=== PATIENT | male | born 1950 | race Caucasian/White ===

== ENCOUNTER 2018-04-28 17:46 | Inpatient (IN) | payer MEDICARE, OTHER ==
[~2018-04-28] VITALS: Ht 177.8 cm; Wt 76.8 kg
--- NOTE | 2018-04-28 18:07 | EKG ---
[address] [address] Test Date: 2018-04-28 Test Time: 17:58:24 Pat Name: CHAZ NOLAND Department: Room: Gender: M Ammonium Nitrate Neutralizer: : 1950 Requested By: CRYSTAL KAN Order Number: [id number] Reading MD: Martin Woody MD Measurements Intervals [place] Rate: 55 P: 42 NV: 206 QRS: 40 QRSD: 100 T: 63 QT: 436 QTc: 419 Interpretive Statements SINUS RHYTHM Electronically Signed On 04-29-2018 12:32:47 CDT by Martin Woody MD
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
[2018-04-28 18:44] LABS: BASO % 1 % (0-3); EOS % 1 % (0-3); HEMATOCRIT 35.7 % (39.0-53.0); LYMPH # 1.7 x10^3/uL (1.0-4.8); LYMPH % 34 % (24-48); MEAN CORPUSCULAR HEMOGLOBIN 32 pg (25-35); MEAN CORPUSCULAR HGB CONC 34 g/dL (31-37); MEAN CORPUSCULAR VOLUME 94 fL (79-100); MONO # 0.6 x10^3/uL (0.0-1.1); MONO % 12 % (0-9); NEUT # 2.6 x10^3uL (1.8-7.7); NEUT % 52 % (31-73); PLATELET COUNT 188 x10^3/uL (140-400); RED BLOOD COUNT 3.79 x10^6/uL (4.30-5.70); RED CELL DISTRIBUTION WIDTH 16.1 % (11.5-14.5)
[2018-04-28 18:49] LABS: ACETAMIN < 2 mcg/mL (10-30); SALIC 0.7 mg/dL (2.8-20.0)
[2018-04-28 18:50] LABS: ALBUMIN 2.9 g/dL (3.4-5.0); ALBUMIN/GLOBULIN RATIO 0.8 (1.0-1.7); CALCIUM 8.8 mg/dL (8.5-10.1); CREATININE 1.2 mg/dL (0.7-1.3); ETHANOL < 10 mg/dL (0-10); GFR 60.2; POTASSIUM 3.8 mmol/L (3.5-5.1); TOTAL BILIRUBIN 0.3 mg/dL (0.2-1.0); TOTAL PROTEIN 6.7 g/dL (6.4-8.2)
[2018-04-28 19:15] LABS: BARBITURATES NEG (NEG); BENZODIAZEPINES NEG (NEG); CANNABINOIDS NEG (NEG); COCAINE NEG (NEG); METHADONE NEG (NEG); OPIATES POS (NEG); PHENCYCLIDINE NEG (NEG)
[2018-04-28] MEDS ORDERED: LORazepam 2 MG/ML VIAL IM ONE (19:15)
[2018-04-28 19:28] LABS: AMPHETAMINE/METHAMPHETAMINE NEG (NEG)
[2018-04-28 19:33] LABS: BACTERIA,URINE 0 /HPF (0-FEW); BILIRUBIN,URINE NEG (NEG); CLARITY,URINE CLEAR; COLOR,URINE YELLOW; GLUCOSE,URINE NEG (NEG); NITRITE,URINE NEG (NEG); RBC,URINE 0 /HPF (0-2); SQUAMOUS EPITHELIAL CELL,UR OCC /LPF; UROBILINOGEN,URINE 0.2 mg/dL (0.2 mg/dL); WBC,URINE 0 /HPF (0-4)
--- NOTE | 2018-04-28 19:51 | RAD ---
PQRS Compliance statement: One or more of the following individualized dose reduction techniques were utilized for this examination: 1. Automated exposure control. 2. Adjustment of the mA and/or kV according to patient size. 3. Use of iterative reconstruction technique. Indication:psych eval for senior behavioral admission, mental status changes TECHNIQUE: CT head without IV contrast COMPARISON:None FINDINGS: No pathologic extra-axial or intra-axial fluid collection. The ventricles and basal cisterns are within normal limits. No acute intracranial bleed. No focal loss of huffman-white differentiation. 4 mm focus of low attenuation in the left thalamus. Orbits within normal limits. No suspicious calvarial lesion. Visualized paranasal sinuses and mastoid air cells are clear. IMPRESSION: 1. No acute intracranial process. If concern for acute ischemic stroke is high, please consider MRI brain. 2. Sub-5 mm focus in the left thalamus likely lacunar infarct, age indeterminate. Electronically signed by: Alexis Tamayo DO (04/28/2018 7:48 PM) [facility]
--- NOTE | 2018-04-28 20:00 | RAD ---
PQRS Compliance statement: One or more of the following individualized dose reduction techniques were utilized for this examination: 1. Automated exposure control. 2. Adjustment of the mA and/or kV according to patient size. 3. Use of iterative reconstruction technique. Indication:thrashing around like in pain, some motion on film but noticed dilated bowel loops on Pelvis xray TECHNIQUE: CT abdomen and pelvis without IV contrast with multiplanar reformats. COMPARISON: None FINDINGS: Limited evaluation of solid abdominal and pelvic organs due to lack of IV contrast. Heart is moderately enlarged in size. No pericardial or pleural effusion. Motion artifact is seen throughout the abdomen limiting optimal evaluation. Lingular and left lower lobe subsegmental atelectasis. Noncontrast appearance of the Liver, spleen, pancreas, adrenals is within normal limits. No nephrolithiasis or hydronephrosis. No enlarged retroperitoneal or pelvic adenopathy. No free pelvic fluid or ascites. Redundant sigmoid colon. Diffusely distended air-filled colon is seen with large amount of stool in the proximal colon. Normal appendix. No pneumatosis intestinalis or pneumoperitoneum. Small bowel loops are nondilated. Urinary bladder within normal limits. The prostate and seminal vesicles show no large mass. Small sliding hiatal hernia. Bilateral L5 pars defect with grade 1 anterolisthesis of L5 over S1. No suspicious bony lesion. IMPRESSION: Limited evaluation of solid abdominal and pelvic organs due to lack of IV contrast. Significant motion artifact is seen limiting optimal evaluation. 1. Diffusely distended gas-filled colon with large amount of stool in the proximal colon suggests colonic ileus. No evidence of small bowel obstruction. Electronically signed by: Alexis Tamayo DO (04/28/2018 7:58 PM) [facility]
--- NOTE | 2018-04-28 20:56 | RAD ---
Indication: Left hip pain TECHNIQUE: 3 views of the left hand COMPARISON: None FINDINGS: No acute fracture or dislocation. Hip joints are symmetric bilaterally with mild joint space narrowing and somatically sclerosis in the acetabulum suggesting mild bilateral hip joint arthritis. IMPRESSION: No acute findings. Electronically signed by: Alexis Tamayo DO (04/28/2018 8:53 PM) [facility]
[2018-04-28] MEDS ORDERED: TOPI100T42 PO (22:08)
[2018-04-28] MEDS ORDERED: DIPH25CA58 PO (22:08)
[2018-04-28] MEDS ORDERED: METO25TA4 PO (22:08)
[2018-04-28] MEDS ORDERED: IPRA0.2S5 IH (22:08)
[2018-04-28] MEDS ORDERED: LACT10SO PO (22:08)
[2018-04-28] MEDS ORDERED: DOXA2TAB PO (22:08)
[2018-04-28] MEDS ORDERED: AMAN100T PO (22:08)
[2018-04-28] MEDS ORDERED: HYDR-2758 PO (22:08)
[2018-04-28] MEDS ORDERED: LORA0.5T PO (22:08)
[2018-04-28] MEDS ORDERED: SODI650T PO (22:08)
[2018-04-28] MEDS ORDERED: TAMS0.4C97 PO (22:08)
[2018-04-28] MEDS ORDERED: PANT40TA3 PO (22:08)
[2018-04-28] MEDS ORDERED: IPRA3AMP29 NEB ×2 (22:08)
[2018-04-28] MEDS ORDERED: DOCU50LI PO (22:08)
[2018-04-28] MEDS ORDERED: CAST120O TP (22:08)
[2018-04-28] MEDS ORDERED: BENZ2TAB5 PO (22:08)
[2018-04-28] MEDS ORDERED: ACET325T9 PO (22:08)
[2018-04-28] MEDS ORDERED: FAMO20TA5 PO (22:08)
[2018-04-28] MEDS ORDERED: NYST15CR TP (22:08)
[2018-04-28] MEDS ORDERED: ACETAMINOPHEN 325 MG TABLET PO PRN ×2 (23:15→23:45)
[2018-04-28] MEDS ORDERED: METHYL SALICYLATE/MENTHOL TOPICAL OINTMENT 29GM TUBE. TP PRN (23:15)
[2018-04-28] MEDS ORDERED: MAG HYDROX/AL HYDROX/SIMETH 30 ML ORAL.SUSP PO PRN (23:15)
[2018-04-28] MEDS ORDERED: NYSTATIN 100,000 UNIT/GM TOPICAL CREAM 15GM TUBE. TP PRN (23:45)
[2018-04-28] MEDS ORDERED: LACTULOSE 20 GM/30 ML SOLUTION. PO PRN (23:45)
[2018-04-28] MEDS ORDERED: SODIUM BICARBONATE 650 MG TABLET PO PRN (23:45)
[2018-04-29] MEDS: LORazepam 0.5 MG TABLET PO PRN ×2 (00:02→18:45)
[2018-04-29] MEDS: IPRATROPIUM BROMIDE 0.5 MG/2.5 ML NEBU. IH SCH ×5 (00:30→21:04)
[2018-04-29 01:16] VITALS: BP 138/76
[2018-04-29 06:01] VITALS: BP 131/80
[2018-04-29] MEDS: NICOTINE 7MG PATCH. TD SCH (09:53)
[2018-04-29] MEDS: TOPIRAMATE 100 MG TABLET. PO SCH (09:53)
[2018-04-29] MEDS: FAMOTIDINE 20 MG TABLET PO SCH ×2 (09:53→20:27)
[2018-04-29] MEDS: DOCUSATE 100 MG/10 ML SOLUTION. PO SCH ×2 (09:53→20:27)
[2018-04-29] MEDS: PANTOPRAZOLE 40 MG TABLET. PO SCH (09:53)
[2018-04-29] MEDS: TAMSULOSIN 0.4 MG CAP.ER.24H. PO SCH (09:54)
[2018-04-29] MEDS: METOPROLOL TART IMMED RELEASE 25 MG TABLET PO SCH ×2 (09:54→20:28)
[2018-04-29] MEDS: diphenhydrAMINE HCL 25 MG CAPSULE PO SCH ×3 (09:54→20:27)
[2018-04-29] MEDS: BENZTROPINE MESYLATE 1 MG TABLET PO SCH ×2 (09:55→20:27)
[2018-04-29] MEDS: AMANTADINE HCL 100 MG CAPSULE PO SCH ×2 (10:03→20:30)
[2018-04-29 16:25] VITALS: BP 126/89
[2018-04-29 19:13] LABS: THYROXINE 8.3 ug/dL (4.5-12.0)
[2018-04-29] MEDS: DOXAZOSIN MESYLATE 1 MG TABLET PO SCH (20:30)
--- NOTE | 2018-04-29 21:08 | PDOC ---
Exam Note: Elijah Note: Please also refer to the separate dictated note~for this date of service dictated separately.~Patient seen individually. Discussed the patient with Nursing staff reviewed the chart.~Reviewed interim history and current functioning. Reviewed vital signs,~Labs/ Radiology~and current medications noted below. Continue current treatment with the changes noted in the dictated addendum note Assessment: Vital Signs: Vital Signs Date Time Temp Pulse Resp B/P (MAP) Pulse Ox O2 Delivery O2 Flow Rate FiO2 04/29/18 21:05 97 Room Air 04/29/18 20:30 62 126/89 04/29/18 16:25 97.0 19 I&O Intake and Output 04/29/18 07:00 Intake Total 120 ml Balance 120 ml Intake Oral 120 ml # Voids 1 Current Medications: Meds: Current Medications Lorazepam (Ativan) 2 mg 1X ONCE IM ; Start 04/28/18 at 19:15; Stop 04/28/18 at 19:17; Status DC Acetaminophen (Tylenol) 650 mg PRN Q6HRS PRN PO PAIN / TEMP; Start 04/28/18 at 23:15 Multi-Ingredient Ointment (Analgesic [place]anger) 1 rupert PRN QID PRN TP MUSCLE PAIN; Start 04/28/18 at 23:15 Al Hydroxide/Mg Hydroxide (Mylanta Plus Xs) 15 ml PRN AFTMEALHC PRN PO DYSPEPSIA; Start 04/28/18 at 23:15 Magnesium Hydroxide (Milk Of Magnesia) 2,400 mg PRN QHS PRN PO CONSTIPATION; Start 04/28/18 at 23:15 Lorazepam (Ativan) 0.5 mg PRN Q4HRS PRN PO ANXIETY / AGITATION Last administered on 04/29/18at 18:45; Start 04/28/18 at 23:30 Acetaminophen (Tylenol) 325 mg PRN Q6HRS PRN PO PAIN / TEMP; Start 04/28/18 at 23:45 Diphenhydramine HCl (Benadryl) 25 mg TID PO Last administered on 04/29/18at 20: 27; Start 04/29/18 at 09:00 Docusate Sodium (Colace Solution) 100 mg BID PO Last administered on 04/29/18at 20:27; Start 04/29/18 at 09:00 Ipratropium Harvest (Atrovent) 0.5 mg Q6HRS IH Last administered on 04/29/18 21:04; Start 04/29/18 at 00:30 Metoprolol Tartrate (Lopressor) 25 mg BID PO Last administered on 04/29/18 20: 28; Start 04/29/18 at 09:00 Tamsulosin HCl (Flomax) 0.4 mg DAILY PO Last administered on 04/29/18 09:54; Start 04/29/18 at 09:00 Amantadine HCl (Symmetrel) 100 mg BID PO Last administered on 04/29/18 20:30; Start 04/29/18 at 09:00 Benztropine Mesylate (Cogentin) 2 mg BID PO Last administered on 04/29/18 20: 27; Start 04/29/18 at 09:00 Doxazosin Mesylate (Cardura) 1 mg QHS PO Last administered on 04/29/18 20:30; Start 04/29/18 at 21:00 Famotidine (Pepcid) 20 mg BID PO Last administered on 04/29/18 20:27; Start at 09:00 Acetaminophen/ Hydrocodone Bitart (Lortab 5/325) 1 tab PRN Q4HRS PRN PO PAIN; Start 04/28/18 at 23:45 Lactulose (Lactulose) 20 gm PRN TID PRN PO CONSTIPATION; Start 04/28/18 at 23: 45 Nystatin (Mycostatin) 1 rupert PRN Q12HR PRN TP ANTIFUNGAL F/RASH; Start 04/28/18 at 23:45 Pantoprazole Sodium (Protonix) 40 mg DAILYAC PO Last administered on 04/29/18at 09:53; Start 04/29/18 at 07:30 Sodium Bicarbonate 650 mg PRN Q24HRS PRN PO GI SYMPTOMS; Start 04/28/18 at 23: 45 Topiramate (Topamax) 100 mg DAILY PO Last administered on 04/29/18 09:53; Start 04/29/18 at 09:00 Nicotine (Nicoderm Cq 7mg) 1 patch DAILY TD Last administered on 04/29/18 09: 53; Start 04/29/18 at 09:00 Lidocaine (Lidoderm) 1 patch DAILY TD ; Start 04/30/18 at 09:00 Miscellaneous (Lidoderm Patch Removal) 1 ea QHS ; Start 04/30/18 at 21:00 Active Scripts Active Reported Topamax (Topiramate) 100 Mg Tablet 100 Mg PO DAILY Sodium Bicarbonate 650 Mg Tablet 650 Mg PO PRN Q24HRS PRN Protonix (Pantoprazole Sodium) 40 Mg Tablet.dr 40 Mg PO DAILY Lorazepam 0.5 Mg Tablet 0.5 Mg PO PRN Q4HRS PRN Nystatin 15 Gm Cream..g. 1 Rupert TP PRN Q12HR PRN Metoprolol Tartrate 25 Mg Tablet 25 Mg PO BID Lactulose 10 Gm/15 Ml Solution 30 Ml PO Ipratropium Harvest 0.2 Mg/1 Ml Solution 0.5 Mg IH Q6HRS Hydrocodone-Apap 5-325 (Hydrocodone Bit/Acetaminophen) 1 Each Tablet 1 Tab PO PRN Q4HRS PRN Flomax (Tamsulosin Hcl) 0.4 Mg Cap.er.24h 0.4 Mg PO DAILY Famotidine 20 Mg Tablet 20 Mg PO BID Duoneb 0.5-3(2.5) Mg/3 Ml (Albuterol/Ipratropium) 3 Ml Ampul.neb 1 Vial NEB QID Duoneb 0.5-3(2.5) Mg/3 Ml (Albuterol/Ipratropium) 3 Ml Ampul.neb 1 Vial NEB PRN Q4HRS PRN Docusate Sodium 50 Mg/5 Ml Liquid 10 Ml PO BID [place] Oil 118 Ml Oil 1 Rupert TP BID 3 Days Cardura (Doxazosin Mesylate) 2 Mg Tablet 1 Mg PO QHS Benztropine Mesylate 2 Mg Tablet 2 Mg PO BID Benadryl (Diphenhydramine Hcl) 25 Mg Capsule 25 Mg PO TID Amantadine (Amantadine Hcl) 100 Mg Tablet 100 Mg PO BID Tylenol (Acetaminophen) 325 Mg Tablet 325 Mg PO PRN Q6HRS PRN I have reviewed the current psychotropics carefully including drug interactions. Risk benefit ratio favors no change other than as noted in my dictated progress note. Diagnosis: Problems: (1) Contusion of left hip (2) Aggressive behavior of adult (3) Geriatric psychosis (4) Decubitus ulcer of sacral region, stage 1 CHOCO JERRY MD Apr 29, 2018 21:08
[2018-04-30] MEDS: LORazepam 0.5 MG TABLET PO PRN ×2 (00:38→15:19)
[2018-04-30 04:09] LABS: HEMOGLOBIN A1C 5.3 % (4.8-5.6)
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
[2018-04-30] MEDS: IPRATROPIUM BROMIDE 0.5 MG/2.5 ML NEBU. IH SCH ×4 (05:28→21:05)
[2018-04-30 06:03] VITALS: BP 123/70
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
[2018-04-30] MEDS: BENZTROPINE MESYLATE 1 MG TABLET PO SCH ×2 (08:01→19:45)
[2018-04-30] MEDS: NICOTINE 7MG PATCH. TD SCH (08:02)
[2018-04-30] MEDS: TAMSULOSIN 0.4 MG CAP.ER.24H. PO SCH (08:02)
[2018-04-30] MEDS: TOPIRAMATE 100 MG TABLET. PO SCH (08:02)
[2018-04-30] MEDS: FAMOTIDINE 20 MG TABLET PO SCH ×2 (08:02→19:44)
[2018-04-30] MEDS: DOCUSATE 100 MG/10 ML SOLUTION. PO SCH ×2 (08:02→19:45)
[2018-04-30] MEDS: diphenhydrAMINE HCL 25 MG CAPSULE PO SCH ×3 (08:02→19:44)
[2018-04-30] MEDS: PANTOPRAZOLE 40 MG TABLET. PO SCH (08:02)
[2018-04-30] MEDS: METOPROLOL TART IMMED RELEASE 25 MG TABLET PO SCH ×2 (08:03→19:45)
[2018-04-30] MEDS: LIDOCAINE (700MG/PATCH) PATCH. TD SCH (08:03)
[2018-04-30] MEDS: AMANTADINE HCL 100 MG CAPSULE PO SCH ×2 (08:04→21:00)
[2018-04-30 16:20] VITALS: BP 129/75
--- NOTE | 2018-04-30 20:58 | PDOC ---
Exam Note: Elijah Note: Please also refer to the separate dictated note~for this date of service dictated separately.~Patient seen individually. Discussed the patient with Nursing staff reviewed the chart.~Reviewed interim history and current functioning. Reviewed vital signs,~Labs/ Radiology~and current medications noted below. Continue current treatment with the changes noted in the dictated addendum note Assessment: Vital Signs: Vital Signs Date Time Temp Pulse Resp B/P (MAP) Pulse Ox O2 Delivery O2 Flow Rate FiO2 04/30/18 19:45 62 129/75 04/30/18 16:20 97.4 20 100 04/30/18 11:22 Room Air I&O Intake and Output 04/30/18 07:00 Intake Total 720 ml Balance 720 ml Intake Oral 720 ml # Voids 1 # Bowel Movements 1 Current Medications: Meds: Current Medications Lorazepam (Ativan) 2 mg 1X ONCE IM ; Start 04/28/18 at 19:15; Stop 04/28/18 at 19:17; Status DC Acetaminophen (Tylenol) 650 mg PRN Q6HRS PRN PO PAIN / TEMP; Start 04/28/18 at 23:15 Multi-Ingredient Ointment (Analgesic [place]) 1 rupert PRN QID PRN TP MUSCLE PAIN; Start 04/28/18 at 23:15 Al Hydroxide/Mg Hydroxide (Mylanta Plus Xs) 15 ml PRN AFTMEALHC PRN PO DYSPEPSIA; Start 04/28/18 at 23:15 Magnesium Hydroxide (Milk Of Magnesia) 2,400 mg PRN QHS PRN PO CONSTIPATION; Start 04/28/18 at 23:15 Lorazepam (Ativan) 0.5 mg PRN Q4HRS PRN PO ANXIETY / AGITATION Last administered on 04/30/18at 15:19; Start 04/28/18 at 23:30 Acetaminophen (Tylenol) 325 mg PRN Q6HRS PRN PO PAIN / TEMP; Start 04/28/18 at 23:45 Diphenhydramine HCl (Benadryl) 25 mg TID PO Last administered on 04/30/18at 19: 44; Start 04/29/18 at 09:00 Docusate Sodium (Colace Solution) 100 mg BID PO Last administered on 04/30/18at 19:45; Start 04/29/18 at 09:00 Ipratropium [place] (Atrovent) 0.5 mg Q6HRS IH Last administered on 04/30/18 11:22; Start 04/29/18 at 00:30 Metoprolol Tartrate (Lopressor) 25 mg BID PO Last administered on 04/30/18 19: 45; Start 04/29/18 at 09:00 Tamsulosin HCl (Flomax) 0.4 mg DAILY PO Last administered on 04/30/18 08:02; Start 04/29/18 at 09:00 Amantadine HCl (Symmetrel) 100 mg BID PO Last administered on 04/30/18 08:04; Start 04/29/18 at 09:00 Benztropine Mesylate (Cogentin) 2 mg BID PO Last administered on 04/30/18 19: 45; Start 04/29/18 at 09:00 Doxazosin Mesylate (Cardura) 1 mg QHS PO Last administered on 04/29/18 20:30; Start 04/29/18 at 21:00 Famotidine (Pepcid) 20 mg BID PO Last administered on 04/30/18 19:44; Start at 09:00 Acetaminophen/ Hydrocodone Bitart (Lortab 5/325) 1 tab PRN Q4HRS PRN PO PAIN; Start 04/28/18 at 23:45 Lactulose (Lactulose) 20 gm PRN TID PRN PO CONSTIPATION; Start 04/28/18 at 23: 45 Nystatin (Mycostatin) 1 rupert PRN Q12HR PRN TP ANTIFUNGAL F/RASH; Start 04/28/18 at 23:45 Pantoprazole Sodium (Protonix) 40 mg DAILYAC PO Last administered on 04/30/18 08:02; Start 04/29/18 at 07:30 Sodium Bicarbonate 650 mg PRN Q24HRS PRN PO GI SYMPTOMS; Start 04/28/18 at 23: 45 Topiramate (Topamax) 100 mg DAILY PO Last administered on 04/30/18 08:02; Start 04/29/18 at 09:00 Nicotine (Nicoderm Cq 7mg) 1 patch DAILY TD Last administered on 04/30/18 08: 02; Start 04/29/18 at 09:00 Lidocaine (Lidoderm) 1 patch DAILY TD Last administered on 8/30/18at 08:03; Start 04/30/18 at 09:00 Miscellaneous (Lidoderm Patch Removal) 1 ea QHS MC ; Start 04/30/18 at 21:00 Active Scripts Active Reported Topamax (Topiramate) 100 Mg Tablet 100 Mg PO DAILY Sodium Bicarbonate 650 Mg Tablet 650 Mg PO PRN Q24HRS PRN Protonix (Pantoprazole Sodium) 40 Mg Tablet.dr 40 Mg PO DAILY Lorazepam 0.5 Mg Tablet 0.5 Mg PO PRN Q4HRS PRN Nystatin 15 Gm Cream..g. 1 Rupert TP PRN Q12HR PRN Metoprolol Tartrate 25 Mg Tablet 25 Mg PO BID Lactulose 10 Gm/15 Ml Solution 30 Ml PO Ipratropium [place] 0.2 Mg/1 Ml Solution 0.5 Mg IH Q6HRS Hydrocodone-Apap 5-325 (Hydrocodone Bit/Acetaminophen) 1 Each Tablet 1 Tab PO PRN Q4HRS PRN Flomax (Tamsulosin Hcl) 0.4 Mg Cap.er.24h 0.4 Mg PO DAILY Famotidine 20 Mg Tablet 20 Mg PO BID Duoneb 0.5-3(2.5) Mg/3 Ml (Albuterol/Ipratropium) 3 Ml Ampul.neb 1 Vial NEB QID Duoneb 0.5-3(2.5) Mg/3 Ml (Albuterol/Ipratropium) 3 Ml Ampul.neb 1 Vial NEB PRN Q4HRS PRN Docusate Sodium 50 Mg/5 Ml Liquid 10 Ml PO BID [place] Oil 118 Ml Oil 1 Rupert TP BID 3 Days Cardura (Doxazosin Mesylate) 2 Mg Tablet 1 Mg PO QHS Benztropine Mesylate 2 Mg Tablet 2 Mg PO BID Benadryl (Diphenhydramine Hcl) 25 Mg Capsule 25 Mg PO TID Amantadine (Amantadine Hcl) 100 Mg Tablet 100 Mg PO BID Tylenol (Acetaminophen) 325 Mg Tablet 325 Mg PO PRN Q6HRS PRN I have reviewed the current psychotropics carefully including drug interactions. Risk benefit ratio favors no change other than as noted in my dictated progress note. Diagnosis: Problems: (1) Contusion of left hip (2) Aggressive behavior of adult (3) Geriatric psychosis (4) Decubitus ulcer of sacral region, stage 1 CHOCO JERRY MD Apr 30, 2018 20:58
[2018-04-30] MEDS: DOXAZOSIN MESYLATE 1 MG TABLET PO SCH (21:00)
[2018-04-30] MEDS: PATCH REMOVAL. MC SCH (21:00)
[2018-05-01] MEDS: LORazepam 0.5 MG TABLET PO PRN ×3 (02:25→17:34)
[2018-05-01] MEDS: IPRATROPIUM BROMIDE 0.5 MG/2.5 ML NEBU. IH SCH ×4 (05:36→20:45)
[2018-05-01 08:27] VITALS: BP 141/82
[2018-05-01] MEDS: DOCUSATE 100 MG/10 ML SOLUTION. PO SCH ×2 (08:34→19:22)
[2018-05-01] MEDS: METOPROLOL TART IMMED RELEASE 25 MG TABLET PO SCH ×2 (08:34→19:22)
[2018-05-01] MEDS: PANTOPRAZOLE 40 MG TABLET. PO SCH (08:34)
[2018-05-01] MEDS: FAMOTIDINE 20 MG TABLET PO SCH ×2 (08:34→19:23)
[2018-05-01] MEDS: NICOTINE 7MG PATCH. TD SCH (08:34)
[2018-05-01] MEDS: diphenhydrAMINE HCL 25 MG CAPSULE PO SCH ×3 (08:35→19:21)
[2018-05-01] MEDS: LIDOCAINE (700MG/PATCH) PATCH. TD SCH (08:35)
[2018-05-01] MEDS: TAMSULOSIN 0.4 MG CAP.ER.24H. PO SCH (08:35)
[2018-05-01] MEDS: TOPIRAMATE 100 MG TABLET. PO SCH (08:35)
[2018-05-01] MEDS: BENZTROPINE MESYLATE 1 MG TABLET PO SCH ×2 (08:35→19:23)
[2018-05-01] MEDS: AMANTADINE HCL 100 MG CAPSULE PO SCH ×2 (08:35→19:19)
[2018-05-01 15:49] VITALS: BP 114/66
[2018-05-01] MEDS: DOXAZOSIN MESYLATE 1 MG TABLET PO SCH (19:20)
[2018-05-01] MEDS: cloZAPine 25 MG TABLET PO SCH (19:46)
[2018-05-01] MEDS: PATCH REMOVAL. MC SCH (19:46)
[2018-05-01] MEDS: MIRTAZAPINE 7.5 MG TABLET. PO SCH (19:46)
--- NOTE | 2018-05-01 20:56 | PDOC ---
Exam Note: Elijah Note: Please also refer to the separate dictated note~for this date of service dictated separately.~Patient seen individually. Discussed the patient with Nursing staff reviewed the chart.~Reviewed interim history and current functioning. Reviewed vital signs,~Labs/ Radiology~and current medications noted below. Continue current treatment with the changes noted in the dictated addendum note Assessment: Vital Signs: Vital Signs Date Time Temp Pulse Resp B/P (MAP) Pulse Ox O2 Delivery O2 Flow Rate FiO2 05/01/18 20:47 93 Room Air 05/01/18 19:22 60 114/66 05/01/18 15:49 98.0 20 I&O Intake and Output 05/01/18 07:00 Intake Total 1300 ml Balance 1300 ml Intake Oral 1300 ml Current Medications: Meds: Current Medications Lorazepam (Ativan) 2 mg 1X ONCE IM ; Start 04/28/18 at 19:15; Stop 04/28/18 at 19:17; Status DC Acetaminophen (Tylenol) 650 mg PRN Q6HRS PRN PO PAIN / TEMP; Start 04/28/18 at 23:15 Multi-Ingredient Ointment (Analgesic [place]) 1 rupert PRN QID PRN TP MUSCLE PAIN; Start 04/28/18 at 23:15 Al Hydroxide/Mg Hydroxide (Mylanta Plus Xs) 15 ml PRN AFTMEALHC PRN PO DYSPEPSIA; Start 04/28/18 at 23:15 Magnesium Hydroxide (Milk Of Magnesia) 2,400 mg PRN QHS PRN PO CONSTIPATION; Start 04/28/18 at 23:15 Lorazepam (Ativan) 0.5 mg PRN Q4HRS PRN PO ANXIETY / AGITATION Last administered on 05/01/18at 17:34; Start 04/28/18 at 23:30 Acetaminophen (Tylenol) 325 mg PRN Q6HRS PRN PO PAIN / TEMP; Start 04/28/18 at 23:45 Diphenhydramine HCl (Benadryl) 25 mg TID PO Last administered on 05/01/18at 19: 21; Start 04/29/18 at 09:00 Docusate Sodium (Colace Solution) 100 mg BID PO Last administered on 05/01/18at 19:22; Start 04/29/18 at 09:00 Ipratropium [place] (Atrovent) 0.5 mg Q6HRS IH Last administered on 05/01/18 20:45; Start 04/29/18 at 00:30 Metoprolol Tartrate (Lopressor) 25 mg BID PO Last administered on 05/01/18 19: 22; Start 04/29/18 at 09:00 Tamsulosin HCl (Flomax) 0.4 mg DAILY PO Last administered on 05/01/18 08:35; Start 04/29/18 at 09:00 Amantadine HCl (Symmetrel) 100 mg BID PO Last administered on 05/01/18 19:19; Start 04/29/18 at 09:00 Benztropine Mesylate (Cogentin) 2 mg BID PO Last administered on 05/01/18 19: 23; Start 04/29/18 at 09:00 Doxazosin Mesylate (Cardura) 1 mg QHS PO Last administered on 05/01/18 19:20; Start 04/29/18 at 21:00 Famotidine (Pepcid) 20 mg BID PO Last administered on 05/01/18 19:23; Start at 09:00 Acetaminophen/ Hydrocodone Bitart (Lortab 5/325) 1 tab PRN Q4HRS PRN PO PAIN; Start 04/28/18 at 23:45 Lactulose (Lactulose) 20 gm PRN TID PRN PO CONSTIPATION; Start 04/28/18 at 23: 45 Nystatin (Mycostatin) 1 rupert PRN Q12HR PRN TP ANTIFUNGAL F/RASH; Start 04/28/18 at 23:45 Pantoprazole Sodium (Protonix) 40 mg DAILYAC PO Last administered on 05/01/18 08:34; Start 04/29/18 at 07:30 Sodium Bicarbonate 650 mg PRN Q24HRS PRN PO GI SYMPTOMS; Start 04/28/18 at 23: 45 Topiramate (Topamax) 100 mg DAILY PO Last administered on 05/01/18 08:35; Start 04/29/18 at 09:00 Nicotine (Nicoderm Cq 7mg) 1 patch DAILY TD Last administered on 05/01/18 08: 34; Start 04/29/18 at 09:00 Lidocaine (Lidoderm) 1 patch DAILY TD Last administered on 05/01/18 08:35; Start 04/30/18 at 09:00 Miscellaneous (Lidoderm Patch Removal) 1 ea QHS MC Last administered on at 19:46; Start 04/30/18 at 21:00 Mirtazapine (Remeron) 7.5 mg QHS PO Last administered on 05/01/18at 19:46; Start 05/01/18 at 21:00 Clozapine (Clozaril) 25 mg QHS PO Last administered on 05/01/18at 19:46; Start 05/01/18 at 21:00 Active Scripts Active Reported Topamax (Topiramate) 100 Mg Tablet 100 Mg PO DAILY Sodium Bicarbonate 650 Mg Tablet 650 Mg PO PRN Q24HRS PRN Protonix (Pantoprazole Sodium) 40 Mg Tablet.dr 40 Mg PO DAILY Lorazepam 0.5 Mg Tablet 0.5 Mg PO PRN Q4HRS PRN Nystatin 15 Gm Cream..g. 1 Rupert TP PRN Q12HR PRN Metoprolol Tartrate 25 Mg Tablet 25 Mg PO BID Lactulose 10 Gm/15 Ml Solution 30 Ml PO Ipratropium [place] 0.2 Mg/1 Ml Solution 0.5 Mg IH Q6HRS Hydrocodone-Apap 5-325 (Hydrocodone Bit/Acetaminophen) 1 Each Tablet 1 Tab PO PRN Q4HRS PRN Flomax (Tamsulosin Hcl) 0.4 Mg Cap.er.24h 0.4 Mg PO DAILY Famotidine 20 Mg Tablet 20 Mg PO BID Duoneb 0.5-3(2.5) Mg/3 Ml (Albuterol/Ipratropium) 3 Ml Ampul.neb 1 Vial NEB QID Duoneb 0.5-3(2.5) Mg/3 Ml (Albuterol/Ipratropium) 3 Ml Ampul.neb 1 Vial NEB PRN Q4HRS PRN Docusate Sodium 50 Mg/5 Ml Liquid 10 Ml PO BID [place] Oil 118 Ml Oil 1 Rupert TP BID 3 Days Cardura (Doxazosin Mesylate) 2 Mg Tablet 1 Mg PO QHS Benztropine Mesylate 2 Mg Tablet 2 Mg PO BID Benadryl (Diphenhydramine Hcl) 25 Mg Capsule 25 Mg PO TID Amantadine (Amantadine Hcl) 100 Mg Tablet 100 Mg PO BID Tylenol (Acetaminophen) 325 Mg Tablet 325 Mg PO PRN Q6HRS PRN I have reviewed the current psychotropics carefully including drug interactions. Risk benefit ratio favors no change other than as noted in my dictated progress note. Diagnosis: Problems: (1) Contusion of left hip (2) Aggressive behavior of adult (3) Geriatric psychosis (4) Decubitus ulcer of sacral region, stage 1 CHOCO JERRY MD May 01, 2018 20:56
--- NOTE | 2018-05-02 04:57 | PN ---
DATE: 04/30/2018 PSYCHIATRIC PROGRESS NOTE This is a late entry for 04/30/2018, covers elements not covered in my initial note. SUBJECTIVE: I met with the patient in the evening and he was staffed at treatment team meeting with the entire team in the morning. We had invited Jessica, his guardian, to attend. We attempted to get her on the telephone, she was unavailable. He is a possible aspiration risk and swallow study is awaited. His history revealed that in the past, he would just watch television and drink Pepsi and has a long history of chronic paranoid schizophrenia. Recently, he has had movement disorder complicating, resulting in the discontinuation of his antipsychotics, worsening of his psychosis consequently with significant exacerbation, prompting this hospitalization. REVIEW OF SYSTEMS: Ambulation impaired, in Broda chair. No CV, , pulmonary, eye, ENT system symptoms on review. Reliability poor. MENTAL STATUS EXAM: Oriented to himself. Insight, judgment, recent and remote memory, attention, concentration, fund of knowledge poor, consistent with his diagnosis. IMPRESSION: Unchanged from initial note. PLAN: No change from initial note, but we may consider adding Clozaril low dose for his psychosis given his above diagnosis. CHOCO JERRY MD DR: BRIELLE/naman JOB#: [id number] / [id number]
[2018-05-02] MEDS: IPRATROPIUM BROMIDE 0.5 MG/2.5 ML NEBU. IH SCH ×3 (05:52→16:51)
[2018-05-02 06:31] VITALS: BP 146/90
[2018-05-02] MEDS: PANTOPRAZOLE 40 MG TABLET. PO SCH ×2 (07:30→08:53)
[2018-05-02] MEDS: BENZTROPINE MESYLATE 1 MG TABLET PO SCH ×3 (08:54→19:29)
[2018-05-02] MEDS: diphenhydrAMINE HCL 25 MG CAPSULE PO SCH ×3 (08:54→19:32)
[2018-05-02] MEDS: DOCUSATE 100 MG/10 ML SOLUTION. PO SCH ×3 (08:54→19:29)
[2018-05-02] MEDS: METOPROLOL TART IMMED RELEASE 25 MG TABLET PO SCH ×3 (08:55→19:30)
[2018-05-02] MEDS: TAMSULOSIN 0.4 MG CAP.ER.24H. PO SCH ×2 (08:55→09:00)
[2018-05-02] MEDS: FAMOTIDINE 20 MG TABLET PO SCH ×3 (08:56→19:29)
[2018-05-02] MEDS: TOPIRAMATE 100 MG TABLET. PO SCH ×2 (08:56→09:00)
[2018-05-02] MEDS: LIDOCAINE (700MG/PATCH) PATCH. TD SCH ×2 (08:56→09:00)
[2018-05-02] MEDS: NICOTINE 7MG PATCH. TD SCH ×2 (08:56→09:00)
[2018-05-02] MEDS: AMANTADINE HCL 100 MG CAPSULE PO SCH ×3 (08:58→19:31)
[2018-05-02 16:46] VITALS: BP 149/86
[2018-05-02] MEDS: MIRTAZAPINE 7.5 MG TABLET. PO SCH (19:28)
[2018-05-02] MEDS: PATCH REMOVAL. MC SCH (19:28)
[2018-05-02] MEDS: cloZAPine 25 MG TABLET PO SCH (19:29)
[2018-05-02] MEDS: DOXAZOSIN MESYLATE 1 MG TABLET PO SCH (19:32)
[2018-05-02] MEDS: LORazepam 0.5 MG TABLET PO PRN (22:20)
--- NOTE | 2018-05-02 23:12 | PDOC ---
Exam Note: Elijah Note: Please also refer to the separate dictated note~for this date of service dictated separately.~Patient seen individually. Discussed the patient with Nursing staff reviewed the chart.~Reviewed interim history and current functioning. Reviewed vital signs,~Labs/ Radiology~and current medications noted below. Continue current treatment with the changes noted in the dictated addendum note Assessment: Vital Signs: Vital Signs Date Time Temp Pulse Resp B/P (MAP) Pulse Ox O2 Delivery O2 Flow Rate FiO2 05/02/18 19:32 80 149/86 05/02/18 16:46 96.7 22 100 05/02/18 11:21 Room Air I&O Intake and Output 05/02/18 07:00 Intake Total 240 ml Balance 240 ml Intake Oral 240 ml # Bowel Movements 1 Current Medications: Meds: Current Medications Lorazepam (Ativan) 2 mg 1X ONCE IM ; Start 04/28/18 at 19:15; Stop 04/28/18 at 19:17; Status DC Acetaminophen (Tylenol) 650 mg PRN Q6HRS PRN PO PAIN / TEMP; Start 04/28/18 at 23:15 Multi-Ingredient Ointment (Analgesic [place]) 1 rupert PRN QID PRN TP MUSCLE PAIN; Start 04/28/18 at 23:15 Al Hydroxide/Mg Hydroxide (Mylanta Plus Xs) 15 ml PRN AFTMEALHC PRN PO DYSPEPSIA; Start 04/28/18 at 23:15 Magnesium Hydroxide (Milk Of Magnesia) 2,400 mg PRN QHS PRN PO CONSTIPATION; Start 04/28/18 at 23:15 Lorazepam (Ativan) 0.5 mg PRN Q4HRS PRN PO ANXIETY / AGITATION Last administered on 05/02/18at 22:20; Start 04/28/18 at 23:30 Acetaminophen (Tylenol) 325 mg PRN Q6HRS PRN PO PAIN / TEMP; Start 04/28/18 at 23:45 Diphenhydramine HCl (Benadryl) 25 mg TID PO Last administered on 05/02/18at 19:32 ; Start 04/29/18 at 09:00 Docusate Sodium (Colace Solution) 100 mg BID PO Last administered on 05/02/18at 19:29; Start 04/29/18 at 09:00 Ipratropium [place] (Atrovent) 0.5 mg Q6HRS IH Last administered on 05/02/18 11 :21; Start 04/29/18 at 00:30 Metoprolol Tartrate (Lopressor) 25 mg BID PO Last administered on 05/02/18 19: 30; Start 04/29/18 at 09:00 Tamsulosin HCl (Flomax) 0.4 mg DAILY PO Last administered on 05/01/18 08:35; Start 04/29/18 at 09:00 Amantadine HCl (Symmetrel) 100 mg BID PO Last administered on 05/02/18 19:31; Start 04/29/18 at 09:00 Benztropine Mesylate (Cogentin) 2 mg BID PO Last administered on 05/02/18 19:29 ; Start 04/29/18 at 09:00 Doxazosin Mesylate (Cardura) 1 mg QHS PO Last administered on 05/02/18 19:32; Start 04/29/18 at 21:00 Famotidine (Pepcid) 20 mg BID PO Last administered on 05/02/18 19:29; Start at 09:00 Acetaminophen/ Hydrocodone Bitart (Lortab 5/325) 1 tab PRN Q4HRS PRN PO PAIN; Start 04/28/18 at 23:45 Lactulose (Lactulose) 20 gm PRN TID PRN PO CONSTIPATION; Start 04/28/18 at 23: 45 Nystatin (Mycostatin) 1 rupert PRN Q12HR PRN TP ANTIFUNGAL F/RASH; Start 04/28/18 at 23:45 Pantoprazole Sodium (Protonix) 40 mg DAILYAC PO Last administered on 05/01/18at 08:34; Start 04/29/18 at 07:30 Sodium Bicarbonate 650 mg PRN Q24HRS PRN PO GI SYMPTOMS; Start 04/28/18 at 23: 45 Topiramate (Topamax) 100 mg DAILY PO Last administered on 05/01/18 08:35; Start 04/29/18 at 09:00 Nicotine (Nicoderm Cq 7mg) 1 patch DAILY TD Last administered on 05/01/18at 08: 34; Start 04/29/18 at 09:00; Stop 05/02/18 at 15:53; Status DC Lidocaine (Lidoderm) 1 patch DAILY TD Last administered on 05/01/18at 08:35; Start 04/30/18 at 09:00 Miscellaneous (Lidoderm Patch Removal) 1 ea QHS MC Last administered on at 19:28; Start 04/30/18 at 21:00 Mirtazapine (Remeron) 7.5 mg QHS PO Last administered on 05/02/18 19:28; Start 05/01/18 at 21:00 Clozapine (Clozaril) 25 mg QHS PO Last administered on 05/02/18 19:29; Start at 21:00 Active Scripts Active Reported Topamax (Topiramate) 100 Mg Tablet 100 Mg PO DAILY Sodium Bicarbonate 650 Mg Tablet 650 Mg PO PRN Q24HRS PRN Protonix (Pantoprazole Sodium) 40 Mg Tablet.dr 40 Mg PO DAILY Lorazepam 0.5 Mg Tablet 0.5 Mg PO PRN Q4HRS PRN Nystatin 15 Gm Cream..g. 1 Rupert TP PRN Q12HR PRN Metoprolol Tartrate 25 Mg Tablet 25 Mg PO BID Lactulose 10 Gm/15 Ml Solution 30 Ml PO Ipratropium [place] 0.2 Mg/1 Ml Solution 0.5 Mg IH Q6HRS Hydrocodone-Apap 5-325 (Hydrocodone Bit/Acetaminophen) 1 Each Tablet 1 Tab PO PRN Q4HRS PRN Flomax (Tamsulosin Hcl) 0.4 Mg Cap.er.24h 0.4 Mg PO DAILY Famotidine 20 Mg Tablet 20 Mg PO BID Duoneb 0.5-3(2.5) Mg/3 Ml (Albuterol/Ipratropium) 3 Ml Ampul.neb 1 Vial NEB QID Duoneb 0.5-3(2.5) Mg/3 Ml (Albuterol/Ipratropium) 3 Ml Ampul.neb 1 Vial NEB PRN Q4HRS PRN Docusate Sodium 50 Mg/5 Ml Liquid 10 Ml PO BID [place] Oil 118 Ml Oil 1 Rupert TP BID 3 Days Cardura (Doxazosin Mesylate) 2 Mg Tablet 1 Mg PO QHS Benztropine Mesylate 2 Mg Tablet 2 Mg PO BID Benadryl (Diphenhydramine Hcl) 25 Mg Capsule 25 Mg PO TID Amantadine (Amantadine Hcl) 100 Mg Tablet 100 Mg PO BID Tylenol (Acetaminophen) 325 Mg Tablet 325 Mg PO PRN Q6HRS PRN I have reviewed the current psychotropics carefully including drug interactions. Risk benefit ratio favors no change other than as noted in my dictated progress note. Diagnosis: Problems: (1) Contusion of left hip (2) Aggressive behavior of adult (3) Geriatric psychosis (4) Decubitus ulcer of sacral region, stage 1 CHOCO JERRY MD May 02, 2018 23:12
[2018-05-03] MEDS: NYSTATIN TOPICAL POWDER 15GM BOTTLE. TP SCH ×3 (01:00→20:32)
[2018-05-03] MEDS: IPRATROPIUM BROMIDE 0.5 MG/2.5 ML NEBU. IH SCH ×4 (05:33→19:42)
[2018-05-03] MEDS: MAGNESIUM HYDROXIDE 2,400 MG/30 ML ORAL.SUSP. PO PRN (06:21)
[2018-05-03 06:44] VITALS: BP 143/97
[2018-05-03] MEDS: PANTOPRAZOLE 40 MG TABLET. PO SCH (07:30)
[2018-05-03] MEDS: diphenhydrAMINE HCL 25 MG CAPSULE PO SCH ×4 (09:00→20:28)
[2018-05-03] MEDS: DOCUSATE 100 MG/10 ML SOLUTION. PO SCH ×2 (09:00→20:28)
[2018-05-03] MEDS: FAMOTIDINE 20 MG TABLET PO SCH ×2 (09:00→20:28)
[2018-05-03] MEDS: TOPIRAMATE 100 MG TABLET. PO SCH (09:00)
[2018-05-03] MEDS: METOPROLOL TART IMMED RELEASE 25 MG TABLET PO SCH ×2 (09:00→20:28)
[2018-05-03] MEDS: AMANTADINE HCL 100 MG CAPSULE PO SCH ×2 (09:00→20:32)
[2018-05-03] MEDS: BENZTROPINE MESYLATE 1 MG TABLET PO SCH ×2 (09:00→20:28)
[2018-05-03] MEDS: TAMSULOSIN 0.4 MG CAP.ER.24H. PO SCH (09:00)
[2018-05-03] MEDS: LIDOCAINE (700MG/PATCH) PATCH. TD SCH (09:06)
[2018-05-03] MEDS: LORazepam 0.5 MG TABLET PO PRN ×2 (10:40→20:30)
[2018-05-03] MEDS: HYDROcodone/APAP 5/325MG 1 TAB TABLET PO PRN ×2 (10:41→20:31)
--- NOTE | 2018-05-03 11:59 | PN ---
DATE: 05/02/2018 PSYCHIATRIC PROGRESS NOTE This is a late entry 05/02/2018 covers elements not covered in my initial note. SUBJECTIVE: I met with the patient in the evening. The patient slept 5-3/4 hours previous night. He appears confused, belligerent, in constant movement in his Broda chair. REVIEW OF SYSTEMS: No CV, , pulmonary, eye, ENT system symptoms on review. Reliability poor. He is continuing to hallucinate. MENTAL STATUS EXAM: Oriented to himself. Insight, judgment, recent and remote memory, attention, concentration, fund of knowledge poor, consistent with his diagnosis mentioned in my initial note. PLAN: No change from initial note. MAN Jameson JERRY MD DR: BRIELLE/naman JOB#: [id number] / [id number]
--- NOTE | 2018-05-03 12:20 | PN ---
DATE: 05/01/2018 This late entry, 05/01/2018, covers elements not covered in my initial note. SUBJECTIVE: I met with the patient in the evening. The patient slept just 1 hour previous night. He is confused, hallucinating, having trouble swallowing, extremely psychotic. We are awaiting his past psychiatric records. He continues to see people around him when no one is there. REVIEW OF SYSTEMS: Ambulation impaired, in Broda chair. No CV, , pulmonary, eye, ENT system symptoms on review. Reliability poor. MENTAL STATUS EXAM: Oriented to himself. Insight, judgment, recent and remote memory, attention, concentration, fund of knowledge poor, consistent with his diagnosis. IMPRESSION: Schizoaffective disorder, bipolar type, mixed with psychotic features; cognitive disorder, unspecified versus major neurocognitive disorder. PLAN: We have initiated Clozaril 25 mg p.o. at bedtime. Start Remeron 7.5 mg p.o. at bedtime. Check CBC, absolute neutrophil count every Friday. Increase Clozaril gradually. If tardive dyskinesia confirmed, we will defer to Dr. Kim for management. MAN Jameson JERRY MD DR: BRIELLE/naman JOB#: [id number] / [id number]
[2018-05-03 16:12] VITALS: BP 177/90
[2018-05-03] MEDS: MIRTAZAPINE 7.5 MG TABLET. PO SCH (20:28)
[2018-05-03] MEDS: cloZAPine 25 MG TABLET PO SCH (20:28)
[2018-05-03] MEDS: DOXAZOSIN MESYLATE 1 MG TABLET PO SCH (20:31)
[2018-05-03] MEDS: PATCH REMOVAL. MC SCH (20:33)
--- NOTE | 2018-05-03 20:54 | PDOC ---
Exam Note: Elijah Note: Please also refer to the separate dictated note~for this date of service dictated separately.~Patient seen individually. Discussed the patient with Nursing staff reviewed the chart.~Reviewed interim history and current functioning. Reviewed vital signs,~Labs/ Radiology~and current medications noted below. Continue current treatment with the changes noted in the dictated addendum note Assessment: Vital Signs: Vital Signs Date Time Temp Pulse Resp B/P (MAP) Pulse Ox O2 Delivery O2 Flow Rate FiO2 05/03/18 20:31 20 Room Air 05/03/18 20:31 67 177/90 05/03/18 16:26 100 05/03/18 16:12 97.2 I&O Intake and Output 05/03/18 07:00 Intake Total 2040 ml Balance 2040 ml Intake Oral 2040 ml # Voids 1 Current Medications: Meds: Current Medications Lorazepam (Ativan) 2 mg 1X ONCE IM ; Start 04/28/18 at 19:15; Stop 04/28/18 at 19:17; Status DC Acetaminophen (Tylenol) 650 mg PRN Q6HRS PRN PO PAIN / TEMP; Start 04/28/18 at 23:15 Multi-Ingredient Ointment (Analgesic [place]) 1 rupert PRN QID PRN TP MUSCLE PAIN; Start 04/28/18 at 23:15 Al Hydroxide/Mg Hydroxide (Mylanta Plus Xs) 15 ml PRN AFTMEALHC PRN PO DYSPEPSIA; Start 04/28/18 at 23:15 Magnesium Hydroxide (Milk Of Magnesia) 2,400 mg PRN QHS PRN PO CONSTIPATION Last administered on 05/03/18at 06:21; Start 04/28/18 at 23:15 Lorazepam (Ativan) 0.5 mg PRN Q4HRS PRN PO ANXIETY / AGITATION Last administered on 05/03/18at 20:30; Start 04/28/18 at 23:30 Acetaminophen (Tylenol) 325 mg PRN Q6HRS PRN PO PAIN / TEMP; Start 04/28/18 at 23:45 Diphenhydramine HCl (Benadryl) 25 mg TID PO Last administered on 05/03/18at 20:28 ; Start 04/29/18 at 09:00 Docusate Sodium (Colace Solution) 100 mg BID PO Last administered on 05/03/18at 20:28; Start 04/29/18 at 09:00 Ipratropium [place] (Atrovent) 0.5 mg Q6HRS IH Last administered on 05/03/18 19 :42; Start 04/29/18 at 00:30 Metoprolol Tartrate (Lopressor) 25 mg BID PO Last administered on 05/03/18 20: 28; Start 04/29/18 at 09:00 Tamsulosin HCl (Flomax) 0.4 mg DAILY PO Last administered on 05/01/18 08:35; Start 04/29/18 at 09:00 Amantadine HCl (Symmetrel) 100 mg BID PO Last administered on 05/03/18 20:32; Start 04/29/18 at 09:00 Benztropine Mesylate (Cogentin) 2 mg BID PO Last administered on 05/03/18 20:28 ; Start 04/29/18 at 09:00 Doxazosin Mesylate (Cardura) 1 mg QHS PO Last administered on 05/03/18 20:31; Start 04/29/18 at 21:00 Famotidine (Pepcid) 20 mg BID PO Last administered on 05/03/18 20:28; Start at 09:00 Acetaminophen/ Hydrocodone Bitart (Lortab 5/325) 1 tab PRN Q4HRS PRN PO PAIN Last administered on 05/03/18 20:31; Start 04/28/18 at 23:45 Lactulose (Lactulose) 20 gm PRN TID PRN PO CONSTIPATION; Start 04/28/18 at 23: 45 Nystatin (Mycostatin) 1 rupert PRN Q12HR PRN TP ANTIFUNGAL F/RASH; Start 04/28/18 at 23:45 Pantoprazole Sodium (Protonix) 40 mg DAILYAC PO Last administered on 05/01/18 08:34; Start 04/29/18 at 07:30 Sodium Bicarbonate 650 mg PRN Q24HRS PRN PO GI SYMPTOMS; Start 04/28/18 at 23: 45 Topiramate (Topamax) 100 mg DAILY PO Last administered on 05/01/18 08:35; Start 04/29/18 at 09:00 Nicotine (Nicoderm Cq 7mg) 1 patch DAILY TD Last administered on 8/31/18at 08: 34; Start 04/29/18 at 09:00; Stop 05/02/18 at 15:53; Status DC Lidocaine (Lidoderm) 1 patch DAILY TD Last administered on 05/03/18at 09:06; Start 04/30/18 at 09:00 Miscellaneous (Lidoderm Patch Removal) 1 ea QHS MC Last administered on 20:33; Start 04/30/18 at 21:00 Mirtazapine (Remeron) 7.5 mg QHS PO Last administered on 05/03/18 20:28; Start 05/01/18 at 21:00 Clozapine (Clozaril) 25 mg QHS PO Last administered on 05/03/18 20:28; Start at 21:00 Nystatin (Nystop) 1 rupert BID TP Last administered on 05/03/18 20:32; Start at 01:00 Active Scripts Active Reported Topamax (Topiramate) 100 Mg Tablet 100 Mg PO DAILY Sodium Bicarbonate 650 Mg Tablet 650 Mg PO PRN Q24HRS PRN Protonix (Pantoprazole Sodium) 40 Mg Tablet.dr 40 Mg PO DAILY Lorazepam 0.5 Mg Tablet 0.5 Mg PO PRN Q4HRS PRN Nystatin 15 Gm Cream..g. 1 Rupert TP PRN Q12HR PRN Metoprolol Tartrate 25 Mg Tablet 25 Mg PO BID Lactulose 10 Gm/15 Ml Solution 30 Ml PO Ipratropium [place] 0.2 Mg/1 Ml Solution 0.5 Mg IH Q6HRS Hydrocodone-Apap 5-325 (Hydrocodone Bit/Acetaminophen) 1 Each Tablet 1 Tab PO PRN Q4HRS PRN Flomax (Tamsulosin Hcl) 0.4 Mg Cap.er.24h 0.4 Mg PO DAILY Famotidine 20 Mg Tablet 20 Mg PO BID Duoneb 0.5-3(2.5) Mg/3 Ml (Albuterol/Ipratropium) 3 Ml Ampul.neb 1 Vial NEB QID Duoneb 0.5-3(2.5) Mg/3 Ml (Albuterol/Ipratropium) 3 Ml Ampul.neb 1 Vial NEB PRN Q4HRS PRN Docusate Sodium 50 Mg/5 Ml Liquid 10 Ml PO BID [place] Oil 118 Ml Oil 1 Rupert TP BID 3 Days Cardura (Doxazosin Mesylate) 2 Mg Tablet 1 Mg PO QHS Benztropine Mesylate 2 Mg Tablet 2 Mg PO BID Benadryl (Diphenhydramine Hcl) 25 Mg Capsule 25 Mg PO TID Amantadine (Amantadine Hcl) 100 Mg Tablet 100 Mg PO BID Tylenol (Acetaminophen) 325 Mg Tablet 325 Mg PO PRN Q6HRS PRN I have reviewed the current psychotropics carefully including drug interactions. Risk benefit ratio favors no change other than as noted in my dictated progress note. Diagnosis: Problems: (1) Contusion of left hip (2) Aggressive behavior of adult (3) Geriatric psychosis (4) Decubitus ulcer of sacral region, stage 1 CHOCO JERRY MD May 03, 2018 20:54
[2018-05-04] MEDS: HYDROcodone/APAP 5/325MG 1 TAB TABLET PO PRN (01:05)
[2018-05-04] MEDS: LORazepam 0.5 MG TABLET PO PRN ×3 (01:05→23:06)
[2018-05-04] MEDS: IPRATROPIUM BROMIDE 0.5 MG/2.5 ML NEBU. IH SCH ×3 (05:23→15:52)
[2018-05-04 06:47] VITALS: BP 143/73
[2018-05-04] MEDS: AMANTADINE HCL 100 MG CAPSULE PO SCH ×2 (09:00→20:21)
[2018-05-04] MEDS: NYSTATIN TOPICAL POWDER 15GM BOTTLE. TP SCH ×2 (09:00→20:23)
[2018-05-04] MEDS: PANTOPRAZOLE 40 MG TABLET. PO SCH (11:19)
[2018-05-04] MEDS: METOPROLOL TART IMMED RELEASE 25 MG TABLET PO SCH ×2 (11:20→20:07)
[2018-05-04] MEDS: LIDOCAINE (700MG/PATCH) PATCH. TD SCH (11:20)
[2018-05-04] MEDS: diphenhydrAMINE HCL 25 MG CAPSULE PO SCH ×3 (11:20→20:06)
[2018-05-04] MEDS: FAMOTIDINE 20 MG TABLET PO SCH ×2 (11:21→20:06)
[2018-05-04] MEDS: TAMSULOSIN 0.4 MG CAP.ER.24H. PO SCH (11:21)
[2018-05-04] MEDS: BENZTROPINE MESYLATE 1 MG TABLET PO SCH ×2 (11:21→20:06)
[2018-05-04] MEDS: TOPIRAMATE 100 MG TABLET. PO SCH (11:22)
[2018-05-04] MEDS: DOCUSATE 100 MG/10 ML SOLUTION. PO SCH ×2 (11:22→20:07)
[2018-05-04 11:35] LABS: BASO % 1 % (0-3); EOS # 0.1 x10^3/uL (0.0-0.7); EOS % 1 % (0-3); HEMATOCRIT 36.5 % (39.0-53.0); HEMOGLOBIN 12.3 g/dL (13.0-17.5); LYMPH # 1.9 x10^3/uL (1.0-4.8); LYMPH % 29 % (24-48); MEAN CORPUSCULAR HEMOGLOBIN 32 pg (25-35); MEAN CORPUSCULAR HGB CONC 34 g/dL (31-37); MEAN CORPUSCULAR VOLUME 94 fL (79-100); MONO # 0.5 x10^3/uL (0.0-1.1); MONO % 8 % (0-9); NEUT % 62 % (31-73); PLATELET COUNT 252 x10^3/uL (140-400); RED BLOOD COUNT 3.87 x10^6/uL (4.30-5.70); RED CELL DISTRIBUTION WIDTH 16.4 % (11.5-14.5); WHITE BLOOD COUNT 6.6 x10^3/uL (4.0-11.0)
[2018-05-04 16:34] VITALS: BP 97/67
[2018-05-04] MEDS: cloZAPine 25 MG TABLET PO SCH ×2 (17:09→20:20)
[2018-05-04] MEDS: MIRTAZAPINE 7.5 MG TABLET. PO SCH (20:05)
[2018-05-04] MEDS: PATCH REMOVAL. MC SCH (20:20)
[2018-05-04] MEDS: DOXAZOSIN MESYLATE 1 MG TABLET PO SCH (20:20)
--- NOTE | 2018-05-04 20:55 | PDOC ---
Exam Note: Elijah Note: Please also refer to the separate dictated note~for this date of service dictated separately.~Patient seen individually. Discussed the patient with Nursing staff reviewed the chart.~Reviewed interim history and current functioning. Reviewed vital signs,~Labs/ Radiology~and current medications noted below. Continue current treatment with the changes noted in the dictated addendum note Assessment: Vital Signs: Vital Signs Date Time Temp Pulse Resp B/P (MAP) Pulse Ox O2 Delivery O2 Flow Rate FiO2 05/04/18 20:07 60 97/67 05/04/18 16:34 98.6 17 95 05/04/18 15:53 Room Air I&O Intake and Output 05/04/18 07:00 Intake Total 1540 ml Balance 1540 ml Intake Oral 1540 ml # Voids 1 Labs: Laboratory Tests Test 05/04/18 11:27 White Blood Count 6.6 x10^3/uL (4.0-11.0) Red Blood Count 3.87 x10^6/uL (4.30-5.70) L Hemoglobin 12.3 g/dL (13.0-17.5) L Hematocrit 36.5 % (39.0-53.0) L Mean Corpuscular Volume 94 fL (79-100) Mean Corpuscular Hemoglobin 32 pg (25-35) Mean Corpuscular Hemoglobin Concent 34 g/dL (31-37) Red Cell Distribution Width 16.4 % (11.5-14.5) H Platelet Count 252 x10^3/uL (140-400) Neutrophils (%) (Auto) 62 % (31-73) Lymphocytes (%) (Auto) 29 % (24-48) Monocytes (%) (Auto) 8 % (0-9) Eosinophils (%) (Auto) 1 % (0-3) Basophils (%) (Auto) 1 % (0-3) Neutrophils # (Auto) 4.0 x10^3uL (1.8-7.7) Lymphocytes # (Auto) 1.9 x10^3/uL (1.0-4.8) Monocytes # (Auto) 0.5 x10^3/uL (0.0-1.1) Eosinophils # (Auto) 0.1 x10^3/uL (0.0-0.7) Basophils # (Auto) 0.0 x10^3/uL (0.0-0.2) Current Medications: Meds: Current Medications Lorazepam (Ativan) 2 mg 1X ONCE IM ; Start 04/28/18 at 19:15; Stop 04/28/18 at 19:17; Status DC Acetaminophen (Tylenol) 650 mg PRN Q6HRS PRN PO PAIN / TEMP; Start 04/28/18 at 23:15 Multi-Ingredient Ointment (Analgesic [place]) 1 rupert PRN QID PRN TP MUSCLE PAIN; Start 04/28/18 at 23:15 Al Hydroxide/Mg Hydroxide (Mylanta Plus Xs) 15 ml PRN AFTMEALHC PRN PO DYSPEPSIA; Start 04/28/18 at 23:15 Magnesium Hydroxide (Milk Of Magnesia) 2,400 mg PRN QHS PRN PO CONSTIPATION Last administered on 05/03/18 06:21; Start 04/28/18 at 23:15 Lorazepam (Ativan) 0.5 mg PRN Q4HRS PRN PO ANXIETY / AGITATION Last administered on 05/04/18 11:28; Start 04/28/18 at 23:30 Acetaminophen (Tylenol) 325 mg PRN Q6HRS PRN PO PAIN / TEMP; Start 04/28/18 at 23:45 Diphenhydramine HCl (Benadryl) 25 mg TID PO Last administered on 05/04/18 20:06 ; Start 04/29/18 at 09:00 Docusate Sodium (Colace Solution) 100 mg BID PO Last administered on 05/04/18 20:07; Start 04/29/18 at 09:00 Ipratropium [place] (Atrovent) 0.5 mg Q6HRS IH Last administered on 05/04/18 15 :52; Start 04/29/18 at 00:30 Metoprolol Tartrate (Lopressor) 25 mg BID PO Last administered on 05/04/18 20: 07; Start 04/29/18 at 09:00 Tamsulosin HCl (Flomax) 0.4 mg DAILY PO Last administered on 05/04/18 11:21; Start 04/29/18 at 09:00 Amantadine HCl (Symmetrel) 100 mg BID PO Last administered on 05/04/18 09:00; Start 04/29/18 at 09:00 Benztropine Mesylate (Cogentin) 2 mg BID PO Last administered on 05/04/18 20:06 ; Start 04/29/18 at 09:00 Doxazosin Mesylate (Cardura) 1 mg QHS PO Last administered on 05/03/18 20:31; Start 04/29/18 at 21:00 Famotidine (Pepcid) 20 mg BID PO Last administered on 05/04/18 20:06; Start at 09:00 Acetaminophen/ Hydrocodone Bitart (Lortab 5/325) 1 tab PRN Q4HRS PRN PO PAIN Last administered on 05/04/18 01:05; Start 04/28/18 at 23:45 Lactulose (Lactulose) 20 gm PRN TID PRN PO CONSTIPATION; Start 04/28/18 at 23: 45 Nystatin (Mycostatin) 1 rupert PRN Q12HR PRN TP ANTIFUNGAL F/RASH; Start 04/28/18 at 23:45 Pantoprazole Sodium (Protonix) 40 mg DAILYAC PO Last administered on 05/04/18 11:19; Start 04/29/18 at 07:30 Sodium Bicarbonate 650 mg PRN Q24HRS PRN PO GI SYMPTOMS; Start 04/28/18 at 23: 45 Topiramate (Topamax) 100 mg DAILY PO Last administered on 05/04/18 11:22; Start 04/29/18 at 09:00 Nicotine (Nicoderm Cq 7mg) 1 patch DAILY TD Last administered on 05/01/18 08: 34; Start 04/29/18 at 09:00; Stop 05/02/18 at 15:53; Status DC Lidocaine (Lidoderm) 1 patch DAILY TD Last administered on 05/04/18 11:20; Start 04/30/18 at 09:00 Miscellaneous (Lidoderm Patch Removal) 1 ea QHS MC Last administered on 20:33; Start 04/30/18 at 21:00 Mirtazapine (Remeron) 7.5 mg QHS PO Last administered on 05/04/18 20:05; Start 05/01/18 at 21:00 Clozapine (Clozaril) 25 mg QHS PO Last administered on 05/03/18 20:28; Start at 21:00; Stop 05/04/18 at 15:32; Status DC Nystatin (Nystop) 1 rupert BID TP Last administered on 05/04/18at 09:00; Start at 01:00 Clozapine (Clozaril) 50 mg QHS PO Last administered on 05/04/18at 17:09; Start at 17:00 Active Scripts Active Reported Topamax (Topiramate) 100 Mg Tablet 100 Mg PO DAILY Sodium Bicarbonate 650 Mg Tablet 650 Mg PO PRN Q24HRS PRN Protonix (Pantoprazole Sodium) 40 Mg Tablet.dr 40 Mg PO DAILY Lorazepam 0.5 Mg Tablet 0.5 Mg PO PRN Q4HRS PRN Nystatin 15 Gm Cream..g. 1 Rupert TP PRN Q12HR PRN Metoprolol Tartrate 25 Mg Tablet 25 Mg PO BID Lactulose 10 Gm/15 Ml Solution 30 Ml PO Ipratropium [place] 0.2 Mg/1 Ml Solution 0.5 Mg IH Q6HRS Hydrocodone-Apap 5-325 (Hydrocodone Bit/Acetaminophen) 1 Each Tablet 1 Tab PO PRN Q4HRS PRN Flomax (Tamsulosin Hcl) 0.4 Mg Cap.er.24h 0.4 Mg PO DAILY Famotidine 20 Mg Tablet 20 Mg PO BID Duoneb 0.5-3(2.5) Mg/3 Ml (Albuterol/Ipratropium) 3 Ml Ampul.neb 1 Vial NEB QID Duoneb 0.5-3(2.5) Mg/3 Ml (Albuterol/Ipratropium) 3 Ml Ampul.neb 1 Vial NEB PRN Q4HRS PRN Docusate Sodium 50 Mg/5 Ml Liquid 10 Ml PO BID [place] Oil 118 Ml Oil 1 Rupert TP BID 3 Days Cardura (Doxazosin Mesylate) 2 Mg Tablet 1 Mg PO QHS Benztropine Mesylate 2 Mg Tablet 2 Mg PO BID Benadryl (Diphenhydramine Hcl) 25 Mg Capsule 25 Mg PO TID Amantadine (Amantadine Hcl) 100 Mg Tablet 100 Mg PO BID Tylenol (Acetaminophen) 325 Mg Tablet 325 Mg PO PRN Q6HRS PRN I have reviewed the current psychotropics carefully including drug interactions. Risk benefit ratio favors no change other than as noted in my dictated progress note. Diagnosis: Problems: (1) Contusion of left hip (2) Aggressive behavior of adult (3) Geriatric psychosis (4) Decubitus ulcer of sacral region, stage 1 CHOCO JERRY MD May 04, 2018 20:55
[2018-05-05] MEDS: IPRATROPIUM BROMIDE 0.5 MG/2.5 ML NEBU. IH SCH ×5 (04:06→21:38)
[2018-05-05] MEDS: diphenhydrAMINE HCL 25 MG CAPSULE PO SCH ×3 (08:02→18:59)
[2018-05-05] MEDS: DOCUSATE 100 MG/10 ML SOLUTION. PO SCH ×2 (08:02→18:59)
[2018-05-05] MEDS: TOPIRAMATE 100 MG TABLET. PO SCH (08:02)
[2018-05-05] MEDS: FAMOTIDINE 20 MG TABLET PO SCH ×2 (08:02→18:59)
[2018-05-05] MEDS: BENZTROPINE MESYLATE 1 MG TABLET PO SCH ×2 (08:02→18:59)
[2018-05-05] MEDS: PANTOPRAZOLE 40 MG TABLET. PO SCH (08:02)
[2018-05-05] MEDS: METOPROLOL TART IMMED RELEASE 25 MG TABLET PO SCH ×2 (08:03→19:00)
[2018-05-05] MEDS: LORazepam 0.5 MG TABLET PO PRN (08:03)
[2018-05-05] MEDS: TAMSULOSIN 0.4 MG CAP.ER.24H. PO SCH (08:03)
[2018-05-05] MEDS: LIDOCAINE (700MG/PATCH) PATCH. TD SCH (08:07)
[2018-05-05] MEDS: AMANTADINE HCL 100 MG CAPSULE PO SCH ×2 (08:08→18:59)
[2018-05-05] MEDS: NYSTATIN TOPICAL POWDER 15GM BOTTLE. TP SCH ×2 (09:06→19:01)
[2018-05-05 16:46] VITALS: BP 121/58
[2018-05-05] MEDS: MAGNESIUM HYDROXIDE 2,400 MG/30 ML ORAL.SUSP. PO PRN (17:34)
[2018-05-05] MEDS: cloZAPine 25 MG TABLET PO SCH (18:59)
[2018-05-05] MEDS: MIRTAZAPINE 7.5 MG TABLET. PO SCH (18:59)
[2018-05-05] MEDS: DOXAZOSIN MESYLATE 1 MG TABLET PO SCH (19:01)
--- NOTE | 2018-05-05 20:58 | PDOC ---
Exam Note: Elijah Note: Please also refer to the separate dictated note~for this date of service dictated separately.~Patient seen individually. Discussed the patient with Nursing staff reviewed the chart.~Reviewed interim history and current functioning. Reviewed vital signs,~Labs/ Radiology~and current medications noted below. Continue current treatment with the changes noted in the dictated addendum note Assessment: Vital Signs: Vital Signs Date Time Temp Pulse Resp B/P (MAP) Pulse Ox O2 Delivery O2 Flow Rate FiO2 05/05/18 19:01 62 121/58 05/05/18 16:53 100 Room Air 05/05/18 16:46 97.6 16 I&O Intake and Output 05/05/18 07:00 Intake Total 770 ml Balance 770 ml Intake Oral 770 ml # Voids 1 Current Medications: Meds: Current Medications Lorazepam (Ativan) 2 mg 1X ONCE IM ; Start 04/28/18 at 19:15; Stop 04/28/18 at 19:17; Status DC Acetaminophen (Tylenol) 650 mg PRN Q6HRS PRN PO PAIN / TEMP; Start 04/28/18 at 23:15 Multi-Ingredient Ointment (Analgesic [place]) 1 rupert PRN QID PRN TP MUSCLE PAIN; Start 04/28/18 at 23:15 Al Hydroxide/Mg Hydroxide (Mylanta Plus Xs) 15 ml PRN AFTMEALHC PRN PO DYSPEPSIA; Start 04/28/18 at 23:15 Magnesium Hydroxide (Milk Of Magnesia) 2,400 mg PRN QHS PRN PO CONSTIPATION Last administered on 05/05/18at 17:34; Start 04/28/18 at 23:15 Lorazepam (Ativan) 0.5 mg PRN Q4HRS PRN PO ANXIETY / AGITATION Last administered on 05/05/18at 08:03; Start 04/28/18 at 23:30 Acetaminophen (Tylenol) 325 mg PRN Q6HRS PRN PO PAIN / TEMP; Start 04/28/18 at 23:45 Diphenhydramine HCl (Benadryl) 25 mg TID PO Last administered on 05/05/18at 18:59 ; Start 04/29/18 at 09:00 Docusate Sodium (Colace Solution) 100 mg BID PO Last administered on 05/05/18at 18:59; Start 04/29/18 at 09:00 Ipratropium [place] (Atrovent) 0.5 mg Q6HRS IH Last administered on 05/05/18 16 :53; Start 04/29/18 at 00:30 Metoprolol Tartrate (Lopressor) 25 mg BID PO Last administered on 05/05/18 19: 00; Start 04/29/18 at 09:00 Tamsulosin HCl (Flomax) 0.4 mg DAILY PO Last administered on 05/05/18 08:03; Start 04/29/18 at 09:00 Amantadine HCl (Symmetrel) 100 mg BID PO Last administered on 05/05/18 18:59; Start 04/29/18 at 09:00 Benztropine Mesylate (Cogentin) 2 mg BID PO Last administered on 05/05/18 18:59 ; Start 04/29/18 at 09:00 Doxazosin Mesylate (Cardura) 1 mg QHS PO Last administered on 05/05/18 19:01; Start 04/29/18 at 21:00 Famotidine (Pepcid) 20 mg BID PO Last administered on 05/05/18 18:59; Start at 09:00 Acetaminophen/ Hydrocodone Bitart (Lortab 5/325) 1 tab PRN Q4HRS PRN PO PAIN Last administered on 05/04/18 01:05; Start 04/28/18 at 23:45 Lactulose (Lactulose) 20 gm PRN TID PRN PO CONSTIPATION; Start 04/28/18 at 23: 45 Nystatin (Mycostatin) 1 rupert PRN Q12HR PRN TP ANTIFUNGAL F/RASH; Start 04/28/18 at 23:45 Pantoprazole Sodium (Protonix) 40 mg DAILYAC PO Last administered on 05/05/18 08:02; Start 04/29/18 at 07:30 Sodium Bicarbonate 650 mg PRN Q24HRS PRN PO GI SYMPTOMS; Start 04/28/18 at 23: 45 Topiramate (Topamax) 100 mg DAILY PO Last administered on 05/05/18 08:02; Start 04/29/18 at 09:00 Nicotine (Nicoderm Cq 7mg) 1 patch DAILY TD Last administered on 05/01/18 08: 34; Start 04/29/18 at 09:00; Stop 05/02/18 at 15:53; Status DC Lidocaine (Lidoderm) 1 patch DAILY TD Last administered on 05/05/18 08:07; Start 04/30/18 at 09:00 Miscellaneous (Lidoderm Patch Removal) 1 ea QHS MC Last administered on 20:20; Start 04/30/18 at 21:00 Mirtazapine (Remeron) 7.5 mg QHS PO Last administered on 05/05/18 18:59; Start 05/01/18 at 21:00 Clozapine (Clozaril) 25 mg QHS PO Last administered on 05/03/18 20:28; Start at 21:00; Stop 05/04/18 at 15:32; Status DC Nystatin (Nystop) 1 rupert BID TP Last administered on 05/05/18 19:01; Start at 01:00 Clozapine (Clozaril) 50 mg QHS PO Last administered on 05/05/18 18:59; Start at 17:00 Active Scripts Active Reported Topamax (Topiramate) 100 Mg Tablet 100 Mg PO DAILY Sodium Bicarbonate 650 Mg Tablet 650 Mg PO PRN Q24HRS PRN Protonix (Pantoprazole Sodium) 40 Mg Tablet.dr 40 Mg PO DAILY Lorazepam 0.5 Mg Tablet 0.5 Mg PO PRN Q4HRS PRN Nystatin 15 Gm Cream..g. 1 Rupert TP PRN Q12HR PRN Metoprolol Tartrate 25 Mg Tablet 25 Mg PO BID Lactulose 10 Gm/15 Ml Solution 30 Ml PO Ipratropium [place] 0.2 Mg/1 Ml Solution 0.5 Mg IH Q6HRS Hydrocodone-Apap 5-325 (Hydrocodone Bit/Acetaminophen) 1 Each Tablet 1 Tab PO PRN Q4HRS PRN Flomax (Tamsulosin Hcl) 0.4 Mg Cap.er.24h 0.4 Mg PO DAILY Famotidine 20 Mg Tablet 20 Mg PO BID Duoneb 0.5-3(2.5) Mg/3 Ml (Albuterol/Ipratropium) 3 Ml Ampul.neb 1 Vial NEB QID Duoneb 0.5-3(2.5) Mg/3 Ml (Albuterol/Ipratropium) 3 Ml Ampul.neb 1 Vial NEB PRN Q4HRS PRN Docusate Sodium 50 Mg/5 Ml Liquid 10 Ml PO BID [place] Oil 118 Ml Oil 1 [place] TP BID 3 Days Cardura (Doxazosin Mesylate) 2 Mg Tablet 1 Mg PO QHS Benztropine Mesylate 2 Mg Tablet 2 Mg PO BID Benadryl (Diphenhydramine Hcl) 25 Mg Capsule 25 Mg PO TID Amantadine (Amantadine Hcl) 100 Mg Tablet 100 Mg PO BID Tylenol (Acetaminophen) 325 Mg Tablet 325 Mg PO PRN Q6HRS PRN I have reviewed the current psychotropics carefully including drug interactions. Risk benefit ratio favors no change other than as noted in my dictated progress note. Diagnosis: Problems: (1) Contusion of left hip (2) Aggressive behavior of adult (3) Geriatric psychosis (4) Decubitus ulcer of sacral region, stage 1 CHOCO JERRY MD May 05, 2018 20:58
[2018-05-05] MEDS: PATCH REMOVAL. MC SCH (21:00)
--- NOTE | 2018-05-06 01:52 | PN ---
DATE: 05/03/2018 PSYCHIATRIC PROGRESS NOTE This is a late entry of 05/03/2018, covers elements not covered in my initial note. SUBJECTIVE: I met with the patient in the evening. The patient slept 2-1/2 hours previous night. He takes his meds in pudding and Ensure. Threw his meds in the morning, agitated, digging in himself. Received Ativan and Lortab, then did a little better. REVIEW OF SYSTEMS: Ambulation impaired, in Broda chair. No CV, , pulmonary, eye, ENT system symptoms on review. Reliability poor. MENTAL STATUS EXAM: Oriented to himself, situation difficult to assess given his ongoing paranoia, agitation, confusion. Insight, judgment, recent memory is impaired. Language function intact. Attention span short. Mood and affect labile, remains quite psychotic, despite Clozaril 25 mg at bedtime. LABORATORY DATA: Reviewed. IMPRESSION: Schizoaffective disorder, bipolar type, mixed with psychotic features versus schizophrenia, chronic paranoid with acute exacerbation, major neurocognitive disorder, Alzheimer, vascular with delusion, depression. Rest unchanged. PLAN: Check CBC, absolute neutrophil count morning of 05/04/2018 and if this is unremarkable, increase Clozaril to 50 mg daily. Continue rest unchanged. Neurology consult with Dr. Kim for his possible tardive dyskinesia. MAN Jameson JERRY MD DR: BRIELLE/naman JOB#: [id number] / [id number]
[2018-05-06] MEDS: IPRATROPIUM BROMIDE 0.5 MG/2.5 ML NEBU. IH SCH ×4 (05:23→21:03)
--- NOTE | 2018-05-06 06:08 | PN ---
DATE: 05/04/2018 This is a late entry, 05/04/2018, covers the elements not covered in my initial note, 05/04/2018. SUBJECTIVE: I met with the patient in the evening. The patient slept just 0.75 hours the previous night. CBC, absolute neutrophil counts were unremarkable and Clozaril was increased. He has done little better during the day, later slept from 7 a.m. to 11:30 a.m., less psychotic, less agitated, and still very confused. REVIEW OF SYSTEMS: Ambulation impaired, in a Broda chair. No CV, , pulmonary, eye system symptoms on review. MENTAL STATUS EXAM: Oriented to himself. Insight, judgment, recent memory is impaired. Language function intact. Attention span short. Mood and affect remains labile, still psychotic, but better. LABORATORY DATA: Reviewed. IMPRESSION: Unchanged from initial note. PLAN: Continue current psychotropics including the Clozaril 50 mg daily. Repeat labs in a week. We will continue to increase Clozaril for psychosis. CHOCO JERRY MD DR: BRIELLE/naman JOB#: [id number] / [id number]
[2018-05-06 06:24] VITALS: BP 146/87
[2018-05-06] MEDS: DOCUSATE 100 MG/10 ML SOLUTION. PO SCH ×2 (08:04→19:27)
[2018-05-06] MEDS: PANTOPRAZOLE 40 MG TABLET. PO SCH (08:06)
[2018-05-06] MEDS: BENZTROPINE MESYLATE 1 MG TABLET PO SCH ×2 (08:06→19:27)
[2018-05-06] MEDS: FAMOTIDINE 20 MG TABLET PO SCH ×2 (08:06→19:28)
[2018-05-06] MEDS: AMANTADINE HCL 100 MG CAPSULE PO SCH ×2 (08:06→19:28)
[2018-05-06] MEDS: METOPROLOL TART IMMED RELEASE 25 MG TABLET PO SCH ×2 (08:06→19:27)
[2018-05-06] MEDS: diphenhydrAMINE HCL 25 MG CAPSULE PO SCH ×3 (08:07→19:27)
[2018-05-06] MEDS: TOPIRAMATE 100 MG TABLET. PO SCH (08:07)
[2018-05-06] MEDS: TAMSULOSIN 0.4 MG CAP.ER.24H. PO SCH (08:07)
[2018-05-06] MEDS: LIDOCAINE (700MG/PATCH) PATCH. TD SCH (08:07)
[2018-05-06] MEDS: NYSTATIN TOPICAL POWDER 15GM BOTTLE. TP SCH ×2 (08:08→19:31)
[2018-05-06] MEDS: LORazepam 0.5 MG TABLET PO PRN (08:55)
[2018-05-06 16:54] VITALS: BP 125/86
[2018-05-06] MEDS: MIRTAZAPINE 7.5 MG TABLET. PO SCH (19:27)
[2018-05-06] MEDS: cloZAPine 25 MG TABLET PO SCH (19:27)
[2018-05-06] MEDS: DOXAZOSIN MESYLATE 1 MG TABLET PO SCH (19:31)
[2018-05-06] MEDS: PATCH REMOVAL. MC SCH (19:31)
--- NOTE | 2018-05-06 20:56 | PDOC ---
Exam Note: Elijah Note: Please also refer to the separate dictated note~for this date of service dictated separately.~Patient seen individually. Discussed the patient with Nursing staff reviewed the chart.~Reviewed interim history and current functioning. Reviewed vital signs,~Labs/ Radiology~and current medications noted below. Continue current treatment with the changes noted in the dictated addendum note Assessment: Vital Signs: Vital Signs Date Time Temp Pulse Resp B/P (MAP) Pulse Ox O2 Delivery O2 Flow Rate FiO2 05/06/18 19:31 60 125/86 05/06/18 16:54 97.2 20 95 05/06/18 16:45 Room Air I&O Intake and Output 05/06/18 07:00 Intake Total 3240 ml Balance 3240 ml Intake Oral 3240 ml # Bowel Movements 1 Current Medications: Meds: Current Medications Lorazepam (Ativan) 2 mg 1X ONCE IM ; Start 04/28/18 at 19:15; Stop 04/28/18 at 19:17; Status DC Acetaminophen (Tylenol) 650 mg PRN Q6HRS PRN PO PAIN / TEMP; Start 04/28/18 at 23:15 Multi-Ingredient Ointment (Analgesic [place]) 1 rupert PRN QID PRN TP MUSCLE PAIN; Start 04/28/18 at 23:15 Al Hydroxide/Mg Hydroxide (Mylanta Plus Xs) 15 ml PRN AFTMEALHC PRN PO DYSPEPSIA; Start 04/28/18 at 23:15 Magnesium Hydroxide (Milk Of Magnesia) 2,400 mg PRN QHS PRN PO CONSTIPATION Last administered on 05/05/18at 17:34; Start 04/28/18 at 23:15 Lorazepam (Ativan) 0.5 mg PRN Q4HRS PRN PO ANXIETY / AGITATION Last administered on 05/06/18at 08:55; Start 04/28/18 at 23:30 Acetaminophen (Tylenol) 325 mg PRN Q6HRS PRN PO PAIN / TEMP; Start 04/28/18 at 23:45 Diphenhydramine HCl (Benadryl) 25 mg TID PO Last administered on 05/06/18at 19:27 ; Start 04/29/18 at 09:00 Docusate Sodium (Colace Solution) 100 mg BID PO Last administered on 05/06/18at 19:27; Start 04/29/18 at 09:00 Ipratropium [place] (Atrovent) 0.5 mg Q6HRS IH Last administered on 05/06/18 16 :44; Start 04/29/18 at 00:30 Metoprolol Tartrate (Lopressor) 25 mg BID PO Last administered on 05/06/18 19: 27; Start 04/29/18 at 09:00 Tamsulosin HCl (Flomax) 0.4 mg DAILY PO Last administered on 05/06/18 08:07; Start 04/29/18 at 09:00 Amantadine HCl (Symmetrel) 100 mg BID PO Last administered on 05/06/18 19:28; Start 04/29/18 at 09:00 Benztropine Mesylate (Cogentin) 2 mg BID PO Last administered on 05/06/18 19:27 ; Start 04/29/18 at 09:00 Doxazosin Mesylate (Cardura) 1 mg QHS PO Last administered on 05/06/18 19:31; Start 04/29/18 at 21:00 Famotidine (Pepcid) 20 mg BID PO Last administered on 05/06/18 19:28; Start at 09:00 Acetaminophen/ Hydrocodone Bitart (Lortab 5/325) 1 tab PRN Q4HRS PRN PO PAIN Last administered on 05/04/18 01:05; Start 04/28/18 at 23:45 Lactulose (Lactulose) 20 gm PRN TID PRN PO CONSTIPATION; Start 04/28/18 at 23: 45 Nystatin (Mycostatin) 1 rupert PRN Q12HR PRN TP ANTIFUNGAL F/RASH; Start 04/28/18 at 23:45 Pantoprazole Sodium (Protonix) 40 mg DAILYAC PO Last administered on 05/06/18 08:06; Start 04/29/18 at 07:30 Sodium Bicarbonate 650 mg PRN Q24HRS PRN PO GI SYMPTOMS; Start 04/28/18 at 23: 45 Topiramate (Topamax) 100 mg DAILY PO Last administered on 05/06/18 08:07; Start 04/29/18 at 09:00 Nicotine (Nicoderm Cq 7mg) 1 patch DAILY TD Last administered on 05/01/18 08: 34; Start 04/29/18 at 09:00; Stop 05/02/18 at 15:53; Status DC Lidocaine (Lidoderm) 1 patch DAILY TD Last administered on 05/06/18 08:07; Start 04/30/18 at 09:00 Miscellaneous (Lidoderm Patch Removal) 1 ea QHS MC Last administered on 19:31; Start 04/30/18 at 21:00 Mirtazapine (Remeron) 7.5 mg QHS PO Last administered on 05/06/18 19:27; Start 05/01/18 at 21:00 Clozapine (Clozaril) 25 mg QHS PO Last administered on 05/03/18 20:28; Start at 21:00; Stop 05/04/18 at 15:32; Status DC Nystatin (Nystop) 1 rupert BID TP Last administered on 05/06/18 19:31; Start at 01:00 Clozapine (Clozaril) 50 mg QHS PO Last administered on 05/06/18 19:27; Start at 17:00 Active Scripts Active Reported Topamax (Topiramate) 100 Mg Tablet 100 Mg PO DAILY Sodium Bicarbonate 650 Mg Tablet 650 Mg PO PRN Q24HRS PRN Protonix (Pantoprazole Sodium) 40 Mg Tablet.dr 40 Mg PO DAILY Lorazepam 0.5 Mg Tablet 0.5 Mg PO PRN Q4HRS PRN Nystatin 15 Gm Cream..g. 1 Rupert TP PRN Q12HR PRN Metoprolol Tartrate 25 Mg Tablet 25 Mg PO BID Lactulose 10 Gm/15 Ml Solution 30 Ml PO Ipratropium [place] 0.2 Mg/1 Ml Solution 0.5 Mg IH Q6HRS Hydrocodone-Apap 5-325 (Hydrocodone Bit/Acetaminophen) 1 Each Tablet 1 Tab PO PRN Q4HRS PRN Flomax (Tamsulosin Hcl) 0.4 Mg Cap.er.24h 0.4 Mg PO DAILY Famotidine 20 Mg Tablet 20 Mg PO BID Duoneb 0.5-3(2.5) Mg/3 Ml (Albuterol/Ipratropium) 3 Ml Ampul.neb 1 Vial NEB QID Duoneb 0.5-3(2.5) Mg/3 Ml (Albuterol/Ipratropium) 3 Ml Ampul.neb 1 Vial NEB PRN Q4HRS PRN Docusate Sodium 50 Mg/5 Ml Liquid 10 Ml PO BID [place] Oil 118 Ml Oil 1 Rupert TP BID 3 Days Cardura (Doxazosin Mesylate) 2 Mg Tablet 1 Mg PO QHS Benztropine Mesylate 2 Mg Tablet 2 Mg PO BID Benadryl (Diphenhydramine Hcl) 25 Mg Capsule 25 Mg PO TID Amantadine (Amantadine Hcl) 100 Mg Tablet 100 Mg PO BID Tylenol (Acetaminophen) 325 Mg Tablet 325 Mg PO PRN Q6HRS PRN I have reviewed the current psychotropics carefully including drug interactions. Risk benefit ratio favors no change other than as noted in my dictated progress note. Diagnosis: Problems: (1) Contusion of left hip (2) Aggressive behavior of adult (3) Geriatric psychosis (4) Decubitus ulcer of sacral region, stage 1 CHOCO JERRY MD May 06, 2018 20:56
--- NOTE | 2018-05-06 23:15 | PN ---
DATE: 05/05/2018 This is a late entry, 05/05/2018, covers the elements not covered in my initial note. SUBJECTIVE: I met with the patient evening of 05/05/2018. The patient slept 4 hours previous night, sleeps better in the quiet room. He has been less psychotic, still confused. REVIEW OF SYSTEMS: Ambulation impaired, in Broda chair. No CV, , pulmonary, eye, ENT system symptoms on review. Reliability poor. MENTAL STATUS EXAM: Oriented to himself. Insight, judgment, recent memory is impaired. Language function intact. Attention span short. Mood and affect, lability is improved, less aggressive, disruptive, fewer hallucinations noted. LABORATORY DATA: Reviewed. IMPRESSION: Schizophrenia, chronic paranoid with acute exacerbation, in partial remission; major neurocognitive disorder, Alzheimer, vascular with delusion, depression, possible tardive dyskinesia; anxiety disorder, unspecified; impulse control disorder, unspecified. PLAN: Continue psychotropics from initial note. Adjust the Clozaril gradually depending on blood work. May add Depakote as a mood stabilizer. MAN Jameson JERRY MD DR: BRIELLE/naman JOB#: [id number] / [id number]
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
[2018-05-07] MEDS: IPRATROPIUM BROMIDE 0.5 MG/2.5 ML NEBU. IH SCH ×4 (05:36→21:25)
[2018-05-07 06:24] VITALS: BP 135/87
[2018-05-07] MEDS: LORazepam 0.5 MG TABLET PO PRN (06:52)
[2018-05-07] MEDS: MAGNESIUM HYDROXIDE 2,400 MG/30 ML ORAL.SUSP. PO PRN (06:52)
[2018-05-07] MEDS: PANTOPRAZOLE 40 MG TABLET. PO SCH (09:12)
[2018-05-07] MEDS: diphenhydrAMINE HCL 25 MG CAPSULE PO SCH ×3 (09:13→20:46)
[2018-05-07] MEDS: BENZTROPINE MESYLATE 1 MG TABLET PO SCH ×2 (09:13→20:47)
[2018-05-07] MEDS: TOPIRAMATE 100 MG TABLET. PO SCH (09:13)
[2018-05-07] MEDS: FAMOTIDINE 20 MG TABLET PO SCH ×2 (09:13→20:46)
[2018-05-07] MEDS: TAMSULOSIN 0.4 MG CAP.ER.24H. PO SCH (09:14)
[2018-05-07] MEDS: DOCUSATE 100 MG/10 ML SOLUTION. PO SCH ×2 (09:14→20:45)
[2018-05-07] MEDS: LIDOCAINE (700MG/PATCH) PATCH. TD SCH (09:14)
[2018-05-07] MEDS: METOPROLOL TART IMMED RELEASE 25 MG TABLET PO SCH ×2 (09:14→20:46)
[2018-05-07] MEDS: NYSTATIN TOPICAL POWDER 15GM BOTTLE. TP SCH ×2 (09:15→20:47)
[2018-05-07] MEDS: AMANTADINE HCL 100 MG CAPSULE PO SCH ×2 (09:19→20:47)
[2018-05-07 16:32] VITALS: BP 137/89
[2018-05-07] MEDS: PATCH REMOVAL. MC SCH (20:45)
[2018-05-07] MEDS: DOXAZOSIN MESYLATE 1 MG TABLET PO SCH (20:46)
[2018-05-07] MEDS: MIRTAZAPINE 7.5 MG TABLET. PO SCH (20:46)
[2018-05-07] MEDS: cloZAPine 25 MG TABLET PO SCH (20:46)
--- NOTE | 2018-05-07 20:58 | PDOC ---
Exam Note: Elijah Note: Please also refer to the separate dictated note~for this date of service dictated separately.~Patient seen individually. Discussed the patient with Nursing staff reviewed the chart.~Reviewed interim history and current functioning. Reviewed vital signs,~Labs/ Radiology~and current medications noted below. Continue current treatment with the changes noted in the dictated addendum note Assessment: Vital Signs: Vital Signs Date Time Temp Pulse Resp B/P (MAP) Pulse Ox O2 Delivery O2 Flow Rate FiO2 05/07/18 20:46 68 137/89 05/07/18 16:32 97.7 22 98 Room Air I&O Intake and Output 05/07/18 07:00 Intake Total 650 ml Balance 650 ml Intake Oral 650 ml Current Medications: Meds: Current Medications Lorazepam (Ativan) 2 mg 1X ONCE IM ; Start 04/28/18 at 19:15; Stop 04/28/18 at 19:17; Status DC Acetaminophen (Tylenol) 650 mg PRN Q6HRS PRN PO PAIN / TEMP; Start 04/28/18 at 23:15 Multi-Ingredient Ointment (Analgesic [place]) 1 rupert PRN QID PRN TP MUSCLE PAIN; Start 04/28/18 at 23:15 Al Hydroxide/Mg Hydroxide (Mylanta Plus Xs) 15 ml PRN AFTMEALHC PRN PO DYSPEPSIA; Start 04/28/18 at 23:15 Magnesium Hydroxide (Milk Of Magnesia) 2,400 mg PRN QHS PRN PO CONSTIPATION Last administered on 05/07/18at 06:52; Start 04/28/18 at 23:15 Lorazepam (Ativan) 0.5 mg PRN Q4HRS PRN PO ANXIETY / AGITATION Last administered on 05/07/18at 06:52; Start 04/28/18 at 23:30 Acetaminophen (Tylenol) 325 mg PRN Q6HRS PRN PO PAIN / TEMP; Start 04/28/18 at 23:45 Diphenhydramine HCl (Benadryl) 25 mg TID PO Last administered on 05/07/18at 20:46 ; Start 04/29/18 at 09:00 Docusate Sodium (Colace Solution) 100 mg BID PO Last administered on 05/07/18at 20:45; Start 04/29/18 at 09:00 Ipratropium [place] (Atrovent) 0.5 mg Q6HRS IH Last administered on 05/07/18 16 :01; Start 04/29/18 at 00:30 Metoprolol Tartrate (Lopressor) 25 mg BID PO Last administered on 05/07/18 20: 46; Start 04/29/18 at 09:00 Tamsulosin HCl (Flomax) 0.4 mg DAILY PO Last administered on 05/07/18 09:14; Start 04/29/18 at 09:00 Amantadine HCl (Symmetrel) 100 mg BID PO Last administered on 05/07/18 20:47; Start 04/29/18 at 09:00 Benztropine Mesylate (Cogentin) 2 mg BID PO Last administered on 05/07/18 20:47 ; Start 04/29/18 at 09:00 Doxazosin Mesylate (Cardura) 1 mg QHS PO Last administered on 05/07/18 20:46; Start 04/29/18 at 21:00 Famotidine (Pepcid) 20 mg BID PO Last administered on 05/07/18 20:46; Start at 09:00 Acetaminophen/ Hydrocodone Bitart (Lortab 5/325) 1 tab PRN Q4HRS PRN PO PAIN Last administered on 05/04/18 01:05; Start 04/28/18 at 23:45 Lactulose (Lactulose) 20 gm PRN TID PRN PO CONSTIPATION; Start 04/28/18 at 23: 45 Nystatin (Mycostatin) 1 rupert PRN Q12HR PRN TP ANTIFUNGAL F/RASH; Start 04/28/18 at 23:45 Pantoprazole Sodium (Protonix) 40 mg DAILYAC PO Last administered on 05/07/18 09:12; Start 04/29/18 at 07:30 Sodium Bicarbonate 650 mg PRN Q24HRS PRN PO GI SYMPTOMS; Start 04/28/18 at 23: 45 Topiramate (Topamax) 100 mg DAILY PO Last administered on 05/07/18 09:13; Start 04/29/18 at 09:00 Nicotine (Nicoderm Cq 7mg) 1 patch DAILY TD Last administered on 05/01/18 08: 34; Start 04/29/18 at 09:00; Stop 05/02/18 at 15:53; Status DC Lidocaine (Lidoderm) 1 patch DAILY TD Last administered on 05/07/18at 09:14; Start 04/30/18 at 09:00 Miscellaneous (Lidoderm Patch Removal) 1 ea QHS MC Last administered on at 20:45; Start 04/30/18 at 21:00 Mirtazapine (Remeron) 7.5 mg QHS PO Last administered on 05/07/18 20:46; Start 05/01/18 at 21:00 Clozapine (Clozaril) 25 mg QHS PO Last administered on 05/03/18 20:28; Start at 21:00; Stop 05/04/18 at 15:32; Status DC Nystatin (Nystop) 1 rupert BID TP Last administered on 05/07/18at 20:47; Start at 01:00 Clozapine (Clozaril) 50 mg QHS PO Last administered on 05/07/18at 20:46; Start at 17:00 Active Scripts Active Reported Topamax (Topiramate) 100 Mg Tablet 100 Mg PO DAILY Sodium Bicarbonate 650 Mg Tablet 650 Mg PO PRN Q24HRS PRN Protonix (Pantoprazole Sodium) 40 Mg Tablet.dr 40 Mg PO DAILY Lorazepam 0.5 Mg Tablet 0.5 Mg PO PRN Q4HRS PRN Nystatin 15 Gm Cream..g. 1 Rupert TP PRN Q12HR PRN Metoprolol Tartrate 25 Mg Tablet 25 Mg PO BID Lactulose 10 Gm/15 Ml Solution 30 Ml PO Ipratropium [place] 0.2 Mg/1 Ml Solution 0.5 Mg IH Q6HRS Hydrocodone-Apap 5-325 (Hydrocodone Bit/Acetaminophen) 1 Each Tablet 1 Tab PO PRN Q4HRS PRN Flomax (Tamsulosin Hcl) 0.4 Mg Cap.er.24h 0.4 Mg PO DAILY Famotidine 20 Mg Tablet 20 Mg PO BID Duoneb 0.5-3(2.5) Mg/3 Ml (Albuterol/Ipratropium) 3 Ml Ampul.neb 1 Vial NEB QID Duoneb 0.5-3(2.5) Mg/3 Ml (Albuterol/Ipratropium) 3 Ml Ampul.neb 1 Vial NEB PRN Q4HRS PRN Docusate Sodium 50 Mg/5 Ml Liquid 10 Ml PO BID [place] Oil 118 Ml Oil 1 Rupert TP BID 3 Days Cardura (Doxazosin Mesylate) 2 Mg Tablet 1 Mg PO QHS Benztropine Mesylate 2 Mg Tablet 2 Mg PO BID Benadryl (Diphenhydramine Hcl) 25 Mg Capsule 25 Mg PO TID Amantadine (Amantadine Hcl) 100 Mg Tablet 100 Mg PO BID Tylenol (Acetaminophen) 325 Mg Tablet 325 Mg PO PRN Q6HRS PRN I have reviewed the current psychotropics carefully including drug interactions. Risk benefit ratio favors no change other than as noted in my dictated progress note. Diagnosis: Problems: (1) Contusion of left hip (2) Aggressive behavior of adult (3) Geriatric psychosis (4) Decubitus ulcer of sacral region, stage 1 CHOCO JERRY MD May 07, 2018 20:58
--- NOTE | 2018-05-08 02:03 | PN ---
DATE: 05/05/2018 SUBJECTIVE: The patient denies any new medical or neurological complaints; however, he has been less agitated, less confused and more cooperative. He denies any new medical or neurological complaints. OBJECTIVE: GENERAL: Well-developed, well-nourished male, not in acute distress. VITAL SIGNS: Blood pressure 121/58, respiratory rate is 16, pulse is 62 and regular, temperature 97.6, oxygen saturation 96% on room air. HEENT: Normocephalic, atraumatic, otherwise unremarkable. NECK: Supple. Negative for carotid bruit, JVD or lymphadenopathy. LUNGS: Clear to A and P. CARDIOVASCULAR: Regular rate and rhythm, normal S1, S2. ABDOMEN: Soft. Bowel sounds positive. EXTREMITIES: Negative for cyanosis, clubbing or pitting edema. NEUROLOGICAL EXAM: Mental Status: The patient is alert and oriented to himself. He follows 1-step commands. Memory, judgment, and abstract thinking are poor. The patient denies hallucination or delusion. Cranial nerves are grossly intact. Motor examination: The patient had mild involuntarily movements of the upper extremities compared to those on the day of admission consistent with a mild flapping of his upper extremities and mild swaying from side to side. Sensory examination revealed normal pinprick and light touch senses. Deep tendon reflexes were asymmetric and hypoactive with absent Achilles responses. Gait not tested. DIAGNOSTIC DATA: Nonenhanced head CT scan revealed no acute intracranial process. 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 LABORATORY DATA: From 05/04/2018 revealed white blood cells of 6.6 thousand, hemoglobin 12.3, hematocrit 36.5, platelet count 252,000 with a normal neutrophil at 62%. IMPRESSION: 1. Involuntarily movement of the upper extremities and upper body, likely due to previous typical antipsychotic use for schizophrenia and other psychiatric disorders. The involuntarily movements has been slightly improved on current atypical antipsychotic agent Clozaril along with Ativan, amantadine and analgesics. 2. Multiple medical problems include hypertension, paroxysmal atrial fibrillation, depression, anxiety, dementia. RECOMMENDATIONS: We will continue with current psychiatric and medical care. The patient appeared to be less psychotic and less agitated with current management. M Matilde GALARZA MD DR: AILIN/naman JOB#: [id number] / [id number]
--- NOTE | 2018-05-08 02:28 | PN ---
DATE: 05/07/2018 SUBJECTIVE: The patient was seen this morning after he got out of a shower. This morning he is sitting in chair. He denies any new medical or neurological complaints. OBJECTIVE: GENERAL: Well-developed, well-nourished male, not in acute distress. VITAL SIGNS: Blood pressure 135/87, respiratory rate 20, pulse is 68 and regular, temperature 97.2, oxygen saturation is 97% on room air. HEENT: Normocephalic, atraumatic, otherwise unremarkable. NECK: Supple. Negative for carotid bruit, lymphadenopathy or thyromegaly. LUNGS: Clear to A and P. CARDIOVASCULAR: Regular rate rhythm, normal S1, S2. ABDOMEN: Soft. EXTREMITIES: Negative for cyanosis, clubbing or pitting edema. NEUROLOGICAL EXAM: Mental Status: The patient is alert and oriented to himself. He knows he is in the hospital. He follows 1-step commands. His speech is more coherent. He is more cooperative with the examination. He denies hallucination or delusion. Cranial nerves are grossly intact. Motor examination revealed no focal muscle bulk was seen. The tone is slightly increased in the lower extremities, mild involuntarily movement of the upper extremity was noted. Sensory examination: Normal pinprick, light touch senses. Deep tendon reflexes were asymmetric and hypoactive with absent Achilles responses. Gait not tested. IMPRESSION: 1. Long history of involuntarily movements possible tardive dyskinesia due to previous usage of typical antipsychotic, which has been slightly and gradually improved since admission by current management initiated by Dr. Laird including Clozaril antidepressant, intermittent Ativan for agitation and analgesic. 2. Multiple medical problems include hypertension and paroxysmal atrial fibrillations, dementia, left hip pain. 3. The schizophrenia/schizoaffective disorders, paranoid type and intermittent psychosis. RECOMMENDATIONS: 1. We will continue with current medical and psychiatric care. 2. Discussed with Dr. Laird the use of [place], with generic deutetrabenazine for worsening of tardive dyskinesia. It was decided that we hold on that medicine if the patient have worsening of tardive dyskinesia. M Matilde GALARZA MD DR: AILIN/naman JOB#: [id number] / [id number]
--- NOTE | 2018-05-08 02:33 | PN ---
DATE: 05/03/2018 SUBJECTIVE: The patient continued to have abnormal involuntary movements of the upper extremities and body. He was started on Clozaril, which has been increased gradually along with Ativan and hydrocodone for hip pain. There is no reported new neurological complaint. OBJECTIVE: GENERAL: Well-developed, well-nourished male, not in acute distress. VITAL SIGNS: Blood pressure 177/90, respiratory rate is 18, pulse is 67 and regular, temperature 97.2, oxygen saturation 92%. HEENT: Normocephalic, atraumatic, otherwise unremarkable. NECK: Supple, negative for carotid bruit, lymphadenopathy or thyromegaly. LUNGS: Clear to A and P. CARDIOVASCULAR: Regular rate and rhythm, normal S1-S2. EXTREMITIES: Negative for cyanosis, clubbing, pitting edema. NEUROLOGICAL EXAM INATION: Mental status: The patient is alert and oriented to himself. He answers simple questions and follows 1-step simple commands. Memory, judgment, and abstracting thinking are poor. Motor examination: The patient continues to have a flopping of his upper extremities, wiggling his fingers, sometimes grunting and frowning and intermittent thrust out of his abdomen and swaying from side to side. Sensory examination revealed normal pinprick and light touch senses. Deep tendon reflexes were symmetric and hypoactive without pathology responses. Gait not tested. IMPRESSION: 1. Longstanding history of schizoaffective disorder/schizophrenia of paranoid type that has been treated with typical antipsychotic medications resulting in abnormal involuntary movements and possible tardive dyskinesia. 2. Dementia, bipolar disorder/depression, anxiety, history of paroxysmal atrial fibrillation, hypertension, gastroesophageal reflux disease, hip pain, benign prostatic hypertrophy. RECOMMENDATIONS: 1. Continue with current psychiatric and medical care. 2. In case of worsening of involuntary movement, we will try tetrabenazine along with atypical antipsychotics and antidepressant along with Ativan and pain management. Margaret GALARZA MD DR: AILIN/naman JOB#: [id number] / [id number]
[2018-05-08] MEDS: IPRATROPIUM BROMIDE 0.5 MG/2.5 ML NEBU. IH SCH ×4 (05:33→20:03)
[2018-05-08 06:59] VITALS: BP 104/68
[2018-05-08] MEDS: PANTOPRAZOLE 40 MG TABLET. PO SCH ×2 (07:27→07:30)
[2018-05-08] MEDS: DOCUSATE 100 MG/10 ML SOLUTION. PO SCH ×3 (07:28→19:30)
[2018-05-08] MEDS: TOPIRAMATE 100 MG TABLET. PO SCH ×2 (07:28→09:00)
[2018-05-08] MEDS: FAMOTIDINE 20 MG TABLET PO SCH ×3 (07:28→19:30)
[2018-05-08] MEDS: METOPROLOL TART IMMED RELEASE 25 MG TABLET PO SCH ×3 (07:28→19:30)
[2018-05-08] MEDS: diphenhydrAMINE HCL 25 MG CAPSULE PO SCH ×3 (07:29→19:30)
[2018-05-08] MEDS: TAMSULOSIN 0.4 MG CAP.ER.24H. PO SCH ×2 (07:29→09:00)
[2018-05-08] MEDS: BENZTROPINE MESYLATE 1 MG TABLET PO SCH ×3 (07:29→19:30)
[2018-05-08] MEDS: LIDOCAINE (700MG/PATCH) PATCH. TD SCH ×2 (07:30→09:00)
[2018-05-08] MEDS ORDERED: ONDANSETRON ODT 4 MG TAB.RAPDIS PO PRN (08:45)
[2018-05-08] MEDS: AMANTADINE HCL 100 MG CAPSULE PO SCH ×3 (09:00→19:32)
[2018-05-08] MEDS: NYSTATIN TOPICAL POWDER 15GM BOTTLE. TP SCH ×2 (12:37→19:33)
[2018-05-08 16:02] VITALS: BP 126/70
[2018-05-08] MEDS ORDERED: traZODone 50 MG TABLET. PO PRN (16:45)
[2018-05-08] MEDS: MIRTAZAPINE 7.5 MG TABLET. PO SCH (19:30)
[2018-05-08] MEDS: cloZAPine 25 MG TABLET PO SCH (19:30)
[2018-05-08] MEDS: traZODone 50 MG TABLET. PO SCH (19:32)
[2018-05-08] MEDS: DOXAZOSIN MESYLATE 1 MG TABLET PO SCH (19:32)
--- NOTE | 2018-05-08 20:49 | PDOC ---
Exam Note: Elijah Note: Please also refer to the separate dictated note~for this date of service dictated separately.~Patient seen individually. Discussed the patient with Nursing staff reviewed the chart.~Reviewed interim history and current functioning. Reviewed vital signs,~Labs/ Radiology~and current medications noted below. Continue current treatment with the changes noted in the dictated addendum note Assessment: Vital Signs: Vital Signs Date Time Temp Pulse Resp B/P (MAP) Pulse Ox O2 Delivery O2 Flow Rate FiO2 05/08/18 20:08 Room Air 05/08/18 19:32 73 126/70 05/08/18 16:32 97 05/08/18 16:02 96.4 20 I&O Intake and Output 05/08/18 07:00 Intake Total 1250 ml Balance 1250 ml Intake Oral 1250 ml # Voids 2 Current Medications: Meds: Current Medications Lorazepam (Ativan) 2 mg 1X ONCE IM ; Start 04/28/18 at 19:15; Stop 04/28/18 at 19:17; Status DC Acetaminophen (Tylenol) 650 mg PRN Q6HRS PRN PO PAIN / TEMP; Start 04/28/18 at 23:15 Multi-Ingredient Ointment (Analgesic [place]) 1 rupert PRN QID PRN TP MUSCLE PAIN; Start 04/28/18 at 23:15 Al Hydroxide/Mg Hydroxide (Mylanta Plus Xs) 15 ml PRN AFTMEALHC PRN PO DYSPEPSIA; Start 04/28/18 at 23:15 Magnesium Hydroxide (Milk Of Magnesia) 2,400 mg PRN QHS PRN PO CONSTIPATION Last administered on 05/07/18at 06:52; Start 04/28/18 at 23:15 Lorazepam (Ativan) 0.5 mg PRN Q4HRS PRN PO ANXIETY / AGITATION Last administered on 05/07/18at 06:52; Start 04/28/18 at 23:30 Acetaminophen (Tylenol) 325 mg PRN Q6HRS PRN PO PAIN / TEMP; Start 04/28/18 at 23:45 Diphenhydramine HCl (Benadryl) 25 mg TID PO Last administered on 05/08/18at 19:30 ; Start 04/29/18 at 09:00 Docusate Sodium (Colace Solution) 100 mg BID PO Last administered on 05/08/18at 19:30; Start 04/29/18 at 09:00 Ipratropium [place] (Atrovent) 0.5 mg Q6HRS IH Last administered on 05/08/18 20 :03; Start 04/29/18 at 00:30 Metoprolol Tartrate (Lopressor) 25 mg BID PO Last administered on 05/08/18 19: 30; Start 04/29/18 at 09:00 Tamsulosin HCl (Flomax) 0.4 mg DAILY PO Last administered on 05/07/18 09:14; Start 04/29/18 at 09:00 Amantadine HCl (Symmetrel) 100 mg BID PO Last administered on 05/08/18 19:32; Start 04/29/18 at 09:00 Benztropine Mesylate (Cogentin) 2 mg BID PO Last administered on 05/08/18 19:30 ; Start 04/29/18 at 09:00 Doxazosin Mesylate (Cardura) 1 mg QHS PO Last administered on 05/08/18 19:32; Start 04/29/18 at 21:00 Famotidine (Pepcid) 20 mg BID PO Last administered on 05/08/18 19:30; Start at 09:00 Acetaminophen/ Hydrocodone Bitart (Lortab 5/325) 1 tab PRN Q4HRS PRN PO PAIN Last administered on 05/04/18 01:05; Start 04/28/18 at 23:45 Lactulose (Lactulose) 20 gm PRN TID PRN PO CONSTIPATION; Start 04/28/18 at 23: 45 Nystatin (Mycostatin) 1 rupert PRN Q12HR PRN TP ANTIFUNGAL F/RASH; Start 04/28/18 at 23:45 Pantoprazole Sodium (Protonix) 40 mg DAILYAC PO Last administered on 05/07/18 09:12; Start 04/29/18 at 07:30 Sodium Bicarbonate 650 mg PRN Q24HRS PRN PO GI SYMPTOMS; Start 04/28/18 at 23: 45 Topiramate (Topamax) 100 mg DAILY PO Last administered on 05/07/18 09:13; Start 04/29/18 at 09:00 Nicotine (Nicoderm Cq 7mg) 1 patch DAILY TD Last administered on 05/01/18 08: 34; Start 04/29/18 at 09:00; Stop 05/02/18 at 15:53; Status DC Lidocaine (Lidoderm) 1 patch DAILY TD Last administered on 05/07/18 09:14; Start 04/30/18 at 09:00 Miscellaneous (Lidoderm Patch Removal) 1 ea QHS MC Last administered on 20:45; Start 04/30/18 at 21:00 Mirtazapine (Remeron) 7.5 mg QHS PO Last administered on 05/08/18 19:30; Start 05/01/18 at 21:00 Clozapine (Clozaril) 25 mg QHS PO Last administered on 05/03/18 20:28; Start at 21:00; Stop 05/04/18 at 15:32; Status DC Nystatin (Nystop) 1 rupert BID TP Last administered on 05/08/18 19:33; Start at 01:00 Clozapine (Clozaril) 50 mg QHS PO Last administered on 05/08/18 19:30; Start at 17:00 Ondansetron HCl (Zofran Odt) 4 mg PRN Q8HRS PRN PO NAUSEA/VOMITING; Start at 08:45 Trazodone HCl (Desyrel) 50 mg QHS PO Last administered on 05/08/18 19:32; Start 05/08/18 at 21:00 Trazodone HCl (Desyrel) 50 mg PRN QHS PRN PO INSOMNIA; Start 05/08/18 at 16:45 Bisacodyl (Dulcolax Supp) 10 mg PRN DAILY PRN [place] CONSTIPATION; Start 05/08/18 at 17:00 Active Scripts Active Reported Topamax (Topiramate) 100 Mg Tablet 100 Mg PO DAILY Sodium Bicarbonate 650 Mg Tablet 650 Mg PO PRN Q24HRS PRN Protonix (Pantoprazole Sodium) 40 Mg Tablet.dr 40 Mg PO DAILY Lorazepam 0.5 Mg Tablet 0.5 Mg PO PRN Q4HRS PRN Nystatin 15 Gm Cream..g. 1 Rupert TP PRN Q12HR PRN Metoprolol Tartrate 25 Mg Tablet 25 Mg PO BID Lactulose 10 Gm/15 Ml Solution 30 Ml PO Ipratropium [place] 0.2 Mg/1 Ml Solution 0.5 Mg IH Q6HRS Hydrocodone-Apap 5-325 (Hydrocodone Bit/Acetaminophen) 1 Each Tablet 1 Tab PO PRN Q4HRS PRN Flomax (Tamsulosin Hcl) 0.4 Mg Cap.er.24h 0.4 Mg PO DAILY Famotidine 20 Mg Tablet 20 Mg PO BID Duoneb 0.5-3(2.5) Mg/3 Ml (Albuterol/Ipratropium) 3 Ml Ampul.neb 1 Vial NEB QID Duoneb 0.5-3(2.5) Mg/3 Ml (Albuterol/Ipratropium) 3 Ml Ampul.neb 1 Vial NEB PRN Q4HRS PRN Docusate Sodium 50 Mg/5 Ml Liquid 10 Ml PO BID [place] Oil 118 Ml Oil 1 Rupert TP BID 3 Days Cardura (Doxazosin Mesylate) 2 Mg Tablet 1 Mg PO QHS Benztropine Mesylate 2 Mg Tablet 2 Mg PO BID Benadryl (Diphenhydramine Hcl) 25 Mg Capsule 25 Mg PO TID Amantadine (Amantadine Hcl) 100 Mg Tablet 100 Mg PO BID Tylenol (Acetaminophen) 325 Mg Tablet 325 Mg PO PRN Q6HRS PRN I have reviewed the current psychotropics carefully including drug interactions. Risk benefit ratio favors no change other than as noted in my dictated progress note. Diagnosis: Problems: (1) Contusion of left hip (2) Aggressive behavior of adult (3) Geriatric psychosis (4) Decubitus ulcer of sacral region, stage 1 CHOCO JERRY MD May 08, 2018 20:49
[2018-05-08] MEDS: PATCH REMOVAL. MC SCH (20:54)
--- NOTE | 2018-05-08 23:09 | PN ---
DATE: 05/06/2018 This late entry 05/06/2018 covers elements not covered in my initial note. SUBJECTIVE: I met with the patient in the evening of 05/06/2018. Overall, the patient is compliant with medications. He remains somewhat anxious, has constant body movements, but these are better than before. He has been cooperative intermittently psychotic, but again better than before. REVIEW OF SYSTEMS: Ambulation impaired, in Broda chair. No CV, , pulmonary, eye, ENT system symptoms on review. Reliability poor. MENTAL STATUS EXAM: Oriented to himself at times, situation, speech coherent at times. Abstraction fair, computation impaired, language function intact. Attention span short. No active suicidal or homicidal ideation. As noted, psychotic symptoms are improved. LABORATORY DATA: Reviewed. IMPRESSION: Schizoaffective disorder, bipolar type, mixed with psychotic features, in partial remission, tardive dyskinesia, anxiety disorder, unspecified; cognitive disorder, unspecified. PLAN: Continue psychotropics from initial note including Clozaril 50 mg a day. We will increase this gradually. Consider adding Depakote as a mood stabilizer and reducing the Cogentin. MAN Jameson JERRY MD DR: BRIELLE/naman JOB#: [id number] / [id number]
--- NOTE | 2018-05-08 23:14 | PN ---
DATE: 05/07/2018 This late entry 05/07/2018 covers elements not covered in my initial note. SUBJECTIVE: I met with the patient in the evening, staffed at a treatment team meeting with the entire team in the morning. The patient slept 4-1/2 hours previous night. Reviewed the patient's history at length during treatment team meeting, current treatment and consideration of Depakote, adjustment of Clozaril. He is doing better, less screaming, overall less psychotic. Body movements are improved. I have also talked with Dr. Kim at some length about Dr. Kim's suggestion of considering deutetrabenazine for his tardive dyskinesia. Given the fact that since we started Clozaril, the movements are better, perhaps it is best to delay that for now. REVIEW OF SYSTEMS: No CV, , pulmonary, eye system symptoms on review. He is in a Broda chair. MENTAL STATUS EXAM: Oriented to himself. Insight, judgment, recent memory is impaired. Language function intact. Attention span short. Mood and affect remains somewhat labile at times. LABORATORY DATA: Reviewed. IMPRESSION: Schizoaffective disorder, bipolar type, mixed with psychotic features, in partial remission; anxiety disorder, unspecified; cognitive disorder, unspecified. Tardive dyskinesia. PLAN: Continue psychotropics from initial note. Consider gradual dose reduction of Cogentin and initiation of Depakote. MAN Jameson JERRY MD DR: BRIELLE/naman JOB#: [id number] / [id number]
[2018-05-09] MEDS: IPRATROPIUM BROMIDE 0.5 MG/2.5 ML NEBU. IH SCH ×4 (05:18→20:00)
[2018-05-09 05:58] VITALS: BP 142/84
[2018-05-09] MEDS: FAMOTIDINE 20 MG TABLET PO SCH ×2 (09:27→19:13)
[2018-05-09] MEDS: TAMSULOSIN 0.4 MG CAP.ER.24H. PO SCH (09:27)
[2018-05-09] MEDS: PANTOPRAZOLE 40 MG TABLET. PO SCH (09:27)
[2018-05-09] MEDS: DOCUSATE 100 MG/10 ML SOLUTION. PO SCH ×2 (09:27→19:12)
[2018-05-09] MEDS: diphenhydrAMINE HCL 25 MG CAPSULE PO SCH ×3 (09:28→19:13)
[2018-05-09] MEDS: METOPROLOL TART IMMED RELEASE 25 MG TABLET PO SCH ×2 (09:28→19:13)
[2018-05-09] MEDS: BENZTROPINE MESYLATE 1 MG TABLET PO SCH ×2 (09:28→19:13)
[2018-05-09] MEDS: LIDOCAINE (700MG/PATCH) PATCH. TD SCH (09:28)
[2018-05-09] MEDS: TOPIRAMATE 100 MG TABLET. PO SCH (09:28)
[2018-05-09] MEDS: AMANTADINE HCL 100 MG CAPSULE PO SCH ×2 (09:29→19:13)
[2018-05-09] MEDS: NYSTATIN TOPICAL POWDER 15GM BOTTLE. TP SCH ×2 (13:06→19:14)
[2018-05-09 16:21] VITALS: BP 154/84
[2018-05-09] MEDS: cloZAPine 25 MG TABLET PO SCH (19:12)
[2018-05-09] MEDS: MIRTAZAPINE 7.5 MG TABLET. PO SCH (19:13)
[2018-05-09] MEDS: traZODone 50 MG TABLET. PO SCH (19:13)
[2018-05-09] MEDS: DOXAZOSIN MESYLATE 1 MG TABLET PO SCH (19:14)
[2018-05-09] MEDS: PATCH REMOVAL. MC SCH (19:14)
--- NOTE | 2018-05-09 23:24 | PDOC ---
Exam Note: Elijah Note: Please also refer to the separate dictated note~for this date of service dictated separately.~Patient seen individually. Discussed the patient with Nursing staff reviewed the chart.~Reviewed interim history and current functioning. Reviewed vital signs,~Labs/ Radiology~and current medications noted below. Continue current treatment with the changes noted in the dictated addendum note Assessment: Vital Signs: Vital Signs Date Time Temp Pulse Resp B/P (MAP) Pulse Ox O2 Delivery O2 Flow Rate FiO2 05/09/18 20:00 98 Room Air 05/09/18 19:14 72 154/84 05/09/18 16:21 98.0 20 I&O Intake and Output 05/09/18 07:00 Intake Total 1000 ml Balance 1000 ml Intake Oral 1000 ml # Bowel Movements 1 Current Medications: Meds: Current Medications Lorazepam (Ativan) 2 mg 1X ONCE IM ; Start 04/28/18 at 19:15; Stop 04/28/18 at 19:17; Status DC Acetaminophen (Tylenol) 650 mg PRN Q6HRS PRN PO PAIN / TEMP; Start 04/28/18 at 23:15 Multi-Ingredient Ointment (Analgesic [place]) 1 rupert PRN QID PRN TP MUSCLE PAIN; Start 04/28/18 at 23:15 Al Hydroxide/Mg Hydroxide (Mylanta Plus Xs) 15 ml PRN AFTMEALHC PRN PO DYSPEPSIA; Start 04/28/18 at 23:15 Magnesium Hydroxide (Milk Of Magnesia) 2,400 mg PRN QHS PRN PO CONSTIPATION Last administered on 05/07/18at 06:52; Start 04/28/18 at 23:15 Lorazepam (Ativan) 0.5 mg PRN Q4HRS PRN PO ANXIETY / AGITATION Last administered on 05/07/18at 06:52; Start 04/28/18 at 23:30 Acetaminophen (Tylenol) 325 mg PRN Q6HRS PRN PO PAIN / TEMP; Start 04/28/18 at 23:45 Diphenhydramine HCl (Benadryl) 25 mg TID PO Last administered on 05/09/18at 19:13 ; Start 04/29/18 at 09:00 Docusate Sodium (Colace Solution) 100 mg BID PO Last administered on 05/09/18at 19:12; Start 04/29/18 at 09:00 Ipratropium [place] (Atrovent) 0.5 mg Q6HRS IH Last administered on 05/09/18 20 :00; Start 04/29/18 at 00:30 Metoprolol Tartrate (Lopressor) 25 mg BID PO Last administered on 05/09/18 19: 13; Start 04/29/18 at 09:00 Tamsulosin HCl (Flomax) 0.4 mg DAILY PO Last administered on 05/09/18 09:27; Start 04/29/18 at 09:00 Amantadine HCl (Symmetrel) 100 mg BID PO Last administered on 05/09/18 19:13; Start 04/29/18 at 09:00 Benztropine Mesylate (Cogentin) 2 mg BID PO Last administered on 05/09/18 19:13 ; Start 04/29/18 at 09:00 Doxazosin Mesylate (Cardura) 1 mg QHS PO Last administered on 05/09/18 19:14; Start 04/29/18 at 21:00 Famotidine (Pepcid) 20 mg BID PO Last administered on 05/09/18 19:13; Start at 09:00 Acetaminophen/ Hydrocodone Bitart (Lortab 5/325) 1 tab PRN Q4HRS PRN PO PAIN Last administered on 05/04/18 01:05; Start 04/28/18 at 23:45 Lactulose (Lactulose) 20 gm PRN TID PRN PO CONSTIPATION; Start 04/28/18 at 23: 45 Nystatin (Mycostatin) 1 rupert PRN Q12HR PRN TP ANTIFUNGAL F/RASH; Start 04/28/18 at 23:45 Pantoprazole Sodium (Protonix) 40 mg DAILYAC PO Last administered on 05/09/18 09:27; Start 04/29/18 at 07:30 Sodium Bicarbonate 650 mg PRN Q24HRS PRN PO GI SYMPTOMS; Start 04/28/18 at 23: 45 Topiramate (Topamax) 100 mg DAILY PO Last administered on 05/09/18 09:28; Start 04/29/18 at 09:00 Nicotine (Nicoderm Cq 7mg) 1 patch DAILY TD Last administered on 05/01/18 08: 34; Start 04/29/18 at 09:00; Stop 05/02/18 at 15:53; Status DC Lidocaine (Lidoderm) 1 patch DAILY TD Last administered on 05/09/18 09:28; Start 04/30/18 at 09:00 Miscellaneous (Lidoderm Patch Removal) 1 ea QHS MC Last administered on 19:14; Start 04/30/18 at 21:00 Mirtazapine (Remeron) 7.5 mg QHS PO Last administered on 05/09/18 19:13; Start 05/01/18 at 21:00 Clozapine (Clozaril) 25 mg QHS PO Last administered on 05/03/18 20:28; Start at 21:00; Stop 05/04/18 at 15:32; Status DC Nystatin (Nystop) 1 rupert BID TP Last administered on 05/09/18 19:14; Start at 01:00 Clozapine (Clozaril) 50 mg QHS PO Last administered on 05/09/18 19:12; Start at 17:00 Ondansetron HCl (Zofran Odt) 4 mg PRN Q8HRS PRN PO NAUSEA/VOMITING; Start at 08:45 Trazodone HCl (Desyrel) 50 mg QHS PO Last administered on 05/09/18 19:13; Start 05/08/18 at 21:00 Trazodone HCl (Desyrel) 50 mg PRN QHS PRN PO INSOMNIA; Start 05/08/18 at 16:45 Bisacodyl (Dulcolax Supp) 10 mg PRN DAILY PRN [place] CONSTIPATION; Start 05/08/18 at 17:00 Active Scripts Active Reported Topamax (Topiramate) 100 Mg Tablet 100 Mg PO DAILY Sodium Bicarbonate 650 Mg Tablet 650 Mg PO PRN Q24HRS PRN Protonix (Pantoprazole Sodium) 40 Mg Tablet.dr 40 Mg PO DAILY Lorazepam 0.5 Mg Tablet 0.5 Mg PO PRN Q4HRS PRN Nystatin 15 Gm Cream..g. 1 Rupert TP PRN Q12HR PRN Metoprolol Tartrate 25 Mg Tablet 25 Mg PO BID Lactulose 10 Gm/15 Ml Solution 30 Ml PO Ipratropium [place] 0.2 Mg/1 Ml Solution 0.5 Mg IH Q6HRS Hydrocodone-Apap 5-325 (Hydrocodone Bit/Acetaminophen) 1 Each Tablet 1 Tab PO PRN Q4HRS PRN Flomax (Tamsulosin Hcl) 0.4 Mg Cap.er.24h 0.4 Mg PO DAILY Famotidine 20 Mg Tablet 20 Mg PO BID Duoneb 0.5-3(2.5) Mg/3 Ml (Albuterol/Ipratropium) 3 Ml Ampul.neb 1 Vial NEB QID Duoneb 0.5-3(2.5) Mg/3 Ml (Albuterol/Ipratropium) 3 Ml Ampul.neb 1 Vial NEB PRN Q4HRS PRN Docusate Sodium 50 Mg/5 Ml Liquid 10 Ml PO BID [place] Oil 118 Ml Oil 1 Rupert TP BID 3 Days Cardura (Doxazosin Mesylate) 2 Mg Tablet 1 Mg PO QHS Benztropine Mesylate 2 Mg Tablet 2 Mg PO BID Benadryl (Diphenhydramine Hcl) 25 Mg Capsule 25 Mg PO TID Amantadine (Amantadine Hcl) 100 Mg Tablet 100 Mg PO BID Tylenol (Acetaminophen) 325 Mg Tablet 325 Mg PO PRN Q6HRS PRN I have reviewed the current psychotropics carefully including drug interactions. Risk benefit ratio favors no change other than as noted in my dictated progress note. Diagnosis: Problems: (1) Contusion of left hip (2) Aggressive behavior of adult (3) Geriatric psychosis (4) Decubitus ulcer of sacral region, stage 1 CHOCO JERRY MD May 09, 2018 23:24
[2018-05-10] MEDS: IPRATROPIUM BROMIDE 0.5 MG/2.5 ML NEBU. IH SCH ×4 (05:04→20:07)
[2018-05-10 06:06] VITALS: BP 143/73
[2018-05-10] MEDS: diphenhydrAMINE HCL 25 MG CAPSULE PO SCH ×3 (07:29→19:43)
[2018-05-10] MEDS: PANTOPRAZOLE 40 MG TABLET. PO SCH (07:29)
[2018-05-10] MEDS: FAMOTIDINE 20 MG TABLET PO SCH ×2 (07:30→19:44)
[2018-05-10] MEDS: TAMSULOSIN 0.4 MG CAP.ER.24H. PO SCH (07:30)
[2018-05-10] MEDS: DOCUSATE 100 MG/10 ML SOLUTION. PO SCH ×2 (07:30→19:45)
[2018-05-10] MEDS: BENZTROPINE MESYLATE 1 MG TABLET PO SCH ×2 (07:30→19:44)
[2018-05-10] MEDS: AMANTADINE HCL 100 MG CAPSULE PO SCH ×2 (07:31→19:44)
[2018-05-10] MEDS: TOPIRAMATE 100 MG TABLET. PO SCH (07:31)
[2018-05-10] MEDS: METOPROLOL TART IMMED RELEASE 25 MG TABLET PO SCH ×2 (07:31→19:43)
[2018-05-10] MEDS: LIDOCAINE (700MG/PATCH) PATCH. TD SCH (07:32)
[2018-05-10] MEDS: NYSTATIN TOPICAL POWDER 15GM BOTTLE. TP SCH ×2 (09:00→20:00)
--- NOTE | 2018-05-10 12:17 | PN ---
DATE: SUBJECTIVE: The patient continues to have a movement disorder. He was seen today in a quiet room, lying on the floor, but when he was called by his name, he looked at me and he started having involuntarily movements of the upper extremities and some movements of his trunk. The more he gets involved of the more involuntarily movements, however he was quiet, cooperative. OBJECTIVE: GENERAL: Well-developed, well-nourished white male, not in acute distress. VITAL SIGNS: Blood pressure 154/84, respiratory rate 20, pulse is 72, temperature is 98, oxygen saturation is 98% on room air. HEENT: Normocephalic, atraumatic, otherwise unremarkable. NECK: Supple. Negative for carotid bruit, lymphadenopathy or thyromegaly. LUNGS: Are clear to A and P. CARDIOVASCULAR: Regular rhythm, normal S1, S2. ABDOMEN: Soft. EXTREMITIES: Are negative for cyanosis, clubbing, pitting edema. NEUROLOGICAL EXAM: Mental status: The patient is alert to himself. He does not remember the name of the hospital, the date or his date of . The speech was slow and delayed. He follows 1-step commands. Memory, judgment, and abstract thinking are full. The patient denies hallucination or delusion. Cranial nerves are grossly intact. No focal motor or sensory deficits; however, the patient had involuntarily movements of the upper extremities as before, but probably less intense. Deep tendon reflexes were symmetric and hypoactive with absent Achilles responses. Gait not tested. IMPRESSION: 1. Involuntarily movement, probably due to usage of typical antipsychotic medications in the past. 2. Schizoaffective disorders, bipolars, depressions and anxiety disorders. 3. Multiple medical problems include left hip pain, benign prostate hypertrophy, hypertension, paroxysmal atrial fibrillation. RECOMMENDATIONS: Would continue with current management with current medical and psychiatric care. M Matilde GALARZA MD DR: AILIN/naman JOB#: [id number] / [id number]
[2018-05-10 16:04] VITALS: BP 104/67
[2018-05-10] MEDS: MIRTAZAPINE 7.5 MG TABLET. PO SCH (19:43)
[2018-05-10] MEDS: traZODone 50 MG TABLET. PO SCH (19:43)
[2018-05-10] MEDS: DOXAZOSIN MESYLATE 1 MG TABLET PO SCH (19:46)
[2018-05-10] MEDS: cloZAPine 25 MG TABLET PO SCH (19:48)
[2018-05-10] MEDS: PATCH REMOVAL. MC SCH (20:00)
--- NOTE | 2018-05-10 20:59 | PDOC ---
Exam Note: Elijah Note: Please also refer to the separate dictated note~for this date of service dictated separately.~Patient seen individually. Discussed the patient with Nursing staff reviewed the chart.~Reviewed interim history and current functioning. Reviewed vital signs,~Labs/ Radiology~and current medications noted below. Continue current treatment with the changes noted in the dictated addendum note Assessment: Vital Signs: Vital Signs Date Time Temp Pulse Resp B/P (MAP) Pulse Ox O2 Delivery O2 Flow Rate FiO2 05/10/18 20:10 99 Room Air 05/10/18 19:46 73 104/67 05/10/18 16:04 97.7 18 I&O Intake and Output 05/10/18 07:00 Intake Total 765 ml Balance 765 ml Intake Oral 765 ml # Bowel Movements 2 Current Medications: Meds: Current Medications Lorazepam (Ativan) 2 mg 1X ONCE IM ; Start 04/28/18 at 19:15; Stop 04/28/18 at 19:17; Status DC Acetaminophen (Tylenol) 650 mg PRN Q6HRS PRN PO PAIN / TEMP; Start 04/28/18 at 23:15 Multi-Ingredient Ointment (Analgesic [place]) 1 rupert PRN QID PRN TP MUSCLE PAIN; Start 04/28/18 at 23:15 Al Hydroxide/Mg Hydroxide (Mylanta Plus Xs) 15 ml PRN AFTMEALHC PRN PO DYSPEPSIA; Start 04/28/18 at 23:15 Magnesium Hydroxide (Milk Of Magnesia) 2,400 mg PRN QHS PRN PO CONSTIPATION Last administered on 05/07/18at 06:52; Start 04/28/18 at 23:15 Lorazepam (Ativan) 0.5 mg PRN Q4HRS PRN PO ANXIETY / AGITATION Last administered on 05/07/18at 06:52; Start 04/28/18 at 23:30 Acetaminophen (Tylenol) 325 mg PRN Q6HRS PRN PO PAIN / TEMP; Start 04/28/18 at 23:45 Diphenhydramine HCl (Benadryl) 25 mg TID PO Last administered on 05/10/18at 19:43 ; Start 04/29/18 at 09:00 Docusate Sodium (Colace Solution) 100 mg BID PO Last administered on 05/10/18at 19:45; Start 04/29/18 at 09:00 Ipratropium [place] (Atrovent) 0.5 mg Q6HRS IH Last administered on 05/10/18 20 :07; Start 04/29/18 at 00:30 Metoprolol Tartrate (Lopressor) 25 mg BID PO Last administered on 05/10/18 19: 43; Start 04/29/18 at 09:00 Tamsulosin HCl (Flomax) 0.4 mg DAILY PO Last administered on 05/10/18 07:30; Start 04/29/18 at 09:00 Amantadine HCl (Symmetrel) 100 mg BID PO Last administered on 05/10/18 19:44; Start 04/29/18 at 09:00 Benztropine Mesylate (Cogentin) 2 mg BID PO Last administered on 05/10/18 19:44 ; Start 04/29/18 at 09:00 Doxazosin Mesylate (Cardura) 1 mg QHS PO Last administered on 05/10/18 19:46; Start 04/29/18 at 21:00 Famotidine (Pepcid) 20 mg BID PO Last administered on 05/10/18 19:44; Start at 09:00 Acetaminophen/ Hydrocodone Bitart (Lortab 5/325) 1 tab PRN Q4HRS PRN PO PAIN Last administered on 05/04/18 01:05; Start 04/28/18 at 23:45 Lactulose (Lactulose) 20 gm PRN TID PRN PO CONSTIPATION; Start 04/28/18 at 23: 45 Nystatin (Mycostatin) 1 rupert PRN Q12HR PRN TP ANTIFUNGAL F/RASH; Start 04/28/18 at 23:45 Pantoprazole Sodium (Protonix) 40 mg DAILYAC PO Last administered on 05/10/18 07:29; Start 04/29/18 at 07:30 Sodium Bicarbonate 650 mg PRN Q24HRS PRN PO GI SYMPTOMS; Start 04/28/18 at 23: 45 Topiramate (Topamax) 100 mg DAILY PO Last administered on 05/10/18 07:31; Start 04/29/18 at 09:00 Nicotine (Nicoderm Cq 7mg) 1 patch DAILY TD Last administered on 05/01/18 08: 34; Start 04/29/18 at 09:00; Stop 05/02/18 at 15:53; Status DC Lidocaine (Lidoderm) 1 patch DAILY TD Last administered on 05/10/18 07:32; Start 04/30/18 at 09:00 Miscellaneous (Lidoderm Patch Removal) 1 ea QHS MC Last administered on 20:00; Start 04/30/18 at 21:00 Mirtazapine (Remeron) 7.5 mg QHS PO Last administered on 05/10/18 19:43; Start 05/01/18 at 21:00 Clozapine (Clozaril) 25 mg QHS PO Last administered on 05/03/18 20:28; Start at 21:00; Stop 05/04/18 at 15:32; Status DC Nystatin (Nystop) 1 rupert BID TP Last administered on 05/10/18 20:00; Start at 01:00 Clozapine (Clozaril) 50 mg QHS PO Last administered on 05/10/18 19:48; Start at 17:00 Ondansetron HCl (Zofran Odt) 4 mg PRN Q8HRS PRN PO NAUSEA/VOMITING; Start at 08:45 Trazodone HCl (Desyrel) 50 mg QHS PO Last administered on 05/10/18 19:43; Start 05/08/18 at 21:00 Trazodone HCl (Desyrel) 50 mg PRN QHS PRN PO INSOMNIA; Start 05/08/18 at 16:45 Bisacodyl (Dulcolax Supp) 10 mg PRN DAILY PRN [place]STIPATION; Start 05/08/18 at 17:00 Active Scripts Active Reported Topamax (Topiramate) 100 Mg Tablet 100 Mg PO DAILY Sodium Bicarbonate 650 Mg Tablet 650 Mg PO PRN Q24HRS PRN Protonix (Pantoprazole Sodium) 40 Mg Tablet.dr 40 Mg PO DAILY Lorazepam 0.5 Mg Tablet 0.5 Mg PO PRN Q4HRS PRN Nystatin 15 Gm Cream..g. 1 Rupert TP PRN Q12HR PRN Metoprolol Tartrate 25 Mg Tablet 25 Mg PO BID Lactulose 10 Gm/15 Ml Solution 30 Ml PO Ipratropium [place] 0.2 Mg/1 Ml Solution 0.5 Mg IH Q6HRS Hydrocodone-Apap 5-325 (Hydrocodone Bit/Acetaminophen) 1 Each Tablet 1 Tab PO PRN Q4HRS PRN Flomax (Tamsulosin Hcl) 0.4 Mg Cap.er.24h 0.4 Mg PO DAILY Famotidine 20 Mg Tablet 20 Mg PO BID Duoneb 0.5-3(2.5) Mg/3 Ml (Albuterol/Ipratropium) 3 Ml Ampul.neb 1 Vial NEB QID Duoneb 0.5-3(2.5) Mg/3 Ml (Albuterol/Ipratropium) 3 Ml Ampul.neb 1 Vial NEB PRN Q4HRS PRN Docusate Sodium 50 Mg/5 Ml Liquid 10 Ml PO BID [place] Oil 118 Ml Oil 1 Rupert TP BID 3 Days Cardura (Doxazosin Mesylate) 2 Mg Tablet 1 Mg PO QHS Benztropine Mesylate 2 Mg Tablet 2 Mg PO BID Benadryl (Diphenhydramine Hcl) 25 Mg Capsule 25 Mg PO TID Amantadine (Amantadine Hcl) 100 Mg Tablet 100 Mg PO BID Tylenol (Acetaminophen) 325 Mg Tablet 325 Mg PO PRN Q6HRS PRN I have reviewed the current psychotropics carefully including drug interactions. Risk benefit ratio favors no change other than as noted in my dictated progress note. Diagnosis: Problems: (1) Contusion of left hip (2) Aggressive behavior of adult (3) Geriatric psychosis (4) Decubitus ulcer of sacral region, stage 1 CHOCO JERRY MD May 10, 2018 20:59
--- NOTE | 2018-05-10 23:36 | PN ---
DATE: 05/08/2018 PSYCHIATRIC PROGRESS NOTE This is a late entry 05/08/2018 covers elements not covered in my initial note 05/08/2018. SUBJECTIVE: I met with the patient in the evening. The patient slept 3 hours previous evening. He has been nauseated, Zofran was given. He has been somewhat sedated. REVIEW OF SYSTEMS: No CV, , pulmonary, eye, ENT system symptoms on review. He is in a Broda chair. MENTAL STATUS EXAM: Oriented to himself. Insight, judgment, recent and remote memory, attention, concentration, fund of knowledge poor, consistent with his diagnosis mentioned in my initial note. PLAN: Continue Clozaril. Follow labs level. Increase gradually. Rest unchanged. Start trazodone 50 mg at bedtime, december repeat x 1 p.r.n. insomnia. MAN MargaretMartinez JERRY MD DR: BRIELLE/naman JOB#: [id number] / [id number]
[2018-05-11] MEDS: LORazepam 0.5 MG TABLET PO PRN (00:01)
[2018-05-11] MEDS: IPRATROPIUM BROMIDE 0.5 MG/2.5 ML NEBU. IH SCH ×4 (05:13→19:59)
[2018-05-11 06:52] VITALS: BP 130/88
[2018-05-11] MEDS: diphenhydrAMINE HCL 25 MG CAPSULE PO SCH ×3 (07:21→20:20)
[2018-05-11] MEDS: PANTOPRAZOLE 40 MG TABLET. PO SCH (07:21)
[2018-05-11] MEDS: TAMSULOSIN 0.4 MG CAP.ER.24H. PO SCH (07:22)
[2018-05-11] MEDS: FAMOTIDINE 20 MG TABLET PO SCH ×2 (07:22→20:20)
[2018-05-11] MEDS: TOPIRAMATE 100 MG TABLET. PO SCH (07:22)
[2018-05-11] MEDS: BENZTROPINE MESYLATE 1 MG TABLET PO SCH ×2 (07:22→20:22)
[2018-05-11] MEDS: DOCUSATE 100 MG/10 ML SOLUTION. PO SCH ×2 (07:22→20:20)
[2018-05-11] MEDS: LIDOCAINE (700MG/PATCH) PATCH. TD SCH (07:23)
[2018-05-11] MEDS: METOPROLOL TART IMMED RELEASE 25 MG TABLET PO SCH ×2 (07:23→20:20)
[2018-05-11] MEDS: NYSTATIN TOPICAL POWDER 15GM BOTTLE. TP SCH ×2 (07:25→23:12)
[2018-05-11] MEDS: AMANTADINE HCL 100 MG CAPSULE PO SCH ×2 (07:25→23:08)
[2018-05-11 07:41] LABS: BASO % 1 % (0-3); EOS # 0.1 x10^3/uL (0.0-0.7); EOS % 2 % (0-3); HEMATOCRIT 33.5 % (39.0-53.0); HEMOGLOBIN 11.3 g/dL (13.0-17.5); LYMPH # 1.9 x10^3/uL (1.0-4.8); LYMPH % 29 % (24-48); MEAN CORPUSCULAR HEMOGLOBIN 32 pg (25-35); MEAN CORPUSCULAR HGB CONC 34 g/dL (31-37); MEAN CORPUSCULAR VOLUME 95 fL (79-100); MONO # 0.6 x10^3/uL (0.0-1.1); MONO % 9 % (0-9); NEUT % 60 % (31-73); PLATELET COUNT 180 x10^3/uL (140-400); RED BLOOD COUNT 3.52 x10^6/uL (4.30-5.70); RED CELL DISTRIBUTION WIDTH 16.6 % (11.5-14.5); WHITE BLOOD COUNT 6.6 x10^3/uL (4.0-11.0)
[2018-05-11 07:54] LABS: ALBUMIN 2.8 g/dL (3.4-5.0); ALBUMIN/GLOBULIN RATIO 0.8 (1.0-1.7); CALCIUM 9.2 mg/dL (8.5-10.1); GFR 74.3; TOTAL BILIRUBIN 0.4 mg/dL (0.2-1.0); TOTAL PROTEIN 6.3 g/dL (6.4-8.2)
[2018-05-11 15:56] VITALS: BP 100/63
[2018-05-11] MEDS: MIRTAZAPINE 7.5 MG TABLET. PO SCH (20:20)
[2018-05-11] MEDS: traZODone 50 MG TABLET. PO SCH (20:21)
[2018-05-11] MEDS: PATCH REMOVAL. MC SCH (20:30)
--- NOTE | 2018-05-11 20:58 | PDOC ---
Exam Note: Elijah Note: Please also refer to the separate dictated note~for this date of service dictated separately.~Patient seen individually. Discussed the patient with Nursing staff reviewed the chart.~Reviewed interim history and current functioning. Reviewed vital signs,~Labs/ Radiology~and current medications noted below. Continue current treatment with the changes noted in the dictated addendum note Assessment: Vital Signs: Vital Signs Date Time Temp Pulse Resp B/P (MAP) Pulse Ox O2 Delivery O2 Flow Rate FiO2 05/11/18 20:20 72 100/63 05/11/18 20:00 Room Air 05/11/18 16:38 100 05/11/18 15:56 97.5 20 I&O Intake and Output 05/11/18 07:00 Intake Total 1640 ml Balance 1640 ml Intake Oral 1640 ml # Voids 1 Labs: Laboratory Tests Test 05/11/18 07:33 White Blood Count 6.6 x10^3/uL (4.0-11.0) Red Blood Count 3.52 x10^6/uL (4.30-5.70) L Hemoglobin 11.3 g/dL (13.0-17.5) L Hematocrit 33.5 % (39.0-53.0) L Mean Corpuscular Volume 95 fL (79-100) Mean Corpuscular Hemoglobin 32 pg (25-35) Mean Corpuscular Hemoglobin Concent 34 g/dL (31-37) Red Cell Distribution Width 16.6 % (11.5-14.5) H Platelet Count 180 x10^3/uL (140-400) Neutrophils (%) (Auto) 60 % (31-73) Lymphocytes (%) (Auto) 29 % (24-48) Monocytes (%) (Auto) 9 % (0-9) Eosinophils (%) (Auto) 2 % (0-3) Basophils (%) (Auto) 1 % (0-3) Neutrophils # (Auto) 4.0 x10^3uL (1.8-7.7) Lymphocytes # (Auto) 1.9 x10^3/uL (1.0-4.8) Monocytes # (Auto) 0.6 x10^3/uL (0.0-1.1) Eosinophils # (Auto) 0.1 x10^3/uL (0.0-0.7) Basophils # (Auto) 0.0 x10^3/uL (0.0-0.2) Sodium Level 134 mmol/L (136-145) L Potassium Level 4.0 mmol/L (3.5-5.1) Chloride Level 101 mmol/L (98-107) Carbon Dioxide Level 27 mmol/L (21-32) Anion Gap 6 (6-14) Blood Urea Nitrogen 24 mg/dL (8-26) Creatinine 1.0 mg/dL (0.7-1.3) Estimated GFR (Cockcroft-Gault) 74.3 BUN/Creatinine Ratio 24 (6-20) H Glucose Level 91 mg/dL (70-99) Calcium Level 9.2 mg/dL (8.5-10.1) Total Bilirubin 0.4 mg/dL (0.2-1.0) Aspartate Amino Transferase (AST) 16 U/L (15-37) Alanine Aminotransferase (ALT) 19 U/L (16-63) Alkaline Phosphatase 93 U/L (46-116) Total Protein 6.3 g/dL (6.4-8.2) L Albumin 2.8 g/dL (3.4-5.0) L Albumin/Globulin Ratio 0.8 (1.0-1.7) L Current Medications: Meds: Current Medications Lorazepam (Ativan) 2 mg 1X ONCE IM ; Start 04/28/18 at 19:15; Stop 04/28/18 at 19:17; Status DC Acetaminophen (Tylenol) 650 mg PRN Q6HRS PRN PO PAIN / TEMP; Start 04/28/18 at 23:15 Multi-Ingredient Ointment (Analgesic [place]) 1 rupert PRN QID PRN TP MUSCLE PAIN; Start 04/28/18 at 23:15 Al Hydroxide/Mg Hydroxide (Mylanta Plus Xs) 15 ml PRN AFTMEALHC PRN PO DYSPEPSIA Last administered on 05/10/18at 22:17; Start 04/28/18 at 23:15 Magnesium Hydroxide (Milk Of Magnesia) 2,400 mg PRN QHS PRN PO CONSTIPATION Last administered on 05/07/18at 06:52; Start 04/28/18 at 23:15 Lorazepam (Ativan) 0.5 mg PRN Q4HRS PRN PO ANXIETY / AGITATION Last administered on 05/11/18at 00:01; Start 04/28/18 at 23:30 Acetaminophen (Tylenol) 325 mg PRN Q6HRS PRN PO PAIN / TEMP; Start 04/28/18 at 23:45 Diphenhydramine HCl (Benadryl) 25 mg TID PO Last administered on 05/11/18 20: 20; Start 04/29/18 at 09:00 Docusate Sodium (Colace Solution) 100 mg BID PO Last administered on 05/11/18 20:20; Start 04/29/18 at 09:00 Ipratropium [place] (Atrovent) 0.5 mg Q6HRS IH Last administered on 05/11/18 19:59; Start 04/29/18 at 00:30 Metoprolol Tartrate (Lopressor) 25 mg BID PO Last administered on 05/11/18 20: 20; Start 04/29/18 at 09:00 Tamsulosin HCl (Flomax) 0.4 mg DAILY PO Last administered on 05/11/18 07:22; Start 04/29/18 at 09:00 Amantadine HCl (Symmetrel) 100 mg BID PO Last administered on 05/11/18 07:25; Start 04/29/18 at 09:00 Benztropine Mesylate (Cogentin) 2 mg BID PO Last administered on 05/11/18 20: 22; Start 04/29/18 at 09:00 Doxazosin Mesylate (Cardura) 1 mg QHS PO Last administered on 05/10/18 19:46; Start 04/29/18 at 21:00 Famotidine (Pepcid) 20 mg BID PO Last administered on 05/11/18 20:20; Start at 09:00 Acetaminophen/ Hydrocodone Bitart (Lortab 5/325) 1 tab PRN Q4HRS PRN PO PAIN Last administered on 05/04/18 01:05; Start 04/28/18 at 23:45 Lactulose (Lactulose) 20 gm PRN TID PRN PO CONSTIPATION; Start 04/28/18 at 23: 45 Nystatin (Mycostatin) 1 rupert PRN Q12HR PRN TP ANTIFUNGAL F/RASH; Start 04/28/18 at 23:45 Pantoprazole Sodium (Protonix) 40 mg DAILYAC PO Last administered on 05/11/18 07:21; Start 04/29/18 at 07:30 Sodium Bicarbonate 650 mg PRN Q24HRS PRN PO GI SYMPTOMS; Start 04/28/18 at 23: 45 Topiramate (Topamax) 100 mg DAILY PO Last administered on 05/11/18 07:22; Start 04/29/18 at 09:00 Nicotine (Nicoderm Cq 7mg) 1 patch DAILY TD Last administered on 05/01/18 08: 34; Start 04/29/18 at 09:00; Stop 05/02/18 at 15:53; Status DC Lidocaine (Lidoderm) 1 patch DAILY TD Last administered on 05/11/18 07:23; Start 04/30/18 at 09:00 Miscellaneous (Lidoderm Patch Removal) 1 ea QHS MC Last administered on 20:30; Start 04/30/18 at 21:00 Mirtazapine (Remeron) 7.5 mg QHS PO Last administered on 05/11/18 20:20; Start 05/01/18 at 21:00 Clozapine (Clozaril) 25 mg QHS PO Last administered on 05/03/18 20:28; Start at 21:00; Stop 05/04/18 at 15:32; Status DC Nystatin (Nystop) 1 rupert BID TP Last administered on 05/11/18 07:25; Start 05/03 at 01:00 Clozapine (Clozaril) 50 mg QHS PO Last administered on 05/10/18 19:48; Start at 17:00; Stop 05/11/18 at 17:13; Status DC Ondansetron HCl (Zofran Odt) 4 mg PRN Q8HRS PRN PO NAUSEA/VOMITING; Start at 08:45 Trazodone HCl (Desyrel) 50 mg QHS PO Last administered on 05/11/18 20:21; Start 05/08/18 at 21:00 Trazodone HCl (Desyrel) 50 mg PRN QHS PRN PO INSOMNIA Last administered on 05/11 00:01; Start 05/08/18 at 16:45 Bisacodyl (Dulcolax Supp) 10 mg PRN DAILY PRN [place] CONSTIPATION; Start 05/08/18 at 17:00 Clozapine (Clozaril) 75 mg HS PO ; Start 05/11/18 at 21:00 Active Scripts Active Reported Topamax (Topiramate) 100 Mg Tablet 100 Mg PO DAILY Sodium Bicarbonate 650 Mg Tablet 650 Mg PO PRN Q24HRS PRN Protonix (Pantoprazole Sodium) 40 Mg Tablet.dr 40 Mg PO DAILY Lorazepam 0.5 Mg Tablet 0.5 Mg PO PRN Q4HRS PRN Nystatin 15 Gm Cream..g. 1 Ru[place] TP PRN Q12HR PRN Metoprolol Tartrate 25 Mg Tablet 25 Mg PO BID Lactulose 10 Gm/15 Ml Solution 30 Ml PO Ipratropium [place] 0.2 Mg/1 Ml Solution 0.5 Mg IH Q6HRS Hydrocodone-Apap 5-325 (Hydrocodone Bit/Acetaminophen) 1 Each Tablet 1 Tab PO PRN Q4HRS PRN Flomax (Tamsulosin Hcl) 0.4 Mg Cap.er.24h 0.4 Mg PO DAILY Famotidine 20 Mg Tablet 20 Mg PO BID Duoneb 0.5-3(2.5) Mg/3 Ml (Albuterol/Ipratropium) 3 Ml Ampul.neb 1 Vial NEB QID Duoneb 0.5-3(2.5) Mg/3 Ml (Albuterol/Ipratropium) 3 Ml Ampul.neb 1 Vial NEB PRN Q4HRS PRN Docusate Sodium 50 Mg/5 Ml Liquid 10 Ml PO BID [place] Oil 118 Ml Oil 1 Rupert TP BID 3 Days Cardura (Doxazosin Mesylate) 2 Mg Tablet 1 Mg PO QHS Benztropine Mesylate 2 Mg Tablet 2 Mg PO BID Benadryl (Diphenhydramine Hcl) 25 Mg Capsule 25 Mg PO TID Amantadine (Amantadine Hcl) 100 Mg Tablet 100 Mg PO BID Tylenol (Acetaminophen) 325 Mg Tablet 325 Mg PO PRN Q6HRS PRN I have reviewed the current psychotropics carefully including drug interactions. Risk benefit ratio favors no change other than as noted in my dictated progress note. Diagnosis: Problems: (1) Contusion of left hip (2) Aggressive behavior of adult (3) Geriatric psychosis (4) Decubitus ulcer of sacral region, stage 1 CHOCO JERRY MD May 11, 2018 20:58
[2018-05-11] MEDS: cloZAPine 100 MG TABLET PO SCH (21:00)
--- NOTE | 2018-05-11 22:13 | PN ---
DATE: 05/09/2018 PSYCHIATRIC PROGRESS NOTE This late entry 05/09/2018 covers elements not covered in my initial note. SUBJECTIVE: I met with the patient in the evening. The patient is doing better, less psychotic, movements improved. I have discussed with Dr. Kim and for now, we have decided not to initiate deutetrabenazine. He is complaining of some nausea the day before. Takes medications crushed in water. Restlessness is better. REVIEW OF SYSTEMS: Ambulation impaired, in Broda chair. No CV, , pulmonary, eye, ENT system symptoms on review. MENTAL STATUS EXAM: Oriented to himself and situation. Speech coherent, at times somewhat pressured. Abstraction fair, computation impaired, language function intact, attention span short. Mood and affect remain somewhat labile, but improved. LABORATORY DATA: Reviewed. IMPRESSION: Unchanged from initial note. PLAN: No change from initial note. Gradually increase the Clozaril. Check labs, CBC, absolute neutrophil count on Friday and then increase to 75 mg a day. MAN Jameson JERRY MD DR: BRIELLE/naman JOB#: [id number] / [id number]
--- NOTE | 2018-05-11 23:06 | PN ---
DATE: 05/10/2018 PSYCHIATRIC PROGRESS NOTE This is a late entry of 05/10/2018, covers elements not covered in my initial note. SUBJECTIVE: I met with the patient in the evening. The patient slept 2-1/2 hours previous night, but naps off and on during the day. Overall, he is less agitated, less restless, cooperative, compliant with meds crushed in water. REVIEW OF SYSTEMS: No CV, , pulmonary, eye system symptoms on review. Gait is unsteady. MENTAL STATUS EXAM: Oriented to himself and at times situation. Speech rapid, difficult to understand. Abstraction fair, computation impaired, language function intact. Attention span short. Intellect average. Insight impaired. No active suicidal or homicidal ideations, still psychotic, but improved. LABORATORY DATA: Reviewed. IMPRESSION: Schizoaffective disorder, bipolar type, mixed with psychotic features, tardive dyskinesia. PLAN: No change from a psychiatric standpoint. Check CBC, absolute neutrophil count 05/11/2018, then increase the Clozaril. MAN Jameson JERRY MD DR: BRIELLE/naman JOB#: [id number] / [id number]
[2018-05-11] MEDS: DOXAZOSIN MESYLATE 1 MG TABLET PO SCH (23:09)
[2018-05-12] MEDS: LORazepam 0.5 MG TABLET PO PRN (04:10)
[2018-05-12] MEDS: IPRATROPIUM BROMIDE 0.5 MG/2.5 ML NEBU. IH SCH ×4 (05:03→20:42)
[2018-05-12 06:35] VITALS: BP 148/75
[2018-05-12] MEDS: AMANTADINE HCL 100 MG CAPSULE PO SCH ×2 (10:23→20:36)
[2018-05-12] MEDS: METOPROLOL TART IMMED RELEASE 25 MG TABLET PO SCH ×2 (10:23→20:24)
[2018-05-12] MEDS: DOCUSATE 100 MG/10 ML SOLUTION. PO SCH ×2 (10:23→20:24)
[2018-05-12] MEDS: TAMSULOSIN 0.4 MG CAP.ER.24H. PO SCH (10:23)
[2018-05-12] MEDS: LIDOCAINE (700MG/PATCH) PATCH. TD SCH (10:23)
[2018-05-12] MEDS: diphenhydrAMINE HCL 25 MG CAPSULE PO SCH ×3 (10:23→20:24)
[2018-05-12] MEDS: TOPIRAMATE 100 MG TABLET. PO SCH (10:23)
[2018-05-12] MEDS: FAMOTIDINE 20 MG TABLET PO SCH ×2 (10:23→20:24)
[2018-05-12] MEDS: PANTOPRAZOLE 40 MG TABLET. PO SCH (10:23)
[2018-05-12] MEDS: BENZTROPINE MESYLATE 1 MG TABLET PO SCH ×2 (10:24→20:23)
[2018-05-12] MEDS: NYSTATIN TOPICAL POWDER 15GM BOTTLE. TP SCH ×2 (10:24→20:29)
--- NOTE | 2018-05-12 13:00 | PN ---
DATE: 05/11/2018 PSYCHIATRIC PROGRESS NOTE This is a late entry 05/11/2018, covers elements not covered in my initial note. SUBJECTIVE: I met with the patient in the evening. The patient slept 5 hours previous night, has been less anxious, restless, still paranoid, suspicious. Reportedly, [facility] had called to check on his discharge plans. Appetite 60%. REVIEW OF SYSTEMS: Ambulation impaired, in Broda chair. No CV, , pulmonary, eye, ENT system symptoms on review. Reliability varies. MENTAL STATUS EXAM: Oriented to himself and situation. Speech moderate latency, coherent. Abstraction fair, computation impaired, language function intact, attention span short. Mood and affect less labile, still paranoid. Overall, movements consequent to TD are better. LABORATORY DATA: Reviewed. IMPRESSION: Unchanged from initial note, schizoaffective disorder, bipolar type, mixed with psychotic features, in partial remission; anxiety disorder, unspecified TD. Rest unchanged. PLAN: The patient's white cells are 6.6, 60% neutrophils. We will go ahead and increase the Clozaril from 50 mg at bedtime to 75 mg at bedtime. Follow CBC, absolute neutrophil count weekly. Continue rest unchanged from initial note. CHOCO JERRY MD DR: BRIELLE/naman JOB#: [id number] / [id number]
[2018-05-12 16:25] VITALS: BP 105/71
[2018-05-12] MEDS: traZODone 50 MG TABLET. PO SCH (20:24)
[2018-05-12] MEDS: MIRTAZAPINE 7.5 MG TABLET. PO SCH (20:25)
[2018-05-12] MEDS: cloZAPine 100 MG TABLET PO SCH (20:26)
[2018-05-12] MEDS: DOXAZOSIN MESYLATE 1 MG TABLET PO SCH (20:27)
[2018-05-12] MEDS: PATCH REMOVAL. MC SCH (20:40)
--- NOTE | 2018-05-12 20:56 | PDOC ---
Exam Note: Elijah Note: Please also refer to the separate dictated note~for this date of service dictated separately.~Patient seen individually. Discussed the patient with Nursing staff reviewed the chart.~Reviewed interim history and current functioning. Reviewed vital signs,~Labs/ Radiology~and current medications noted below. Continue current treatment with the changes noted in the dictated addendum note Assessment: Vital Signs: Vital Signs Date Time Temp Pulse Resp B/P (MAP) Pulse Ox O2 Delivery O2 Flow Rate FiO2 05/12/18 20:42 99 Room Air 05/12/18 20:27 62 105/71 05/12/18 16:25 97.7 16 I&O Intake and Output 05/12/18 07:00 Intake Total 1680 ml Balance 1680 ml Intake Oral 1680 ml # Voids 1 Current Medications: Meds: Current Medications Lorazepam (Ativan) 2 mg 1X ONCE IM ; Start 04/28/18 at 19:15; Stop 04/28/18 at 19:17; Status DC Acetaminophen (Tylenol) 650 mg PRN Q6HRS PRN PO PAIN / TEMP; Start 04/28/18 at 23:15 Multi-Ingredient Ointment (Analgesic [place]) 1 rupert PRN QID PRN TP MUSCLE PAIN; Start 04/28/18 at 23:15 Al Hydroxide/Mg Hydroxide (Mylanta Plus Xs) 15 ml PRN AFTMEALHC PRN PO DYSPEPSIA Last administered on 05/10/18at 22:17; Start 04/28/18 at 23:15 Magnesium Hydroxide (Milk Of Magnesia) 2,400 mg PRN QHS PRN PO CONSTIPATION Last administered on 05/07/18at 06:52; Start 04/28/18 at 23:15 Lorazepam (Ativan) 0.5 mg PRN Q4HRS PRN PO ANXIETY / AGITATION Last administered on 05/12/18at 04:10; Start 04/28/18 at 23:30 Acetaminophen (Tylenol) 325 mg PRN Q6HRS PRN PO PAIN / TEMP; Start 04/28/18 at 23:45 Diphenhydramine HCl (Benadryl) 25 mg TID PO Last administered on 05/12/18at 20: 24; Start 04/29/18 at 09:00 Docusate Sodium (Colace Solution) 100 mg BID PO Last administered on 05/12/18 20:24; Start 04/29/18 at 09:00 Ipratropium [place] (Atrovent) 0.5 mg Q6HRS IH Last administered on 05/12/18 20:42; Start 04/29/18 at 00:30 Metoprolol Tartrate (Lopressor) 25 mg BID PO Last administered on 05/12/18 20: 24; Start 04/29/18 at 09:00 Tamsulosin HCl (Flomax) 0.4 mg DAILY PO Last administered on 05/12/18 10:23; Start 04/29/18 at 09:00 Amantadine HCl (Symmetrel) 100 mg BID PO Last administered on 05/12/18 20:36; Start 04/29/18 at 09:00 Benztropine Mesylate (Cogentin) 2 mg BID PO Last administered on 05/12/18 20: 23; Start 04/29/18 at 09:00 Doxazosin Mesylate (Cardura) 1 mg QHS PO Last administered on 05/12/18 20:27; Start 04/29/18 at 21:00 Famotidine (Pepcid) 20 mg BID PO Last administered on 05/12/18 20:24; Start at 09:00 Acetaminophen/ Hydrocodone Bitart (Lortab 5/325) 1 tab PRN Q4HRS PRN PO PAIN Last administered on 05/04/18 01:05; Start 04/28/18 at 23:45 Lactulose (Lactulose) 20 gm PRN TID PRN PO CONSTIPATION; Start 04/28/18 at 23: 45 Nystatin (Mycostatin) 1 rupert PRN Q12HR PRN TP ANTIFUNGAL F/RASH; Start 04/28/18 at 23:45 Pantoprazole Sodium (Protonix) 40 mg DAILYAC PO Last administered on 05/12/18 10:23; Start 04/29/18 at 07:30 Sodium Bicarbonate 650 mg PRN Q24HRS PRN PO GI SYMPTOMS; Start 04/28/18 at 23: 45 Topiramate (Topamax) 100 mg DAILY PO Last administered on 05/12/18 10:23; Start 04/29/18 at 09:00 Nicotine (Nicoderm Cq 7mg) 1 patch DAILY TD Last administered on 05/01/18 08: 34; Start 04/29/18 at 09:00; Stop 05/02/18 at 15:53; Status DC Lidocaine (Lidoderm) 1 patch DAILY TD Last administered on 05/12/18 10:23; Start 04/30/18 at 09:00 Miscellaneous (Lidoderm Patch Removal) 1 ea QHS MC Last administered on 20:40; Start 04/30/18 at 21:00 Mirtazapine (Remeron) 7.5 mg QHS PO Last administered on 05/12/18 20:25; Start 05/01/18 at 21:00 Clozapine (Clozaril) 25 mg QHS PO Last administered on 05/03/18 20:28; Start at 21:00; Stop 05/04/18 at 15:32; Status DC Nystatin (Nystop) 1 rupert BID TP Last administered on 05/12/18 20:29; Start 05/03 at 01:00 Clozapine (Clozaril) 50 mg QHS PO Last administered on 05/10/18 19:48; Start at 17:00; Stop 05/11/18 at 17:13; Status DC Ondansetron HCl (Zofran Odt) 4 mg PRN Q8HRS PRN PO NAUSEA/VOMITING; Start at 08:45 Trazodone HCl (Desyrel) 50 mg QHS PO Last administered on 05/12/18 20:24; Start 05/08/18 at 21:00 Trazodone HCl (Desyrel) 50 mg PRN QHS PRN PO INSOMNIA Last administered on 05/11at 00:01; Start 05/08/18 at 16:45 Bisacodyl (Dulcolax Supp) 10 mg PRN DAILY PRN [place] CONSTIPATION; Start 05/08/18 at 17:00 Clozapine (Clozaril) 75 mg HS PO Last administered on 05/12/18 20:26; Start at 21:00 Active Scripts Active Reported Topamax (Topiramate) 100 Mg Tablet 100 Mg PO DAILY Sodium Bicarbonate 650 Mg Tablet 650 Mg PO PRN Q24HRS PRN Protonix (Pantoprazole Sodium) 40 Mg Tablet.dr 40 Mg PO DAILY Lorazepam 0.5 Mg Tablet 0.5 Mg PO PRN Q4HRS PRN Nystatin 15 Gm Cream..g. 1 Ru[place] TP PRN Q12HR PRN Metoprolol Tartrate 25 Mg Tablet 25 Mg PO BID Lactulose 10 Gm/15 Ml Solution 30 Ml PO Ipratropium [place] 0.2 Mg/1 Ml Solution 0.5 Mg IH Q6HRS Hydrocodone-Apap 5-325 (Hydrocodone Bit/Acetaminophen) 1 Each Tablet 1 Tab PO PRN Q4HRS PRN Flomax (Tamsulosin Hcl) 0.4 Mg Cap.er.24h 0.4 Mg PO DAILY Famotidine 20 Mg Tablet 20 Mg PO BID Duoneb 0.5-3(2.5) Mg/3 Ml (Albuterol/Ipratropium) 3 Ml Ampul.neb 1 Vial NEB QID Duoneb 0.5-3(2.5) Mg/3 Ml (Albuterol/Ipratropium) 3 Ml Ampul.neb 1 Vial NEB PRN Q4HRS PRN Docusate Sodium 50 Mg/5 Ml Liquid 10 Ml PO BID [place] Oil 118 Ml Oil 1 Rupert TP BID 3 Days Cardura (Doxazosin Mesylate) 2 Mg Tablet 1 Mg PO QHS Benztropine Mesylate 2 Mg Tablet 2 Mg PO BID Benadryl (Diphenhydramine Hcl) 25 Mg Capsule 25 Mg PO TID Amantadine (Amantadine Hcl) 100 Mg Tablet 100 Mg PO BID Tylenol (Acetaminophen) 325 Mg Tablet 325 Mg PO PRN Q6HRS PRN I have reviewed the current psychotropics carefully including drug interactions. Risk benefit ratio favors no change other than as noted in my dictated progress note. Diagnosis: Problems: (1) Contusion of left hip (2) Aggressive behavior of adult (3) Geriatric psychosis (4) Decubitus ulcer of sacral region, stage 1 CHOCO JERRY MD May 12, 2018 20:56
[2018-05-13] MEDS: IPRATROPIUM BROMIDE 0.5 MG/2.5 ML NEBU. IH SCH ×3 (05:49→15:08)
[2018-05-13] MEDS: LIDOCAINE (700MG/PATCH) PATCH. TD SCH ×2 (09:00→10:18)
[2018-05-13] MEDS: DOCUSATE 100 MG/10 ML SOLUTION. PO SCH ×2 (10:11→19:46)
[2018-05-13] MEDS: BENZTROPINE MESYLATE 1 MG TABLET PO SCH ×2 (10:11→19:47)
[2018-05-13] MEDS: FAMOTIDINE 20 MG TABLET PO SCH ×2 (10:12→19:46)
[2018-05-13] MEDS: NYSTATIN TOPICAL POWDER 15GM BOTTLE. TP SCH ×2 (10:18→19:46)
[2018-05-13] MEDS: PANTOPRAZOLE 40 MG TABLET. PO SCH (10:18)
[2018-05-13] MEDS: TOPIRAMATE 100 MG TABLET. PO SCH (10:18)
[2018-05-13] MEDS: AMANTADINE HCL 100 MG CAPSULE PO SCH ×2 (10:18→19:46)
[2018-05-13] MEDS: TAMSULOSIN 0.4 MG CAP.ER.24H. PO SCH (10:18)
[2018-05-13] MEDS: diphenhydrAMINE HCL 25 MG CAPSULE PO SCH ×3 (10:18→19:46)
[2018-05-13] MEDS: METOPROLOL TART IMMED RELEASE 25 MG TABLET PO SCH ×2 (10:18→19:47)
[2018-05-13 15:35] VITALS: BP 122/82
[2018-05-13] MEDS: MIRTAZAPINE 7.5 MG TABLET. PO SCH (19:46)
[2018-05-13] MEDS: cloZAPine 100 MG TABLET PO SCH (19:50)
[2018-05-13] MEDS: DOXAZOSIN MESYLATE 1 MG TABLET PO SCH (19:51)
[2018-05-13] MEDS: traZODone 100 MG TABLET. PO SCH (19:52)
[2018-05-13] MEDS: PATCH REMOVAL. MC SCH (21:00)
--- NOTE | 2018-05-13 21:01 | PDOC ---
Exam Note: Elijah Note: Please also refer to the separate dictated note~for this date of service dictated separately.~Patient seen individually. Discussed the patient with Nursing staff reviewed the chart.~Reviewed interim history and current functioning. Reviewed vital signs,~Labs/ Radiology~and current medications noted below. Continue current treatment with the changes noted in the dictated addendum note Assessment: Vital Signs: Vital Signs Date Time Temp Pulse Resp B/P (MAP) Pulse Ox O2 Delivery O2 Flow Rate FiO2 05/13/18 19:51 60 122/82 05/13/18 15:35 98.0 20 100 Room Air I&O Intake and Output 05/13/18 07:00 Intake Total 2160 ml Balance 2160 ml Intake Oral 2160 ml Current Medications: Meds: Current Medications Lorazepam (Ativan) 2 mg 1X ONCE IM ; Start 04/28/18 at 19:15; Stop 04/28/18 at 19:17; Status DC Acetaminophen (Tylenol) 650 mg PRN Q6HRS PRN PO PAIN / TEMP; Start 04/28/18 at 23:15 Multi-Ingredient Ointment (Analgesic [place]) 1 rupert PRN QID PRN TP MUSCLE PAIN; Start 04/28/18 at 23:15 Al Hydroxide/Mg Hydroxide (Mylanta Plus Xs) 15 ml PRN AFTMEALHC PRN PO DYSPEPSIA Last administered on 05/10/18at 22:17; Start 04/28/18 at 23:15 Magnesium Hydroxide (Milk Of Magnesia) 2,400 mg PRN QHS PRN PO CONSTIPATION Last administered on 05/07/18at 06:52; Start 04/28/18 at 23:15 Lorazepam (Ativan) 0.5 mg PRN Q4HRS PRN PO ANXIETY / AGITATION Last administered on 05/12/18at 04:10; Start 04/28/18 at 23:30 Acetaminophen (Tylenol) 325 mg PRN Q6HRS PRN PO PAIN / TEMP; Start 04/28/18 at 23:45 Diphenhydramine HCl (Benadryl) 25 mg TID PO Last administered on 05/13/18at 19: 46; Start 04/29/18 at 09:00 Docusate Sodium (Colace Solution) 100 mg BID PO Last administered on 05/13/18at 19:46; Start 04/29/18 at 09:00 Ipratropium [place] (Atrovent) 0.5 mg Q6HRS IH Last administered on 05/12/18 20:42; Start 04/29/18 at 00:30 Metoprolol Tartrate (Lopressor) 25 mg BID PO Last administered on 05/13/18 19: 47; Start 04/29/18 at 09:00 Tamsulosin HCl (Flomax) 0.4 mg DAILY PO Last administered on 05/13/18 10:18; Start 04/29/18 at 09:00 Amantadine HCl (Symmetrel) 100 mg BID PO Last administered on 05/13/18 19:46; Start 04/29/18 at 09:00 Benztropine Mesylate (Cogentin) 2 mg BID PO Last administered on 05/13/18 19: 47; Start 04/29/18 at 09:00 Doxazosin Mesylate (Cardura) 1 mg QHS PO Last administered on 05/13/18 19:51; Start 04/29/18 at 21:00 Famotidine (Pepcid) 20 mg BID PO Last administered on 05/13/18 19:46; Start at 09:00 Acetaminophen/ Hydrocodone Bitart (Lortab 5/325) 1 tab PRN Q4HRS PRN PO PAIN Last administered on 05/04/18 01:05; Start 04/28/18 at 23:45 Lactulose (Lactulose) 20 gm PRN TID PRN PO CONSTIPATION; Start 04/28/18 at 23: 45 Nystatin (Mycostatin) 1 rupert PRN Q12HR PRN TP ANTIFUNGAL F/RASH; Start 04/28/18 at 23:45 Pantoprazole Sodium (Protonix) 40 mg DAILYAC PO Last administered on 05/13/18 10:18; Start 04/29/18 at 07:30 Sodium Bicarbonate 650 mg PRN Q24HRS PRN PO GI SYMPTOMS; Start 04/28/18 at 23: 45 Topiramate (Topamax) 100 mg DAILY PO Last administered on 05/13/18 10:18; Start 04/29/18 at 09:00 Nicotine (Nicoderm Cq 7mg) 1 patch DAILY TD Last administered on 05/01/18at 08: 34; Start 04/29/18 at 09:00; Stop 05/02/18 at 15:53; Status DC Lidocaine (Lidoderm) 1 patch DAILY TD Last administered on 05/12/18 10:23; Start 04/30/18 at 09:00 Miscellaneous (Lidoderm Patch Removal) 1 ea QHS MC Last administered on 20:40; Start 04/30/18 at 21:00 Mirtazapine (Remeron) 7.5 mg QHS PO Last administered on 05/13/18 19:46; Start 05/01/18 at 21:00 Clozapine (Clozaril) 25 mg QHS PO Last administered on 05/03/18 20:28; Start at 21:00; Stop 05/04/18 at 15:32; Status DC Nystatin (Nystop) 1 rupert BID TP Last administered on 05/13/18 19:46; Start 05/03 at 01:00 Clozapine (Clozaril) 50 mg QHS PO Last administered on 05/10/18 19:48; Start at 17:00; Stop 05/11/18 at 17:13; Status DC Ondansetron HCl (Zofran Odt) 4 mg PRN Q8HRS PRN PO NAUSEA/VOMITING; Start at 08:45 Trazodone HCl (Desyrel) 50 mg QHS PO Last administered on 05/12/18at 20:24; Start 05/08/18 at 21:00; Stop 05/13/18 at 18:22; Status DC Trazodone HCl (Desyrel) 50 mg PRN QHS PRN PO INSOMNIA Last administered on 05/11at 00:01; Start 05/08/18 at 16:45; Stop 05/13/18 at 18:22; Status DC Bisacodyl (Dulcolax Supp) 10 mg PRN DAILY PRN [place] CONSTIPATION; Start 05/08/18 at 17:00 Clozapine (Clozaril) 75 mg HS PO Last administered on 05/13/18 19:50; Start at 21:00 Trazodone HCl (Desyrel) 100 mg PRN QHS PRN PO INSOMNIA; Start 05/13/18 at 18:30 Trazodone HCl (Desyrel) 100 mg QHS PO Last administered on 05/13/18at 19:52; Start 05/13/18 at 21:00 Active Scripts Active Reported Topamax (Topiramate) 100 Mg Tablet 100 Mg PO DAILY Sodium Bicarbonate 650 Mg Tablet 650 Mg PO PRN Q24HRS PRN Protonix (Pantoprazole Sodium) 40 Mg Tablet.dr 40 Mg PO DAILY Lorazepam 0.5 Mg Tablet 0.5 Mg PO PRN Q4HRS PRN Nystatin 15 Gm Cream..g. 1 Rupert TP PRN Q12HR PRN Metoprolol Tartrate 25 Mg Tablet 25 Mg PO BID Lactulose 10 Gm/15 Ml Solution 30 Ml PO Ipratropium [place] 0.2 Mg/1 Ml Solution 0.5 Mg IH Q6HRS Hydrocodone-Apap 5-325 (Hydrocodone Bit/Acetaminophen) 1 Each Tablet 1 Tab PO PRN Q4HRS PRN Flomax (Tamsulosin Hcl) 0.4 Mg Cap.er.24h 0.4 Mg PO DAILY Famotidine 20 Mg Tablet 20 Mg PO BID Duoneb 0.5-3(2.5) Mg/3 Ml (Albuterol/Ipratropium) 3 Ml Ampul.neb 1 Vial NEB QID Duoneb 0.5-3(2.5) Mg/3 Ml (Albuterol/Ipratropium) 3 Ml Ampul.neb 1 Vial NEB PRN Q4HRS PRN Docusate Sodium 50 Mg/5 Ml Liquid 10 Ml PO BID [place] Oil 118 Ml Oil 1 Rupert TP BID 3 Days Cardura (Doxazosin Mesylate) 2 Mg Tablet 1 Mg PO QHS Benztropine Mesylate 2 Mg Tablet 2 Mg PO BID Benadryl (Diphenhydramine Hcl) 25 Mg Capsule 25 Mg PO TID Amantadine (Amantadine Hcl) 100 Mg Tablet 100 Mg PO BID Tylenol (Acetaminophen) 325 Mg Tablet 325 Mg PO PRN Q6HRS PRN I have reviewed the current psychotropics carefully including drug interactions. Risk benefit ratio favors no change other than as noted in my dictated progress note. Diagnosis: Problems: (1) Contusion of left hip (2) Aggressive behavior of adult (3) Geriatric psychosis (4) Decubitus ulcer of sacral region, stage 1 CHOCO JERRY MD May 13, 2018 21:01
--- NOTE | 2018-05-13 22:45 | PN ---
DATE: 05/12/2018 This late entry, 05/12/2018, covers elements not covered in my initial note. SUBJECTIVE: I met with the patient in the evening. The patient slept 4 hours previous night, has been doing better, compliant with medication. He states he takes the medications like gasoline in his mouth. He has been reaching out for things around him when no one is still in a waving motion. Still intermittently psychotic, but improved. REVIEW OF SYSTEMS: No Ambulation impaired, in Broda chair. No CV, , pulmonary, eye, ENT system symptoms on review. MENTAL STATUS EXAM: Oriented to himself and situation. Speech moderate latency, coherent. Abstraction fair, computation impaired, language function intact. Attention span short, intermittent psychotic symptoms are evident. LABORATORY DATA: Reviewed. IMPRESSION: Unchanged from initial note. PLAN: No change from initial note. MAN Jameson JERRY MD DR: BRIELLE/naman JOB#: [id number] / [id number]
[2018-05-14] MEDS: traZODone 100 MG TABLET. PO PRN (01:12)
[2018-05-14] MEDS: IPRATROPIUM BROMIDE 0.5 MG/2.5 ML NEBU. IH SCH ×5 (05:39→21:56)
[2018-05-14 06:22] VITALS: BP 154/96
[2018-05-14] MEDS: NYSTATIN TOPICAL POWDER 15GM BOTTLE. TP SCH ×2 (09:00→19:39)
[2018-05-14] MEDS: BENZTROPINE MESYLATE 1 MG TABLET PO SCH ×2 (09:44→19:40)
[2018-05-14] MEDS: FAMOTIDINE 20 MG TABLET PO SCH ×2 (09:44→19:38)
[2018-05-14] MEDS: TAMSULOSIN 0.4 MG CAP.ER.24H. PO SCH (09:45)
[2018-05-14] MEDS: LIDOCAINE (700MG/PATCH) PATCH. TD SCH (09:45)
[2018-05-14] MEDS: METOPROLOL TART IMMED RELEASE 25 MG TABLET PO SCH ×2 (09:45→19:39)
[2018-05-14] MEDS: DOCUSATE 100 MG/10 ML SOLUTION. PO SCH ×2 (09:45→19:38)
[2018-05-14] MEDS: diphenhydrAMINE HCL 25 MG CAPSULE PO SCH ×3 (09:45→19:38)
[2018-05-14] MEDS: PANTOPRAZOLE 40 MG TABLET. PO SCH (09:47)
[2018-05-14] MEDS: TOPIRAMATE 100 MG TABLET. PO SCH (09:48)
[2018-05-14] MEDS: AMANTADINE HCL 100 MG CAPSULE PO SCH (09:49)
[2018-05-14 13:47] LABS: BACTERIA,URINE FEW /HPF (0-FEW); BILIRUBIN,URINE NEG (NEG); CLARITY,URINE CLEAR; COLOR,URINE YELLOW; GLUCOSE,URINE NEG (NEG); NITRITE,URINE NEG (NEG); RBC,URINE 0 /HPF (0-2); SQUAMOUS EPITHELIAL CELL,UR OCC /LPF; UROBILINOGEN,URINE 0.2 mg/dL (0.2 mg/dL); WBC,URINE OCC /HPF (0-4)
[2018-05-14 16:13] VITALS: BP 128/72
[2018-05-14] MEDS: cloZAPine 100 MG TABLET PO SCH (19:38)
[2018-05-14] MEDS: traZODone 100 MG TABLET. PO SCH (19:39)
[2018-05-14] MEDS: DOXAZOSIN MESYLATE 1 MG TABLET PO SCH (19:40)
[2018-05-14] MEDS: MIRTAZAPINE 15 MG TABLET PO SCH (19:41)
[2018-05-14] MEDS: PATCH REMOVAL. MC SCH (19:41)
--- NOTE | 2018-05-14 20:54 | PDOC ---
Exam Note: Elijah Note: Please also refer to the separate dictated note~for this date of service dictated separately.~Patient seen individually. Discussed the patient with Nursing staff reviewed the chart.~Reviewed interim history and current functioning. Reviewed vital signs,~Labs/ Radiology~and current medications noted below. Continue current treatment with the changes noted in the dictated addendum note Assessment: Vital Signs: Vital Signs Date Time Temp Pulse Resp B/P (MAP) Pulse Ox O2 Delivery O2 Flow Rate FiO2 05/14/18 19:40 62 128/72 05/14/18 16:32 100 Room Air 05/14/18 16:13 97.7 20 I&O Intake and Output 05/14/18 07:00 Intake Total 2000 ml Balance 2000 ml Intake Oral 2000 ml Labs: Laboratory Tests Test 05/14/18 13:05 Urine Collection Type Unknown Urine Color Yellow Urine Clarity Clear Urine pH 7.0 Urine Specific [place] 1.015 Urine Protein Neg (NEG-TRACE) Urine Glucose (UA) Neg mg/dL (NEG) Urine Ketones (Stick) Neg mg/dL (NEG) Urine Blood Neg (NEG) Urine Nitrite Neg (NEG) Urine Bilirubin Neg (NEG) Urine Urobilinogen Dipstick 0.2 mg/dL (0.2 mg/dL) Urine Leukocyte Esterase Neg (NEG) Urine RBC 0 /HPF (0-2) Urine WBC Occ /HPF (0-4) Urine Squamous Epithelial Cells Occ /LPF Urine Transitional Epithelial Cells Occ /LPF Urine Bacteria Few /HPF (0-FEW) Current Medications: Meds: Current Medications Lorazepam (Ativan) 2 mg 1X ONCE IM ; Start 04/28/18 at 19:15; Stop 04/28/18 at 19:17; Status DC Acetaminophen (Tylenol) 650 mg PRN Q6HRS PRN PO PAIN / TEMP; Start 04/28/18 at 23:15 Multi-Ingredient Ointment (Analgesic [place]) 1 rupert PRN QID PRN TP MUSCLE PAIN; Start 04/28/18 at 23:15 Al Hydroxide/Mg Hydroxide (Mylanta Plus Xs) 15 ml PRN AFTMEALHC PRN PO DYSPEPSIA Last administered on 05/10/18at 22:17; Start 04/28/18 at 23:15 Magnesium Hydroxide (Milk Of Magnesia) 2,400 mg PRN QHS PRN PO CONSTIPATION Last administered on 05/07/18 06:52; Start 04/28/18 at 23:15 Lorazepam (Ativan) 0.5 mg PRN Q4HRS PRN PO ANXIETY / AGITATION Last administered on 05/12/18 04:10; Start 04/28/18 at 23:30 Acetaminophen (Tylenol) 325 mg PRN Q6HRS PRN PO PAIN / TEMP; Start 04/28/18 at 23:45 Diphenhydramine HCl (Benadryl) 25 mg TID PO Last administered on 05/14/18 19: 38; Start 04/29/18 at 09:00 Docusate Sodium (Colace Solution) 100 mg BID PO Last administered on 05/14/18 19:38; Start 04/29/18 at 09:00 Ipratropium [place] (Atrovent) 0.5 mg Q6HRS IH Last administered on 05/14/18 16:32; Start 04/29/18 at 00:30 Metoprolol Tartrate (Lopressor) 25 mg BID PO Last administered on 05/14/18 19: 39; Start 04/29/18 at 09:00 Tamsulosin HCl (Flomax) 0.4 mg DAILY PO Last administered on 05/14/18 09:45; Start 04/29/18 at 09:00 Amantadine HCl (Symmetrel) 100 mg BID PO Last administered on 05/14/18 09:49; Start 04/29/18 at 09:00; Stop 05/14/18 at 10:24; Status DC Benztropine Mesylate (Cogentin) 2 mg BID PO Last administered on 05/14/18 09: 44; Start 04/29/18 at 09:00; Stop 05/14/18 at 10:24; Status DC Doxazosin Mesylate (Cardura) 1 mg QHS PO Last administered on 05/14/18 19:40; Start 04/29/18 at 21:00 Famotidine (Pepcid) 20 mg BID PO Last administered on 05/14/18 19:38; Start at 09:00 Acetaminophen/ Hydrocodone Bitart (Lortab 5/325) 1 tab PRN Q4HRS PRN PO PAIN Last administered on 05/04/18 01:05; Start 04/28/18 at 23:45 Lactulose (Lactulose) 20 gm PRN TID PRN PO CONSTIPATION; Start 04/28/18 at 23: 45 Nystatin (Mycostatin) 1 rupert PRN Q12HR PRN TP ANTIFUNGAL F/RASH; Start 04/28/18 at 23:45 Pantoprazole Sodium (Protonix) 40 mg DAILYAC PO Last administered on 05/14/18 09:47; Start 04/29/18 at 07:30 Sodium Bicarbonate 650 mg PRN Q24HRS PRN PO GI SYMPTOMS; Start 04/28/18 at 23: 45 Topiramate (Topamax) 100 mg DAILY PO Last administered on 05/14/18 09:48; Start 04/29/18 at 09:00 Nicotine (Nicoderm Cq 7mg) 1 patch DAILY TD Last administered on 05/01/18 08: 34; Start 04/29/18 at 09:00; Stop 05/02/18 at 15:53; Status DC Lidocaine (Lidoderm) 1 patch DAILY TD Last administered on 05/14/18at 09:45; Start 04/30/18 at 09:00 Miscellaneous (Lidoderm Patch Removal) 1 ea QHS MC Last administered on 19:41; Start 04/30/18 at 21:00 Mirtazapine (Remeron) 7.5 mg QHS PO Last administered on 05/13/18 19:46; Start 05/01/18 at 21:00; Stop 05/14/18 at 10:24; Status DC Clozapine (Clozaril) 25 mg QHS PO Last administered on 05/03/18 20:28; Start at 21:00; Stop 05/04/18 at 15:32; Status DC Nystatin (Nystop) 1 rupert BID TP Last administered on 05/14/18 19:39; Start 05/03 at 01:00 Clozapine (Clozaril) 50 mg QHS PO Last administered on 05/10/18 19:48; Start at 17:00; Stop 05/11/18 at 17:13; Status DC Ondansetron HCl (Zofran Odt) 4 mg PRN Q8HRS PRN PO NAUSEA/VOMITING; Start at 08:45 Trazodone HCl (Desyrel) 50 mg QHS PO Last administered on 05/12/18at 20:24; Start 05/08/18 at 21:00; Stop 05/13/18 at 18:22; Status DC Trazodone HCl (Desyrel) 50 mg PRN QHS PRN PO INSOMNIA Last administered on 05/11at 00:01; Start 05/08/18 at 16:45; Stop 05/13/18 at 18:22; Status DC Bisacodyl (Dulcolax Supp) 10 mg PRN DAILY PRN [place] CONSTIPATION; Start 05/08/18 at 17:00 Clozapine (Clozaril) 75 mg HS PO Last administered on 05/14/18at 19:38; Start at 21:00 Trazodone HCl (Desyrel) 100 mg PRN QHS PRN PO INSOMNIA Last administered on at 01:12; Start 05/13/18 at 18:30 Trazodone HCl (Desyrel) 100 mg QHS PO Last administered on 05/14/18at 19:39; Start 05/13/18 at 21:00 Amantadine HCl (Symmetrel) 50 mg BID PO ; Start 05/14/18 at 21:00; Stop at 21:00; Status DC Benztropine Mesylate (Cogentin) 1 mg BID PO Last administered on 05/14/18at 19: 40; Start 05/14/18 at 21:00 Mirtazapine (Remeron) 15 mg QHS PO Last administered on 05/14/18 19:41; Start 05/14/18 at 21:00 Melatonin 3 mg QHS PO Last administered on 05/14/18 19:40; Start 05/14/18 at 21:00 Amantadine HCl (Symmetrel) 100 mg DAILY PO ; Start 05/15/18 at 09:00 Active Scripts Active Reported Topamax (Topiramate) 100 Mg Tablet 100 Mg PO DAILY Sodium Bicarbonate 650 Mg Tablet 650 Mg PO PRN Q24HRS PRN Protonix (Pantoprazole Sodium) 40 Mg Tablet.dr 40 Mg PO DAILY Lorazepam 0.5 Mg Tablet 0.5 Mg PO PRN Q4HRS PRN Nystatin 15 Gm Cream..g. 1 Rupert TP PRN Q12HR PRN Metoprolol Tartrate 25 Mg Tablet 25 Mg PO BID Lactulose 10 Gm/15 Ml Solution 30 Ml PO Ipratropium [place] 0.2 Mg/1 Ml Solution 0.5 Mg IH Q6HRS Hydrocodone-Apap 5-325 (Hydrocodone Bit/Acetaminophen) 1 Each Tablet 1 Tab PO PRN Q4HRS PRN Flomax (Tamsulosin Hcl) 0.4 Mg Cap.er.24h 0.4 Mg PO DAILY Famotidine 20 Mg Tablet 20 Mg PO BID Duoneb 0.5-3(2.5) Mg/3 Ml (Albuterol/Ipratropium) 3 Ml Ampul.neb 1 Vial NEB QID Duoneb 0.5-3(2.5) Mg/3 Ml (Albuterol/Ipratropium) 3 Ml Ampul.neb 1 Vial NEB PRN Q4HRS PRN Docusate Sodium 50 Mg/5 Ml Liquid 10 Ml PO BID [place] Oil 118 Ml Oil 1 Rupert TP BID 3 Days Cardura (Doxazosin Mesylate) 2 Mg Tablet 1 Mg PO QHS Benztropine Mesylate 2 Mg Tablet 2 Mg PO BID Benadryl (Diphenhydramine Hcl) 25 Mg Capsule 25 Mg PO TID Amantadine (Amantadine Hcl) 100 Mg Tablet 100 Mg PO BID Tylenol (Acetaminophen) 325 Mg Tablet 325 Mg PO PRN Q6HRS PRN I have reviewed the current psychotropics carefully including drug interactions. Risk benefit ratio favors no change other than as noted in my dictated progress note. Diagnosis: Problems: (1) Contusion of left hip (2) Aggressive behavior of adult (3) Geriatric psychosis (4) Decubitus ulcer of sacral region, stage 1 CHOCO JERRY MD May 14, 2018 20:54
[2018-05-14] MEDS ORDERED: MELATONIN 3 MG TABLET PO SCH (21:00)
[2018-05-14] MEDS ORDERED: AMANTADINE HCL 100 MG CAPSULE PO SCH (21:00)
[2018-05-15] MEDS: IPRATROPIUM BROMIDE 0.5 MG/2.5 ML NEBU. IH SCH ×4 (05:41→19:54)
[2018-05-15 06:06] VITALS: BP 110/86
[2018-05-15] MEDS: MAGNESIUM HYDROXIDE 2,400 MG/30 ML ORAL.SUSP. PO PRN (08:13)
[2018-05-15] MEDS: TOPIRAMATE 100 MG TABLET. PO SCH (08:13)
[2018-05-15] MEDS: TAMSULOSIN 0.4 MG CAP.ER.24H. PO SCH (08:13)
[2018-05-15] MEDS: diphenhydrAMINE HCL 25 MG CAPSULE PO SCH ×3 (08:13→20:02)
[2018-05-15] MEDS: FAMOTIDINE 20 MG TABLET PO SCH ×2 (08:13→20:03)
[2018-05-15] MEDS: METOPROLOL TART IMMED RELEASE 25 MG TABLET PO SCH ×2 (08:13→20:03)
[2018-05-15] MEDS: DOCUSATE 100 MG/10 ML SOLUTION. PO SCH ×2 (08:13→20:02)
[2018-05-15] MEDS: PANTOPRAZOLE 40 MG TABLET. PO SCH (08:13)
[2018-05-15] MEDS: LIDOCAINE (700MG/PATCH) PATCH. TD SCH (08:14)
[2018-05-15] MEDS: BENZTROPINE MESYLATE 1 MG TABLET PO SCH ×2 (08:14→20:03)
[2018-05-15] MEDS: NYSTATIN TOPICAL POWDER 15GM BOTTLE. TP SCH ×2 (08:14→20:06)
[2018-05-15] MEDS: AMANTADINE HCL 100 MG CAPSULE PO SCH (08:16)
[2018-05-15 15:34] VITALS: BP 119/81
[2018-05-15 15:36] VITALS: BP 119/81
[2018-05-15] MEDS: LORazepam 0.5 MG TABLET PO PRN (16:13)
[2018-05-15] MEDS: traZODone 100 MG TABLET. PO SCH (20:03)
[2018-05-15] MEDS: MIRTAZAPINE 15 MG TABLET PO SCH (20:03)
[2018-05-15] MEDS: MELATONIN 3 MG TABLET PO SCH (20:05)
[2018-05-15] MEDS: cloZAPine 100 MG TABLET PO SCH (20:06)
[2018-05-15] MEDS: DOXAZOSIN MESYLATE 1 MG TABLET PO SCH (20:06)
[2018-05-15] MEDS: PATCH REMOVAL. MC SCH (20:06)
--- NOTE | 2018-05-15 20:51 | PDOC ---
Exam Note: Elijah Note: Please also refer to the separate dictated note~for this date of service dictated separately.~Patient seen individually. Discussed the patient with Nursing staff reviewed the chart.~Reviewed interim history and current functioning. Reviewed vital signs,~Labs/ Radiology~and current medications noted below. Continue current treatment with the changes noted in the dictated addendum note Assessment: Vital Signs: Vital Signs Date Time Temp Pulse Resp B/P (MAP) Pulse Ox O2 Delivery O2 Flow Rate FiO2 05/15/18 20:06 61 119/81 05/15/18 19:35 97 Room Air 05/15/18 15:36 97.6 20 I&O Intake and Output 05/15/18 07:00 Intake Total 980 ml Balance 980 ml Intake Oral 980 ml # Voids 1 Current Medications: Meds: Current Medications Lorazepam (Ativan) 2 mg 1X ONCE IM ; Start 04/28/18 at 19:15; Stop 04/28/18 at 19:17; Status DC Acetaminophen (Tylenol) 650 mg PRN Q6HRS PRN PO PAIN / TEMP; Start 04/28/18 at 23:15 Multi-Ingredient Ointment (Analgesic [place]) 1 rupert PRN QID PRN TP MUSCLE PAIN; Start 04/28/18 at 23:15 Al Hydroxide/Mg Hydroxide (Mylanta Plus Xs) 15 ml PRN AFTMEALHC PRN PO DYSPEPSIA Last administered on 05/10/18at 22:17; Start 04/28/18 at 23:15 Magnesium Hydroxide (Milk Of Magnesia) 2,400 mg PRN QHS PRN PO CONSTIPATION Last administered on 05/15/18at 08:13; Start 04/28/18 at 23:15 Lorazepam (Ativan) 0.5 mg PRN Q4HRS PRN PO ANXIETY / AGITATION Last administered on 05/15/18at 16:13; Start 04/28/18 at 23:30 Acetaminophen (Tylenol) 325 mg PRN Q6HRS PRN PO PAIN / TEMP; Start 04/28/18 at 23:45 Diphenhydramine HCl (Benadryl) 25 mg TID PO Last administered on 05/15/18at 20: 02; Start 04/29/18 at 09:00 Docusate Sodium (Colace Solution) 100 mg BID PO Last administered on 9/14/18at 20:02; Start 04/29/18 at 09:00 Ipratropium [place] (Atrovent) 0.5 mg Q6HRS IH Last administered on 05/15/18 19:54; Start 04/29/18 at 00:30 Metoprolol Tartrate (Lopressor) 25 mg BID PO Last administered on 05/15/18 20: 03; Start 04/29/18 at 09:00 Tamsulosin HCl (Flomax) 0.4 mg DAILY PO Last administered on 05/15/18 08:13; Start 04/29/18 at 09:00 Amantadine HCl (Symmetrel) 100 mg BID PO Last administered on 05/14/18 09:49; Start 04/29/18 at 09:00; Stop 05/14/18 at 10:24; Status DC Benztropine Mesylate (Cogentin) 2 mg BID PO Last administered on 05/14/18 09: 44; Start 04/29/18 at 09:00; Stop 05/14/18 at 10:24; Status DC Doxazosin Mesylate (Cardura) 1 mg QHS PO Last administered on 05/15/18 20:06; Start 04/29/18 at 21:00 Famotidine (Pepcid) 20 mg BID PO Last administered on 05/15/18 20:03; Start at 09:00 Acetaminophen/ Hydrocodone Bitart (Lortab 5/325) 1 tab PRN Q4HRS PRN PO PAIN Last administered on 05/04/18 01:05; Start 04/28/18 at 23:45 Lactulose (Lactulose) 20 gm PRN TID PRN PO CONSTIPATION; Start 04/28/18 at 23: 45 Nystatin (Mycostatin) 1 rupert PRN Q12HR PRN TP ANTIFUNGAL F/RASH; Start 04/28/18 at 23:45 Pantoprazole Sodium (Protonix) 40 mg DAILYAC PO Last administered on 05/15/18 08:13; Start 04/29/18 at 07:30 Sodium Bicarbonate 650 mg PRN Q24HRS PRN PO GI SYMPTOMS; Start 04/28/18 at 23: 45 Topiramate (Topamax) 100 mg DAILY PO Last administered on 05/15/18at 08:13; Start 04/29/18 at 09:00 Nicotine (Nicoderm Cq 7mg) 1 patch DAILY TD Last administered on 05/01/18 08: 34; Start 04/29/18 at 09:00; Stop 05/02/18 at 15:53; Status DC Lidocaine (Lidoderm) 1 patch DAILY TD Last administered on 05/15/18 08:14; Start 04/30/18 at 09:00 Miscellaneous (Lidoderm Patch Removal) 1 ea QHS MC Last administered on at 20:06; Start 04/30/18 at 21:00 Mirtazapine (Remeron) 7.5 mg QHS PO Last administered on 05/13/18at 19:46; Start 05/01/18 at 21:00; Stop 05/14/18 at 10:24; Status DC Clozapine (Clozaril) 25 mg QHS PO Last administered on 05/03/18 20:28; Start at 21:00; Stop 05/04/18 at 15:32; Status DC Nystatin (Nystop) 1 rupert BID TP Last administered on 05/15/18at 20:06; Start 05/03 at 01:00 Clozapine (Clozaril) 50 mg QHS PO Last administered on 05/10/18at 19:48; Start at 17:00; Stop 05/11/18 at 17:13; Status DC Ondansetron HCl (Zofran Odt) 4 mg PRN Q8HRS PRN PO NAUSEA/VOMITING; Start at 08:45 Trazodone HCl (Desyrel) 50 mg QHS PO Last administered on 05/12/18at 20:24; Start 05/08/18 at 21:00; Stop 05/13/18 at 18:22; Status DC Trazodone HCl (Desyrel) 50 mg PRN QHS PRN PO INSOMNIA Last administered on 05/11at 00:01; Start 05/08/18 at 16:45; Stop 05/13/18 at 18:22; Status DC Bisacodyl (Dulcolax Supp) 10 mg PRN DAILY PRN [place] CONSTIPATION; Start 05/08/18 at 17:00 Clozapine (Clozaril) 75 mg HS PO Last administered on 9/14/18at 20:06; Start at 21:00 Trazodone HCl (Desyrel) 100 mg PRN QHS PRN PO INSOMNIA Last administered on at 01:12; Start 05/13/18 at 18:30 Trazodone HCl (Desyrel) 100 mg QHS PO Last administered on 05/15/18at 20:03; Start 05/13/18 at 21:00 Amantadine HCl (Symmetrel) 50 mg BID PO ; Start 05/14/18 at 21:00; Stop at 21:00; Status DC Benztropine Mesylate (Cogentin) 1 mg BID PO Last administered on 05/15/18 20: 03; Start 05/14/18 at 21:00 Mirtazapine (Remeron) 15 mg QHS PO Last administered on 05/15/18at 20:03; Start 05/14/18 at 21:00 Melatonin 3 mg QHS PO Last administered on 05/14/18at 19:40; Start 05/14/18 at 21:00; Stop 05/15/18 at 19:30; Status DC Amantadine HCl (Symmetrel) 100 mg DAILY PO Last administered on 05/15/18at 08:16 ; Start 05/15/18 at 09:00 Melatonin 6 mg QHS PO Last administered on 05/15/18at 20:05; Start 05/15/18 at 21:00 Active Scripts Active Reported Topamax (Topiramate) 100 Mg Tablet 100 Mg PO DAILY Sodium Bicarbonate 650 Mg Tablet 650 Mg PO PRN Q24HRS PRN Protonix (Pantoprazole Sodium) 40 Mg Tablet.dr 40 Mg PO DAILY Lorazepam 0.5 Mg Tablet 0.5 Mg PO PRN Q4HRS PRN Nystatin 15 Gm Cream..g. 1 Ru[place] TP PRN Q12HR PRN Metoprolol Tartrate 25 Mg Tablet 25 Mg PO BID Lactulose 10 Gm/15 Ml Solution 30 Ml PO Ipratropium [place] 0.2 Mg/1 Ml Solution 0.5 Mg IH Q6HRS Hydrocodone-Apap 5-325 (Hydrocodone Bit/Acetaminophen) 1 Each Tablet 1 Tab PO PRN Q4HRS PRN Flomax (Tamsulosin Hcl) 0.4 Mg Cap.er.24h 0.4 Mg PO DAILY Famotidine 20 Mg Tablet 20 Mg PO BID Duoneb 0.5-3(2.5) Mg/3 Ml (Albuterol/Ipratropium) 3 Ml Ampul.neb 1 Vial NEB QID Duoneb 0.5-3(2.5) Mg/3 Ml (Albuterol/Ipratropium) 3 Ml Ampul.neb 1 Vial NEB PRN Q4HRS PRN Docusate Sodium 50 Mg/5 Ml Liquid 10 Ml PO BID [place] Oil 118 Ml Oil 1 Rupert TP BID 3 Days Cardura (Doxazosin Mesylate) 2 Mg Tablet 1 Mg PO QHS Benztropine Mesylate 2 Mg Tablet 2 Mg PO BID Benadryl (Diphenhydramine Hcl) 25 Mg Capsule 25 Mg PO TID Amantadine (Amantadine Hcl) 100 Mg Tablet 100 Mg PO BID Tylenol (Acetaminophen) 325 Mg Tablet 325 Mg PO PRN Q6HRS PRN I have reviewed the current psychotropics carefully including drug interactions. Risk benefit ratio favors no change other than as noted in my dictated progress note. Diagnosis: Problems: (1) Contusion of left hip (2) Aggressive behavior of adult (3) Geriatric psychosis (4) Decubitus ulcer of sacral region, stage 1 CHOCO JERRY MD May 15, 2018 20:51
[2018-05-15] MEDS: traZODone 100 MG TABLET. PO PRN (23:40)
[2018-05-16] MEDS: LORazepam 0.5 MG TABLET PO PRN ×2 (02:01→13:46)
--- NOTE | 2018-05-16 02:18 | PN ---
DATE: 05/13/2018 PSYCHIATRIC PROGRESS NOTE This late entry 05/13/2018 covers elements not covered in my initial note. SUBJECTIVE: I met with the patient in the evening. The patient slept 3-3/4 hours previous night, somewhat irritable in the morning. UA was checked, unremarkable. He had some dysuria. Ambulation impaired, in Broda chair. REVIEW OF SYSTEMS: No CV, , pulmonary, eye, ENT system symptoms on review. He remains intermittently psychotic. MENTAL STATUS EXAM: Oriented to himself, at times situation. Speech coherent, at times moderate latency, low in volume. Abstraction fair, computation impaired, attention span short. Mood and affect remains labile. LABORATORY DATA: Reviewed. IMPRESSION: Schizoaffective disorder, bipolar type, mixed with psychotic features. Rest unchanged. PLAN: Increase trazodone from 50 at bedtime p.r.n. to 100 mg p.o. at bedtime p.r.n., may repeat x 1. Continue Clozaril, amantadine, Topamax along with Ativan p.r.n., Remeron at current dosage and benztropine, which we may reduce gradually. CHOCO JERRY MD DR: BRIELLE/naman JOB#: [id number] / [id number]
--- NOTE | 2018-05-16 02:55 | PN ---
DATE: 05/14/2018 PSYCHIATRIC PROGRESS NOTE This late entry 05/14/2018 covers elements not covered in my initial note, 05/14/2018. SUBJECTIVE: I met with the patient in the evening and staffed at a treatment team meeting with the entire team in the morning. The patient slept 3-1/4 hours, remains somewhat restless, making shooting motions, lying in the Broda chair and seems to be intermittently hallucinating. He seems to see spiders and apparently hears voices still at times, though these are better than before. REVIEW OF SYSTEMS: Ambulation impaired, in Broda chair. No CV, , pulmonary, eye, ENT system symptoms on review. Reliability poor. MENTAL STATUS EXAM: Oriented to himself and situation. Speech coherent, pressured, at times difficult to understand. Abstraction fair, computation impaired, language function intact, attention span short. Mood and affect remain somewhat labile. LABORATORY DATA: Reviewed. IMPRESSION: Schizoaffective disorder, bipolar type, mixed with psychotic features. Rest unchanged. PLAN: Start melatonin 3 mg at bedtime to help his insomnia. Reduce Cogentin from 2 mg b.i.d. down to 1 mg twice a day since he does not have any extrapyramidal symptoms and some of the tardive dyskinetic movements would not be helped by the Cogentin. Also, reduce amantadine down from 100 b.i.d. to 100 mg daily, increase Remeron from 7.5 at bedtime to 15 mg at bedtime to help with insomnia. Continue trazodone, Topamax, along with Ativan p.r.n., Clozaril 75 mg p.o. at bedtime. Consider adding Depakote as a mood stabilizer depending on how he does with increased Clozaril. MAN Jameson JERRY MD DR: BRIELLE/naman JOB#: [id number] / [id number]
[2018-05-16] MEDS: BISACODYL 10 MG SUPP.RECT PR PRN (03:04)
[2018-05-16] MEDS: IPRATROPIUM BROMIDE 0.5 MG/2.5 ML NEBU. IH SCH ×4 (05:52→20:21)
[2018-05-16 06:11] VITALS: BP 112/64
[2018-05-16] MEDS: diphenhydrAMINE HCL 25 MG CAPSULE PO SCH ×3 (09:12→20:04)
[2018-05-16] MEDS: PANTOPRAZOLE 40 MG TABLET. PO SCH (09:12)
[2018-05-16] MEDS: BENZTROPINE MESYLATE 1 MG TABLET PO SCH ×2 (09:12→20:04)
[2018-05-16] MEDS: DOCUSATE 100 MG/10 ML SOLUTION. PO SCH ×2 (09:12→20:02)
[2018-05-16] MEDS: TAMSULOSIN 0.4 MG CAP.ER.24H. PO SCH (09:13)
[2018-05-16] MEDS: FAMOTIDINE 20 MG TABLET PO SCH ×2 (09:14→20:04)
[2018-05-16] MEDS: TOPIRAMATE 100 MG TABLET. PO SCH (09:14)
[2018-05-16] MEDS: AMANTADINE HCL 100 MG CAPSULE PO SCH (09:14)
[2018-05-16] MEDS: METOPROLOL TART IMMED RELEASE 25 MG TABLET PO SCH ×2 (09:14→20:04)
[2018-05-16] MEDS: NYSTATIN TOPICAL POWDER 15GM BOTTLE. TP SCH ×2 (09:15→20:02)
[2018-05-16] MEDS: LIDOCAINE (700MG/PATCH) PATCH. TD SCH (09:15)
[2018-05-16 15:41] LABS: BASO % 1 % (0-3); EOS # 0.2 x10^3/uL (0.0-0.7); EOS % 3 % (0-3); HEMATOCRIT 34.1 % (39.0-53.0); HEMOGLOBIN 11.2 g/dL (13.0-17.5); LYMPH # 1.4 x10^3/uL (1.0-4.8); LYMPH % 21 % (24-48); MEAN CORPUSCULAR HEMOGLOBIN 33 pg (25-35); MEAN CORPUSCULAR HGB CONC 33 g/dL (31-37); MEAN CORPUSCULAR VOLUME 100 fL (79-100); MONO # 0.5 x10^3/uL (0.0-1.1); MONO % 8 % (0-9); NEUT # 4.4 x10^3uL (1.8-7.7); NEUT % 68 % (31-73); PLATELET COUNT 176 x10^3/uL (140-400); RED BLOOD COUNT 3.41 x10^6/uL (4.30-5.70); RED CELL DISTRIBUTION WIDTH 18.1 % (11.5-14.5); WHITE BLOOD COUNT 6.5 x10^3/uL (4.0-11.0)
[2018-05-16 15:47] VITALS: BP 126/63
[2018-05-16] MEDS: MIRTAZAPINE 15 MG TABLET PO SCH (20:02)
[2018-05-16] MEDS: DOXAZOSIN MESYLATE 1 MG TABLET PO SCH (20:02)
[2018-05-16] MEDS: MELATONIN 3 MG TABLET PO SCH (20:02)
[2018-05-16] MEDS: traZODone 100 MG TABLET. PO SCH (20:04)
[2018-05-16] MEDS: cloZAPine 100 MG TABLET PO SCH (20:04)
[2018-05-16] MEDS: PATCH REMOVAL. MC SCH (20:05)
[2018-05-16 21:53] LABS: ALBUMIN/GLOBULIN RATIO 0.8 (1.0-1.7); CALCIUM 9.1 mg/dL (8.5-10.1); CREATININE 1.2 mg/dL (0.7-1.3); GFR 60.2; MAGNESIUM 2.1 mg/dL (1.8-2.4); POTASSIUM 4.7 mmol/L (3.5-5.1); TOTAL BILIRUBIN 0.2 mg/dL (0.2-1.0); TOTAL PROTEIN 6.7 g/dL (6.4-8.2)
--- NOTE | 2018-05-16 22:54 | PDOC ---
Exam Note: Elijah Note: Please also refer to the separate dictated note~for this date of service dictated separately.~Patient seen individually. Discussed the patient with Nursing staff reviewed the chart.~Reviewed interim history and current functioning. Reviewed vital signs,~Labs/ Radiology~and current medications noted below. Continue current treatment with the changes noted in the dictated addendum note Assessment: Vital Signs: Vital Signs Date Time Temp Pulse Resp B/P (MAP) Pulse Ox O2 Delivery O2 Flow Rate FiO2 05/16/18 20:24 98 Room Air 05/16/18 20:04 65 126/63 05/16/18 15:47 97.6 20 I&O Intake and Output 05/16/18 07:00 Intake Total 1085 ml Balance 1085 ml Intake Oral 1085 ml # Voids 1 # Bowel Movements 2 Labs: Laboratory Tests Test 05/16/18 15:30 White Blood Count 6.5 x10^3/uL (4.0-11.0) Red Blood Count 3.41 x10^6/uL (4.30-5.70) L Hemoglobin 11.2 g/dL (13.0-17.5) L Hematocrit 34.1 % (39.0-53.0) L Mean Corpuscular Volume 100 fL (79-100) # Mean Corpuscular Hemoglobin 33 pg (25-35) Mean Corpuscular Hemoglobin Concent 33 g/dL (31-37) Red Cell Distribution Width 18.1 % (11.5-14.5) H Platelet Count 176 x10^3/uL (140-400) Neutrophils (%) (Auto) 68 % (31-73) Lymphocytes (%) (Auto) 21 % (24-48) L Monocytes (%) (Auto) 8 % (0-9) Eosinophils (%) (Auto) 3 % (0-3) Basophils (%) (Auto) 1 % (0-3) Neutrophils # (Auto) 4.4 x10^3uL (1.8-7.7) Lymphocytes # (Auto) 1.4 x10^3/uL (1.0-4.8) Monocytes # (Auto) 0.5 x10^3/uL (0.0-1.1) Eosinophils # (Auto) 0.2 x10^3/uL (0.0-0.7) Basophils # (Auto) 0.0 x10^3/uL (0.0-0.2) Sodium Level 137 mmol/L (136-145) Potassium Level 4.7 mmol/L (3.5-5.1) Chloride Level 105 mmol/L (98-107) Carbon Dioxide Level 20 mmol/L (21-32) L Anion Gap 12 (6-14) Blood Urea Nitrogen 25 mg/dL (8-26) Creatinine 1.2 mg/dL (0.7-1.3) Estimated GFR (Cockcroft-Gault) 60.2 BUN/Creatinine Ratio 21 (6-20) H Glucose Level 98 mg/dL (70-99) Calcium Level 9.1 mg/dL (8.5-10.1) Magnesium Level 2.1 mg/dL (1.8-2.4) Total Bilirubin 0.2 mg/dL (0.2-1.0) Aspartate Amino Transferase (AST) 18 U/L (15-37) Alanine Aminotransferase (ALT) 23 U/L (16-63) Alkaline Phosphatase 104 U/L (46-116) Total Protein 6.7 g/dL (6.4-8.2) Albumin 3.0 g/dL (3.4-5.0) L Albumin/Globulin Ratio 0.8 (1.0-1.7) L Current Medications: Meds: Current Medications Lorazepam (Ativan) 2 mg 1X ONCE IM ; Start 04/28/18 at 19:15; Stop 04/28/18 at 19:17; Status DC Acetaminophen (Tylenol) 650 mg PRN Q6HRS PRN PO PAIN / TEMP; Start 04/28/18 at 23:15 Multi-Ingredient Ointment (Analgesic [place]) 1 rupert PRN QID PRN TP MUSCLE PAIN; Start 04/28/18 at 23:15 Al Hydroxide/Mg Hydroxide (Mylanta Plus Xs) 15 ml PRN AFTMEALHC PRN PO DYSPEPSIA Last administered on 05/10/18at 22:17; Start 04/28/18 at 23:15 Magnesium Hydroxide (Milk Of Magnesia) 2,400 mg PRN QHS PRN PO CONSTIPATION Last administered on 05/15/18at 08:13; Start 04/28/18 at 23:15 Lorazepam (Ativan) 0.5 mg PRN Q4HRS PRN PO ANXIETY / AGITATION Last administered on 05/16/18 13:46; Start 04/28/18 at 23:30 Acetaminophen (Tylenol) 325 mg PRN Q6HRS PRN PO PAIN / TEMP; Start 04/28/18 at 23:45 Diphenhydramine HCl (Benadryl) 25 mg TID PO Last administered on 05/16/18 20: 04; Start 04/29/18 at 09:00 Docusate Sodium (Colace Solution) 100 mg BID PO Last administered on 05/16/18 20:02; Start 04/29/18 at 09:00 Ipratropium [place] (Atrovent) 0.5 mg Q6HRS IH Last administered on 05/16/18 20:21; Start 04/29/18 at 00:30 Metoprolol Tartrate (Lopressor) 25 mg BID PO Last administered on 05/16/18 20: 04; Start 04/29/18 at 09:00 Tamsulosin HCl (Flomax) 0.4 mg DAILY PO Last administered on 05/16/18 09:13; Start 04/29/18 at 09:00 Amantadine HCl (Symmetrel) 100 mg BID PO Last administered on 05/14/18 09:49; Start 04/29/18 at 09:00; Stop 05/14/18 at 10:24; Status DC Benztropine Mesylate (Cogentin) 2 mg BID PO Last administered on 05/14/18at 09: 44; Start 04/29/18 at 09:00; Stop 05/14/18 at 10:24; Status DC Doxazosin Mesylate (Cardura) 1 mg QHS PO Last administered on 05/16/18 20:02; Start 04/29/18 at 21:00 Famotidine (Pepcid) 20 mg BID PO Last administered on 05/16/18 20:04; Start at 09:00 Acetaminophen/ Hydrocodone Bitart (Lortab 5/325) 1 tab PRN Q4HRS PRN PO PAIN Last administered on 05/04/18 01:05; Start 04/28/18 at 23:45 Lactulose (Lactulose) 20 gm PRN TID PRN PO CONSTIPATION; Start 04/28/18 at 23: 45 Nystatin (Mycostatin) 1 rupert PRN Q12HR PRN TP ANTIFUNGAL F/RASH; Start 04/28/18 at 23:45 Pantoprazole Sodium (Protonix) 40 mg DAILYAC PO Last administered on 05/16/18at 09:12; Start 04/29/18 at 07:30 Sodium Bicarbonate 650 mg PRN Q24HRS PRN PO GI SYMPTOMS; Start 04/28/18 at 23: 45 Topiramate (Topamax) 100 mg DAILY PO Last administered on 05/16/18 09:14; Start 04/29/18 at 09:00 Nicotine (Nicoderm Cq 7mg) 1 patch DAILY TD Last administered on 05/01/18 08: 34; Start 04/29/18 at 09:00; Stop 05/02/18 at 15:53; Status DC Lidocaine (Lidoderm) 1 patch DAILY TD Last administered on 05/16/18 09:15; Start 04/30/18 at 09:00 Miscellaneous (Lidoderm Patch Removal) 1 ea QHS MC Last administered on at 20:05; Start 04/30/18 at 21:00 Mirtazapine (Remeron) 7.5 mg QHS PO Last administered on 05/13/18 19:46; Start 05/01/18 at 21:00; Stop 05/14/18 at 10:24; Status DC Clozapine (Clozaril) 25 mg QHS PO Last administered on 05/03/18 20:28; Start at 21:00; Stop 05/04/18 at 15:32; Status DC Nystatin (Nystop) 1 rupert BID TP Last administered on 05/16/18at 20:02; Start 05/03 at 01:00 Clozapine (Clozaril) 50 mg QHS PO Last administered on 05/10/18 19:48; Start at 17:00; Stop 05/11/18 at 17:13; Status DC Ondansetron HCl (Zofran Odt) 4 mg PRN Q8HRS PRN PO NAUSEA/VOMITING; Start at 08:45 Trazodone HCl (Desyrel) 50 mg QHS PO Last administered on 05/12/18at 20:24; Start 05/08/18 at 21:00; Stop 05/13/18 at 18:22; Status DC Trazodone HCl (Desyrel) 50 mg PRN QHS PRN PO INSOMNIA Last administered on 05/11at 00:01; Start 05/08/18 at 16:45; Stop 05/13/18 at 18:22; Status DC Bisacodyl (Dulcolax Supp) [address] CONSTIPATION Last administered on 05/16/18at 03:04; Start 05/08/18 at 17:00 Clozapine (Clozaril) 75 mg HS PO Last administered on 05/16/18 20:04; Start at 21:00 Trazodone HCl (Desyrel) 100 mg PRN QHS PRN PO INSOMNIA Last administered on at 23:40; Start 05/13/18 at 18:30 Trazodone HCl (Desyrel) 100 mg QHS PO Last administered on 05/16/18at 20:04; Start 05/13/18 at 21:00 Amantadine HCl (Symmetrel) 50 mg BID PO ; Start 05/14/18 at 21:00; Stop at 21:00; Status DC Benztropine Mesylate (Cogentin) 1 mg BID PO Last administered on 05/16/18at 20: 04; Start 05/14/18 at 21:00 Mirtazapine (Remeron) 15 mg QHS PO Last administered on 05/16/18at 20:02; Start 05/14/18 at 21:00 Melatonin 3 mg QHS PO Last administered on 05/14/18at 19:40; Start 05/14/18 at 21:00; Stop 05/15/18 at 19:30; Status DC Amantadine HCl (Symmetrel) 100 mg DAILY PO Last administered on 05/16/18 09:14 ; Start 05/15/18 at 09:00 Melatonin 6 mg QHS PO Last administered on 05/16/18at 20:02; Start 05/15/18 at 21:00 Active Scripts Active Reported Topamax (Topiramate) 100 Mg Tablet 100 Mg PO DAILY Sodium Bicarbonate 650 Mg Tablet 650 Mg PO PRN Q24HRS PRN Protonix (Pantoprazole Sodium) 40 Mg Tablet.dr 40 Mg PO DAILY Lorazepam 0.5 Mg Tablet 0.5 Mg PO PRN Q4HRS PRN Nystatin 15 Gm Cream..g. 1 Rupert TP PRN Q12HR PRN Metoprolol Tartrate 25 Mg Tablet 25 Mg PO BID Lactulose 10 Gm/15 Ml Solution 30 Ml PO Ipratropium [place] 0.2 Mg/1 Ml Solution 0.5 Mg IH Q6HRS Hydrocodone-Apap 5-325 (Hydrocodone Bit/Acetaminophen) 1 Each Tablet 1 Tab PO PRN Q4HRS PRN Flomax (Tamsulosin Hcl) 0.4 Mg Cap.er.24h 0.4 Mg PO DAILY Famotidine 20 Mg Tablet 20 Mg PO BID Duoneb 0.5-3(2.5) Mg/3 Ml (Albuterol/Ipratropium) 3 Ml Ampul.neb 1 Vial NEB QID Duoneb 0.5-3(2.5) Mg/3 Ml (Albuterol/Ipratropium) 3 Ml Ampul.neb 1 Vial NEB PRN Q4HRS PRN Docusate Sodium 50 Mg/5 Ml Liquid 10 Ml PO BID [place] Oil 118 Ml Oil 1 Rupert TP BID 3 Days Cardura (Doxazosin Mesylate) 2 Mg Tablet 1 Mg PO QHS Benztropine Mesylate 2 Mg Tablet 2 Mg PO BID Benadryl (Diphenhydramine Hcl) 25 Mg Capsule 25 Mg PO TID Amantadine (Amantadine Hcl) 100 Mg Tablet 100 Mg PO BID Tylenol (Acetaminophen) 325 Mg Tablet 325 Mg PO PRN Q6HRS PRN I have reviewed the current psychotropics carefully including drug interactions. Risk benefit ratio favors no change other than as noted in my dictated progress note. Diagnosis: Problems: (1) Contusion of left hip (2) Aggressive behavior of adult (3) Geriatric psychosis (4) Decubitus ulcer of sacral region, stage 1 CHOCO JERRY MD May 16, 2018 22:54
[2018-05-17] MEDS: traZODone 100 MG TABLET. PO PRN (00:18)
[2018-05-17 05:56] VITALS: BP 123/86
[2018-05-17] MEDS: IPRATROPIUM BROMIDE 0.5 MG/2.5 ML NEBU. IH SCH ×4 (06:08→19:54)
[2018-05-17] MEDS: PANTOPRAZOLE 40 MG TABLET. PO SCH (09:20)
[2018-05-17] MEDS: diphenhydrAMINE HCL 25 MG CAPSULE PO SCH ×3 (09:20→20:32)
[2018-05-17] MEDS: DOCUSATE 100 MG/10 ML SOLUTION. PO SCH ×2 (09:21→20:32)
[2018-05-17] MEDS: BENZTROPINE MESYLATE 1 MG TABLET PO SCH ×2 (09:21→20:32)
[2018-05-17] MEDS: TAMSULOSIN 0.4 MG CAP.ER.24H. PO SCH (09:21)
[2018-05-17] MEDS: METOPROLOL TART IMMED RELEASE 25 MG TABLET PO SCH ×2 (09:22→20:33)
[2018-05-17] MEDS: FAMOTIDINE 20 MG TABLET PO SCH ×2 (09:22→20:32)
[2018-05-17] MEDS: AMANTADINE HCL 100 MG CAPSULE PO SCH (09:22)
[2018-05-17] MEDS: TOPIRAMATE 100 MG TABLET. PO SCH (09:22)
[2018-05-17] MEDS: NYSTATIN TOPICAL POWDER 15GM BOTTLE. TP SCH ×2 (09:24→20:43)
[2018-05-17] MEDS: LIDOCAINE (700MG/PATCH) PATCH. TD SCH (09:24)
[2018-05-17 16:39] VITALS: BP 112/77
[2018-05-17] MEDS: PATCH REMOVAL. MC SCH (20:32)
[2018-05-17] MEDS: MIRTAZAPINE 15 MG TABLET PO SCH (20:33)
[2018-05-17] MEDS: cloZAPine 100 MG TABLET PO SCH (20:33)
[2018-05-17] MEDS: traZODone 100 MG TABLET. PO SCH (20:33)
[2018-05-17] MEDS: MELATONIN 3 MG TABLET PO SCH (20:33)
[2018-05-17] MEDS: DIVALPROEX 125 MG CAP.SPRINK PO SCH (20:35)
[2018-05-17] MEDS: DOXAZOSIN MESYLATE 1 MG TABLET PO SCH (20:36)
--- NOTE | 2018-05-17 21:03 | PDOC ---
Exam Note: Elijah Note: Please also refer to the separate dictated note~for this date of service dictated separately.~Patient seen individually. Discussed the patient with Nursing staff reviewed the chart.~Reviewed interim history and current functioning. Reviewed vital signs,~Labs/ Radiology~and current medications noted below. Continue current treatment with the changes noted in the dictated addendum note Assessment: Vital Signs: Vital Signs Date Time Temp Pulse Resp B/P (MAP) Pulse Ox O2 Delivery O2 Flow Rate FiO2 05/17/18 20:36 72 112/77 05/17/18 19:55 95 Room Air 05/17/18 16:39 97.9 20 I&O Intake and Output 05/17/18 07:00 Intake Total 1700 ml Balance 1700 ml Intake Oral 1700 ml # Voids 1 # Bowel Movements 1 Current Medications: Meds: Current Medications Lorazepam (Ativan) 2 mg 1X ONCE IM ; Start 04/28/18 at 19:15; Stop 04/28/18 at 19:17; Status DC Acetaminophen (Tylenol) 650 mg PRN Q6HRS PRN PO PAIN / TEMP; Start 04/28/18 at 23:15 Multi-Ingredient Ointment (Analgesic [place]) 1 rupert PRN QID PRN TP MUSCLE PAIN; Start 04/28/18 at 23:15 Al Hydroxide/Mg Hydroxide (Mylanta Plus Xs) 15 ml PRN AFTMEALHC PRN PO DYSPEPSIA Last administered on 05/10/18at 22:17; Start 04/28/18 at 23:15 Magnesium Hydroxide (Milk Of Magnesia) 2,400 mg PRN QHS PRN PO CONSTIPATION Last administered on 05/15/18at 08:13; Start 04/28/18 at 23:15 Lorazepam (Ativan) 0.5 mg PRN Q4HRS PRN PO ANXIETY / AGITATION Last administered on 05/16/18at 13:46; Start 04/28/18 at 23:30 Acetaminophen (Tylenol) 325 mg PRN Q6HRS PRN PO PAIN / TEMP; Start 04/28/18 at 23:45 Diphenhydramine HCl (Benadryl) 25 mg TID PO Last administered on 05/17/18at 20: 32; Start 04/29/18 at 09:00 Docusate Sodium (Colace Solution) 100 mg BID PO Last administered on 05/17/18 20:32; Start 04/29/18 at 09:00 Ipratropium [place] (Atrovent) 0.5 mg Q6HRS IH Last administered on 05/17/18 19:54; Start 04/29/18 at 00:30 Metoprolol Tartrate (Lopressor) 25 mg BID PO Last administered on 05/17/18 20: 33; Start 04/29/18 at 09:00 Tamsulosin HCl (Flomax) 0.4 mg DAILY PO Last administered on 05/17/18 09:21; Start 04/29/18 at 09:00 Amantadine HCl (Symmetrel) 100 mg BID PO Last administered on 05/14/18 09:49; Start 04/29/18 at 09:00; Stop 05/14/18 at 10:24; Status DC Benztropine Mesylate (Cogentin) 2 mg BID PO Last administered on 05/14/18 09: 44; Start 04/29/18 at 09:00; Stop 05/14/18 at 10:24; Status DC Doxazosin Mesylate (Cardura) 1 mg QHS PO Last administered on 05/17/18 20:36; Start 04/29/18 at 21:00 Famotidine (Pepcid) 20 mg BID PO Last administered on 05/17/18 20:32; Start at 09:00 Acetaminophen/ Hydrocodone Bitart (Lortab 5/325) 1 tab PRN Q4HRS PRN PO PAIN Last administered on 05/04/18 01:05; Start 04/28/18 at 23:45 Lactulose (Lactulose) 20 gm PRN TID PRN PO CONSTIPATION; Start 04/28/18 at 23: 45 Nystatin (Mycostatin) 1 rupert PRN Q12HR PRN TP ANTIFUNGAL F/RASH; Start 04/28/18 at 23:45 Pantoprazole Sodium (Protonix) 40 mg DAILYAC PO Last administered on 05/17/18 09:20; Start 04/29/18 at 07:30 Sodium Bicarbonate 650 mg PRN Q24HRS PRN PO GI SYMPTOMS; Start 04/28/18 at 23: 45 Topiramate (Topamax) 100 mg DAILY PO Last administered on 05/17/18 09:22; Start 04/29/18 at 09:00 Nicotine (Nicoderm Cq 7mg) 1 patch DAILY TD Last administered on 05/01/18 08: 34; Start 04/29/18 at 09:00; Stop 05/02/18 at 15:53; Status DC Lidocaine (Lidoderm) 1 patch DAILY TD Last administered on 05/17/18 09:24; Start 04/30/18 at 09:00 Miscellaneous (Lidoderm Patch Removal) 1 ea QHS MC Last administered on 20:32; Start 04/30/18 at 21:00 Mirtazapine (Remeron) 7.5 mg QHS PO Last administered on 05/13/18 19:46; Start 05/01/18 at 21:00; Stop 05/14/18 at 10:24; Status DC Clozapine (Clozaril) 25 mg QHS PO Last administered on 05/03/18 20:28; Start at 21:00; Stop 05/04/18 at 15:32; Status DC Nystatin (Nystop) 1 rupert BID TP Last administered on 05/17/18 20:43; Start 05/03 at 01:00 Clozapine (Clozaril) 50 mg QHS PO Last administered on 05/10/18 19:48; Start at 17:00; Stop 05/11/18 at 17:13; Status DC Ondansetron HCl (Zofran Odt) 4 mg PRN Q8HRS PRN PO NAUSEA/VOMITING; Start at 08:45 Trazodone HCl (Desyrel) 50 mg QHS PO Last administered on 05/12/18at 20:24; Start 05/08/18 at 21:00; Stop 05/13/18 at 18:22; Status DC Trazodone HCl (Desyrel) 50 mg PRN QHS PRN PO INSOMNIA Last administered on 05/11 00:01; Start 05/08/18 at 16:45; Stop 05/13/18 at 18:22; Status DC Bisacodyl (Dulcolax Supp) 10 mg PRN DAILY PRN [place] CONSTIPATION Last administered on 05/16/18at 03:04; Start 05/08/18 at 17:00 Clozapine (Clozaril) 75 mg HS PO Last administered on 05/17/18 20:33; Start at 21:00 Trazodone HCl (Desyrel) 100 mg PRN QHS PRN PO INSOMNIA Last administered on 00:18; Start 05/13/18 at 18:30 Trazodone HCl (Desyrel) 100 mg QHS PO Last administered on 05/17/18 20:33; Start 05/13/18 at 21:00 Amantadine HCl (Symmetrel) 50 mg BID PO ; Start 05/14/18 at 21:00; Stop at 21:00; Status DC Benztropine Mesylate (Cogentin) 1 mg BID PO Last administered on 05/17/18at 20: 32; Start 05/14/18 at 21:00 Mirtazapine (Remeron) 15 mg QHS PO Last administered on 05/17/18 20:33; Start 05/14/18 at 21:00 Melatonin 3 mg QHS PO Last administered on 05/14/18at 19:40; Start 05/14/18 at 21:00; Stop 05/15/18 at 19:30; Status DC Amantadine HCl (Symmetrel) 100 mg DAILY PO Last administered on 05/17/18at 09:22 ; Start 05/15/18 at 09:00 Melatonin 6 mg QHS PO Last administered on 05/17/18 20:33; Start 05/15/18 at 21:00 Divalproex Sodium (Depakote Sprinkles) 250 mg BID PO Last administered on at 20:35; Start 05/17/18 at 21:00 Active Scripts Active Reported Topamax (Topiramate) 100 Mg Tablet 100 Mg PO DAILY Sodium Bicarbonate 650 Mg Tablet 650 Mg PO PRN Q24HRS PRN Protonix (Pantoprazole Sodium) 40 Mg Tablet.dr 40 Mg PO DAILY Lorazepam 0.5 Mg Tablet 0.5 Mg PO PRN Q4HRS PRN Nystatin 15 Gm Cream..g. 1 Rupert TP PRN Q12HR PRN Metoprolol Tartrate 25 Mg Tablet 25 Mg PO BID Lactulose 10 Gm/15 Ml Solution 30 Ml PO Ipratropium [place] 0.2 Mg/1 Ml Solution 0.5 Mg IH Q6HRS Hydrocodone-Apap 5-325 (Hydrocodone Bit/Acetaminophen) 1 Each Tablet 1 Tab PO PRN Q4HRS PRN Flomax (Tamsulosin Hcl) 0.4 Mg Cap.er.24h 0.4 Mg PO DAILY Famotidine 20 Mg Tablet 20 Mg PO BID Duoneb 0.5-3(2.5) Mg/3 Ml (Albuterol/Ipratropium) 3 Ml Ampul.neb 1 Vial NEB QID Duoneb 0.5-3(2.5) Mg/3 Ml (Albuterol/Ipratropium) 3 Ml Ampul.neb 1 Vial NEB PRN Q4HRS PRN Docusate Sodium 50 Mg/5 Ml Liquid 10 Ml PO BID [place] Oil 118 Ml Oil 1 Urpert TP BID 3 Days Cardura (Doxazosin Mesylate) 2 Mg Tablet 1 Mg PO QHS Benztropine Mesylate 2 Mg Tablet 2 Mg PO BID Benadryl (Diphenhydramine Hcl) 25 Mg Capsule 25 Mg PO TID Amantadine (Amantadine Hcl) 100 Mg Tablet 100 Mg PO BID Tylenol (Acetaminophen) 325 Mg Tablet 325 Mg PO PRN Q6HRS PRN I have reviewed the current psychotropics carefully including drug interactions. Risk benefit ratio favors no change other than as noted in my dictated progress note. Diagnosis: Problems: (1) Contusion of left hip (2) Aggressive behavior of adult (3) Geriatric psychosis (4) Decubitus ulcer of sacral region, stage 1 CHOCO JERRY MD May 17, 2018 21:03
[2018-05-18] MEDS: IPRATROPIUM BROMIDE 0.5 MG/2.5 ML NEBU. IH SCH ×4 (06:39→20:19)
[2018-05-18 06:42] VITALS: BP 165/78
[2018-05-18] MEDS: DOCUSATE 100 MG/10 ML SOLUTION. PO SCH ×2 (09:01→20:41)
[2018-05-18] MEDS: BENZTROPINE MESYLATE 1 MG TABLET PO SCH ×2 (09:01→20:41)
[2018-05-18] MEDS: PANTOPRAZOLE 40 MG TABLET. PO SCH (09:01)
[2018-05-18] MEDS: TAMSULOSIN 0.4 MG CAP.ER.24H. PO SCH (09:01)
[2018-05-18] MEDS: DIVALPROEX 125 MG CAP.SPRINK PO SCH ×2 (09:01→20:42)
[2018-05-18] MEDS: diphenhydrAMINE HCL 25 MG CAPSULE PO SCH ×3 (09:01→20:42)
[2018-05-18] MEDS: METOPROLOL TART IMMED RELEASE 25 MG TABLET PO SCH ×2 (09:02→20:43)
[2018-05-18] MEDS: FAMOTIDINE 20 MG TABLET PO SCH ×2 (09:02→20:43)
[2018-05-18] MEDS: TOPIRAMATE 100 MG TABLET. PO SCH (09:03)
[2018-05-18] MEDS: AMANTADINE HCL 100 MG CAPSULE PO SCH (09:03)
[2018-05-18] MEDS: LIDOCAINE (700MG/PATCH) PATCH. TD SCH (09:03)
[2018-05-18] MEDS: NYSTATIN TOPICAL POWDER 15GM BOTTLE. TP SCH ×2 (09:04→20:45)
[2018-05-18 11:07] LABS: BASO % 0 % (0-3); EOS # 0.2 x10^3/uL (0.0-0.7); EOS % 3 % (0-3); HEMATOCRIT 33.6 % (39.0-53.0); HEMOGLOBIN 11.3 g/dL (13.0-17.5); LYMPH # 1.4 x10^3/uL (1.0-4.8); LYMPH % 22 % (24-48); MEAN CORPUSCULAR HEMOGLOBIN 33 pg (25-35); MEAN CORPUSCULAR HGB CONC 34 g/dL (31-37); MEAN CORPUSCULAR VOLUME 97 fL (79-100); MONO # 0.6 x10^3/uL (0.0-1.1); MONO % 9 % (0-9); NEUT % 65 % (31-73); PLATELET COUNT 198 x10^3/uL (140-400); RED BLOOD COUNT 3.46 x10^6/uL (4.30-5.70); RED CELL DISTRIBUTION WIDTH 17.5 % (11.5-14.5); WHITE BLOOD COUNT 6.2 x10^3/uL (4.0-11.0)
[2018-05-18 11:20] LABS: ALBUMIN 2.7 g/dL (3.4-5.0); ALBUMIN/GLOBULIN RATIO 0.7 (1.0-1.7); CALCIUM 8.9 mg/dL (8.5-10.1); GFR 74.3; POTASSIUM 4.6 mmol/L (3.5-5.1); TOTAL BILIRUBIN 0.3 mg/dL (0.2-1.0); TOTAL PROTEIN 6.4 g/dL (6.4-8.2)
[2018-05-18 15:55] VITALS: BP 122/66
[2018-05-18] MEDS: MELATONIN 3 MG TABLET PO SCH (20:41)
[2018-05-18] MEDS: traZODone 100 MG TABLET. PO SCH (20:41)
[2018-05-18] MEDS: LACTULOSE 20 GM/30 ML SOLUTION. PO SCH (20:41)
[2018-05-18] MEDS: MIRTAZAPINE 15 MG TABLET PO SCH (20:42)
[2018-05-18] MEDS: cloZAPine 100 MG TABLET PO SCH (20:42)
[2018-05-18] MEDS: PATCH REMOVAL. MC SCH (20:43)
--- NOTE | 2018-05-18 20:55 | PDOC ---
Exam Note: Elijah Note: Please also refer to the separate dictated note~for this date of service dictated separately.~Patient seen individually. Discussed the patient with Nursing staff reviewed the chart.~Reviewed interim history and current functioning. Reviewed vital signs,~Labs/ Radiology~and current medications noted below. Continue current treatment with the changes noted in the dictated addendum note Assessment: Vital Signs: Vital Signs Date Time Temp Pulse Resp B/P (MAP) Pulse Ox O2 Delivery O2 Flow Rate FiO2 05/18/18 20:43 60 122/66 05/18/18 20:19 97 Room Air 05/18/18 15:55 97.1 18 I&O Intake and Output 05/18/18 07:00 Intake Total 2090 ml Balance 2090 ml Intake Oral 2090 ml # Bowel Movements 1 Labs: Laboratory Tests Test 05/18/18 10:40 White Blood Count 6.2 x10^3/uL (4.0-11.0) Red Blood Count 3.46 x10^6/uL (4.30-5.70) L Hemoglobin 11.3 g/dL (13.0-17.5) L Hematocrit 33.6 % (39.0-53.0) L Mean Corpuscular Volume 97 fL (79-100) Mean Corpuscular Hemoglobin 33 pg (25-35) Mean Corpuscular Hemoglobin Concent 34 g/dL (31-37) Red Cell Distribution Width 17.5 % (11.5-14.5) H Platelet Count 198 x10^3/uL (140-400) Neutrophils (%) (Auto) 65 % (31-73) Lymphocytes (%) (Auto) 22 % (24-48) L Monocytes (%) (Auto) 9 % (0-9) Eosinophils (%) (Auto) 3 % (0-3) Basophils (%) (Auto) 0 % (0-3) Neutrophils # (Auto) 4.0 x10^3uL (1.8-7.7) Lymphocytes # (Auto) 1.4 x10^3/uL (1.0-4.8) Monocytes # (Auto) 0.6 x10^3/uL (0.0-1.1) Eosinophils # (Auto) 0.2 x10^3/uL (0.0-0.7) Basophils # (Auto) 0.0 x10^3/uL (0.0-0.2) Sodium Level 133 mmol/L (136-145) L Potassium Level 4.6 mmol/L (3.5-5.1) Chloride Level 101 mmol/L (98-107) Carbon Dioxide Level 29 mmol/L (21-32) Anion Gap 3 (6-14) L Blood Urea Nitrogen 19 mg/dL (8-26) Creatinine 1.0 mg/dL (0.7-1.3) Estimated GFR (Cockcroft-Gault) 74.3 BUN/Creatinine Ratio 19 (6-20) Glucose Level 98 mg/dL (70-99) Calcium Level 8.9 mg/dL (8.5-10.1) Total Bilirubin 0.3 mg/dL (0.2-1.0) Aspartate Amino Transferase (AST) 17 U/L (15-37) Alanine Aminotransferase (ALT) 23 U/L (16-63) Alkaline Phosphatase 107 U/L (46-116) Total Protein 6.4 g/dL (6.4-8.2) Albumin 2.7 g/dL (3.4-5.0) L Albumin/Globulin Ratio 0.7 (1.0-1.7) L Current Medications: Meds: Current Medications Lorazepam (Ativan) 2 mg 1X ONCE IM ; Start 04/28/18 at 19:15; Stop 04/28/18 at 19:17; Status DC Acetaminophen (Tylenol) 650 mg PRN Q6HRS PRN PO PAIN / TEMP; Start 04/28/18 at 23:15 Multi-Ingredient Ointment (Analgesic [place]) 1 rupert PRN QID PRN TP MUSCLE PAIN; Start 04/28/18 at 23:15 Al Hydroxide/Mg Hydroxide (Mylanta Plus Xs) 15 ml PRN AFTMEALHC PRN PO DYSPEPSIA Last administered on 05/10/18at 22:17; Start 04/28/18 at 23:15 Magnesium Hydroxide (Milk Of Magnesia) 2,400 mg PRN QHS PRN PO CONSTIPATION Last administered on 05/15/18at 08:13; Start 04/28/18 at 23:15 Lorazepam (Ativan) 0.5 mg PRN Q4HRS PRN PO ANXIETY / AGITATION Last administered on 05/16/18at 13:46; Start 04/28/18 at 23:30 Acetaminophen (Tylenol) 325 mg PRN Q6HRS PRN PO PAIN / TEMP; Start 04/28/18 at 23:45 Diphenhydramine HCl (Benadryl) 25 mg TID PO Last administered on 05/18/18at 20: 42; Start 04/29/18 at 09:00 Docusate Sodium (Colace Solution) 100 mg BID PO Last administered on 05/18/18 20:41; Start 04/29/18 at 09:00 Ipratropium [place] (Atrovent) 0.5 mg Q6HRS IH Last administered on 05/18/18 20:19; Start 04/29/18 at 00:30 Metoprolol Tartrate (Lopressor) 25 mg BID PO Last administered on 05/18/18 20: 43; Start 04/29/18 at 09:00 Tamsulosin HCl (Flomax) 0.4 mg DAILY PO Last administered on 05/18/18 09:01; Start 04/29/18 at 09:00 Amantadine HCl (Symmetrel) 100 mg BID PO Last administered on 05/14/18at 09:49; Start 04/29/18 at 09:00; Stop 05/14/18 at 10:24; Status DC Benztropine Mesylate (Cogentin) 2 mg BID PO Last administered on 05/14/18at 09: 44; Start 04/29/18 at 09:00; Stop 05/14/18 at 10:24; Status DC Doxazosin Mesylate (Cardura) 1 mg QHS PO Last administered on 05/17/18at 20:36; Start 04/29/18 at 21:00 Famotidine (Pepcid) 20 mg BID PO Last administered on 05/18/18at 20:43; Start at 09:00 Acetaminophen/ Hydrocodone Bitart (Lortab 5/325) 1 tab PRN Q4HRS PRN PO PAIN Last administered on 05/04/18at 01:05; Start 04/28/18 at 23:45 Lactulose (Lactulose) 20 gm PRN TID PRN PO CONSTIPATION; Start 04/28/18 at 23: 45; Stop 05/18/18 at 12:05; Status DC Nystatin (Mycostatin) 1 rupert PRN Q12HR PRN TP ANTIFUNGAL F/RASH; Start 04/28/18 at 23:45 Pantoprazole Sodium (Protonix) 40 mg DAILYAC PO Last administered on 05/18/18at 09:01; Start 04/29/18 at 07:30 Sodium Bicarbonate 650 mg PRN Q24HRS PRN PO GI SYMPTOMS; Start 04/28/18 at 23: 45 Topiramate (Topamax) 100 mg DAILY PO Last administered on 05/18/18at 09:03; Start 04/29/18 at 09:00 Nicotine (Nicoderm Cq 7mg) 1 patch DAILY TD Last administered on 05/01/18at 08: 34; Start 04/29/18 at 09:00; Stop 05/02/18 at 15:53; Status DC Lidocaine (Lidoderm) 1 patch DAILY TD Last administered on 05/18/18at 09:03; Start 04/30/18 at 09:00 Miscellaneous (Lidoderm Patch Removal) 1 ea QHS MC Last administered on at 20:43; Start 04/30/18 at 21:00 Mirtazapine (Remeron) 7.5 mg QHS PO Last administered on 05/13/18at 19:46; Start 05/01/18 at 21:00; Stop 05/14/18 at 10:24; Status DC Clozapine (Clozaril) 25 mg QHS PO Last administered on 05/03/18 20:28; Start at 21:00; Stop 05/04/18 at 15:32; Status DC Nystatin (Nystop) 1 rupert BID TP Last administered on 05/18/18at 20:45; Start 05/03 at 01:00 Clozapine (Clozaril) 50 mg QHS PO Last administered on 05/10/18 19:48; Start at 17:00; Stop 05/11/18 at 17:13; Status DC Ondansetron HCl (Zofran Odt) 4 mg PRN Q8HRS PRN PO NAUSEA/VOMITING; Start at 08:45 Trazodone HCl (Desyrel) 50 mg QHS PO Last administered on 05/12/18at 20:24; Start 05/08/18 at 21:00; Stop 05/13/18 at 18:22; Status DC Trazodone HCl (Desyrel) 50 mg PRN QHS PRN PO INSOMNIA Last administered on 05/11at 00:01; Start 05/08/18 at 16:45; Stop 05/13/18 at 18:22; Status DC Bisacodyl (Dulcolax Supp) 10 mg PRN DAILY PRN [place] CONSTIPATION Last administered on 05/16/18at 03:04; Start 05/08/18 at 17:00 Clozapine (Clozaril) 75 mg HS PO Last administered on 05/17/18at 20:33; Start at 21:00; Stop 05/18/18 at 19:06; Status DC Trazodone HCl (Desyrel) 100 mg PRN QHS PRN PO INSOMNIA Last administered on at 00:18; Start 05/13/18 at 18:30 Trazodone HCl (Desyrel) 100 mg QHS PO Last administered on 05/18/18at 20:41; Start 05/13/18 at 21:00 Amantadine HCl (Symmetrel) 50 mg BID PO ; Start 05/14/18 at 21:00; Stop at 21:00; Status DC Benztropine Mesylate (Cogentin) 1 mg BID PO Last administered on 05/18/18at 20: 41; Start 05/14/18 at 21:00 Mirtazapine (Remeron) 15 mg QHS PO Last administered on 05/18/18at 20:42; Start 05/14/18 at 21:00 Melatonin 3 mg QHS PO Last administered on 05/14/18at 19:40; Start 05/14/18 at 21:00; Stop 05/15/18 at 19:30; Status DC Amantadine HCl (Symmetrel) 100 mg DAILY PO Last administered on 05/18/18at 09:03 ; Start 05/15/18 at 09:00 Melatonin 6 mg QHS PO Last administered on 05/18/18at 20:41; Start 05/15/18 at 21:00 Divalproex Sodium (Depakote Sprinkles) 250 mg BID PO Last administered on at 20:42; Start 05/17/18 at 21:00 Lactulose (Lactulose) 20 gm BID PO Last administered on 05/18/18at 20:41; Start 05/18/18 at 21:00 Clozapine (Clozaril) 100 mg HS PO Last administered on 05/18/18at 20:42; Start 05/18/18 at 21:00 Active Scripts Active Reported Topamax (Topiramate) 100 Mg Tablet 100 Mg PO DAILY Sodium Bicarbonate 650 Mg Tablet 650 Mg PO PRN Q24HRS PRN Protonix (Pantoprazole Sodium) 40 Mg Tablet.dr 40 Mg PO DAILY Lorazepam 0.5 Mg Tablet 0.5 Mg PO PRN Q4HRS PRN Nystatin 15 Gm Cream..g. 1 Rupert TP PRN Q12HR PRN Metoprolol Tartrate 25 Mg Tablet 25 Mg PO BID Lactulose 10 Gm/15 Ml Solution 30 Ml PO Ipratropium [place] 0.2 Mg/1 Ml Solution 0.5 Mg IH Q6HRS Hydrocodone-Apap 5-325 (Hydrocodone Bit/Acetaminophen) 1 Each Tablet 1 Tab PO PRN Q4HRS PRN Flomax (Tamsulosin Hcl) 0.4 Mg Cap.er.24h 0.4 Mg PO DAILY Famotidine 20 Mg Tablet 20 Mg PO BID Duoneb 0.5-3(2.5) Mg/3 Ml (Albuterol/Ipratropium) 3 Ml Ampul.neb 1 Vial NEB QID Duoneb 0.5-3(2.5) Mg/3 Ml (Albuterol/Ipratropium) 3 Ml Ampul.neb 1 Vial NEB PRN Q4HRS PRN Docusate Sodium 50 Mg/5 Ml Liquid 10 Ml PO BID [place] Oil 118 Ml Oil 1 Rupert TP BID 3 Days Cardura (Doxazosin Mesylate) 2 Mg Tablet 1 Mg PO QHS Benztropine Mesylate 2 Mg Tablet 2 Mg PO BID Benadryl (Diphenhydramine Hcl) 25 Mg Capsule 25 Mg PO TID Amantadine (Amantadine Hcl) 100 Mg Tablet 100 Mg PO BID Tylenol (Acetaminophen) 325 Mg Tablet 325 Mg PO PRN Q6HRS PRN I have reviewed the current psychotropics carefully including drug interactions. Risk benefit ratio favors no change other than as noted in my dictated progress note. Diagnosis: Problems: (1) Contusion of left hip (2) Aggressive behavior of adult (3) Geriatric psychosis (4) Decubitus ulcer of sacral region, stage 1 CHOCO JERRY MD May 18, 2018 20:55
[2018-05-18] MEDS: DOXAZOSIN MESYLATE 1 MG TABLET PO SCH (21:19)
--- NOTE | 2018-05-19 00:11 | PN ---
DATE: 05/15/2018 This is a late entry for 05/15/2018 covers elements not covered in my initial note. SUBJECTIVE: I met with the patient in the evening. The patient did not sleep at all previous night, compliant with medications. He put himself on the floor earlier in the afternoon then he was on the mattress in the quiet room, doors open, calmer at the end of it all. Received Ativan at 1430. REVIEW OF SYSTEMS: No CV, , pulmonary, eye, ENT system symptoms on review. Reliability poor. Gait unsteady. MENTAL STATUS EXAM: Oriented to himself and situation. Speech moderate latency, less pressured. Abstraction fair, computation impaired, language function intact. Mood and affect remain somewhat labile, anxious at times, withdrawn. LABORATORY DATA: Reviewed. IMPRESSION: Unchanged from initial note. PLAN: Increase melatonin from 3 mg at bedtime to 6 mg at bedtime. Continue rest unchanged from initial note. MAN Jameson JERRY MD DR: BRIELLE/naman JOB#: [id number] / [id number]
--- NOTE | 2018-05-19 01:02 | PN ---
DATE: 05/16/2018 PSYCHIATRIC PROGRESS NOTE This late entry 05/16/2018, covers elements not covered in my initial note. SUBJECTIVE: I met with the patient in the evenings. The patient remains somewhat delusional, restless, anxious, takes meds crushed in juice. REVIEW OF SYSTEMS: Ambulation impaired, in Broda chair. No CV, , pulmonary, eye system symptoms on review. MENTAL STATUS EXAM: Oriented to himself and situation. Speech moderate latency, often responses monosyllabic. Abstraction fair, computation impaired, language function intact. He remains psychotic, but less so than before. Movement disorder is better as well. LABORATORY DATA: Reviewed. IMPRESSION: Schizoaffective disorder, bipolar type, mixed with psychotic features, tardive dyskinesia; anxiety disorder, unspecified; impulse control disorder, unspecified. PLAN: Maintain Clozaril and the rest of his psychotropics. Amantadine was reduced. We may add Depakote as a mood stabilizer. CHOCO JERRY MD DR: BRIELLE/naman JOB#: [id number] / [id number]
--- NOTE | 2018-05-19 01:03 | PN ---
DATE: 05/17/2018 This is a late entry for 05/17/2018 covers elements not covered in my initial note. SUBJECTIVE: I met with the patient in the evening. The patient has been resistive to medications, slept 3-3/4 hours. Valproic acid level is in the 40s. He is on Depakote ER 500 at bedtime and we will increase to 1000 mg at bedtime. Check CBC, CMP, valproic acid level in 3 days. REVIEW OF SYSTEMS: Ambulation impaired, in Broda chair. No CV, , pulmonary, eye, ENT system symptoms on review. Reliability poor. MENTAL STATUS EXAM: Oriented to himself and situation. Speech coherent, has some latency. Abstraction fair, computation impaired, language function intact. Mood and affect somewhat withdrawn. LABORATORY DATA: Reviewed. IMPRESSION: Unchanged from initial note. PLAN: On further review of his psychotropics, he is not yet started on Depakote and what I mentioned above in my note about the valproic acid level and Depakote dosage was from a different patient. He continues to have ongoing mood lability and we will initiate Depakote 250 mg twice a day. Check CBC, CMP, valproic acid level in 3 days. Continue Clozaril 75 mg at bedtime, amantadine 100 mg a day, Topamax 100 mg daily, Ativan p.r.n., benztropine was reduced to 1 mg b.i.d., melatonin 6 mg at bedtime, Remeron 15 mg at bedtime, trazodone at bedtime. CHOCO JERRY MD DR: BRIELLE/naman JOB#: [id number] / [id number]
[2018-05-19] MEDS: IPRATROPIUM BROMIDE 0.5 MG/2.5 ML NEBU. IH SCH ×4 (05:42→20:29)
[2018-05-19 06:04] VITALS: BP 137/72
[2018-05-19] MEDS: DOXAZOSIN MESYLATE 1 MG TABLET PO SCH (07:44)
[2018-05-19] MEDS: DOCUSATE 100 MG/10 ML SOLUTION. PO SCH ×2 (07:44→20:47)
[2018-05-19] MEDS: LACTULOSE 20 GM/30 ML SOLUTION. PO SCH ×2 (07:44→20:47)
[2018-05-19] MEDS: BENZTROPINE MESYLATE 1 MG TABLET PO SCH ×2 (07:45→20:47)
[2018-05-19] MEDS: diphenhydrAMINE HCL 25 MG CAPSULE PO SCH ×3 (07:45→20:47)
[2018-05-19] MEDS: NYSTATIN TOPICAL POWDER 15GM BOTTLE. TP SCH ×2 (07:45→20:47)
[2018-05-19] MEDS: PANTOPRAZOLE 40 MG TABLET. PO SCH (07:45)
[2018-05-19] MEDS: TAMSULOSIN 0.4 MG CAP.ER.24H. PO SCH (07:45)
[2018-05-19] MEDS: FAMOTIDINE 20 MG TABLET PO SCH ×2 (07:45→20:47)
[2018-05-19] MEDS: TOPIRAMATE 100 MG TABLET. PO SCH (07:45)
[2018-05-19] MEDS: DIVALPROEX 125 MG CAP.SPRINK PO SCH ×2 (07:45→20:47)
[2018-05-19] MEDS: LIDOCAINE (700MG/PATCH) PATCH. TD SCH (07:49)
[2018-05-19] MEDS: AMANTADINE HCL 100 MG CAPSULE PO SCH (07:49)
[2018-05-19] MEDS: METOPROLOL TART IMMED RELEASE 25 MG TABLET PO SCH ×2 (07:50→20:51)
[2018-05-19 15:55] VITALS: BP 95/72
[2018-05-19] MEDS: MELATONIN 3 MG TABLET PO SCH (20:47)
[2018-05-19] MEDS: cloZAPine 100 MG TABLET PO SCH (20:47)
[2018-05-19] MEDS: traZODone 100 MG TABLET. PO SCH (20:47)
[2018-05-19] MEDS: MIRTAZAPINE 15 MG TABLET PO SCH (20:47)
--- NOTE | 2018-05-19 20:55 | PDOC ---
Exam Note: Elijah Note: Please also refer to the separate dictated note~for this date of service dictated separately.~Patient seen individually. Discussed the patient with Nursing staff reviewed the chart.~Reviewed interim history and current functioning. Reviewed vital signs,~Labs/ Radiology~and current medications noted below. Continue current treatment with the changes noted in the dictated addendum note Assessment: Vital Signs: Vital Signs Date Time Temp Pulse Resp B/P (MAP) Pulse Ox O2 Delivery O2 Flow Rate FiO2 05/19/18 20:51 72 135/70 05/19/18 20:29 96 Room Air 05/19/18 15:55 98.3 20 I&O Intake and Output 05/19/18 07:00 Intake Total 2680 ml Balance 2680 ml Intake Oral 2680 ml # Voids 1 Current Medications: Meds: Current Medications Lorazepam (Ativan) 2 mg 1X ONCE IM ; Start 04/28/18 at 19:15; Stop 04/28/18 at 19:17; Status DC Acetaminophen (Tylenol) 650 mg PRN Q6HRS PRN PO PAIN / TEMP; Start 04/28/18 at 23:15 Multi-Ingredient Ointment (Analgesic [place]) 1 rupert PRN QID PRN TP MUSCLE PAIN; Start 04/28/18 at 23:15 Al Hydroxide/Mg Hydroxide (Mylanta Plus Xs) 15 ml PRN AFTMEALHC PRN PO DYSPEPSIA Last administered on 05/10/18at 22:17; Start 04/28/18 at 23:15 Magnesium Hydroxide (Milk Of Magnesia) 2,400 mg PRN QHS PRN PO CONSTIPATION Last administered on 05/15/18at 08:13; Start 04/28/18 at 23:15 Lorazepam (Ativan) 0.5 mg PRN Q4HRS PRN PO ANXIETY / AGITATION Last administered on 05/16/18at 13:46; Start 04/28/18 at 23:30 Acetaminophen (Tylenol) 325 mg PRN Q6HRS PRN PO PAIN / TEMP; Start 04/28/18 at 23:45 Diphenhydramine HCl (Benadryl) 25 mg TID PO Last administered on 05/19/18at 20: 47; Start 04/29/18 at 09:00 Docusate Sodium (Colace Solution) 100 mg BID PO Last administered on 05/19/18 20:47; Start 04/29/18 at 09:00 Ipratropium [place] (Atrovent) 0.5 mg Q6HRS IH Last administered on 05/19/18 20:29; Start 04/29/18 at 00:30 Metoprolol Tartrate (Lopressor) 25 mg BID PO Last administered on 05/19/18 20: 51; Start 04/29/18 at 09:00 Tamsulosin HCl (Flomax) 0.4 mg DAILY PO Last administered on 05/19/18 07:45; Start 04/29/18 at 09:00 Amantadine HCl (Symmetrel) 100 mg BID PO Last administered on 05/14/18 09:49; Start 04/29/18 at 09:00; Stop 05/14/18 at 10:24; Status DC Benztropine Mesylate (Cogentin) 2 mg BID PO Last administered on 05/14/18 09: 44; Start 04/29/18 at 09:00; Stop 05/14/18 at 10:24; Status DC Doxazosin Mesylate (Cardura) 1 mg QHS PO Last administered on 05/19/18 07:44; Start 04/29/18 at 21:00 Famotidine (Pepcid) 20 mg BID PO Last administered on 05/19/18 20:47; Start at 09:00 Acetaminophen/ Hydrocodone Bitart (Lortab 5/325) 1 tab PRN Q4HRS PRN PO PAIN Last administered on 05/04/18 01:05; Start 04/28/18 at 23:45 Lactulose (Lactulose) 20 gm PRN TID PRN PO CONSTIPATION; Start 04/28/18 at 23: 45; Stop 05/18/18 at 12:05; Status DC Nystatin (Mycostatin) 1 rupert PRN Q12HR PRN TP ANTIFUNGAL F/RASH; Start 04/28/18 at 23:45 Pantoprazole Sodium (Protonix) 40 mg DAILYAC PO Last administered on 05/19/18at 07:45; Start 04/29/18 at 07:30 Sodium Bicarbonate 650 mg PRN Q24HRS PRN PO GI SYMPTOMS; Start 04/28/18 at 23: 45 Topiramate (Topamax) 100 mg DAILY PO Last administered on 05/19/18 07:45; Start 04/29/18 at 09:00 Nicotine (Nicoderm Cq 7mg) 1 patch DAILY TD Last administered on 05/01/18 08: 34; Start 04/29/18 at 09:00; Stop 05/02/18 at 15:53; Status DC Lidocaine (Lidoderm) 1 patch DAILY TD Last administered on 05/19/18 07:49; Start 04/30/18 at 09:00 Miscellaneous (Lidoderm Patch Removal) 1 ea QHS MC Last administered on 20:43; Start 04/30/18 at 21:00 Mirtazapine (Remeron) 7.5 mg QHS PO Last administered on 05/13/18 19:46; Start 05/01/18 at 21:00; Stop 05/14/18 at 10:24; Status DC Clozapine (Clozaril) 25 mg QHS PO Last administered on 05/03/18 20:28; Start at 21:00; Stop 05/04/18 at 15:32; Status DC Nystatin (Nystop) 1 rupert BID TP Last administered on 05/19/18 20:47; Start 05/03 at 01:00 Clozapine (Clozaril) 50 mg QHS PO Last administered on 05/10/18 19:48; Start at 17:00; Stop 05/11/18 at 17:13; Status DC Ondansetron HCl (Zofran Odt) 4 mg PRN Q8HRS PRN PO NAUSEA/VOMITING; Start at 08:45 Trazodone HCl (Desyrel) 50 mg QHS PO Last administered on 05/12/18at 20:24; Start 05/08/18 at 21:00; Stop 05/13/18 at 18:22; Status DC Trazodone HCl (Desyrel) 50 mg PRN QHS PRN PO INSOMNIA Last administered on 05/11at 00:01; Start 05/08/18 at 16:45; Stop 05/13/18 at 18:22; Status DC Bisacodyl (Dulcolax Supp) 10 mg PRN DAILY PRN [place] CONSTIPATION Last administered on 05/16/18at 03:04; Start 05/08/18 at 17:00 Clozapine (Clozaril) 75 mg HS PO Last administered on 05/17/18 20:33; Start at 21:00; Stop 05/18/18 at 19:06; Status DC Trazodone HCl (Desyrel) 100 mg PRN QHS PRN PO INSOMNIA Last administered on 00:18; Start 05/13/18 at 18:30 Trazodone HCl (Desyrel) 100 mg QHS PO Last administered on 05/19/18 20:47; Start 05/13/18 at 21:00 Amantadine HCl (Symmetrel) 50 mg BID PO ; Start 05/14/18 at 21:00; Stop at 21:00; Status DC Benztropine Mesylate (Cogentin) 1 mg BID PO Last administered on 05/19/18at 20: 47; Start 05/14/18 at 21:00 Mirtazapine (Remeron) 15 mg QHS PO Last administered on 05/19/18at 20:47; Start 05/14/18 at 21:00 Melatonin 3 mg QHS PO Last administered on 05/14/18at 19:40; Start 05/14/18 at 21:00; Stop 05/15/18 at 19:30; Status DC Amantadine HCl (Symmetrel) 100 mg DAILY PO Last administered on 05/19/18at 07:49 ; Start 05/15/18 at 09:00 Melatonin 6 mg QHS PO Last administered on 05/19/18at 20:47; Start 05/15/18 at 21:00 Divalproex Sodium (Depakote Sprinkles) 250 mg BID PO Last administered on 20:47; Start 05/17/18 at 21:00 Lactulose (Lactulose) 20 gm BID PO Last administered on 05/19/18 20:47; Start 05/18/18 at 21:00 Clozapine (Clozaril) 100 mg HS PO Last administered on 05/19/18 20:47; Start 05/18/18 at 21:00 Active Scripts Active Reported Topamax (Topiramate) 100 Mg Tablet 100 Mg PO DAILY Sodium Bicarbonate 650 Mg Tablet 650 Mg PO PRN Q24HRS PRN Protonix (Pantoprazole Sodium) 40 Mg Tablet.dr 40 Mg PO DAILY Lorazepam 0.5 Mg Tablet 0.5 Mg PO PRN Q4HRS PRN Nystatin 15 Gm Cream..g. 1 Rupert TP PRN Q12HR PRN Metoprolol Tartrate 25 Mg Tablet 25 Mg PO BID Lactulose 10 Gm/15 Ml Solution 30 Ml PO Ipratropium [place] 0.2 Mg/1 Ml Solution 0.5 Mg IH Q6HRS Hydrocodone-Apap 5-325 (Hydrocodone Bit/Acetaminophen) 1 Each Tablet 1 Tab PO PRN Q4HRS PRN Flomax (Tamsulosin Hcl) 0.4 Mg Cap.er.24h 0.4 Mg PO DAILY Famotidine 20 Mg Tablet 20 Mg PO BID Duoneb 0.5-3(2.5) Mg/3 Ml (Albuterol/Ipratropium) 3 Ml Ampul.neb 1 Vial NEB QID Duoneb 0.5-3(2.5) Mg/3 Ml (Albuterol/Ipratropium) 3 Ml Ampul.neb 1 Vial NEB PRN Q4HRS PRN Docusate Sodium 50 Mg/5 Ml Liquid 10 Ml PO BID [place] Oil 118 Ml Oil 1 Rupert TP BID 3 Days Cardura (Doxazosin Mesylate) 2 Mg Tablet 1 Mg PO QHS Benztropine Mesylate 2 Mg Tablet 2 Mg PO BID Benadryl (Diphenhydramine Hcl) 25 Mg Capsule 25 Mg PO TID Amantadine (Amantadine Hcl) 100 Mg Tablet 100 Mg PO BID Tylenol (Acetaminophen) 325 Mg Tablet 325 Mg PO PRN Q6HRS PRN I have reviewed the current psychotropics carefully including drug interactions. Risk benefit ratio favors no change other than as noted in my dictated progress note. Diagnosis: Problems: (1) Contusion of left hip (2) Aggressive behavior of adult (3) Geriatric psychosis (4) Decubitus ulcer of sacral region, stage 1 CHOCO JERRY MD May 19, 2018 20:55
[2018-05-19] MEDS: PATCH REMOVAL. MC SCH (21:00)
--- NOTE | 2018-05-19 23:23 | PN ---
DATE: 05/18/2018 PSYCHIATRIC PROGRESS NOTE This is a late entry of 05/18/2018, covers elements not covered in my initial note. SUBJECTIVE: I met with the patient in the evening. The patient slept 6-1/4 hours previous night. He has been very confused, intermittently agitated. REVIEW OF SYSTEMS: No CV, , pulmonary, eye, ENT system symptoms on review. Reliability poor. MENTAL STATUS EXAM: Oriented to himself. Insight, judgment, recent and remote memory, attention, concentration, fund of knowledge poor, consistent with his diagnosis mentioned in my initial note. LABORATORY DATA: CBC shows a 6.2 white cell count and 65% neutrophils, absolute neutrophil count is appropriate. PLAN: We will increase the Clozaril from 75 at bedtime to 100 at bedtime, and continue the rest unchanged. MAN Jameson JERRY MD DR: BRIELLE/naman JOB#: [id number] / [id number]
[2018-05-20] MEDS: IPRATROPIUM BROMIDE 0.5 MG/2.5 ML NEBU. IH SCH ×4 (05:27→20:16)
[2018-05-20 05:59] VITALS: BP 121/95
[2018-05-20 07:33] LABS: BASO % 0 % (0-3); EOS # 0.2 x10^3/uL (0.0-0.7); EOS % 4 % (0-3); HEMATOCRIT 33.1 % (39.0-53.0); HEMOGLOBIN 11.2 g/dL (13.0-17.5); LYMPH # 1.7 x10^3/uL (1.0-4.8); LYMPH % 26 % (24-48); MEAN CORPUSCULAR HEMOGLOBIN 33 pg (25-35); MEAN CORPUSCULAR HGB CONC 34 g/dL (31-37); MEAN CORPUSCULAR VOLUME 97 fL (79-100); MONO # 0.6 x10^3/uL (0.0-1.1); MONO % 9 % (0-9); NEUT % 61 % (31-73); PLATELET COUNT 207 x10^3/uL (140-400); RED BLOOD COUNT 3.43 x10^6/uL (4.30-5.70); RED CELL DISTRIBUTION WIDTH 16.8 % (11.5-14.5); WHITE BLOOD COUNT 6.5 x10^3/uL (4.0-11.0)
[2018-05-20] MEDS: DOCUSATE 100 MG/10 ML SOLUTION. PO SCH ×2 (07:41→21:00)
[2018-05-20] MEDS: DIVALPROEX 125 MG CAP.SPRINK PO SCH ×2 (07:41→20:05)
[2018-05-20] MEDS: FAMOTIDINE 20 MG TABLET PO SCH ×2 (07:41→20:05)
[2018-05-20] MEDS: LACTULOSE 20 GM/30 ML SOLUTION. PO SCH ×2 (07:41→20:00)
[2018-05-20] MEDS: BENZTROPINE MESYLATE 1 MG TABLET PO SCH ×2 (07:42→20:05)
[2018-05-20] MEDS: METOPROLOL TART IMMED RELEASE 25 MG TABLET PO SCH ×2 (07:42→20:09)
[2018-05-20] MEDS: DOXAZOSIN MESYLATE 1 MG TABLET PO SCH (07:42)
[2018-05-20] MEDS: PANTOPRAZOLE 40 MG TABLET. PO SCH (07:43)
[2018-05-20] MEDS: NYSTATIN TOPICAL POWDER 15GM BOTTLE. TP SCH ×2 (07:43→21:00)
[2018-05-20] MEDS: diphenhydrAMINE HCL 25 MG CAPSULE PO SCH ×3 (07:43→21:00)
[2018-05-20] MEDS: TOPIRAMATE 100 MG TABLET. PO SCH (07:43)
[2018-05-20] MEDS: LIDOCAINE (700MG/PATCH) PATCH. TD SCH (07:45)
[2018-05-20] MEDS: AMANTADINE HCL 100 MG CAPSULE PO SCH (07:45)
[2018-05-20] MEDS: TAMSULOSIN 0.4 MG CAP.ER.24H. PO SCH (07:45)
[2018-05-20 07:46] LABS: ALBUMIN 2.6 g/dL (3.4-5.0); ALBUMIN/GLOBULIN RATIO 0.7 (1.0-1.7); ALK PHOS 100 U/L (46-116); ALT (SGPT) 23 U/L (16-63); ANION GAP 6 (6-14); AST (SGOT) 15 U/L (15-37); BLOOD UREA NITROGEN 17 mg/dL (8-26); BUN/CREATININE RATIO 17 (6-20); CALCIUM 8.5 mg/dL (8.5-10.1); CARBON DIOXIDE 27 mmol/L (21-32); CHLORIDE 97 mmol/L (98-107); GFR 74.3; GLUCOSE 84 mg/dL (70-99); POTASSIUM 4.5 mmol/L (3.5-5.1); SODIUM 130 mmol/L (136-145); TOTAL BILIRUBIN 0.2 mg/dL (0.2-1.0); TOTAL PROTEIN 6.3 g/dL (6.4-8.2)
[2018-05-20 07:49] LABS: VAL ACID 18 mcg/mL (50-100)
[2018-05-20 16:58] VITALS: BP 111/63
[2018-05-20] MEDS: traZODone 100 MG TABLET. PO SCH (20:03)
[2018-05-20] MEDS: MIRTAZAPINE 15 MG TABLET PO SCH (20:05)
[2018-05-20] MEDS: MELATONIN 3 MG TABLET PO SCH (20:05)
[2018-05-20] MEDS: cloZAPine 100 MG TABLET PO SCH (21:00)
[2018-05-20] MEDS: PATCH REMOVAL. MC SCH (21:00)
--- NOTE | 2018-05-20 21:15 | PDOC ---
Exam Note: Elijah Note: Please also refer to the separate dictated note~for this date of service dictated separately.~Patient seen individually. Discussed the patient with Nursing staff reviewed the chart.~Reviewed interim history and current functioning. Reviewed vital signs,~Labs/ Radiology~and current medications noted below. Continue current treatment with the changes noted in the dictated addendum note Assessment: Vital Signs: Vital Signs Date Time Temp Pulse Resp B/P (MAP) Pulse Ox O2 Delivery O2 Flow Rate FiO2 05/20/18 20:16 97 Room Air 05/20/18 20:09 69 135/66 05/20/18 16:58 97.6 18 I&O Intake and Output 05/20/18 07:00 Intake Total 2400 ml Balance 2400 ml Intake Oral 2400 ml # Voids 1 # Bowel Movements 2 Labs: Laboratory Tests Test 05/20/18 07:22 White Blood Count 6.5 x10^3/uL (4.0-11.0) Red Blood Count 3.43 x10^6/uL (4.30-5.70) L Hemoglobin 11.2 g/dL (13.0-17.5) L Hematocrit 33.1 % (39.0-53.0) L Mean Corpuscular Volume 97 fL (79-100) Mean Corpuscular Hemoglobin 33 pg (25-35) Mean Corpuscular Hemoglobin Concent 34 g/dL (31-37) Red Cell Distribution Width 16.8 % (11.5-14.5) H Platelet Count 207 x10^3/uL (140-400) Neutrophils (%) (Auto) 61 % (31-73) Lymphocytes (%) (Auto) 26 % (24-48) Monocytes (%) (Auto) 9 % (0-9) Eosinophils (%) (Auto) 4 % (0-3) H Basophils (%) (Auto) 0 % (0-3) Neutrophils # (Auto) 4.0 x10^3uL (1.8-7.7) Lymphocytes # (Auto) 1.7 x10^3/uL (1.0-4.8) Monocytes # (Auto) 0.6 x10^3/uL (0.0-1.1) Eosinophils # (Auto) 0.2 x10^3/uL (0.0-0.7) Basophils # (Auto) 0.0 x10^3/uL (0.0-0.2) Sodium Level 130 mmol/L (136-145) L Potassium Level 4.5 mmol/L (3.5-5.1) Chloride Level 97 mmol/L (98-107) L Carbon Dioxide Level 27 mmol/L (21-32) Anion Gap 6 (6-14) Blood Urea Nitrogen 17 mg/dL (8-26) Creatinine 1.0 mg/dL (0.7-1.3) Estimated GFR (Cockcroft-Gault) 74.3 BUN/Creatinine Ratio 17 (6-20) Glucose Level 84 mg/dL (70-99) Calcium Level 8.5 mg/dL (8.5-10.1) Total Bilirubin 0.2 mg/dL (0.2-1.0) Aspartate Amino Transferase (AST) 15 U/L (15-37) Alanine Aminotransferase (ALT) 23 U/L (16-63) Alkaline Phosphatase 100 U/L (46-116) Total Protein 6.3 g/dL (6.4-8.2) L Albumin 2.6 g/dL (3.4-5.0) L Albumin/Globulin Ratio 0.7 (1.0-1.7) L Valproic Acid Level 18 mcg/mL (50-100) L Valproic Acid Last Dose Date 05/19/2018 Valproic Acid Last Dose Time 2100 Current Medications: Meds: Current Medications Lorazepam (Ativan) 2 mg 1X ONCE IM ; Start 04/28/18 at 19:15; Stop 04/28/18 at 19:17; Status DC Acetaminophen (Tylenol) 650 mg PRN Q6HRS PRN PO PAIN / TEMP; Start 04/28/18 at 23:15 Multi-Ingredient Ointment (Analgesic [place]) 1 rupert PRN QID PRN TP MUSCLE PAIN; Start 04/28/18 at 23:15 Al Hydroxide/Mg Hydroxide (Mylanta Plus Xs) 15 ml PRN AFTMEALHC PRN PO DYSPEPSIA Last administered on 05/10/18at 22:17; Start 04/28/18 at 23:15 Magnesium Hydroxide (Milk Of Magnesia) 2,400 mg PRN QHS PRN PO CONSTIPATION Last administered on 05/15/18at 08:13; Start 04/28/18 at 23:15 Lorazepam (Ativan) 0.5 mg PRN Q4HRS PRN PO ANXIETY / AGITATION Last administered on 05/16/18 13:46; Start 04/28/18 at 23:30 Acetaminophen (Tylenol) 325 mg PRN Q6HRS PRN PO PAIN / TEMP; Start 04/28/18 at 23:45 Diphenhydramine HCl (Benadryl) 25 mg TID PO Last administered on 05/20/18 15: 52; Start 04/29/18 at 09:00 Docusate Sodium (Colace Solution) 100 mg BID PO Last administered on 05/20/18 07:41; Start 04/29/18 at 09:00 Ipratropium [place] (Atrovent) 0.5 mg Q6HRS IH Last administered on 05/20/18 20:16; Start 04/29/18 at 00:30 Metoprolol Tartrate (Lopressor) 25 mg BID PO Last administered on 05/20/18 20: 09; Start 04/29/18 at 09:00 Tamsulosin HCl (Flomax) 0.4 mg DAILY PO Last administered on 05/20/18 07:45; Start 04/29/18 at 09:00 Amantadine HCl (Symmetrel) 100 mg BID PO Last administered on 05/14/18 09:49; Start 04/29/18 at 09:00; Stop 05/14/18 at 10:24; Status DC Benztropine Mesylate (Cogentin) 2 mg BID PO Last administered on 05/14/18 09: 44; Start 04/29/18 at 09:00; Stop 05/14/18 at 10:24; Status DC Doxazosin Mesylate (Cardura) 1 mg QHS PO Last administered on 05/20/18 07:42; Start 04/29/18 at 21:00 Famotidine (Pepcid) 20 mg BID PO Last administered on 05/20/18 20:05; Start at 09:00 Acetaminophen/ Hydrocodone Bitart (Lortab 5/325) 1 tab PRN Q4HRS PRN PO PAIN Last administered on 05/04/18 01:05; Start 04/28/18 at 23:45 Lactulose (Lactulose) 20 gm PRN TID PRN PO CONSTIPATION; Start 04/28/18 at 23: 45; Stop 05/18/18 at 12:05; Status DC Nystatin (Mycostatin) 1 rupert PRN Q12HR PRN TP ANTIFUNGAL F/RASH; Start 04/28/18 at 23:45 Pantoprazole Sodium (Protonix) 40 mg DAILYAC PO Last administered on 05/20/18at 07:43; Start 04/29/18 at 07:30 Sodium Bicarbonate 650 mg PRN Q24HRS PRN PO GI SYMPTOMS; Start 04/28/18 at 23: 45 Topiramate (Topamax) 100 mg DAILY PO Last administered on 05/20/18at 07:43; Start 04/29/18 at 09:00 Nicotine (Nicoderm Cq 7mg) 1 patch DAILY TD Last administered on 05/01/18at 08: 34; Start 04/29/18 at 09:00; Stop 05/02/18 at 15:53; Status DC Lidocaine (Lidoderm) 1 patch DAILY TD Last administered on 05/20/18at 07:45; Start 04/30/18 at 09:00 Miscellaneous (Lidoderm Patch Removal) 1 ea QHS MC Last administered on at 21:00; Start 04/30/18 at 21:00 Mirtazapine (Remeron) 7.5 mg QHS PO Last administered on 05/13/18at 19:46; Start 05/01/18 at 21:00; Stop 05/14/18 at 10:24; Status DC Clozapine (Clozaril) 25 mg QHS PO Last administered on 05/03/18at 20:28; Start at 21:00; Stop 05/04/18 at 15:32; Status DC Nystatin (Nystop) 1 rupert BID TP Last administered on 05/20/18at 07:43; Start 05/03 at 01:00 Clozapine (Clozaril) 50 mg QHS PO Last administered on 05/10/18at 19:48; Start at 17:00; Stop 05/11/18 at 17:13; Status DC Ondansetron HCl (Zofran Odt) 4 mg PRN Q8HRS PRN PO NAUSEA/VOMITING; Start at 08:45 Trazodone HCl (Desyrel) 50 mg QHS PO Last administered on 05/12/18at 20:24; Start 05/08/18 at 21:00; Stop 05/13/18 at 18:22; Status DC Trazodone HCl (Desyrel) 50 mg PRN QHS PRN PO INSOMNIA Last administered on 05/11at 00:01; Start 05/08/18 at 16:45; Stop 05/13/18 at 18:22; Status DC Bisacodyl (Dulcolax Supp) 10 mg PRN DAILY PRN [place] CONSTIPATION Last administered on 05/16/18at 03:04; Start 05/08/18 at 17:00 Clozapine (Clozaril) 75 mg HS PO Last administered on 05/17/18at 20:33; Start at 21:00; Stop 05/18/18 at 19:06; Status DC Trazodone HCl (Desyrel) 100 mg PRN QHS PRN PO INSOMNIA Last administered on at 00:18; Start 05/13/18 at 18:30 Trazodone HCl (Desyrel) 100 mg QHS PO Last administered on 05/20/18at 20:03; Start 05/13/18 at 21:00 Amantadine HCl (Symmetrel) 50 mg BID PO ; Start 05/14/18 at 21:00; Stop at 21:00; Status DC Benztropine Mesylate (Cogentin) 1 mg BID PO Last administered on 05/20/18at 20: 05; Start 05/14/18 at 21:00 Mirtazapine (Remeron) 15 mg QHS PO Last administered on 05/20/18at 20:05; Start 05/14/18 at 21:00 Melatonin 3 mg QHS PO Last administered on 05/14/18at 19:40; Start 05/14/18 at 21:00; Stop 05/15/18 at 19:30; Status DC Amantadine HCl (Symmetrel) 100 mg DAILY PO Last administered on 05/20/18at 07:45 ; Start 05/15/18 at 09:00 Melatonin 6 mg QHS PO Last administered on 05/20/18at 20:05; Start 05/15/18 at 21:00 Divalproex Sodium (Depakote Sprinkles) 250 mg BID PO Last administered on at 07:41; Start 05/17/18 at 21:00; Stop 05/20/18 at 18:13; Status DC Lactulose (Lactulose) 20 gm BID PO Last administered on 05/20/18at 20:00; Start 05/18/18 at 21:00 Clozapine (Clozaril) 100 mg HS PO Last administered on 05/19/18at 20:47; Start 05/18/18 at 21:00 Divalproex Sodium (Depakote Sprinkles) 500 mg BID PO Last administered on at 20:05; Start 05/20/18 at 21:00 Active Scripts Active Reported Topamax (Topiramate) 100 Mg Tablet 100 Mg PO DAILY Sodium Bicarbonate 650 Mg Tablet 650 Mg PO PRN Q24HRS PRN Protonix (Pantoprazole Sodium) 40 Mg Tablet.dr 40 Mg PO DAILY Lorazepam 0.5 Mg Tablet 0.5 Mg PO PRN Q4HRS PRN Nystatin 15 Gm Cream..g. 1 Rupert TP PRN Q12HR PRN Metoprolol Tartrate 25 Mg Tablet 25 Mg PO BID Lactulose 10 Gm/15 Ml Solution 30 Ml PO Ipratropium [place] 0.2 Mg/1 Ml Solution 0.5 Mg IH Q6HRS Hydrocodone-Apap 5-325 (Hydrocodone Bit/Acetaminophen) 1 Each Tablet 1 Tab PO PRN Q4HRS PRN Flomax (Tamsulosin Hcl) 0.4 Mg Cap.er.24h 0.4 Mg PO DAILY Famotidine 20 Mg Tablet 20 Mg PO BID Duoneb 0.5-3(2.5) Mg/3 Ml (Albuterol/Ipratropium) 3 Ml Ampul.neb 1 Vial NEB QID Duoneb 0.5-3(2.5) Mg/3 Ml (Albuterol/Ipratropium) 3 Ml Ampul.neb 1 Vial NEB PRN Q4HRS PRN Docusate Sodium 50 Mg/5 Ml Liquid 10 Ml PO BID [place] Oil 118 Ml Oil 1 Rupert TP BID 3 Days Cardura (Doxazosin Mesylate) 2 Mg Tablet 1 Mg PO QHS Benztropine Mesylate 2 Mg Tablet 2 Mg PO BID Benadryl (Diphenhydramine Hcl) 25 Mg Capsule 25 Mg PO TID Amantadine (Amantadine Hcl) 100 Mg Tablet 100 Mg PO BID Tylenol (Acetaminophen) 325 Mg Tablet 325 Mg PO PRN Q6HRS PRN I have reviewed the current psychotropics carefully including drug interactions. Risk benefit ratio favors no change other than as noted in my dictated progress note. Diagnosis: Problems: (1) Contusion of left hip (2) Aggressive behavior of adult (3) Geriatric psychosis (4) Decubitus ulcer of sacral region, stage 1 CHOCO JERRY MD May 20, 2018 21:15
--- NOTE | 2018-05-21 00:11 | PN ---
DATE: 05/19/2018 PSYCHIATRIC PROGRESS NOTE This is a late entry of 05/19/2018 covers elements not covered in my initial note. SUBJECTIVE: I met with the patient in the evening. The patient slept 6-1/2 hours previous night. He has been less psychotic, still somewhat anxious, restless, but improved. He is tolerating Depakote and the increased Clozaril. REVIEW OF SYSTEMS: Ambulation impaired, in Broda chair. No CV, , pulmonary, eye, ENT system symptoms on review. MENTAL STATUS EXAM: Oriented to himself and situation. Speech coherent, at times somewhat pressured, still paranoid as I sat with him. Whenever I would try and hold his hand, he would pull it away, quite suspicious. Insight limited, judgment marginal, language function intact, attention span short. Mood and affect labile. LABORATORY DATA: Reviewed. IMPRESSION: Schizoaffective disorder, bipolar type, mixed with psychotic features; cognitive disorder, unspecified. Rest unchanged. PLAN: Continue current psychotropics. Clozaril has been increased to 100 mg at bedtime. CBC, absolute neutrophil count is unremarkable. We will check valproic acid level 05/20/2018, and then adjust to reach therapeutic level. CHOCO JERRY MD DR: BRIELLE/naman JOB#: [id number] / [id number]
[2018-05-21] MEDS: traZODone 100 MG TABLET. PO PRN (01:19)
[2018-05-21] MEDS: IPRATROPIUM BROMIDE 0.5 MG/2.5 ML NEBU. IH SCH ×4 (05:20→20:25)
[2018-05-21 05:56] VITALS: BP 123/65
[2018-05-21] MEDS: PANTOPRAZOLE 40 MG TABLET. PO SCH (08:58)
[2018-05-21] MEDS: DOCUSATE 100 MG/10 ML SOLUTION. PO SCH ×2 (08:58→19:42)
[2018-05-21] MEDS: diphenhydrAMINE HCL 25 MG CAPSULE PO SCH ×3 (08:58→19:42)
[2018-05-21] MEDS: BENZTROPINE MESYLATE 1 MG TABLET PO SCH ×2 (08:58→19:42)
[2018-05-21] MEDS: LACTULOSE 20 GM/30 ML SOLUTION. PO SCH ×2 (08:59→19:43)
[2018-05-21] MEDS: DIVALPROEX 125 MG CAP.SPRINK PO SCH ×2 (08:59→19:43)
[2018-05-21] MEDS: TAMSULOSIN 0.4 MG CAP.ER.24H. PO SCH (08:59)
[2018-05-21] MEDS: TOPIRAMATE 100 MG TABLET. PO SCH (09:01)
[2018-05-21] MEDS: FAMOTIDINE 20 MG TABLET PO SCH ×2 (09:01→19:42)
[2018-05-21] MEDS: METOPROLOL TART IMMED RELEASE 25 MG TABLET PO SCH ×2 (09:01→19:42)
[2018-05-21] MEDS: AMANTADINE HCL 100 MG CAPSULE PO SCH (09:02)
[2018-05-21] MEDS: NYSTATIN TOPICAL POWDER 15GM BOTTLE. TP SCH ×2 (09:02→19:45)
[2018-05-21] MEDS: LIDOCAINE (700MG/PATCH) PATCH. TD SCH (09:02)
[2018-05-21 09:51] LABS: ALBUMIN 2.8 g/dL (3.4-5.0); ALBUMIN/GLOBULIN RATIO 0.7 (1.0-1.7); CALCIUM 9.3 mg/dL (8.5-10.1); CREATININE 0.9 mg/dL (0.7-1.3); GFR 83.9; TOTAL BILIRUBIN 0.1 mg/dL (0.2-1.0); TOTAL PROTEIN 6.6 g/dL (6.4-8.2)
[2018-05-21 09:52] LABS: POTASSIUM 4.3 mmol/L (3.5-5.1)
[2018-05-21 10:56] LABS: BASO % 0 % (0-3); EOS # 0.2 x10^3/uL (0.0-0.7); EOS % 3 % (0-3); HEMATOCRIT 32.9 % (39.0-53.0); HEMOGLOBIN 11.2 g/dL (13.0-17.5); LYMPH # 1.7 x10^3/uL (1.0-4.8); LYMPH % 28 % (24-48); MEAN CORPUSCULAR HEMOGLOBIN 33 pg (25-35); MEAN CORPUSCULAR HGB CONC 34 g/dL (31-37); MEAN CORPUSCULAR VOLUME 97 fL (79-100); MONO # 0.5 x10^3/uL (0.0-1.1); MONO % 9 % (0-9); NEUT # 3.6 x10^3uL (1.8-7.7); NEUT % 60 % (31-73); PLATELET COUNT 218 x10^3/uL (140-400); RED BLOOD COUNT 3.39 x10^6/uL (4.30-5.70); RED CELL DISTRIBUTION WIDTH 17.4 % (11.5-14.5)
[2018-05-21 16:53] VITALS: BP 133/82
[2018-05-21] MEDS: PATCH REMOVAL. MC SCH (19:42)
[2018-05-21] MEDS: MIRTAZAPINE 15 MG TABLET PO SCH (19:42)
[2018-05-21] MEDS: MELATONIN 3 MG TABLET PO SCH (19:43)
[2018-05-21] MEDS: cloZAPine 100 MG TABLET PO SCH (19:43)
[2018-05-21] MEDS: traZODone 100 MG TABLET. PO SCH (19:44)
[2018-05-21] MEDS: DOXAZOSIN MESYLATE 1 MG TABLET PO SCH (19:45)
--- NOTE | 2018-05-21 20:48 | PDOC ---
Exam Note: Elijah Note: Please also refer to the separate dictated note~for this date of service dictated separately.~Patient seen individually. Discussed the patient with Nursing staff reviewed the chart.~Reviewed interim history and current functioning. Reviewed vital signs,~Labs/ Radiology~and current medications noted below. Continue current treatment with the changes noted in the dictated addendum note Assessment: Vital Signs: Vital Signs Date Time Temp Pulse Resp B/P (MAP) Pulse Ox O2 Delivery O2 Flow Rate FiO2 05/21/18 20:18 99 Room Air 05/21/18 19:45 66 133/82 05/21/18 16:53 97.0 20 I&O Intake and Output 05/21/18 07:00 Intake Total 1920 ml Balance 1920 ml Intake Oral 1920 ml # Voids 1 Labs: Laboratory Tests Test 05/21/18 09:23 White Blood Count 6.0 x10^3/uL (4.0-11.0) Red Blood Count 3.39 x10^6/uL (4.30-5.70) L Hemoglobin 11.2 g/dL (13.0-17.5) L Hematocrit 32.9 % (39.0-53.0) L Mean Corpuscular Volume 97 fL (79-100) Mean Corpuscular Hemoglobin 33 pg (25-35) Mean Corpuscular Hemoglobin Concent 34 g/dL (31-37) Red Cell Distribution Width 17.4 % (11.5-14.5) H Platelet Count 218 x10^3/uL (140-400) Neutrophils (%) (Auto) 60 % (31-73) Lymphocytes (%) (Auto) 28 % (24-48) Monocytes (%) (Auto) 9 % (0-9) Eosinophils (%) (Auto) 3 % (0-3) Basophils (%) (Auto) 0 % (0-3) Neutrophils # (Auto) 3.6 x10^3uL (1.8-7.7) Lymphocytes # (Auto) 1.7 x10^3/uL (1.0-4.8) Monocytes # (Auto) 0.5 x10^3/uL (0.0-1.1) Eosinophils # (Auto) 0.2 x10^3/uL (0.0-0.7) Basophils # (Auto) 0.0 x10^3/uL (0.0-0.2) Sodium Level 133 mmol/L (136-145) L Potassium Level 4.3 mmol/L (3.5-5.1) Chloride Level 98 mmol/L (98-107) Carbon Dioxide Level 28 mmol/L (21-32) Anion Gap 7 (6-14) Blood Urea Nitrogen 23 mg/dL (8-26) Creatinine 0.9 mg/dL (0.7-1.3) Estimated GFR (Cockcroft-Gault) 83.9 BUN/Creatinine Ratio 26 (6-20) H Glucose Level 72 mg/dL (70-99) Calcium Level 9.3 mg/dL (8.5-10.1) Total Bilirubin 0.1 mg/dL (0.2-1.0) L Aspartate Amino Transferase (AST) 18 U/L (15-37) Alanine Aminotransferase (ALT) 23 U/L (16-63) Alkaline Phosphatase 105 U/L (46-116) Total Protein 6.6 g/dL (6.4-8.2) Albumin 2.8 g/dL (3.4-5.0) L Albumin/Globulin Ratio 0.7 (1.0-1.7) L Current Medications: Meds: Current Medications Lorazepam (Ativan) 2 mg 1X ONCE IM ; Start 04/28/18 at 19:15; Stop 04/28/18 at 19:17; Status DC Acetaminophen (Tylenol) 650 mg PRN Q6HRS PRN PO PAIN / TEMP; Start 04/28/18 at 23:15 Multi-Ingredient Ointment (Analgesic [place]) 1 rupert PRN QID PRN TP MUSCLE PAIN; Start 04/28/18 at 23:15 Al Hydroxide/Mg Hydroxide (Mylanta Plus Xs) 15 ml PRN AFTMEALHC PRN PO DYSPEPSIA Last administered on 05/10/18at 22:17; Start 04/28/18 at 23:15 Magnesium Hydroxide (Milk Of Magnesia) 2,400 mg PRN QHS PRN PO CONSTIPATION Last administered on 05/15/18at 08:13; Start 04/28/18 at 23:15 Lorazepam (Ativan) 0.5 mg PRN Q4HRS PRN PO ANXIETY / AGITATION Last administered on 05/16/18at 13:46; Start 04/28/18 at 23:30 Acetaminophen (Tylenol) 325 mg PRN Q6HRS PRN PO PAIN / TEMP; Start 04/28/18 at 23:45 Diphenhydramine HCl (Benadryl) 25 mg TID PO Last administered on 05/21/18 19: 42; Start 04/29/18 at 09:00 Docusate Sodium (Colace Solution) 100 mg BID PO Last administered on 05/21/18 19:42; Start 04/29/18 at 09:00 Ipratropium [place] (Atrovent) 0.5 mg Q6HRS IH Last administered on 05/21/18 20:25; Start 04/29/18 at 00:30 Metoprolol Tartrate (Lopressor) 25 mg BID PO Last administered on 05/21/18 19: 42; Start 04/29/18 at 09:00 Tamsulosin HCl (Flomax) 0.4 mg DAILY PO Last administered on 05/21/18 08:59; Start 04/29/18 at 09:00 Amantadine HCl (Symmetrel) 100 mg BID PO Last administered on 05/14/18at 09:49; Start 04/29/18 at 09:00; Stop 05/14/18 at 10:24; Status DC Benztropine Mesylate (Cogentin) 2 mg BID PO Last administered on 05/14/18 09: 44; Start 04/29/18 at 09:00; Stop 05/14/18 at 10:24; Status DC Doxazosin Mesylate (Cardura) 1 mg QHS PO Last administered on 05/21/18 19:45; Start 04/29/18 at 21:00 Famotidine (Pepcid) 20 mg BID PO Last administered on 05/21/18 19:42; Start at 09:00 Acetaminophen/ Hydrocodone Bitart (Lortab 5/325) 1 tab PRN Q4HRS PRN PO PAIN Last administered on 05/04/18at 01:05; Start 04/28/18 at 23:45 Lactulose (Lactulose) 20 gm PRN TID PRN PO CONSTIPATION; Start 04/28/18 at 23: 45; Stop 05/18/18 at 12:05; Status DC Nystatin (Mycostatin) 1 rupert PRN Q12HR PRN TP ANTIFUNGAL F/RASH; Start 04/28/18 at 23:45 Pantoprazole Sodium (Protonix) 40 mg DAILYAC PO Last administered on 05/21/18at 08:58; Start 04/29/18 at 07:30 Sodium Bicarbonate 650 mg PRN Q24HRS PRN PO GI SYMPTOMS; Start 04/28/18 at 23: 45 Topiramate (Topamax) 100 mg DAILY PO Last administered on 05/21/18at 09:01; Start 04/29/18 at 09:00 Nicotine (Nicoderm Cq 7mg) 1 patch DAILY TD Last administered on 05/01/18 08: 34; Start 04/29/18 at 09:00; Stop 05/02/18 at 15:53; Status DC Lidocaine (Lidoderm) 1 patch DAILY TD Last administered on 05/21/18 09:02; Start 04/30/18 at 09:00 Miscellaneous (Lidoderm Patch Removal) 1 ea QHS MC Last administered on at 19:42; Start 04/30/18 at 21:00 Mirtazapine (Remeron) 7.5 mg QHS PO Last administered on 05/13/18 19:46; Start 05/01/18 at 21:00; Stop 05/14/18 at 10:24; Status DC Clozapine (Clozaril) 25 mg QHS PO Last administered on 05/03/18 20:28; Start at 21:00; Stop 05/04/18 at 15:32; Status DC Nystatin (Nystop) 1 rupert BID TP Last administered on 05/21/18at 19:45; Start 05/03 at 01:00 Clozapine (Clozaril) 50 mg QHS PO Last administered on 05/10/18 19:48; Start at 17:00; Stop 05/11/18 at 17:13; Status DC Ondansetron HCl (Zofran Odt) 4 mg PRN Q8HRS PRN PO NAUSEA/VOMITING; Start at 08:45 Trazodone HCl (Desyrel) 50 mg QHS PO Last administered on 05/12/18at 20:24; Start 05/08/18 at 21:00; Stop 05/13/18 at 18:22; Status DC Trazodone HCl (Desyrel) 50 mg PRN QHS PRN PO INSOMNIA Last administered on 05/11at 00:01; Start 05/08/18 at 16:45; Stop 05/13/18 at 18:22; Status DC Bisacodyl (Dulcolax Supp) 10 mg PRN DAILY PRN [place] CONSTIPATION Last administered on 05/16/18at 03:04; Start 05/08/18 at 17:00 Clozapine (Clozaril) 75 mg HS PO Last administered on 05/17/18at 20:33; Start at 21:00; Stop 05/18/18 at 19:06; Status DC Trazodone HCl (Desyrel) 100 mg PRN QHS PRN PO INSOMNIA Last administered on at 01:19; Start 05/13/18 at 18:30 Trazodone HCl (Desyrel) 100 mg QHS PO Last administered on 05/21/18at 19:44; Start 05/13/18 at 21:00 Amantadine HCl (Symmetrel) 50 mg BID PO ; Start 05/14/18 at 21:00; Stop at 21:00; Status DC Benztropine Mesylate (Cogentin) 1 mg BID PO Last administered on 05/21/18at 19: 42; Start 05/14/18 at 21:00 Mirtazapine (Remeron) 15 mg QHS PO Last administered on 05/21/18at 19:42; Start 05/14/18 at 21:00 Melatonin 3 mg QHS PO Last administered on 05/14/18at 19:40; Start 05/14/18 at 21:00; Stop 05/15/18 at 19:30; Status DC Amantadine HCl (Symmetrel) 100 mg DAILY PO Last administered on 05/21/18at 09:02 ; Start 05/15/18 at 09:00 Melatonin 6 mg QHS PO Last administered on 05/21/18at 19:43; Start 05/15/18 at 21:00 Divalproex Sodium (Depakote Sprinkles) 250 mg BID PO Last administered on at 07:41; Start 05/17/18 at 21:00; Stop 05/20/18 at 18:13; Status DC Lactulose (Lactulose) 20 gm BID PO Last administered on 05/21/18at 19:43; Start 05/18/18 at 21:00 Clozapine (Clozaril) 100 mg HS PO Last administered on 05/21/18at 19:43; Start 05/18/18 at 21:00 Divalproex Sodium (Depakote Sprinkles) 500 mg BID PO Last administered on at 19:43; Start 05/20/18 at 21:00 Melatonin 3 mg HS PO ; Start 05/21/18 at 21:00; Stop 05/21/18 at 21:00; Status DC Active Scripts Active Reported Topamax (Topiramate) 100 Mg Tablet 100 Mg PO DAILY Sodium Bicarbonate 650 Mg Tablet 650 Mg PO PRN Q24HRS PRN Protonix (Pantoprazole Sodium) 40 Mg Tablet.dr 40 Mg PO DAILY Lorazepam 0.5 Mg Tablet 0.5 Mg PO PRN Q4HRS PRN Nystatin 15 Gm Cream..g. 1 Ru[place] TP PRN Q12HR PRN Metoprolol Tartrate 25 Mg Tablet 25 Mg PO BID Lactulose 10 Gm/15 Ml Solution 30 Ml PO Ipratropium [place] 0.2 Mg/1 Ml Solution 0.5 Mg IH Q6HRS Hydrocodone-Apap 5-325 (Hydrocodone Bit/Acetaminophen) 1 Each Tablet 1 Tab PO PRN Q4HRS PRN Flomax (Tamsulosin Hcl) 0.4 Mg Cap.er.24h 0.4 Mg PO DAILY Famotidine 20 Mg Tablet 20 Mg PO BID Duoneb 0.5-3(2.5) Mg/3 Ml (Albuterol/Ipratropium) 3 Ml Ampul.neb 1 Vial NEB QID Duoneb 0.5-3(2.5) Mg/3 Ml (Albuterol/Ipratropium) 3 Ml Ampul.neb 1 Vial NEB PRN Q4HRS PRN Docusate Sodium 50 Mg/5 Ml Liquid 10 Ml PO BID [place] Oil 118 Ml Oil 1 Rupert TP BID 3 Days Cardura (Doxazosin Mesylate) 2 Mg Tablet 1 Mg PO QHS Benztropine Mesylate 2 Mg Tablet 2 Mg PO BID Benadryl (Diphenhydramine Hcl) 25 Mg Capsule 25 Mg PO TID Amantadine (Amantadine Hcl) 100 Mg Tablet 100 Mg PO BID Tylenol (Acetaminophen) 325 Mg Tablet 325 Mg PO PRN Q6HRS PRN I have reviewed the current psychotropics carefully including drug interactions. Risk benefit ratio favors no change other than as noted in my dictated progress note. Diagnosis: Problems: (1) Contusion of left hip (2) Aggressive behavior of adult (3) Geriatric psychosis (4) Decubitus ulcer of sacral region, stage 1 CHOCO JERRY MD May 21, 2018 20:47
[2018-05-21] MEDS ORDERED: MELATONIN 3 MG TABLET PO SCH (21:00)
[2018-05-22] MEDS: IPRATROPIUM BROMIDE 0.5 MG/2.5 ML NEBU. IH SCH ×4 (05:10→20:06)
[2018-05-22 06:29] VITALS: BP 124/73
[2018-05-22] MEDS: DIVALPROEX 125 MG CAP.SPRINK PO SCH ×2 (08:54→19:48)
[2018-05-22] MEDS: FAMOTIDINE 20 MG TABLET PO SCH ×2 (08:54→19:48)
[2018-05-22] MEDS: TOPIRAMATE 100 MG TABLET. PO SCH (08:54)
[2018-05-22] MEDS: TAMSULOSIN 0.4 MG CAP.ER.24H. PO SCH (08:54)
[2018-05-22] MEDS: diphenhydrAMINE HCL 25 MG CAPSULE PO SCH ×3 (08:54→19:49)
[2018-05-22] MEDS: LIDOCAINE (700MG/PATCH) PATCH. TD SCH (08:54)
[2018-05-22] MEDS: BENZTROPINE MESYLATE 1 MG TABLET PO SCH ×2 (08:54→19:48)
[2018-05-22] MEDS: LACTULOSE 20 GM/30 ML SOLUTION. PO SCH ×2 (08:55→19:48)
[2018-05-22] MEDS: AMANTADINE HCL 100 MG CAPSULE PO SCH ×2 (08:55→19:49)
[2018-05-22] MEDS: DOCUSATE 100 MG/10 ML SOLUTION. PO SCH ×2 (08:55→19:48)
[2018-05-22] MEDS: METOPROLOL TART IMMED RELEASE 25 MG TABLET PO SCH ×2 (08:55→19:49)
[2018-05-22] MEDS: NYSTATIN TOPICAL POWDER 15GM BOTTLE. TP SCH ×2 (10:31→19:53)
[2018-05-22] MEDS: LANSOPRAZOLE 30 MG TAB.RAP.DR FT SCH (10:39)
[2018-05-22 16:55] VITALS: BP 155/86
[2018-05-22] MEDS: MELATONIN 3 MG TABLET PO SCH (19:48)
[2018-05-22] MEDS: PATCH REMOVAL. MC SCH (19:48)
[2018-05-22] MEDS: traZODone 100 MG TABLET. PO SCH (19:48)
[2018-05-22] MEDS: MIRTAZAPINE 15 MG TABLET PO SCH (19:48)
[2018-05-22] MEDS: cloZAPine 100 MG TABLET PO SCH (19:48)
[2018-05-22] MEDS: DOXAZOSIN MESYLATE 1 MG TABLET PO SCH (19:49)
--- NOTE | 2018-05-22 20:54 | PDOC ---
Exam Note: Elijah Note: Please also refer to the separate dictated note~for this date of service dictated separately.~Patient seen individually. Discussed the patient with Nursing staff reviewed the chart.~Reviewed interim history and current functioning. Reviewed vital signs,~Labs/ Radiology~and current medications noted below. Continue current treatment with the changes noted in the dictated addendum note Assessment: Vital Signs: Vital Signs Date Time Temp Pulse Resp B/P (MAP) Pulse Ox O2 Delivery O2 Flow Rate FiO2 05/22/18 20:05 100 Room Air 05/22/18 19:49 57 155/86 05/22/18 16:55 97.6 18 I&O Intake and Output 05/22/18 07:00 Intake Total 1200 ml Balance 1200 ml Intake Oral 1200 ml # Voids 1 Current Medications: Meds: Current Medications Lorazepam (Ativan) 2 mg 1X ONCE IM ; Start 04/28/18 at 19:15; Stop 04/28/18 at 19:17; Status DC Acetaminophen (Tylenol) 650 mg PRN Q6HRS PRN PO PAIN / TEMP; Start 04/28/18 at 23:15 Multi-Ingredient Ointment (Analgesic [place]) 1 rupert PRN QID PRN TP MUSCLE PAIN; Start 04/28/18 at 23:15 Al Hydroxide/Mg Hydroxide (Mylanta Plus Xs) 15 ml PRN AFTMEALHC PRN PO DYSPEPSIA Last administered on 05/10/18at 22:17; Start 04/28/18 at 23:15 Magnesium Hydroxide (Milk Of Magnesia) 2,400 mg PRN QHS PRN PO CONSTIPATION Last administered on 05/15/18at 08:13; Start 04/28/18 at 23:15 Lorazepam (Ativan) 0.5 mg PRN Q4HRS PRN PO ANXIETY / AGITATION Last administered on 05/16/18at 13:46; Start 04/28/18 at 23:30 Acetaminophen (Tylenol) 325 mg PRN Q6HRS PRN PO PAIN / TEMP; Start 04/28/18 at 23:45 Diphenhydramine HCl (Benadryl) 25 mg TID PO Last administered on 05/22/18at 19: 49; Start 04/29/18 at 09:00 Docusate Sodium (Colace Solution) 100 mg BID PO Last administered on 9/21/18at 19:48; Start 04/29/18 at 09:00 Ipratropium [place] (Atrovent) 0.5 mg Q6HRS IH Last administered on 05/22/18 20:06; Start 04/29/18 at 00:30 Metoprolol Tartrate (Lopressor) 25 mg BID PO Last administered on 05/22/18 19: 49; Start 04/29/18 at 09:00 Tamsulosin HCl (Flomax) 0.4 mg DAILY PO Last administered on 05/22/18 08:54; Start 04/29/18 at 09:00 Amantadine HCl (Symmetrel) 100 mg BID PO Last administered on 05/14/18 09:49; Start 04/29/18 at 09:00; Stop 05/14/18 at 10:24; Status DC Benztropine Mesylate (Cogentin) 2 mg BID PO Last administered on 05/14/18 09: 44; Start 04/29/18 at 09:00; Stop 05/14/18 at 10:24; Status DC Doxazosin Mesylate (Cardura) 1 mg QHS PO Last administered on 05/22/18 19:49; Start 04/29/18 at 21:00 Famotidine (Pepcid) 20 mg BID PO Last administered on 05/22/18 19:48; Start at 09:00 Acetaminophen/ Hydrocodone Bitart (Lortab 5/325) 1 tab PRN Q4HRS PRN PO PAIN Last administered on 05/04/18 01:05; Start 04/28/18 at 23:45 Lactulose (Lactulose) 20 gm PRN TID PRN PO CONSTIPATION; Start 04/28/18 at 23: 45; Stop 05/18/18 at 12:05; Status DC Nystatin (Mycostatin) 1 rupert PRN Q12HR PRN TP ANTIFUNGAL F/RASH; Start 04/28/18 at 23:45 Pantoprazole Sodium (Protonix) 40 mg DAILYAC PO Last administered on 05/21/18at 08:58; Start 04/29/18 at 07:30; Stop 05/22/18 at 07:54; Status DC Sodium Bicarbonate 650 mg PRN Q24HRS PRN PO GI SYMPTOMS; Start 04/28/18 at 23: 45 Topiramate (Topamax) 100 mg DAILY PO Last administered on 05/22/18 08:54; Start 04/29/18 at 09:00 Nicotine (Nicoderm Cq 7mg) 1 patch DAILY TD Last administered on 05/01/18 08: 34; Start 04/29/18 at 09:00; Stop 05/02/18 at 15:53; Status DC Lidocaine (Lidoderm) 1 patch DAILY TD Last administered on 05/22/18 08:54; Start 04/30/18 at 09:00 Miscellaneous (Lidoderm Patch Removal) 1 ea QHS MC Last administered on 19:48; Start 04/30/18 at 21:00 Mirtazapine (Remeron) 7.5 mg QHS PO Last administered on 05/13/18 19:46; Start 05/01/18 at 21:00; Stop 05/14/18 at 10:24; Status DC Clozapine (Clozaril) 25 mg QHS PO Last administered on 05/03/18 20:28; Start at 21:00; Stop 05/04/18 at 15:32; Status DC Nystatin (Nystop) 1 rupert BID TP Last administered on 05/22/18at 19:53; Start 05/03 at 01:00 Clozapine (Clozaril) 50 mg QHS PO Last administered on 05/10/18 19:48; Start at 17:00; Stop 05/11/18 at 17:13; Status DC Ondansetron HCl (Zofran Odt) 4 mg PRN Q8HRS PRN PO NAUSEA/VOMITING; Start at 08:45 Trazodone HCl (Desyrel) 50 mg QHS PO Last administered on 05/12/18at 20:24; Start 05/08/18 at 21:00; Stop 05/13/18 at 18:22; Status DC Trazodone HCl (Desyrel) 50 mg PRN QHS PRN PO INSOMNIA Last administered on 05/11 00:01; Start 05/08/18 at 16:45; Stop 05/13/18 at 18:22; Status DC Bisacodyl (Dulcolax Supp) 10 mg PRN DAILY PRN [place] CONSTIPATION Last administered on 05/16/18 03:04; Start 05/08/18 at 17:00 Clozapine (Clozaril) 75 mg HS PO Last administered on 05/17/18 20:33; Start at 21:00; Stop 05/18/18 at 19:06; Status DC Trazodone HCl (Desyrel) 100 mg PRN QHS PRN PO INSOMNIA Last administered on 01:19; Start 05/13/18 at 18:30 Trazodone HCl (Desyrel) 100 mg QHS PO Last administered on 05/22/18 19:48; Start 05/13/18 at 21:00 Amantadine HCl (Symmetrel) 50 mg BID PO ; Start 05/14/18 at 21:00; Stop at 21:00; Status DC Benztropine Mesylate (Cogentin) 1 mg BID PO Last administered on 05/22/18 19: 48; Start 05/14/18 at 21:00 Mirtazapine (Remeron) 15 mg QHS PO Last administered on 05/22/18 19:48; Start 05/14/18 at 21:00 Melatonin 3 mg QHS PO Last administered on 05/14/18 19:40; Start 05/14/18 at 21:00; Stop 05/15/18 at 19:30; Status DC Amantadine HCl (Symmetrel) 100 mg DAILY PO Last administered on 05/22/18 19:49 ; Start 05/15/18 at 09:00 Melatonin 6 mg QHS PO Last administered on 05/22/18 19:48; Start 05/15/18 at 21:00 Divalproex Sodium (Depakote Sprinkles) 250 mg BID PO Last administered on at 07:41; Start 05/17/18 at 21:00; Stop 05/20/18 at 18:13; Status DC Lactulose (Lactulose) 20 gm BID PO Last administered on 05/22/18 19:48; Start 05/18/18 at 21:00 Clozapine (Clozaril) 100 mg HS PO Last administered on 05/22/18 19:48; Start 05/18/18 at 21:00 Divalproex Sodium (Depakote Sprinkles) 500 mg BID PO Last administered on at 19:48; Start 05/20/18 at 21:00 Melatonin 3 mg HS PO ; Start 05/21/18 at 21:00; Stop 05/21/18 at 21:00; Status DC Lansoprazole (Prevacid) 30 mg DAILYAC FT Last administered on 05/22/18at 10:39; Start 05/22/18 at 10:00 Active Scripts Active Reported Topamax (Topiramate) 100 Mg Tablet 100 Mg PO DAILY Sodium Bicarbonate 650 Mg Tablet 650 Mg PO PRN Q24HRS PRN Protonix (Pantoprazole Sodium) 40 Mg Tablet.dr 40 Mg PO DAILY Lorazepam 0.5 Mg Tablet 0.5 Mg PO PRN Q4HRS PRN Nystatin 15 Gm Cream..g. 1 Rupert TP PRN Q12HR PRN Metoprolol Tartrate 25 Mg Tablet 25 Mg PO BID Lactulose 10 Gm/15 Ml Solution 30 Ml PO Ipratropium [place] 0.2 Mg/1 Ml Solution 0.5 Mg IH Q6HRS Hydrocodone-Apap 5-325 (Hydrocodone Bit/Acetaminophen) 1 Each Tablet 1 Tab PO PRN Q4HRS PRN Flomax (Tamsulosin Hcl) 0.4 Mg Cap.er.24h 0.4 Mg PO DAILY Famotidine 20 Mg Tablet 20 Mg PO BID Duoneb 0.5-3(2.5) Mg/3 Ml (Albuterol/Ipratropium) 3 Ml Ampul.neb 1 Vial NEB QID Duoneb 0.5-3(2.5) Mg/3 Ml (Albuterol/Ipratropium) 3 Ml Ampul.neb 1 Vial NEB PRN Q4HRS PRN Docusate Sodium 50 Mg/5 Ml Liquid 10 Ml PO BID [place] Oil 118 Ml Oil 1 Rupert TP BID 3 Days Cardura (Doxazosin Mesylate) 2 Mg Tablet 1 Mg PO QHS Benztropine Mesylate 2 Mg Tablet 2 Mg PO BID Benadryl (Diphenhydramine Hcl) 25 Mg Capsule 25 Mg PO TID Amantadine (Amantadine Hcl) 100 Mg Tablet 100 Mg PO BID Tylenol (Acetaminophen) 325 Mg Tablet 325 Mg PO PRN Q6HRS PRN I have reviewed the current psychotropics carefully including drug interactions. Risk benefit ratio favors no change other than as noted in my dictated progress note. Diagnosis: Problems: (1) Contusion of left hip (2) Aggressive behavior of adult (3) Geriatric psychosis (4) Decubitus ulcer of sacral region, stage 1 CHOCO JERRY MD May 22, 2018 20:54
--- NOTE | 2018-05-22 23:58 | PN ---
DATE: 05/20/2018 This is a late entry for 05/20/2018 covers elements not covered in my initial note. SUBJECTIVE: I met with the patient in the evening. The patient slept 7-1/2 hours previous night. He has not been aggressive, but remains intermittently psychotic. Valproic acid level is 18 on Depakote 500 mg at bedtime. We will increase to 500 mg twice a day. Check CBC, CMP, valproic acid level in 3 days. REVIEW OF SYSTEMS: Ambulation impaired, in wheelchair. No CV, , pulmonary, eye system symptoms on review. Reliability poor. MENTAL STATUS EXAM: Oriented to himself and situation. Speech coherent, still somewhat paranoid, would not let me touch him on his hand. Abstraction fair, computation impaired, language function intact, attention span short. Mood and affect is withdrawn. LABORATORY DATA: Reviewed. IMPRESSION: Unchanged from initial note. PLAN: No change from initial note. CHOCO JERRY MD DR: BRIELLE/naman JOB#: [id number] / [id number]
--- NOTE | 2018-05-23 | PN ---
DATE: 05/21/2018 This is a late entry 05/21/2018 covers elements not covered in my initial note. SUBJECTIVE: I met with the patient in the evening, staffed at a treatment team meeting with the entire team in the morning. The patient slept 3 hours previous evening. He did get the melatonin 3 mg, it seemed to help. He was little more cooperative during activity groups arranging villegas. REVIEW OF SYSTEMS: Ambulation impaired, in wheelchair. No CV, , pulmonary, eye system symptoms on review. MENTAL STATUS EXAM: Oriented to himself and situation. Speech moderate latency, often responses monosyllabic. Abstraction fair, computation impaired, language function intact. Memory is impaired. Mood and affect withdrawn at times, labile. LABORATORY DATA: Reviewed. IMPRESSION: Unchanged from initial note. PLAN: No change from initial note. Depakote was increased. We will continue to increase the Clozaril as tolerated. CHOCO JERRY MD DR: BRIELLE/naman JOB#: [id number] / [id number]
[2018-05-23] MEDS: IPRATROPIUM BROMIDE 0.5 MG/2.5 ML NEBU. IH SCH ×4 (05:08→20:59)
[2018-05-23] MEDS: MAGNESIUM HYDROXIDE 2,400 MG/30 ML ORAL.SUSP. PO PRN (06:03)
[2018-05-23 06:50] VITALS: BP 116/68
[2018-05-23 06:59] LABS: BASO % 0 % (0-3); EOS # 0.1 x10^3/uL (0.0-0.7); EOS % 2 % (0-3); HEMATOCRIT 31.8 % (39.0-53.0); HEMOGLOBIN 10.9 g/dL (13.0-17.5); LYMPH # 1.4 x10^3/uL (1.0-4.8); LYMPH % 26 % (24-48); MEAN CORPUSCULAR HEMOGLOBIN 33 pg (25-35); MEAN CORPUSCULAR HGB CONC 34 g/dL (31-37); MEAN CORPUSCULAR VOLUME 96 fL (79-100); MONO # 0.5 x10^3/uL (0.0-1.1); MONO % 9 % (0-9); NEUT # 3.6 x10^3uL (1.8-7.7); NEUT % 64 % (31-73); PLATELET COUNT 193 x10^3/uL (140-400); RED BLOOD COUNT 3.32 x10^6/uL (4.30-5.70); RED CELL DISTRIBUTION WIDTH 17.2 % (11.5-14.5); WHITE BLOOD COUNT 5.7 x10^3/uL (4.0-11.0)
[2018-05-23 07:16] LABS: ALBUMIN 2.6 g/dL (3.4-5.0); ALBUMIN/GLOBULIN RATIO 0.8 (1.0-1.7); ALK PHOS 93 U/L (46-116); ALT (SGPT) 20 U/L (16-63); ANION GAP 3 (6-14); AST (SGOT) 14 U/L (15-37); BLOOD UREA NITROGEN 23 mg/dL (8-26); BUN/CREATININE RATIO 29 (6-20); CARBON DIOXIDE 29 mmol/L (21-32); CHLORIDE 98 mmol/L (98-107); CREATININE 0.8 mg/dL (0.7-1.3); GFR 96.1; GLUCOSE 90 mg/dL (70-99); POTASSIUM 4.5 mmol/L (3.5-5.1); SODIUM 130 mmol/L (136-145); TOTAL BILIRUBIN 0.2 mg/dL (0.2-1.0); VAL ACID 37 mcg/mL (50-100)
[2018-05-23] MEDS: LANSOPRAZOLE 30 MG TAB.RAP.DR FT SCH (08:30)
[2018-05-23] MEDS: diphenhydrAMINE HCL 25 MG CAPSULE PO SCH ×3 (08:30→19:51)
[2018-05-23] MEDS: TAMSULOSIN 0.4 MG CAP.ER.24H. PO SCH (08:30)
[2018-05-23] MEDS: DIVALPROEX 125 MG CAP.SPRINK PO SCH ×2 (08:30→19:52)
[2018-05-23] MEDS: BENZTROPINE MESYLATE 1 MG TABLET PO SCH ×2 (08:30→19:51)
[2018-05-23] MEDS: DOCUSATE 100 MG/10 ML SOLUTION. PO SCH ×2 (08:30→19:49)
[2018-05-23] MEDS: LACTULOSE 20 GM/30 ML SOLUTION. PO SCH ×2 (08:31→19:49)
[2018-05-23] MEDS: FAMOTIDINE 20 MG TABLET PO SCH ×2 (08:32→19:51)
[2018-05-23] MEDS: LIDOCAINE (700MG/PATCH) PATCH. TD SCH (08:32)
[2018-05-23] MEDS: TOPIRAMATE 100 MG TABLET. PO SCH (08:32)
[2018-05-23] MEDS: NYSTATIN TOPICAL POWDER 15GM BOTTLE. TP SCH ×2 (08:33→19:52)
[2018-05-23] MEDS: METOPROLOL TART IMMED RELEASE 25 MG TABLET PO SCH ×2 (09:00→19:50)
[2018-05-23 16:37] VITALS: BP 136/88
[2018-05-23] MEDS: MIRTAZAPINE 15 MG TABLET PO SCH (19:50)
[2018-05-23] MEDS: cloZAPine 100 MG TABLET PO SCH (19:50)
[2018-05-23] MEDS: MELATONIN 3 MG TABLET PO SCH (19:50)
[2018-05-23] MEDS: traZODone 100 MG TABLET. PO SCH (19:51)
[2018-05-23] MEDS: PATCH REMOVAL. MC SCH (19:52)
[2018-05-23] MEDS: DOXAZOSIN MESYLATE 1 MG TABLET PO SCH (19:53)
[2018-05-23] MEDS: BISACODYL 10 MG SUPP.RECT PR PRN (20:48)
--- NOTE | 2018-05-23 23:07 | PDOC ---
Exam Note: Elijah Note: Please also refer to the separate dictated note~for this date of service dictated separately.~Patient seen individually. Discussed the patient with Nursing staff reviewed the chart.~Reviewed interim history and current functioning. Reviewed vital signs,~Labs/ Radiology~and current medications noted below. Continue current treatment with the changes noted in the dictated addendum note Assessment: Vital Signs: Vital Signs Date Time Temp Pulse Resp B/P (MAP) Pulse Ox O2 Delivery O2 Flow Rate FiO2 05/23/18 21:00 96 Room Air 05/23/18 19:53 83 136/88 05/23/18 16:37 97.5 18 I&O Intake and Output 05/23/18 07:00 Intake Total 1440 ml Balance 1440 ml Intake Oral 1440 ml Labs: Laboratory Tests Test 05/23/18 06:40 White Blood Count 5.7 x10^3/uL (4.0-11.0) Red Blood Count 3.32 x10^6/uL (4.30-5.70) L Hemoglobin 10.9 g/dL (13.0-17.5) L Hematocrit 31.8 % (39.0-53.0) L Mean Corpuscular Volume 96 fL (79-100) Mean Corpuscular Hemoglobin 33 pg (25-35) Mean Corpuscular Hemoglobin Concent 34 g/dL (31-37) Red Cell Distribution Width 17.2 % (11.5-14.5) H Platelet Count 193 x10^3/uL (140-400) Neutrophils (%) (Auto) 64 % (31-73) Lymphocytes (%) (Auto) 26 % (24-48) Monocytes (%) (Auto) 9 % (0-9) Eosinophils (%) (Auto) 2 % (0-3) Basophils (%) (Auto) 0 % (0-3) Neutrophils # (Auto) 3.6 x10^3uL (1.8-7.7) Lymphocytes # (Auto) 1.4 x10^3/uL (1.0-4.8) Monocytes # (Auto) 0.5 x10^3/uL (0.0-1.1) Eosinophils # (Auto) 0.1 x10^3/uL (0.0-0.7) Basophils # (Auto) 0.0 x10^3/uL (0.0-0.2) Sodium Level 130 mmol/L (136-145) L Potassium Level 4.5 mmol/L (3.5-5.1) Chloride Level 98 mmol/L (98-107) Carbon Dioxide Level 29 mmol/L (21-32) Anion Gap 3 (6-14) L Blood Urea Nitrogen 23 mg/dL (8-26) Creatinine 0.8 mg/dL (0.7-1.3) Estimated GFR (Cockcroft-Gault) 96.1 BUN/Creatinine Ratio 29 (6-20) H Glucose Level 90 mg/dL (70-99) Calcium Level 9.0 mg/dL (8.5-10.1) Total Bilirubin 0.2 mg/dL (0.2-1.0) Aspartate Amino Transferase (AST) 14 U/L (15-37) L Alanine Aminotransferase (ALT) 20 U/L (16-63) Alkaline Phosphatase 93 U/L (46-116) Total Protein 6.0 g/dL (6.4-8.2) L Albumin 2.6 g/dL (3.4-5.0) L Albumin/Globulin Ratio 0.8 (1.0-1.7) L Valproic Acid Level 37 mcg/mL (50-100) L Valproic Acid Last Dose Date 05/22/18 Valproic Acid Last Dose Time 2100 Current Medications: Meds: Current Medications Lorazepam (Ativan) 2 mg 1X ONCE IM ; Start 04/28/18 at 19:15; Stop 04/28/18 at 19:17; Status DC Acetaminophen (Tylenol) 650 mg PRN Q6HRS PRN PO PAIN / TEMP; Start 04/28/18 at 23:15 Multi-Ingredient Ointment (Analgesic [place]) 1 rupert PRN QID PRN TP MUSCLE PAIN; Start 04/28/18 at 23:15 Al Hydroxide/Mg Hydroxide (Mylanta Plus Xs) 15 ml PRN AFTMEALHC PRN PO DYSPEPSIA Last administered on 05/10/18at 22:17; Start 04/28/18 at 23:15 Magnesium Hydroxide (Milk Of Magnesia) 2,400 mg PRN QHS PRN PO CONSTIPATION Last administered on 05/23/18at 06:03; Start 04/28/18 at 23:15 Lorazepam (Ativan) 0.5 mg PRN Q4HRS PRN PO ANXIETY / AGITATION Last administered on 05/16/18 13:46; Start 04/28/18 at 23:30 Acetaminophen (Tylenol) 325 mg PRN Q6HRS PRN PO PAIN / TEMP; Start 04/28/18 at 23:45 Diphenhydramine HCl (Benadryl) 25 mg TID PO Last administered on 05/23/18 19: 51; Start 04/29/18 at 09:00 Docusate Sodium (Colace Solution) 100 mg BID PO Last administered on 05/23/18 19:49; Start 04/29/18 at 09:00 Ipratropium [place] (Atrovent) 0.5 mg Q6HRS IH Last administered on 05/23/18 20:59; Start 04/29/18 at 00:30 Metoprolol Tartrate (Lopressor) 25 mg BID PO Last administered on 05/23/18 19: 50; Start 04/29/18 at 09:00 Tamsulosin HCl (Flomax) 0.4 mg DAILY PO Last administered on 05/23/18 08:30; Start 04/29/18 at 09:00 Amantadine HCl (Symmetrel) 100 mg BID PO Last administered on 05/14/18 09:49; Start 04/29/18 at 09:00; Stop 05/14/18 at 10:24; Status DC Benztropine Mesylate (Cogentin) 2 mg BID PO Last administered on 05/14/18 09: 44; Start 04/29/18 at 09:00; Stop 05/14/18 at 10:24; Status DC Doxazosin Mesylate (Cardura) 1 mg QHS PO Last administered on 05/23/18 19:53; Start 04/29/18 at 21:00 Famotidine (Pepcid) 20 mg BID PO Last administered on 05/23/18 19:51; Start at 09:00 Acetaminophen/ Hydrocodone Bitart (Lortab 5/325) 1 tab PRN Q4HRS PRN PO PAIN Last administered on 05/04/18 01:05; Start 04/28/18 at 23:45 Lactulose (Lactulose) 20 gm PRN TID PRN PO CONSTIPATION; Start 04/28/18 at 23: 45; Stop 05/18/18 at 12:05; Status DC Nystatin (Mycostatin) 1 rupert PRN Q12HR PRN TP ANTIFUNGAL F/RASH; Start 04/28/18 at 23:45 Pantoprazole Sodium (Protonix) 40 mg DAILYAC PO Last administered on 05/21/18 08:58; Start 04/29/18 at 07:30; Stop 05/22/18 at 07:54; Status DC Sodium Bicarbonate 650 mg PRN Q24HRS PRN PO GI SYMPTOMS; Start 04/28/18 at 23: 45 Topiramate (Topamax) 100 mg DAILY PO Last administered on 05/23/18 08:32; Start 04/29/18 at 09:00 Nicotine (Nicoderm Cq 7mg) 1 patch DAILY TD Last administered on 05/01/18 08: 34; Start 04/29/18 at 09:00; Stop 05/02/18 at 15:53; Status DC Lidocaine (Lidoderm) 1 patch DAILY TD Last administered on 05/23/18at 08:32; Start 04/30/18 at 09:00 Miscellaneous (Lidoderm Patch Removal) 1 ea QHS MC Last administered on 19:52; Start 04/30/18 at 21:00 Mirtazapine (Remeron) 7.5 mg QHS PO Last administered on 05/13/18 19:46; Start 05/01/18 at 21:00; Stop 05/14/18 at 10:24; Status DC Clozapine (Clozaril) 25 mg QHS PO Last administered on 05/03/18 20:28; Start at 21:00; Stop 05/04/18 at 15:32; Status DC Nystatin (Nystop) 1 rupert BID TP Last administered on 05/23/18 19:52; Start 05/03 at 01:00 Clozapine (Clozaril) 50 mg QHS PO Last administered on 05/10/18 19:48; Start at 17:00; Stop 05/11/18 at 17:13; Status DC Ondansetron HCl (Zofran Odt) 4 mg PRN Q8HRS PRN PO NAUSEA/VOMITING; Start at 08:45 Trazodone HCl (Desyrel) 50 mg QHS PO Last administered on 05/12/18at 20:24; Start 05/08/18 at 21:00; Stop 05/13/18 at 18:22; Status DC Trazodone HCl (Desyrel) 50 mg PRN QHS PRN PO INSOMNIA Last administered on 05/11at 00:01; Start 05/08/18 at 16:45; Stop 05/13/18 at 18:22; Status DC Bisacodyl (Dulcolax Supp) 10 mg PRN DAILY PRN [place] CONSTIPATION Last administered on 05/23/18at 20:48; Start 05/08/18 at 17:00 Clozapine (Clozaril) 75 mg HS PO Last administered on 05/17/18at 20:33; Start at 21:00; Stop 05/18/18 at 19:06; Status DC Trazodone HCl (Desyrel) 100 mg PRN QHS PRN PO INSOMNIA Last administered on at 01:19; Start 05/13/18 at 18:30 Trazodone HCl (Desyrel) 100 mg QHS PO Last administered on 05/23/18at 19:51; Start 05/13/18 at 21:00 Amantadine HCl (Symmetrel) 50 mg BID PO ; Start 05/14/18 at 21:00; Stop at 21:00; Status DC Benztropine Mesylate (Cogentin) 1 mg BID PO Last administered on 05/23/18at 19: 51; Start 05/14/18 at 21:00 Mirtazapine (Remeron) 15 mg QHS PO Last administered on 05/23/18at 19:50; Start 05/14/18 at 21:00 Melatonin 3 mg QHS PO Last administered on 05/14/18 19:40; Start 05/14/18 at 21:00; Stop 05/15/18 at 19:30; Status DC Amantadine HCl (Symmetrel) 100 mg DAILY PO Last administered on 05/22/18at 19:49 ; Start 05/15/18 at 09:00 Melatonin 6 mg QHS PO Last administered on 05/23/18at 19:50; Start 05/15/18 at 21:00 Divalproex Sodium (Depakote Sprinkles) 250 mg BID PO Last administered on at 07:41; Start 05/17/18 at 21:00; Stop 05/20/18 at 18:13; Status DC Lactulose (Lactulose) 20 gm BID PO Last administered on 05/23/18at 19:49; Start 05/18/18 at 21:00 Clozapine (Clozaril) 100 mg HS PO Last administered on 05/23/18at 19:50; Start 05/18/18 at 21:00 Divalproex Sodium (Depakote Sprinkles) 500 mg BID PO Last administered on at 19:52; Start 05/20/18 at 21:00 Melatonin 3 mg HS PO ; Start 05/21/18 at 21:00; Stop 05/21/18 at 21:00; Status DC Lansoprazole (Prevacid) 30 mg DAILYAC FT Last administered on 05/23/18at 08:30; Start 05/22/18 at 10:00; Stop 05/23/18 at 15:20; Status DC Active Scripts Active Reported Topamax (Topiramate) 100 Mg Tablet 100 Mg PO DAILY Sodium Bicarbonate 650 Mg Tablet 650 Mg PO PRN Q24HRS PRN Protonix (Pantoprazole Sodium) 40 Mg Tablet.dr 40 Mg PO DAILY Lorazepam 0.5 Mg Tablet 0.5 Mg PO PRN Q4HRS PRN Nystatin 15 Gm Cream..g. 1 Ru[place] TP PRN Q12HR PRN Metoprolol Tartrate 25 Mg Tablet 25 Mg PO BID Lactulose 10 Gm/15 Ml Solution 30 Ml PO Ipratropium [place] 0.2 Mg/1 Ml Solution 0.5 Mg IH Q6HRS Hydrocodone-Apap 5-325 (Hydrocodone Bit/Acetaminophen) 1 Each Tablet 1 Tab PO PRN Q4HRS PRN Flomax (Tamsulosin Hcl) 0.4 Mg Cap.er.24h 0.4 Mg PO DAILY Famotidine 20 Mg Tablet 20 Mg PO BID Duoneb 0.5-3(2.5) Mg/3 Ml (Albuterol/Ipratropium) 3 Ml Ampul.neb 1 Vial NEB QID Duoneb 0.5-3(2.5) Mg/3 Ml (Albuterol/Ipratropium) 3 Ml Ampul.neb 1 Vial NEB PRN Q4HRS PRN Docusate Sodium 50 Mg/5 Ml Liquid 10 Ml PO BID [place] Oil 118 Ml Oil 1 Rupert TP BID 3 Days Cardura (Doxazosin Mesylate) 2 Mg Tablet 1 Mg PO QHS Benztropine Mesylate 2 Mg Tablet 2 Mg PO BID Benadryl (Diphenhydramine Hcl) 25 Mg Capsule 25 Mg PO TID Amantadine (Amantadine Hcl) 100 Mg Tablet 100 Mg PO BID Tylenol (Acetaminophen) 325 Mg Tablet 325 Mg PO PRN Q6HRS PRN I have reviewed the current psychotropics carefully including drug interactions. Risk benefit ratio favors no change other than as noted in my dictated progress note. Diagnosis: Problems: (1) Aggressive behavior of adult (2) Geriatric psychosis (3) Decubitus ulcer of sacral region, stage 1 CHOCO JERRY MD May 23, 2018 23:07
[2018-05-24] MEDS: IPRATROPIUM BROMIDE 0.5 MG/2.5 ML NEBU. IH SCH ×4 (05:59→19:42)
[2018-05-24 06:29] VITALS: BP 120/74
[2018-05-24] MEDS: BENZTROPINE MESYLATE 1 MG TABLET PO SCH ×2 (08:54→21:50)
[2018-05-24] MEDS: DOCUSATE 100 MG/10 ML SOLUTION. PO SCH ×2 (08:54→21:49)
[2018-05-24] MEDS: diphenhydrAMINE HCL 25 MG CAPSULE PO SCH ×3 (08:54→21:50)
[2018-05-24] MEDS: DIVALPROEX 125 MG CAP.SPRINK PO SCH ×2 (08:54→21:50)
[2018-05-24] MEDS: METOPROLOL TART IMMED RELEASE 25 MG TABLET PO SCH ×2 (09:00→21:50)
[2018-05-24] MEDS: LACTULOSE 20 GM/30 ML SOLUTION. PO SCH ×2 (09:02→21:50)
[2018-05-24] MEDS: TAMSULOSIN 0.4 MG CAP.ER.24H. PO SCH (09:02)
[2018-05-24] MEDS: AMANTADINE HCL 100 MG CAPSULE PO SCH (09:03)
[2018-05-24] MEDS: FAMOTIDINE 20 MG TABLET PO SCH ×2 (09:03→21:50)
[2018-05-24] MEDS: LIDOCAINE (700MG/PATCH) PATCH. TD SCH (09:03)
[2018-05-24] MEDS: TOPIRAMATE 100 MG TABLET. PO SCH (09:03)
[2018-05-24] MEDS: NYSTATIN TOPICAL POWDER 15GM BOTTLE. TP SCH ×2 (09:04→21:51)
[2018-05-24 16:46] VITALS: BP 134/86
--- NOTE | 2018-05-24 17:59 | PN ---
DATE: 05/22/2018 This is a late entry, 05/22/2018, covers the elements not covered in my initial note. SUBJECTIVE: I met with the patient in the evening. The patient slept 7-1/4 hours the previous night. He has been loud, demanding at times, yelling in the morning. In the evening, he was doing better, came to the day room. REVIEW OF SYSTEMS: Ambulation impaired, in a [place] chair. No CV, , pulmonary, eye, ENT system symptoms on review. Reliability poor. MENTAL STATUS EXAM: Oriented to himself and situation. Speech moderate latency, rapid at times. Abstraction fair, computation impaired, language function intact, attention span short. Mood and affect remain somewhat labile. He is still paranoid, but improved. No active suicidal or homicidal ideation. LABORATORY DATA: Reviewed. IMPRESSION: Unchanged from initial note. PLAN: No change from initial note of gradually increase the Clozaril further, adjust Depakote to reach therapeutic level, repeat labs awaited. MAN Jameson JERRY MD DR: BRIELLE/naman JOB#: [id number] / [id number]
--- NOTE | 2018-05-24 21:09 | PDOC ---
Exam Note: Elijah Note: Please also refer to the separate dictated note~for this date of service dictated separately.~Patient seen individually. Discussed the patient with Nursing staff reviewed the chart.~Reviewed interim history and current functioning. Reviewed vital signs,~Labs/ Radiology~and current medications noted below. Continue current treatment with the changes noted in the dictated addendum note Assessment: Vital Signs: Vital Signs Date Time Temp Pulse Resp B/P (MAP) Pulse Ox O2 Delivery O2 Flow Rate FiO2 05/24/18 19:44 99 Room Air 05/24/18 16:46 97.6 72 20 134/86 (102) I&O Intake and Output 05/24/18 07:00 Intake Total 1840 ml Output Total 2 ml Balance 1838 ml Intake Oral 1840 ml Output Urine Total 1 ml Stool Total 1 ml # Bowel Movements 2 Current Medications: Meds: Current Medications Lorazepam (Ativan) 2 mg 1X ONCE IM ; Start 04/28/18 at 19:15; Stop 04/28/18 at 19:17; Status DC Acetaminophen (Tylenol) 650 mg PRN Q6HRS PRN PO PAIN / TEMP; Start 04/28/18 at 23:15 Multi-Ingredient Ointment (Analgesic [place]) 1 rupert PRN QID PRN TP MUSCLE PAIN; Start 04/28/18 at 23:15 Al Hydroxide/Mg Hydroxide (Mylanta Plus Xs) 15 ml PRN AFTMEALHC PRN PO DYSPEPSIA Last administered on 05/10/18at 22:17; Start 04/28/18 at 23:15 Magnesium Hydroxide (Milk Of Magnesia) 2,400 mg PRN QHS PRN PO CONSTIPATION Last administered on 05/23/18at 06:03; Start 04/28/18 at 23:15 Lorazepam (Ativan) 0.5 mg PRN Q4HRS PRN PO ANXIETY / AGITATION Last administered on 05/16/18at 13:46; Start 04/28/18 at 23:30 Acetaminophen (Tylenol) 325 mg PRN Q6HRS PRN PO PAIN / TEMP; Start 04/28/18 at 23:45 Diphenhydramine HCl (Benadryl) 25 mg TID PO Last administered on 05/24/18at 14: 22; Start 04/29/18 at 09:00 Docusate Sodium (Colace Solution) 100 mg BID PO Last administered on 05/24/18 08:54; Start 04/29/18 at 09:00 Ipratropium [place] (Atrovent) 0.5 mg Q6HRS IH Last administered on 05/24/18 19:42; Start 04/29/18 at 00:30 Metoprolol Tartrate (Lopressor) 25 mg BID PO Last administered on 05/23/18 19: 50; Start 04/29/18 at 09:00 Tamsulosin HCl (Flomax) 0.4 mg DAILY PO Last administered on 05/24/18 09:02; Start 04/29/18 at 09:00 Amantadine HCl (Symmetrel) 100 mg BID PO Last administered on 05/14/18 09:49; Start 04/29/18 at 09:00; Stop 05/14/18 at 10:24; Status DC Benztropine Mesylate (Cogentin) 2 mg BID PO Last administered on 05/14/18 09: 44; Start 04/29/18 at 09:00; Stop 05/14/18 at 10:24; Status DC Doxazosin Mesylate (Cardura) 1 mg QHS PO Last administered on 05/23/18 19:53; Start 04/29/18 at 21:00 Famotidine (Pepcid) 20 mg BID PO Last administered on 05/24/18 09:03; Start at 09:00 Acetaminophen/ Hydrocodone Bitart (Lortab 5/325) 1 tab PRN Q4HRS PRN PO PAIN Last administered on 05/04/18 01:05; Start 04/28/18 at 23:45 Lactulose (Lactulose) 20 gm PRN TID PRN PO CONSTIPATION; Start 04/28/18 at 23: 45; Stop 05/18/18 at 12:05; Status DC Nystatin (Mycostatin) 1 rupert PRN Q12HR PRN TP ANTIFUNGAL F/RASH; Start 04/28/18 at 23:45 Pantoprazole Sodium (Protonix) 40 mg DAILYAC PO Last administered on 05/21/18 08:58; Start 04/29/18 at 07:30; Stop 05/22/18 at 07:54; Status DC Sodium Bicarbonate 650 mg PRN Q24HRS PRN PO GI SYMPTOMS; Start 04/28/18 at 23: 45 Topiramate (Topamax) 100 mg DAILY PO Last administered on 05/24/18 09:03; Start 04/29/18 at 09:00 Nicotine (Nicoderm Cq 7mg) 1 patch DAILY TD Last administered on 05/01/18 08: 34; Start 04/29/18 at 09:00; Stop 05/02/18 at 15:53; Status DC Lidocaine (Lidoderm) 1 patch DAILY TD Last administered on 05/24/18 09:03; Start 04/30/18 at 09:00 Miscellaneous (Lidoderm Patch Removal) 1 ea QHS MC Last administered on 19:52; Start 04/30/18 at 21:00 Mirtazapine (Remeron) 7.5 mg QHS PO Last administered on 05/13/18 19:46; Start 05/01/18 at 21:00; Stop 05/14/18 at 10:24; Status DC Clozapine (Clozaril) 25 mg QHS PO Last administered on 05/03/18 20:28; Start at 21:00; Stop 05/04/18 at 15:32; Status DC Nystatin (Nystop) 1 rupert BID TP Last administered on 05/24/18 09:04; Start 05/03 at 01:00 Clozapine (Clozaril) 50 mg QHS PO Last administered on 05/10/18 19:48; Start at 17:00; Stop 05/11/18 at 17:13; Status DC Ondansetron HCl (Zofran Odt) 4 mg PRN Q8HRS PRN PO NAUSEA/VOMITING; Start at 08:45 Trazodone HCl (Desyrel) 50 mg QHS PO Last administered on 05/12/18 20:24; Start 05/08/18 at 21:00; Stop 05/13/18 at 18:22; Status DC Trazodone HCl (Desyrel) 50 mg PRN QHS PRN PO INSOMNIA Last administered on 05/11at 00:01; Start 05/08/18 at 16:45; Stop 05/13/18 at 18:22; Status DC Bisacodyl (Dulcolax Supp) 10 mg PRN DAILY PRN [place] CONSTIPATION Last administered on 05/23/18 20:48; Start 05/08/18 at 17:00 Clozapine (Clozaril) 75 mg HS PO Last administered on 05/17/18 20:33; Start at 21:00; Stop 05/18/18 at 19:06; Status DC Trazodone HCl (Desyrel) 100 mg PRN QHS PRN PO INSOMNIA Last administered on 01:19; Start 05/13/18 at 18:30 Trazodone HCl (Desyrel) 100 mg QHS PO Last administered on 05/23/18 19:51; Start 05/13/18 at 21:00 Amantadine HCl (Symmetrel) 50 mg BID PO ; Start 05/14/18 at 21:00; Stop at 21:00; Status DC Benztropine Mesylate (Cogentin) 1 mg BID PO Last administered on 05/24/18 08: 54; Start 05/14/18 at 21:00 Mirtazapine (Remeron) 15 mg QHS PO Last administered on 05/23/18 19:50; Start 05/14/18 at 21:00 Melatonin 3 mg QHS PO Last administered on 05/14/18 19:40; Start 05/14/18 at 21:00; Stop 05/15/18 at 19:30; Status DC Amantadine HCl (Symmetrel) 100 mg DAILY PO Last administered on 05/24/18 09:03 ; Start 05/15/18 at 09:00 Melatonin 6 mg QHS PO Last administered on 05/23/18 19:50; Start 05/15/18 at 21:00 Divalproex Sodium (Depakote Sprinkles) 250 mg BID PO Last administered on 07:41; Start 05/17/18 at 21:00; Stop 05/20/18 at 18:13; Status DC Lactulose (Lactulose) 20 gm BID PO Last administered on 05/24/18 09:02; Start 05/18/18 at 21:00 Clozapine (Clozaril) 100 mg HS PO Last administered on 05/23/18 19:50; Start 05/18/18 at 21:00 Divalproex Sodium (Depakote Sprinkles) 500 mg BID PO Last administered on at 08:54; Start 05/20/18 at 21:00 Melatonin 3 mg HS PO ; Start 05/21/18 at 21:00; Stop 05/21/18 at 21:00; Status DC Lansoprazole (Prevacid) 30 mg DAILYAC FT Last administered on 05/23/18at 08:30; Start 05/22/18 at 10:00; Stop 05/23/18 at 15:20; Status DC Active Scripts Active Reported Topamax (Topiramate) 100 Mg Tablet 100 Mg PO DAILY Sodium Bicarbonate 650 Mg Tablet 650 Mg PO PRN Q24HRS PRN Protonix (Pantoprazole Sodium) 40 Mg Tablet.dr 40 Mg PO DAILY Lorazepam 0.5 Mg Tablet 0.5 Mg PO PRN Q4HRS PRN Nystatin 15 Gm Cream..g. 1 Rupert TP PRN Q12HR PRN Metoprolol Tartrate 25 Mg Tablet 25 Mg PO BID Lactulose 10 Gm/15 Ml Solution 30 Ml PO Ipratropium Emmalena 0.2 Mg/1 Ml Solution 0.5 Mg IH Q6HRS Hydrocodone-Apap 5-325 (Hydrocodone Bit/Acetaminophen) 1 Each Tablet 1 Tab PO PRN Q4HRS PRN Flomax (Tamsulosin Hcl) 0.4 Mg Cap.er.24h 0.4 Mg PO DAILY Famotidine 20 Mg Tablet 20 Mg PO BID Duoneb 0.5-3(2.5) Mg/3 Ml (Albuterol/Ipratropium) 3 Ml Ampul.neb 1 Vial NEB QID Duoneb 0.5-3(2.5) Mg/3 Ml (Albuterol/Ipratropium) 3 Ml Ampul.neb 1 Vial NEB PRN Q4HRS PRN Docusate Sodium 50 Mg/5 Ml Liquid 10 Ml PO BID [place] Oil 118 Ml Oil 1 Rupert TP BID 3 Days Cardura (Doxazosin Mesylate) 2 Mg Tablet 1 Mg PO QHS Benztropine Mesylate 2 Mg Tablet 2 Mg PO BID Benadryl (Diphenhydramine Hcl) 25 Mg Capsule 25 Mg PO TID Amantadine (Amantadine Hcl) 100 Mg Tablet 100 Mg PO BID Tylenol (Acetaminophen) 325 Mg Tablet 325 Mg PO PRN Q6HRS PRN I have reviewed the current psychotropics carefully including drug interactions. Risk benefit ratio favors no change other than as noted in my dictated progress note. Diagnosis: Problems: (1) Contusion of left hip (2) Aggressive behavior of adult (3) Geriatric psychosis (4) Decubitus ulcer of sacral region, stage 1 CHOCO JERRY MD May 24, 2018 21:09
[2018-05-24] MEDS: traZODone 100 MG TABLET. PO SCH (21:50)
[2018-05-24] MEDS: cloZAPine 100 MG TABLET PO SCH (21:50)
[2018-05-24] MEDS: MELATONIN 3 MG TABLET PO SCH (21:51)
[2018-05-24] MEDS: MIRTAZAPINE 15 MG TABLET PO SCH (21:51)
[2018-05-24] MEDS: DOXAZOSIN MESYLATE 1 MG TABLET PO SCH (21:52)
[2018-05-24] MEDS: PATCH REMOVAL. MC SCH (22:24)
[2018-05-25] MEDS: IPRATROPIUM BROMIDE 0.5 MG/2.5 ML NEBU. IH SCH ×4 (05:44→21:05)
[2018-05-25 06:11] VITALS: BP 114/64
[2018-05-25] MEDS: TAMSULOSIN 0.4 MG CAP.ER.24H. PO SCH (10:38)
[2018-05-25] MEDS: TOPIRAMATE 100 MG TABLET. PO SCH (10:38)
[2018-05-25] MEDS: diphenhydrAMINE HCL 25 MG CAPSULE PO SCH ×3 (10:38→20:36)
[2018-05-25] MEDS: METOPROLOL TART IMMED RELEASE 25 MG TABLET PO SCH ×2 (10:38→20:37)
[2018-05-25] MEDS: DIVALPROEX 125 MG CAP.SPRINK PO SCH ×2 (10:39→20:36)
[2018-05-25] MEDS: LACTULOSE 20 GM/30 ML SOLUTION. PO SCH ×2 (10:39→20:35)
[2018-05-25] MEDS: DOCUSATE 100 MG/10 ML SOLUTION. PO SCH ×2 (10:39→20:35)
[2018-05-25] MEDS: BENZTROPINE MESYLATE 1 MG TABLET PO SCH ×2 (10:39→20:39)
[2018-05-25] MEDS: LIDOCAINE (700MG/PATCH) PATCH. TD SCH (10:42)
[2018-05-25] MEDS: AMANTADINE HCL 100 MG CAPSULE PO SCH (10:42)
[2018-05-25] MEDS: FAMOTIDINE 20 MG TABLET PO SCH ×2 (10:43→20:35)
[2018-05-25] MEDS: NYSTATIN TOPICAL POWDER 15GM BOTTLE. TP SCH ×2 (10:44→20:35)
[2018-05-25 16:15] VITALS: BP 126/68
[2018-05-25] MEDS: cloZAPine 25 MG TABLET PO SCH (20:35)
[2018-05-25] MEDS: MIRTAZAPINE 15 MG TABLET PO SCH (20:36)
[2018-05-25] MEDS: cloZAPine 100 MG TABLET PO SCH (20:36)
[2018-05-25] MEDS: traZODone 100 MG TABLET. PO SCH (20:36)
[2018-05-25] MEDS: MELATONIN 3 MG TABLET PO SCH (20:36)
[2018-05-25] MEDS: DOXAZOSIN MESYLATE 1 MG TABLET PO SCH (20:37)
[2018-05-25] MEDS: PATCH REMOVAL. MC SCH (20:38)
--- NOTE | 2018-05-25 22:38 | PN ---
DATE: 05/23/2018 This is a late entry for 05/23/2018 covers elements not covered in my initial note. SUBJECTIVE: I met with the patient in the evening. The patient remains confused, withdrawn, somewhat agitated at times, but better. REVIEW OF SYSTEMS: Ambulation impaired. No CV, , pulmonary, eye, ENT system symptoms on review. He is still paranoid, would not let me touch him or hold his hand. MENTAL STATUS EXAM: Speech has some latency, coherent, often responses monosyllabic. Abstraction fair, computation impaired, language function intact. Mood and affect remain somewhat anxious, labile. LABORATORY DATA: Reviewed. IMPRESSION: Unchanged from initial note. PLAN: No change from initial note. We will increase Clozaril gradually. MAN Jameson JERRY MD DR: BRIELLE/naman JOB#: [id number] / [id number]
--- NOTE | 2018-05-25 22:40 | PN ---
DATE: 05/24/2018 This is a late entry for 05/24/2018 covers elements not covered in my initial note. SUBJECTIVE: I met with the patient in the evening. Overall, the patient slept 7-1/2 hours previous night. He remains somewhat withdrawn, paranoid. REVIEW OF SYSTEMS: No CV, , pulmonary, eye system symptoms on review. Gait unsteady, in Broda chair. MENTAL STATUS EXAM: Oriented to himself and situation. Speech moderate latency, often responses monosyllabic. Abstraction fair, computation impaired, language function intact. Attention span short, still paranoid. LABORATORY DATA: Reviewed. IMPRESSION: Unchanged from initial note. PLAN: No change from initial note. We will increase Clozaril gradually. MAN Jameson JERRY MD DR: BRIELLE/naman JOB#: [id number] / [id number]
--- NOTE | 2018-05-25 22:50 | PDOC ---
Exam Note: Elijah Note: Please also refer to the separate dictated note~for this date of service dictated separately.~Patient seen individually. Discussed the patient with Nursing staff reviewed the chart.~Reviewed interim history and current functioning. Reviewed vital signs,~Labs/ Radiology~and current medications noted below. Continue current treatment with the changes noted in the dictated addendum note Assessment: Vital Signs: Vital Signs Date Time Temp Pulse Resp B/P (MAP) Pulse Ox O2 Delivery O2 Flow Rate FiO2 05/25/18 21:07 97 Room Air 05/25/18 20:37 60 146/84 05/25/18 16:15 96.9 20 I&O Intake and Output 05/25/18 07:00 Intake Total 2380 ml Balance 2380 ml Intake Oral 2380 ml Current Medications: Meds: Current Medications Lorazepam (Ativan) 2 mg 1X ONCE IM ; Start 04/28/18 at 19:15; Stop 04/28/18 at 19:17; Status DC Acetaminophen (Tylenol) 650 mg PRN Q6HRS PRN PO PAIN / TEMP; Start 04/28/18 at 23:15 Multi-Ingredient Ointment (Analgesic [place]) 1 rupert PRN QID PRN TP MUSCLE PAIN; Start 04/28/18 at 23:15 Al Hydroxide/Mg Hydroxide (Mylanta Plus Xs) 15 ml PRN AFTMEALHC PRN PO DYSPEPSIA Last administered on 05/10/18at 22:17; Start 04/28/18 at 23:15 Magnesium Hydroxide (Milk Of Magnesia) 2,400 mg PRN QHS PRN PO CONSTIPATION Last administered on 05/23/18at 06:03; Start 04/28/18 at 23:15 Lorazepam (Ativan) 0.5 mg PRN Q4HRS PRN PO ANXIETY / AGITATION Last administered on 05/16/18at 13:46; Start 04/28/18 at 23:30 Acetaminophen (Tylenol) 325 mg PRN Q6HRS PRN PO PAIN / TEMP; Start 04/28/18 at 23:45 Diphenhydramine HCl (Benadryl) 25 mg TID PO Last administered on 05/25/18at 20: 36; Start 04/29/18 at 09:00 Docusate Sodium (Colace Solution) 100 mg BID PO Last administered on 05/25/18at 20:35; Start 04/29/18 at 09:00 Ipratropium [place] (Atrovent) 0.5 mg Q6HRS IH Last administered on 05/25/18 21:05; Start 04/29/18 at 00:30 Metoprolol Tartrate (Lopressor) 25 mg BID PO Last administered on 05/25/18 20: 37; Start 04/29/18 at 09:00 Tamsulosin HCl (Flomax) 0.4 mg DAILY PO Last administered on 05/25/18 10:38; Start 04/29/18 at 09:00 Amantadine HCl (Symmetrel) 100 mg BID PO Last administered on 05/14/18 09:49; Start 04/29/18 at 09:00; Stop 05/14/18 at 10:24; Status DC Benztropine Mesylate (Cogentin) 2 mg BID PO Last administered on 05/14/18 09: 44; Start 04/29/18 at 09:00; Stop 05/14/18 at 10:24; Status DC Doxazosin Mesylate (Cardura) 1 mg QHS PO Last administered on 05/25/18 20:37; Start 04/29/18 at 21:00 Famotidine (Pepcid) 20 mg BID PO Last administered on 05/25/18 20:35; Start at 09:00 Acetaminophen/ Hydrocodone Bitart (Lortab 5/325) 1 tab PRN Q4HRS PRN PO PAIN Last administered on 05/04/18 01:05; Start 04/28/18 at 23:45 Lactulose (Lactulose) 20 gm PRN TID PRN PO CONSTIPATION; Start 04/28/18 at 23: 45; Stop 05/18/18 at 12:05; Status DC Nystatin (Mycostatin) 1 rupert PRN Q12HR PRN TP ANTIFUNGAL F/RASH; Start 04/28/18 at 23:45 Pantoprazole Sodium (Protonix) 40 mg DAILYAC PO Last administered on 05/21/18at 08:58; Start 04/29/18 at 07:30; Stop 05/22/18 at 07:54; Status DC Sodium Bicarbonate 650 mg PRN Q24HRS PRN PO GI SYMPTOMS; Start 04/28/18 at 23: 45 Topiramate (Topamax) 100 mg DAILY PO Last administered on 05/25/18 10:38; Start 04/29/18 at 09:00 Nicotine (Nicoderm Cq 7mg) 1 patch DAILY TD Last administered on 05/01/18 08: 34; Start 04/29/18 at 09:00; Stop 05/02/18 at 15:53; Status DC Lidocaine (Lidoderm) 1 patch DAILY TD Last administered on 05/25/18 10:42; Start 04/30/18 at 09:00 Miscellaneous (Lidoderm Patch Removal) 1 ea QHS MC Last administered on 20:38; Start 04/30/18 at 21:00 Mirtazapine (Remeron) 7.5 mg QHS PO Last administered on 05/13/18 19:46; Start 05/01/18 at 21:00; Stop 05/14/18 at 10:24; Status DC Clozapine (Clozaril) 25 mg QHS PO Last administered on 05/03/18 20:28; Start at 21:00; Stop 05/04/18 at 15:32; Status DC Nystatin (Nystop) 1 rupert BID TP Last administered on 05/25/18 20:35; Start 05/03 at 01:00 Clozapine (Clozaril) 50 mg QHS PO Last administered on 05/10/18 19:48; Start at 17:00; Stop 05/11/18 at 17:13; Status DC Ondansetron HCl (Zofran Odt) 4 mg PRN Q8HRS PRN PO NAUSEA/VOMITING; Start at 08:45 Trazodone HCl (Desyrel) 50 mg QHS PO Last administered on 05/12/18at 20:24; Start 05/08/18 at 21:00; Stop 05/13/18 at 18:22; Status DC Trazodone HCl (Desyrel) 50 mg PRN QHS PRN PO INSOMNIA Last administered on 05/11 00:01; Start 05/08/18 at 16:45; Stop 05/13/18 at 18:22; Status DC Bisacodyl (Dulcolax Supp) 10 mg PRN DAILY PRN [place] CONSTIPATION Last administered on 05/23/18 20:48; Start 05/08/18 at 17:00 Clozapine (Clozaril) 75 mg HS PO Last administered on 05/17/18at 20:33; Start at 21:00; Stop 05/18/18 at 19:06; Status DC Trazodone HCl (Desyrel) 100 mg PRN QHS PRN PO INSOMNIA Last administered on at 01:19; Start 05/13/18 at 18:30 Trazodone HCl (Desyrel) 100 mg QHS PO Last administered on 05/25/18 20:36; Start 05/13/18 at 21:00 Amantadine HCl (Symmetrel) 50 mg BID PO ; Start 05/14/18 at 21:00; Stop at 21:00; Status DC Benztropine Mesylate (Cogentin) 1 mg BID PO Last administered on 05/25/18at 20: 39; Start 05/14/18 at 21:00 Mirtazapine (Remeron) 15 mg QHS PO Last administered on 05/25/18at 20:36; Start 05/14/18 at 21:00 Melatonin 3 mg QHS PO Last administered on 05/14/18at 19:40; Start 05/14/18 at 21:00; Stop 05/15/18 at 19:30; Status DC Amantadine HCl (Symmetrel) 100 mg DAILY PO Last administered on 05/25/18at 10:42 ; Start 05/15/18 at 09:00 Melatonin 6 mg QHS PO Last administered on 05/25/18 20:36; Start 05/15/18 at 21:00 Divalproex Sodium (Depakote Sprinkles) 250 mg BID PO Last administered on at 07:41; Start 05/17/18 at 21:00; Stop 05/20/18 at 18:13; Status DC Lactulose (Lactulose) 20 gm BID PO Last administered on 05/25/18at 20:35; Start 05/18/18 at 21:00 Clozapine (Clozaril) 100 mg HS PO Last administered on 05/24/18at 21:50; Start 05/18/18 at 21:00; Stop 05/25/18 at 17:46; Status DC Divalproex Sodium (Depakote Sprinkles) 500 mg BID PO Last administered on at 10:39; Start 05/20/18 at 21:00; Stop 05/25/18 at 17:46; Status DC Melatonin 3 mg HS PO ; Start 05/21/18 at 21:00; Stop 05/21/18 at 21:00; Status DC Lansoprazole (Prevacid) 30 mg DAILYAC FT Last administered on 05/23/18at 08:30; Start 05/22/18 at 10:00; Stop 05/23/18 at 15:20; Status DC Clozapine (Clozaril) 100 mg HS PO Last administered on 05/25/18at 20:36; Start 05/25/18 at 21:00 Divalproex Sodium (Depakote Sprinkles) 625 mg BID PO Last administered on at 20:36; Start 05/25/18 at 21:00 Clozapine (Clozaril) 25 mg HS PO Last administered on 05/25/18at 20:35; Start at 21:00 Active Scripts Active Reported Topamax (Topiramate) 100 Mg Tablet 100 Mg PO DAILY Sodium Bicarbonate 650 Mg Tablet 650 Mg PO PRN Q24HRS PRN Protonix (Pantoprazole Sodium) 40 Mg Tablet.dr 40 Mg PO DAILY Lorazepam 0.5 Mg Tablet 0.5 Mg PO PRN Q4HRS PRN Nystatin 15 Gm Cream..g. 1 Rupert TP PRN Q12HR PRN Metoprolol Tartrate 25 Mg Tablet 25 Mg PO BID Lactulose 10 Gm/15 Ml Solution 30 Ml PO Ipratropium [place] 0.2 Mg/1 Ml Solution 0.5 Mg IH Q6HRS Hydrocodone-Apap 5-325 (Hydrocodone Bit/Acetaminophen) 1 Each Tablet 1 Tab PO PRN Q4HRS PRN Flomax (Tamsulosin Hcl) 0.4 Mg Cap.er.24h 0.4 Mg PO DAILY Famotidine 20 Mg Tablet 20 Mg PO BID Duoneb 0.5-3(2.5) Mg/3 Ml (Albuterol/Ipratropium) 3 Ml Ampul.neb 1 Vial NEB QID Duoneb 0.5-3(2.5) Mg/3 Ml (Albuterol/Ipratropium) 3 Ml Ampul.neb 1 Vial NEB PRN Q4HRS PRN Docusate Sodium 50 Mg/5 Ml Liquid 10 Ml PO BID [place] Oil 118 Ml Oil 1 Rupert TP BID 3 Days Cardura (Doxazosin Mesylate) 2 Mg Tablet 1 Mg PO QHS Benztropine Mesylate 2 Mg Tablet 2 Mg PO BID Benadryl (Diphenhydramine Hcl) 25 Mg Capsule 25 Mg PO TID Amantadine (Amantadine Hcl) 100 Mg Tablet 100 Mg PO BID Tylenol (Acetaminophen) 325 Mg Tablet 325 Mg PO PRN Q6HRS PRN I have reviewed the current psychotropics carefully including drug interactions. Risk benefit ratio favors no change other than as noted in my dictated progress note. Diagnosis: Problems: (1) Contusion of left hip (2) Aggressive behavior of adult (3) Geriatric psychosis (4) Decubitus ulcer of sacral region, stage 1 CHOCO JERRY MD May 25, 2018 22:50
[2018-05-26] MEDS: IPRATROPIUM BROMIDE 0.5 MG/2.5 ML NEBU. IH SCH ×4 (05:30→20:56)
[2018-05-26 05:52] VITALS: BP 111/76
[2018-05-26] MEDS: DIVALPROEX 125 MG CAP.SPRINK PO SCH ×2 (10:34→20:36)
[2018-05-26] MEDS: FAMOTIDINE 20 MG TABLET PO SCH ×2 (10:35→20:37)
[2018-05-26] MEDS: TOPIRAMATE 100 MG TABLET. PO SCH (10:35)
[2018-05-26] MEDS: diphenhydrAMINE HCL 25 MG CAPSULE PO SCH ×3 (10:35→20:37)
[2018-05-26] MEDS: BENZTROPINE MESYLATE 1 MG TABLET PO SCH ×2 (10:35→20:36)
[2018-05-26] MEDS: TAMSULOSIN 0.4 MG CAP.ER.24H. PO SCH (10:35)
[2018-05-26] MEDS: METOPROLOL TART IMMED RELEASE 25 MG TABLET PO SCH ×2 (10:35→20:37)
[2018-05-26] MEDS: DOCUSATE 100 MG/10 ML SOLUTION. PO SCH ×2 (10:36→20:35)
[2018-05-26] MEDS: AMANTADINE HCL 100 MG CAPSULE PO SCH (10:36)
[2018-05-26] MEDS: NYSTATIN TOPICAL POWDER 15GM BOTTLE. TP SCH ×2 (10:36→20:38)
[2018-05-26] MEDS: LIDOCAINE (700MG/PATCH) PATCH. TD SCH (10:37)
[2018-05-26] MEDS: LACTULOSE 20 GM/30 ML SOLUTION. PO SCH ×2 (10:38→20:36)
[2018-05-26 15:48] VITALS: BP 125/78
[2018-05-26] MEDS: MELATONIN 3 MG TABLET PO SCH (20:36)
[2018-05-26] MEDS: traZODone 100 MG TABLET. PO SCH (20:37)
[2018-05-26] MEDS: PATCH REMOVAL. MC SCH (20:37)
[2018-05-26] MEDS: cloZAPine 100 MG TABLET PO SCH (20:37)
[2018-05-26] MEDS: cloZAPine 25 MG TABLET PO SCH (20:37)
[2018-05-26] MEDS: MIRTAZAPINE 15 MG TABLET PO SCH (20:37)
[2018-05-26] MEDS: DOXAZOSIN MESYLATE 1 MG TABLET PO SCH (20:39)
--- NOTE | 2018-05-26 21:01 | PDOC ---
Exam Note: Elijah Note: Please also refer to the separate dictated note~for this date of service dictated separately.~Patient seen individually. Discussed the patient with Nursing staff reviewed the chart.~Reviewed interim history and current functioning. Reviewed vital signs,~Labs/ Radiology~and current medications noted below. Continue current treatment with the changes noted in the dictated addendum note Assessment: Vital Signs: Vital Signs Date Time Temp Pulse Resp B/P (MAP) Pulse Ox O2 Delivery O2 Flow Rate FiO2 05/26/18 20:40 99 Room Air 05/26/18 20:39 59 125/78 05/26/18 15:48 96.7 18 I&O Intake and Output 05/26/18 07:00 Intake Total 1200 ml Balance 1200 ml Intake Oral 1200 ml Current Medications: Meds: Current Medications Lorazepam (Ativan) 2 mg 1X ONCE IM ; Start 04/28/18 at 19:15; Stop 04/28/18 at 19:17; Status DC Acetaminophen (Tylenol) 650 mg PRN Q6HRS PRN PO PAIN / TEMP; Start 04/28/18 at 23:15 Multi-Ingredient Ointment (Analgesic [place]) 1 rupert PRN QID PRN TP MUSCLE PAIN; Start 04/28/18 at 23:15 Al Hydroxide/Mg Hydroxide (Mylanta Plus Xs) 15 ml PRN AFTMEALHC PRN PO DYSPEPSIA Last administered on 05/10/18at 22:17; Start 04/28/18 at 23:15 Magnesium Hydroxide (Milk Of Magnesia) 2,400 mg PRN QHS PRN PO CONSTIPATION Last administered on 05/23/18at 06:03; Start 04/28/18 at 23:15 Lorazepam (Ativan) 0.5 mg PRN Q4HRS PRN PO ANXIETY / AGITATION Last administered on 05/16/18at 13:46; Start 04/28/18 at 23:30 Acetaminophen (Tylenol) 325 mg PRN Q6HRS PRN PO PAIN / TEMP; Start 04/28/18 at 23:45 Diphenhydramine HCl (Benadryl) 25 mg TID PO Last administered on 05/26/18at 20: 37; Start 04/29/18 at 09:00 Docusate Sodium (Colace Solution) 100 mg BID PO Last administered on 05/26/18at 20:35; Start 04/29/18 at 09:00 Ipratropium [place] (Atrovent) 0.5 mg Q6HRS IH Last administered on 05/26/18 20:56; Start 04/29/18 at 00:30 Metoprolol Tartrate (Lopressor) 25 mg BID PO Last administered on 05/26/18 20: 37; Start 04/29/18 at 09:00 Tamsulosin HCl (Flomax) 0.4 mg DAILY PO Last administered on 05/26/18 10:35; Start 04/29/18 at 09:00 Amantadine HCl (Symmetrel) 100 mg BID PO Last administered on 05/14/18 09:49; Start 04/29/18 at 09:00; Stop 05/14/18 at 10:24; Status DC Benztropine Mesylate (Cogentin) 2 mg BID PO Last administered on 05/14/18 09: 44; Start 04/29/18 at 09:00; Stop 05/14/18 at 10:24; Status DC Doxazosin Mesylate (Cardura) 1 mg QHS PO Last administered on 05/26/18at 20:39; Start 04/29/18 at 21:00 Famotidine (Pepcid) 20 mg BID PO Last administered on 05/26/18at 20:37; Start at 09:00 Acetaminophen/ Hydrocodone Bitart (Lortab 5/325) 1 tab PRN Q4HRS PRN PO PAIN Last administered on 05/04/18at 01:05; Start 04/28/18 at 23:45 Lactulose (Lactulose) 20 gm PRN TID PRN PO CONSTIPATION; Start 04/28/18 at 23: 45; Stop 05/18/18 at 12:05; Status DC Nystatin (Mycostatin) 1 rupert PRN Q12HR PRN TP ANTIFUNGAL F/RASH; Start 04/28/18 at 23:45 Pantoprazole Sodium (Protonix) 40 mg DAILYAC PO Last administered on 05/21/18at 08:58; Start 04/29/18 at 07:30; Stop 05/22/18 at 07:54; Status DC Sodium Bicarbonate 650 mg PRN Q24HRS PRN PO GI SYMPTOMS; Start 04/28/18 at 23: 45 Topiramate (Topamax) 100 mg DAILY PO Last administered on 05/26/18 10:35; Start 04/29/18 at 09:00 Nicotine (Nicoderm Cq 7mg) 1 patch DAILY TD Last administered on 05/01/18 08: 34; Start 04/29/18 at 09:00; Stop 05/02/18 at 15:53; Status DC Lidocaine (Lidoderm) 1 patch DAILY TD Last administered on 05/26/18 10:37; Start 04/30/18 at 09:00 Miscellaneous (Lidoderm Patch Removal) 1 ea QHS MC Last administered on 20:37; Start 04/30/18 at 21:00 Mirtazapine (Remeron) 7.5 mg QHS PO Last administered on 05/13/18 19:46; Start 05/01/18 at 21:00; Stop 05/14/18 at 10:24; Status DC Clozapine (Clozaril) 25 mg QHS PO Last administered on 05/03/18 20:28; Start at 21:00; Stop 05/04/18 at 15:32; Status DC Nystatin (Nystop) 1 rupert BID TP Last administered on 05/26/18at 20:38; Start 05/03 at 01:00 Clozapine (Clozaril) 50 mg QHS PO Last administered on 05/10/18 19:48; Start at 17:00; Stop 05/11/18 at 17:13; Status DC Ondansetron HCl (Zofran Odt) 4 mg PRN Q8HRS PRN PO NAUSEA/VOMITING; Start at 08:45 Trazodone HCl (Desyrel) 50 mg QHS PO Last administered on 05/12/18at 20:24; Start 05/08/18 at 21:00; Stop 05/13/18 at 18:22; Status DC Trazodone HCl (Desyrel) 50 mg PRN QHS PRN PO INSOMNIA Last administered on 05/11 00:01; Start 05/08/18 at 16:45; Stop 05/13/18 at 18:22; Status DC Bisacodyl (Dulcolax Supp) 10 mg PRN DAILY PRN [place] CONSTIPATION Last administered on 05/23/18at 20:48; Start 05/08/18 at 17:00 Clozapine (Clozaril) 75 mg HS PO Last administered on 05/17/18at 20:33; Start at 21:00; Stop 05/18/18 at 19:06; Status DC Trazodone HCl (Desyrel) 100 mg PRN QHS PRN PO INSOMNIA Last administered on 01:19; Start 05/13/18 at 18:30 Trazodone HCl (Desyrel) 100 mg QHS PO Last administered on 05/26/18 20:37; Start 05/13/18 at 21:00 Amantadine HCl (Symmetrel) 50 mg BID PO ; Start 05/14/18 at 21:00; Stop at 21:00; Status DC Benztropine Mesylate (Cogentin) 1 mg BID PO Last administered on 05/26/18 20: 36; Start 05/14/18 at 21:00 Mirtazapine (Remeron) 15 mg QHS PO Last administered on 05/26/18 20:37; Start 05/14/18 at 21:00 Melatonin 3 mg QHS PO Last administered on 05/14/18at 19:40; Start 05/14/18 at 21:00; Stop 05/15/18 at 19:30; Status DC Amantadine HCl (Symmetrel) 100 mg DAILY PO Last administered on 05/26/18at 10:36 ; Start 05/15/18 at 09:00 Melatonin 6 mg QHS PO Last administered on 05/26/18 20:36; Start 05/15/18 at 21:00 Divalproex Sodium (Depakote Sprinkles) 250 mg BID PO Last administered on at 07:41; Start 05/17/18 at 21:00; Stop 05/20/18 at 18:13; Status DC Lactulose (Lactulose) 20 gm BID PO Last administered on 05/26/18 20:36; Start 05/18/18 at 21:00 Clozapine (Clozaril) 100 mg HS PO Last administered on 05/24/18at 21:50; Start 05/18/18 at 21:00; Stop 05/25/18 at 17:46; Status DC Divalproex Sodium (Depakote Sprinkles) 500 mg BID PO Last administered on at 10:39; Start 05/20/18 at 21:00; Stop 05/25/18 at 17:46; Status DC Melatonin 3 mg HS PO ; Start 05/21/18 at 21:00; Stop 05/21/18 at 21:00; Status DC Lansoprazole (Prevacid) 30 mg DAILYAC FT Last administered on 05/23/18at 08:30; Start 05/22/18 at 10:00; Stop 05/23/18 at 15:20; Status DC Clozapine (Clozaril) 100 mg HS PO Last administered on 05/26/18at 20:37; Start 05/25/18 at 21:00 Divalproex Sodium (Depakote Sprinkles) 625 mg BID PO Last administered on at 20:36; Start 05/25/18 at 21:00 Clozapine (Clozaril) 25 mg HS PO Last administered on 05/26/18at 20:37; Start at 21:00 Active Scripts Active Reported Topamax (Topiramate) 100 Mg Tablet 100 Mg PO DAILY Sodium Bicarbonate 650 Mg Tablet 650 Mg PO PRN Q24HRS PRN Protonix (Pantoprazole Sodium) 40 Mg Tablet.dr 40 Mg PO DAILY Lorazepam 0.5 Mg Tablet 0.5 Mg PO PRN Q4HRS PRN Nystatin 15 Gm Cream..g. 1 Rupert TP PRN Q12HR PRN Metoprolol Tartrate 25 Mg Tablet 25 Mg PO BID Lactulose 10 Gm/15 Ml Solution 30 Ml PO Ipratropium [place] 0.2 Mg/1 Ml Solution 0.5 Mg IH Q6HRS Hydrocodone-Apap 5-325 (Hydrocodone Bit/Acetaminophen) 1 Each Tablet 1 Tab PO PRN Q4HRS PRN Flomax (Tamsulosin Hcl) 0.4 Mg Cap.er.24h 0.4 Mg PO DAILY Famotidine 20 Mg Tablet 20 Mg PO BID Duoneb 0.5-3(2.5) Mg/3 Ml (Albuterol/Ipratropium) 3 Ml Ampul.neb 1 Vial NEB QID Duoneb 0.5-3(2.5) Mg/3 Ml (Albuterol/Ipratropium) 3 Ml Ampul.neb 1 Vial NEB PRN Q4HRS PRN Docusate Sodium 50 Mg/5 Ml Liquid 10 Ml PO BID [place] Oil 118 Ml Oil 1 Rupert TP BID 3 Days Cardura (Doxazosin Mesylate) 2 Mg Tablet 1 Mg PO QHS Benztropine Mesylate 2 Mg Tablet 2 Mg PO BID Benadryl (Diphenhydramine Hcl) 25 Mg Capsule 25 Mg PO TID Amantadine (Amantadine Hcl) 100 Mg Tablet 100 Mg PO BID Tylenol (Acetaminophen) 325 Mg Tablet 325 Mg PO PRN Q6HRS PRN I have reviewed the current psychotropics carefully including drug interactions. Risk benefit ratio favors no change other than as noted in my dictated progress note. Diagnosis: Problems: (1) Contusion of left hip (2) Aggressive behavior of adult (3) Geriatric psychosis (4) Decubitus ulcer of sacral region, stage 1 CHOCO JERRY MD May 26, 2018 21:01
--- NOTE | 2018-05-27 03:30 | PN ---
DATE: 05/25/2018 This late entry for 05/25/2018 covers elements not covered in my initial note. SUBJECTIVE: I met with the patient in the evening. The patient slept 7-1/2 hours previous night. Previous night, he was talking to the urinal, appeared psychotic, but during the day of 05/25/2018. He has been more cooperative, compliant with medications, spending much time in the day room. REVIEW OF SYSTEMS: Ambulation impaired, in Broda chair. No CV, , pulmonary, eye, ENT system symptoms on review. MENTAL STATUS EXAM: Oriented to himself and situation. Speech has some latency, coherent. Abstraction fair, computation impaired, language function intact, attention span short. Mood and affect somewhat withdrawn, less paranoid as I sat with him. LABORATORY DATA: Reviewed. IMPRESSION: Absolute neutrophil count is unremarkable. We will increase the Clozaril from 100 mg at bedtime to 125 mg p.o. at bedtime. Valproic acid level is 37 on Depakote 500 mg b.i.d. We will increase it to 625 mg b.i.d. Check CBC, CMP, valproic acid level in 3 days. Continue amantadine, Topamax along with Ativan p.r.n., Cogentin 1 mg twice a day, Remeron 15 at bedtime, trazodone, melatonin. MAN Jameson JERRY MD DR: BRIELLE/naman JOB#: [id number] / [id number]
[2018-05-27] MEDS: IPRATROPIUM BROMIDE 0.5 MG/2.5 ML NEBU. IH SCH ×4 (05:13→20:02)
[2018-05-27 05:40] VITALS: BP 102/63
[2018-05-27] MEDS: LACTULOSE 20 GM/30 ML SOLUTION. PO SCH ×2 (10:43→20:44)
[2018-05-27] MEDS: LIDOCAINE (700MG/PATCH) PATCH. TD SCH (10:43)
[2018-05-27] MEDS: BENZTROPINE MESYLATE 1 MG TABLET PO SCH ×2 (10:44→20:43)
[2018-05-27] MEDS: DIVALPROEX 125 MG CAP.SPRINK PO SCH ×2 (10:44→20:42)
[2018-05-27] MEDS: TAMSULOSIN 0.4 MG CAP.ER.24H. PO SCH (10:44)
[2018-05-27] MEDS: diphenhydrAMINE HCL 25 MG CAPSULE PO SCH ×3 (10:44→20:43)
[2018-05-27] MEDS: FAMOTIDINE 20 MG TABLET PO SCH ×2 (10:44→20:42)
[2018-05-27] MEDS: DOCUSATE 100 MG/10 ML SOLUTION. PO SCH ×2 (10:45→20:44)
[2018-05-27] MEDS: METOPROLOL TART IMMED RELEASE 25 MG TABLET PO SCH ×2 (10:45→20:43)
[2018-05-27] MEDS: TOPIRAMATE 100 MG TABLET. PO SCH (10:45)
[2018-05-27] MEDS: AMANTADINE HCL 100 MG CAPSULE PO SCH (10:49)
[2018-05-27] MEDS: NYSTATIN TOPICAL POWDER 15GM BOTTLE. TP SCH ×2 (10:49→20:44)
[2018-05-27 16:30] VITALS: BP 113/73
[2018-05-27] MEDS: MELATONIN 3 MG TABLET PO SCH (20:42)
[2018-05-27] MEDS: MIRTAZAPINE 15 MG TABLET PO SCH (20:42)
[2018-05-27] MEDS: PATCH REMOVAL. MC SCH (20:42)
[2018-05-27] MEDS: cloZAPine 100 MG TABLET PO SCH (20:43)
[2018-05-27] MEDS: traZODone 100 MG TABLET. PO SCH (20:43)
[2018-05-27] MEDS: cloZAPine 25 MG TABLET PO SCH (20:43)
[2018-05-27] MEDS: DOXAZOSIN MESYLATE 1 MG TABLET PO SCH (20:44)
--- NOTE | 2018-05-27 20:50 | PDOC ---
Exam Note: Elijah Note: Please also refer to the separate dictated note~for this date of service dictated separately.~Patient seen individually. Discussed the patient with Nursing staff reviewed the chart.~Reviewed interim history and current functioning. Reviewed vital signs,~Labs/ Radiology~and current medications noted below. Continue current treatment with the changes noted in the dictated addendum note Assessment: Vital Signs: Vital Signs Date Time Temp Pulse Resp B/P (MAP) Pulse Ox O2 Delivery O2 Flow Rate FiO2 05/27/18 20:44 68 114/65 05/27/18 19:35 99 Room Air 05/27/18 16:30 96.9 20 I&O Intake and Output 05/27/18 07:00 Intake Total 1440 ml Balance 1440 ml Intake Oral 1440 ml Current Medications: Meds: Current Medications Lorazepam (Ativan) 2 mg 1X ONCE IM ; Start 04/28/18 at 19:15; Stop 04/28/18 at 19:17; Status DC Acetaminophen (Tylenol) 650 mg PRN Q6HRS PRN PO PAIN / TEMP; Start 04/28/18 at 23:15 Multi-Ingredient Ointment (Analgesic [place]) 1 rupert PRN QID PRN TP MUSCLE PAIN; Start 04/28/18 at 23:15 Al Hydroxide/Mg Hydroxide (Mylanta Plus Xs) 15 ml PRN AFTMEALHC PRN PO DYSPEPSIA Last administered on 05/10/18at 22:17; Start 04/28/18 at 23:15 Magnesium Hydroxide (Milk Of Magnesia) 2,400 mg PRN QHS PRN PO CONSTIPATION Last administered on 05/23/18at 06:03; Start 04/28/18 at 23:15 Lorazepam (Ativan) 0.5 mg PRN Q4HRS PRN PO ANXIETY / AGITATION Last administered on 05/16/18at 13:46; Start 04/28/18 at 23:30 Acetaminophen (Tylenol) 325 mg PRN Q6HRS PRN PO PAIN / TEMP; Start 04/28/18 at 23:45 Diphenhydramine HCl (Benadryl) 25 mg TID PO Last administered on 05/27/18at 20: 43; Start 04/29/18 at 09:00 Docusate Sodium (Colace Solution) 100 mg BID PO Last administered on 05/27/18at 20:44; Start 04/29/18 at 09:00 Ipratropium [place] (Atrovent) 0.5 mg Q6HRS IH Last administered on 05/27/18 20:02; Start 04/29/18 at 00:30 Metoprolol Tartrate (Lopressor) 25 mg BID PO Last administered on 05/27/18 20: 43; Start 04/29/18 at 09:00 Tamsulosin HCl (Flomax) 0.4 mg DAILY PO Last administered on 05/27/18 10:44; Start 04/29/18 at 09:00 Amantadine HCl (Symmetrel) 100 mg BID PO Last administered on 05/14/18 09:49; Start 04/29/18 at 09:00; Stop 05/14/18 at 10:24; Status DC Benztropine Mesylate (Cogentin) 2 mg BID PO Last administered on 05/14/18 09: 44; Start 04/29/18 at 09:00; Stop 05/14/18 at 10:24; Status DC Doxazosin Mesylate (Cardura) 1 mg QHS PO Last administered on 05/27/18 20:44; Start 04/29/18 at 21:00 Famotidine (Pepcid) 20 mg BID PO Last administered on 05/27/18 20:42; Start at 09:00 Acetaminophen/ Hydrocodone Bitart (Lortab 5/325) 1 tab PRN Q4HRS PRN PO PAIN Last administered on 05/04/18 01:05; Start 04/28/18 at 23:45 Lactulose (Lactulose) 20 gm PRN TID PRN PO CONSTIPATION; Start 04/28/18 at 23: 45; Stop 05/18/18 at 12:05; Status DC Nystatin (Mycostatin) 1 rupert PRN Q12HR PRN TP ANTIFUNGAL F/RASH; Start 04/28/18 at 23:45 Pantoprazole Sodium (Protonix) 40 mg DAILYAC PO Last administered on 05/21/18at 08:58; Start 04/29/18 at 07:30; Stop 05/22/18 at 07:54; Status DC Sodium Bicarbonate 650 mg PRN Q24HRS PRN PO GI SYMPTOMS; Start 04/28/18 at 23: 45 Topiramate (Topamax) 100 mg DAILY PO Last administered on 05/27/18 10:45; Start 04/29/18 at 09:00 Nicotine (Nicoderm Cq 7mg) 1 patch DAILY TD Last administered on 05/01/18 08: 34; Start 04/29/18 at 09:00; Stop 05/02/18 at 15:53; Status DC Lidocaine (Lidoderm) 1 patch DAILY TD Last administered on 05/27/18 10:43; Start 04/30/18 at 09:00 Miscellaneous (Lidoderm Patch Removal) 1 ea QHS MC Last administered on 20:42; Start 04/30/18 at 21:00 Mirtazapine (Remeron) 7.5 mg QHS PO Last administered on 05/13/18 19:46; Start 05/01/18 at 21:00; Stop 05/14/18 at 10:24; Status DC Clozapine (Clozaril) 25 mg QHS PO Last administered on 05/03/18 20:28; Start at 21:00; Stop 05/04/18 at 15:32; Status DC Nystatin (Nystop) 1 rupert BID TP Last administered on 05/27/18 20:44; Start 05/03 at 01:00 Clozapine (Clozaril) 50 mg QHS PO Last administered on 05/10/18 19:48; Start at 17:00; Stop 05/11/18 at 17:13; Status DC Ondansetron HCl (Zofran Odt) 4 mg PRN Q8HRS PRN PO NAUSEA/VOMITING; Start at 08:45 Trazodone HCl (Desyrel) 50 mg QHS PO Last administered on 05/12/18at 20:24; Start 05/08/18 at 21:00; Stop 05/13/18 at 18:22; Status DC Trazodone HCl (Desyrel) 50 mg PRN QHS PRN PO INSOMNIA Last administered on 05/11 00:01; Start 05/08/18 at 16:45; Stop 05/13/18 at 18:22; Status DC Bisacodyl (Dulcolax Supp) 10 mg PRN DAILY PRN [place] CONSTIPATION Last administered on 05/23/18at 20:48; Start 05/08/18 at 17:00 Clozapine (Clozaril) 75 mg HS PO Last administered on 05/17/18at 20:33; Start at 21:00; Stop 05/18/18 at 19:06; Status DC Trazodone HCl (Desyrel) 100 mg PRN QHS PRN PO INSOMNIA Last administered on at 01:19; Start 05/13/18 at 18:30 Trazodone HCl (Desyrel) 100 mg QHS PO Last administered on 05/27/18 20:43; Start 05/13/18 at 21:00 Amantadine HCl (Symmetrel) 50 mg BID PO ; Start 05/14/18 at 21:00; Stop at 21:00; Status DC Benztropine Mesylate (Cogentin) 1 mg BID PO Last administered on 05/27/18at 20: 43; Start 05/14/18 at 21:00 Mirtazapine (Remeron) 15 mg QHS PO Last administered on 05/27/18at 20:42; Start 05/14/18 at 21:00 Melatonin 3 mg QHS PO Last administered on 05/14/18at 19:40; Start 05/14/18 at 21:00; Stop 05/15/18 at 19:30; Status DC Amantadine HCl (Symmetrel) 100 mg DAILY PO Last administered on 05/27/18at 10:49 ; Start 05/15/18 at 09:00 Melatonin 6 mg QHS PO Last administered on 05/27/18at 20:42; Start 05/15/18 at 21:00 Divalproex Sodium (Depakote Sprinkles) 250 mg BID PO Last administered on at 07:41; Start 05/17/18 at 21:00; Stop 05/20/18 at 18:13; Status DC Lactulose (Lactulose) 20 gm BID PO Last administered on 05/27/18at 20:44; Start 05/18/18 at 21:00 Clozapine (Clozaril) 100 mg HS PO Last administered on 05/24/18at 21:50; Start 05/18/18 at 21:00; Stop 05/25/18 at 17:46; Status DC Divalproex Sodium (Depakote Sprinkles) 500 mg BID PO Last administered on at 10:39; Start 05/20/18 at 21:00; Stop 05/25/18 at 17:46; Status DC Melatonin 3 mg HS PO ; Start 05/21/18 at 21:00; Stop 05/21/18 at 21:00; Status DC Lansoprazole (Prevacid) 30 mg DAILYAC FT Last administered on 05/23/18at 08:30; Start 05/22/18 at 10:00; Stop 05/23/18 at 15:20; Status DC Clozapine (Clozaril) 100 mg HS PO Last administered on 05/27/18at 20:43; Start 05/25/18 at 21:00 Divalproex Sodium (Depakote Sprinkles) 625 mg BID PO Last administered on at 20:42; Start 05/25/18 at 21:00 Clozapine (Clozaril) 25 mg HS PO Last administered on 05/27/18at 20:43; Start at 21:00 Active Scripts Active Reported Topamax (Topiramate) 100 Mg Tablet 100 Mg PO DAILY Sodium Bicarbonate 650 Mg Tablet 650 Mg PO PRN Q24HRS PRN Protonix (Pantoprazole Sodium) 40 Mg Tablet.dr 40 Mg PO DAILY Lorazepam 0.5 Mg Tablet 0.5 Mg PO PRN Q4HRS PRN Nystatin 15 Gm Cream..g. 1 Rupert TP PRN Q12HR PRN Metoprolol Tartrate 25 Mg Tablet 25 Mg PO BID Lactulose 10 Gm/15 Ml Solution 30 Ml PO Ipratropium [place] 0.2 Mg/1 Ml Solution 0.5 Mg IH Q6HRS Hydrocodone-Apap 5-325 (Hydrocodone Bit/Acetaminophen) 1 Each Tablet 1 Tab PO PRN Q4HRS PRN Flomax (Tamsulosin Hcl) 0.4 Mg Cap.er.24h 0.4 Mg PO DAILY Famotidine 20 Mg Tablet 20 Mg PO BID Duoneb 0.5-3(2.5) Mg/3 Ml (Albuterol/Ipratropium) 3 Ml Ampul.neb 1 Vial NEB QID Duoneb 0.5-3(2.5) Mg/3 Ml (Albuterol/Ipratropium) 3 Ml Ampul.neb 1 Vial NEB PRN Q4HRS PRN Docusate Sodium 50 Mg/5 Ml Liquid 10 Ml PO BID [place] Oil 118 Ml Oil 1 Rupert TP BID 3 Days Cardura (Doxazosin Mesylate) 2 Mg Tablet 1 Mg PO QHS Benztropine Mesylate 2 Mg Tablet 2 Mg PO BID Benadryl (Diphenhydramine Hcl) 25 Mg Capsule 25 Mg PO TID Amantadine (Amantadine Hcl) 100 Mg Tablet 100 Mg PO BID Tylenol (Acetaminophen) 325 Mg Tablet 325 Mg PO PRN Q6HRS PRN I have reviewed the current psychotropics carefully including drug interactions. Risk benefit ratio favors no change other than as noted in my dictated progress note. Diagnosis: Problems: (1) Contusion of left hip (2) Aggressive behavior of adult (3) Geriatric psychosis (4) Decubitus ulcer of sacral region, stage 1 CHOCO JERRY MD May 27, 2018 20:50
--- NOTE | 2018-05-27 23:36 | PN ---
DATE: 05/26/2018 This is a late entry for 05/26/2018 covers elements not covered in my initial note. SUBJECTIVE: I met with the patient in the evening. The patient slept for 4-3/4 hours previous night, compliant with medications. REVIEW OF SYSTEMS: Ambulation impaired, in cardiac chair. No CV, , pulmonary, eye, ENT system symptoms on review. Reliability varies. MENTAL STATUS EXAM: Oriented to himself and situation. Speech has some latency, coherent. Abstraction fair. Computation able to do no steps on serial sevens, remembered 1/3 objects at 3 minutes, but difficult with his attention, focus. No suicidal or homicidal ideation. Paranoia is much improved. LABORATORY DATA: Reviewed. IMPRESSION: Schizoaffective disorder, bipolar type, mixed with psychotic features, in partial remission; cognitive disorder, unspecified. PLAN: Continue psychotropics from initial note including Depakote 625 mg b.i.d., Clozaril 125 mg bedtime, Remeron, trazodone, Cogentin has been reduced. MAN Jameson JERRY MD DR: BRIELLE/naman JOB#: [id number] / [id number]
[2018-05-28] MEDS: IPRATROPIUM BROMIDE 0.5 MG/2.5 ML NEBU. IH SCH ×2 (05:17→10:43)
[2018-05-28 05:26] VITALS: BP 103/62
[2018-05-28 06:29] LABS: BASO % 0 % (0-3); EOS % 1 % (0-3); HEMATOCRIT 28.3 % (39.0-53.0); HEMOGLOBIN 9.7 g/dL (13.0-17.5); LYMPH # 1.1 x10^3/uL (1.0-4.8); LYMPH % 18 % (24-48); MEAN CORPUSCULAR HEMOGLOBIN 33 pg (25-35); MEAN CORPUSCULAR HGB CONC 34 g/dL (31-37); MEAN CORPUSCULAR VOLUME 96 fL (79-100); MONO # 0.7 x10^3/uL (0.0-1.1); MONO % 12 % (0-9); NEUT # 4.1 x10^3uL (1.8-7.7); NEUT % 69 % (31-73); PLATELET COUNT 184 x10^3/uL (140-400); RED BLOOD COUNT 2.95 x10^6/uL (4.30-5.70); RED CELL DISTRIBUTION WIDTH 17.1 % (11.5-14.5)
[2018-05-28 06:42] LABS: ALBUMIN 2.3 g/dL (3.4-5.0); ALBUMIN/GLOBULIN RATIO 0.7 (1.0-1.7); ALK PHOS 90 U/L (46-116); ALT (SGPT) 20 U/L (16-63); ANION GAP 3 (6-14); AST (SGOT) 13 U/L (15-37); BLOOD UREA NITROGEN 21 mg/dL (8-26); BUN/CREATININE RATIO 26 (6-20); CALCIUM 8.8 mg/dL (8.5-10.1); CARBON DIOXIDE 30 mmol/L (21-32); CHLORIDE 94 mmol/L (98-107); CREATININE 0.8 mg/dL (0.7-1.3); GFR 96.1; GLUCOSE 87 mg/dL (70-99); POTASSIUM 4.6 mmol/L (3.5-5.1); SODIUM 127 mmol/L (136-145); TOTAL BILIRUBIN 0.2 mg/dL (0.2-1.0); TOTAL PROTEIN 5.8 g/dL (6.4-8.2)
[2018-05-28 06:43] LABS: VAL ACID 44 mcg/mL (50-100)
[2018-05-28] MEDS: LACTULOSE 20 GM/30 ML SOLUTION. PO SCH (10:34)
[2018-05-28] MEDS: DOCUSATE 100 MG/10 ML SOLUTION. PO SCH (10:34)
[2018-05-28] MEDS: FAMOTIDINE 20 MG TABLET PO SCH (10:34)
[2018-05-28] MEDS: NYSTATIN TOPICAL POWDER 15GM BOTTLE. TP SCH (10:34)
[2018-05-28 10:35] VITALS: BP 103/62
[2018-05-28] MEDS: TOPIRAMATE 100 MG TABLET. PO SCH (10:35)
[2018-05-28] MEDS: DIVALPROEX 125 MG CAP.SPRINK PO SCH (10:35)
[2018-05-28] MEDS: AMANTADINE HCL 100 MG CAPSULE PO SCH (10:35)
[2018-05-28] MEDS: diphenhydrAMINE HCL 25 MG CAPSULE PO SCH (10:35)
[2018-05-28] MEDS: METOPROLOL TART IMMED RELEASE 25 MG TABLET PO SCH (10:35)
[2018-05-28] MEDS: BENZTROPINE MESYLATE 1 MG TABLET PO SCH (10:35)
[2018-05-28] MEDS: TAMSULOSIN 0.4 MG CAP.ER.24H. PO SCH (10:35)
[2018-05-28] MEDS: LIDOCAINE (700MG/PATCH) PATCH. TD SCH (10:37)
[2018-05-28] MEDS ORDERED: ACET325T9 PO (12:24)
[2018-05-28] MEDS ORDERED: BISA10SU2 RC (12:25)
[2018-05-28] MEDS ORDERED: DIVA125C2 PO (12:26)
[2018-05-28] MEDS ORDERED: LIDO700A39 TP (12:27)
[2018-05-28] MEDS ORDERED: REMOVAL MC (12:29)
[2018-05-28] MEDS ORDERED: MAGN2400 PO (12:30)
[2018-05-28] MEDS ORDERED: MAG30ORA PO (12:30)
[2018-05-28] MEDS ORDERED: MELA3TAB2 PO (12:31)
[2018-05-28] MEDS ORDERED: MIRT15TA3 PO (12:32)
[2018-05-28] MEDS ORDERED: METH29OI TP (12:32)
[2018-05-28] MEDS ORDERED: NYST15PO9 TP (12:33)
[2018-05-28] MEDS ORDERED: ONDA4TAB12 PO (12:34)
[2018-05-28] MEDS ORDERED: CLOZ100T7 PO (12:42)
[2018-05-28] MEDS ORDERED: CLOZ25TA PO (12:43)
[2018-05-28] MEDS ORDERED: TRAZ-86 PO ×2 (12:46→12:47)
--- NOTE | 2018-05-28 18:08 | PDOC ---
Exam Note: Eiljah Note: Please also refer to the separate dictated note~for this date of service dictated separately.~Patient seen individually. Discussed the patient with Nursing staff reviewed the chart.~Reviewed interim history and current functioning. Reviewed vital signs,~Labs/ Radiology~and current medications noted below. Continue current treatment with the changes noted in the dictated addendum note Assessment: Vital Signs: Vital Signs Date Time Temp Pulse Resp B/P (MAP) Pulse Ox O2 Delivery O2 Flow Rate FiO2 05/28/18 10:53 94 Room Air 05/28/18 10:35 66 103/62 05/28/18 05:26 97.1 20 I&O Intake and Output 05/28/18 07:00 Intake Total 1980 ml Balance 1980 ml Intake Oral 1980 ml Labs: Laboratory Tests Test 05/28/18 06:20 White Blood Count 6.0 x10^3/uL (4.0-11.0) Red Blood Count 2.95 x10^6/uL (4.30-5.70) L Hemoglobin 9.7 g/dL (13.0-17.5) L Hematocrit 28.3 % (39.0-53.0) L Mean Corpuscular Volume 96 fL (79-100) Mean Corpuscular Hemoglobin 33 pg (25-35) Mean Corpuscular Hemoglobin Concent 34 g/dL (31-37) Red Cell Distribution Width 17.1 % (11.5-14.5) H Platelet Count 184 x10^3/uL (140-400) Neutrophils (%) (Auto) 69 % (31-73) Lymphocytes (%) (Auto) 18 % (24-48) L Monocytes (%) (Auto) 12 % (0-9) H Eosinophils (%) (Auto) 1 % (0-3) Basophils (%) (Auto) 0 % (0-3) Neutrophils # (Auto) 4.1 x10^3uL (1.8-7.7) Lymphocytes # (Auto) 1.1 x10^3/uL (1.0-4.8) Monocytes # (Auto) 0.7 x10^3/uL (0.0-1.1) Eosinophils # (Auto) 0.0 x10^3/uL (0.0-0.7) Basophils # (Auto) 0.0 x10^3/uL (0.0-0.2) Sodium Level 127 mmol/L (136-145) L Potassium Level 4.6 mmol/L (3.5-5.1) Chloride Level 94 mmol/L (98-107) L Carbon Dioxide Level 30 mmol/L (21-32) Anion Gap 3 (6-14) L Blood Urea Nitrogen 21 mg/dL (8-26) Creatinine 0.8 mg/dL (0.7-1.3) Estimated GFR (Cockcroft-Gault) 96.1 BUN/Creatinine Ratio 26 (6-20) H Glucose Level 87 mg/dL (70-99) Calcium Level 8.8 mg/dL (8.5-10.1) Total Bilirubin 0.2 mg/dL (0.2-1.0) Aspartate Amino Transferase (AST) 13 U/L (15-37) L Alanine Aminotransferase (ALT) 20 U/L (16-63) Alkaline Phosphatase 90 U/L (46-116) Total Protein 5.8 g/dL (6.4-8.2) L Albumin 2.3 g/dL (3.4-5.0) L Albumin/Globulin Ratio 0.7 (1.0-1.7) L Valproic Acid Level 44 mcg/mL (50-100) L Valproic Acid Last Dose Date 05/27/2018 Valproic Acid Last Dose Time 2100 Current Medications: Meds: Current Medications Lorazepam (Ativan) 2 mg 1X ONCE IM ; Start 04/28/18 at 19:15; Stop 04/28/18 at 19:17; Status DC Acetaminophen (Tylenol) 650 mg PRN Q6HRS PRN PO PAIN / TEMP; Start 04/28/18 at 23:15; Stop 05/28/18 at 13:27; Status DC Multi-Ingredient Ointment (Analgesic Clubb) 1 rupert PRN QID PRN TP MUSCLE PAIN; Start 04/28/18 at 23:15; Stop 05/28/18 at 13:27; Status DC Al Hydroxide/Mg Hydroxide (Mylanta Plus Xs) 15 ml PRN AFTMEALHC PRN PO DYSPEPSIA Last administered on 05/10/18at 22:17; Start 04/28/18 at 23:15; Stop at 13:27; Status DC Magnesium Hydroxide (Milk Of Magnesia) 2,400 mg PRN QHS PRN PO CONSTIPATION Last administered on 05/23/18at 06:03; Start 04/28/18 at 23:15; Stop 05/28/18 at 13:27; Status DC Lorazepam (Ativan) 0.5 mg PRN Q4HRS PRN PO ANXIETY / AGITATION Last administered on 05/16/18at 13:46; Start 04/28/18 at 23:30; Stop 05/28/18 at 13:27 ; Status DC Acetaminophen (Tylenol) 325 mg PRN Q6HRS PRN PO PAIN / TEMP; Start 04/28/18 at 23:45; Stop 05/28/18 at 13:27; Status DC Diphenhydramine HCl (Benadryl) 25 mg TID PO Last administered on 05/28/18at 10: 35; Start 04/29/18 at 09:00; Stop 05/28/18 at 13:27; Status DC Docusate Sodium (Colace Solution) 100 mg BID PO Last administered on 05/28/18at 10:34; Start 04/29/18 at 09:00; Stop 05/28/18 at 13:27; Status DC Ipratropium [place] (Atrovent) 0.5 mg Q6HRS IH Last administered on 05/28/18at 10:43; Start 04/29/18 at 00:30; Stop 05/28/18 at 13:27; Status DC Metoprolol Tartrate (Lopressor) 25 mg BID PO Last administered on 05/28/18at 10: 35; Start 04/29/18 at 09:00; Stop 05/28/18 at 13:27; Status DC Tamsulosin HCl (Flomax) 0.4 mg DAILY PO Last administered on 05/28/18at 10:35; Start 04/29/18 at 09:00; Stop 05/28/18 at 13:27; Status DC Amantadine HCl (Symmetrel) 100 mg BID PO Last administered on 05/14/18at 09:49; Start 04/29/18 at 09:00; Stop 05/14/18 at 10:24; Status DC Benztropine Mesylate (Cogentin) 2 mg BID PO Last administered on 05/14/18at 09: 44; Start 04/29/18 at 09:00; Stop 05/14/18 at 10:24; Status DC Doxazosin Mesylate (Cardura) 1 mg QHS PO Last administered on 05/27/18at 20:44; Start 04/29/18 at 21:00; Stop 05/28/18 at 13:27; Status DC Famotidine (Pepcid) 20 mg BID PO Last administered on 05/28/18at 10:34; Start at 09:00; Stop 05/28/18 at 13:27; Status DC Acetaminophen/ Hydrocodone Bitart (Lortab 5/325) 1 tab PRN Q4HRS PRN PO PAIN Last administered on 05/04/18at 01:05; Start 04/28/18 at 23:45; Stop 05/28/18 at 13:27; Status DC Lactulose (Lactulose) 20 gm PRN TID PRN PO CONSTIPATION; Start 04/28/18 at 23: 45; Stop 05/18/18 at 12:05; Status DC Nystatin (Mycostatin) 1 rupert PRN Q12HR PRN TP ANTIFUNGAL F/RASH; Start 04/28/18 at 23:45; Stop 05/28/18 at 13:27; Status DC Pantoprazole Sodium (Protonix) 40 mg DAILYAC PO Last administered on 05/21/18at 08:58; Start 04/29/18 at 07:30; Stop 05/22/18 at 07:54; Status DC Sodium Bicarbonate 650 mg PRN Q24HRS PRN PO GI SYMPTOMS; Start 04/28/18 at 23: 45; Stop 05/28/18 at 13:27; Status DC Topiramate (Topamax) 100 mg DAILY PO Last administered on 05/28/18at 10:35; Start 04/29/18 at 09:00; Stop 05/28/18 at 13:27; Status DC Nicotine (Nicoderm Cq 7mg) 1 patch DAILY TD Last administered on 05/01/18at 08: 34; Start 04/29/18 at 09:00; Stop 05/02/18 at 15:53; Status DC Lidocaine (Lidoderm) 1 patch DAILY TD Last administered on 05/28/18at 10:37; Start 04/30/18 at 09:00; Stop 05/28/18 at 13:27; Status DC Miscellaneous (Lidoderm Patch Removal) 1 ea QHS MC Last administered on at 20:42; Start 04/30/18 at 21:00; Stop 05/28/18 at 13:27; Status DC Mirtazapine (Remeron) 7.5 mg QHS PO Last administered on 05/13/18at 19:46; Start 05/01/18 at 21:00; Stop 05/14/18 at 10:24; Status DC Clozapine (Clozaril) 25 mg QHS PO Last administered on 05/03/18 20:28; Start at 21:00; Stop 05/04/18 at 15:32; Status DC Nystatin (Nystop) 1 rupert BID TP Last administered on 05/28/18 10:34; Start 05/03 at 01:00; Stop 05/28/18 at 13:27; Status DC Clozapine (Clozaril) 50 mg QHS PO Last administered on 05/10/18 19:48; Start at 17:00; Stop 05/11/18 at 17:13; Status DC Ondansetron HCl (Zofran Odt) 4 mg PRN Q8HRS PRN PO NAUSEA/VOMITING; Start at 08:45; Stop 05/28/18 at 13:27; Status DC Trazodone HCl (Desyrel) 50 mg QHS PO Last administered on 05/12/18at 20:24; Start 05/08/18 at 21:00; Stop 05/13/18 at 18:22; Status DC Trazodone HCl (Desyrel) 50 mg PRN QHS PRN PO INSOMNIA Last administered on 05/11at 00:01; Start 05/08/18 at 16:45; Stop 05/13/18 at 18:22; Status DC Bisacodyl (Dulcolax Supp) 10 mg PRN DAILY PRN HI CONSTIPATION Last administered on 05/23/18at 20:48; Start 05/08/18 at 17:00; Stop 05/28/18 at 13:27 ; Status DC Clozapine (Clozaril) 75 mg HS PO Last administered on 05/17/18at 20:33; Start at 21:00; Stop 05/18/18 at 19:06; Status DC Trazodone HCl (Desyrel) 100 mg PRN QHS PRN PO INSOMNIA Last administered on at 01:19; Start 05/13/18 at 18:30; Stop 05/28/18 at 13:27; Status DC Trazodone HCl (Desyrel) 100 mg QHS PO Last administered on 05/27/18at 20:43; Start 05/13/18 at 21:00; Stop 05/28/18 at 13:27; Status DC Amantadine HCl (Symmetrel) 50 mg BID PO ; Start 05/14/18 at 21:00; Stop at 21:00; Status DC Benztropine Mesylate (Cogentin) 1 mg BID PO Last administered on 05/28/18at 10: 35; Start 05/14/18 at 21:00; Stop 05/28/18 at 13:27; Status DC Mirtazapine (Remeron) 15 mg QHS PO Last administered on 05/27/18at 20:42; Start 05/14/18 at 21:00; Stop 05/28/18 at 13:27; Status DC Melatonin 3 mg QHS PO Last administered on 05/14/18at 19:40; Start 05/14/18 at 21:00; Stop 05/15/18 at 19:30; Status DC Amantadine HCl (Symmetrel) 100 mg DAILY PO Last administered on 05/28/18at 10:35 ; Start 05/15/18 at 09:00; Stop 05/28/18 at 13:27; Status DC Melatonin 6 mg QHS PO Last administered on 05/27/18at 20:42; Start 05/15/18 at 21:00; Stop 05/28/18 at 13:27; Status DC Divalproex Sodium (Depakote Sprinkles) 250 mg BID PO Last administered on at 07:41; Start 05/17/18 at 21:00; Stop 05/20/18 at 18:13; Status DC Lactulose (Lactulose) 20 gm BID PO Last administered on 05/28/18at 10:34; Start 05/18/18 at 21:00; Stop 05/28/18 at 13:27; Status DC Clozapine (Clozaril) 100 mg HS PO Last administered on 05/24/18at 21:50; Start 05/18/18 at 21:00; Stop 05/25/18 at 17:46; Status DC Divalproex Sodium (Depakote Sprinkles) 500 mg BID PO Last administered on at 10:39; Start 05/20/18 at 21:00; Stop 05/25/18 at 17:46; Status DC Melatonin 3 mg HS PO ; Start 05/21/18 at 21:00; Stop 05/21/18 at 21:00; Status DC Lansoprazole (Prevacid) 30 mg DAILYAC FT Last administered on 05/23/18at 08:30; Start 05/22/18 at 10:00; Stop 05/23/18 at 15:20; Status DC Clozapine (Clozaril) 100 mg HS PO Last administered on 05/27/18at 20:43; Start 05/25/18 at 21:00; Stop 05/28/18 at 13:27; Status DC Divalproex Sodium (Depakote Sprinkles) 625 mg BID PO Last administered on at 10:35; Start 05/25/18 at 21:00; Stop 05/28/18 at 13:27; Status DC Clozapine (Clozaril) 25 mg HS PO Last administered on 05/27/18at 20:43; Start at 21:00; Stop 05/28/18 at 13:27; Status DC Active Scripts Active Reported Trazodone Hcl 100 Mg Tablet 100 Mg PO PRN QHS PRN Trazodone Hcl 100 Mg Tablet 100 Mg PO HS Clozaril (Clozapine) 25 Mg Tablet 25 Mg PO HS Clozapine 100 Mg Tablet 100 Mg PO HS Ondansetron Odt (Ondansetron) 4 Mg Tab.rapdis 4 Mg PO PRN Q8HRS PRN Nystatin 15 Gm Powder 1 Rupert TP BID Mirtazapine 15 Mg Tablet 15 Mg PO QHS Analgesic Clubb (Methyl Salicylate/Menthol) 28 Gm Oint...g. 1 Rupert TP PRN QID PRN Melatonin 3 Mg Tablet 6 Mg PO QHS Milk Of Magnesia (Magnesium Hydroxide) 2,400 Mg/10 Ml Oral.susp 2,400 Mg PO PRN QHS PRN Mag-Al Plus Suspension (Mag Hydrox/Al Hydrox/Simeth) 30 Ml Oral.susp 30 Ml PO PRN AFTMEALHC PRN [[Patch Removal]] 1 Each MC QHS Lidocaine 1 Each Adh..patch 1 Each TP DAILY Depakote Sprinkle (Divalproex Sodium) 125 Mg Cap.sprink 625 Mg PO BID Bisacodyl 10 Mg Supp.rect 10 Mg RC PRN DAILY PRN Tylenol (Acetaminophen) 325 Mg Tablet 650 Mg PO PRN Q6HRS PRN Topamax (Topiramate) 100 Mg Tablet 100 Mg PO DAILY Sodium Bicarbonate 650 Mg Tablet 650 Mg PO PRN Q24HRS PRN Lorazepam 0.5 Mg Tablet 0.5 Mg PO PRN Q4HRS PRN Nystatin 15 Gm Cream..g. 1 Rupert TP PRN Q12HR PRN Metoprolol Tartrate 25 Mg Tablet 25 Mg PO BID Lactulose 10 Gm/15 Ml Solution 20 Gm PO BID Ipratropium [place] 0.2 Mg/1 Ml Solution 0.5 Mg IH Q6HRS Hydrocodone-Apap 5-325 (Hydrocodone Bit/Acetaminophen) 1 Each Tablet 1 Tab PO PRN Q4HRS PRN Flomax (Tamsulosin Hcl) 0.4 Mg Cap.er.24h 0.4 Mg PO DAILY Famotidine 20 Mg Tablet 20 Mg PO BID Docusate Sodium 50 Mg/5 Ml Liquid 100 Mg PO BID Cardura (Doxazosin Mesylate) 2 Mg Tablet 1 Mg PO QHS Benztropine Mesylate 2 Mg Tablet 1 Mg PO BID Benadryl (Diphenhydramine Hcl) 25 Mg Capsule 25 Mg PO TID Amantadine (Amantadine Hcl) 100 Mg Tablet 100 Mg PO BID Tylenol (Acetaminophen) 325 Mg Tablet 325 Mg PO PRN Q6HRS PRN I have reviewed the current psychotropics carefully including drug interactions. Risk benefit ratio favors no change other than as noted in my dictated progress note. Diagnosis: Problems: (1) Anxiety disorder (2) Schizoaffective disorder, chronic condition with acute exacerbation CHOCO JERRY MD May 28, 2018 18:08
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
--- NOTE | 2018-05-29 22:18 | PN ---
DATE: 05/27/2018 This is a late entry for 05/27/2018 covers elements not covered in my initial note. SUBJECTIVE: I met with the patient in the evening. The patient slept 7-1/2 hours previous night, remains somewhat withdrawn, less paranoid, takes meds crushed. REVIEW OF SYSTEMS: No CV, , pulmonary, eye, ENT system symptoms on review. Gait unsteady, in Broda chair. MENTAL STATUS EXAM: Oriented to himself and situation. Speech, moderate latency, often responses monosyllabic. Abstraction fair, computation impaired, language function intact. Mood and affect is improved, less labile, not aggressive, less psychotic. LABORATORY DATA: Reviewed. IMPRESSION: Schizoaffective disorder, bipolar type, mixed with psychotic features. Rest unchanged including cognitive disorder, unspecified. PLAN: No change from initial note. MAN Jameson JERRY MD DR: BRIELLE/naman JOB#: [id number] / [id number]
== END 2018-05-28 13:26 | DRG 885 ==
LOC: ER 17:46 → GEROPSY 22:37
PROVIDERS: ADMIT Psychiatry & Neurology Psychiatry; ATTEND Psychiatry & Neurology Psychiatry
DX: F25.0 Schizoaffective disorder, bipolar type (principal); G25.9 Extrapyramidal and movement disorder, unspecified; F02.81 Dementia in other diseases classified elsewhere, unspecified severity, with behavioral disturbance; F01.51 Vascular dementia, unspecified severity, with behavioral disturbance; E78.5 Hyperlipidemia, unspecified; F09 Unspecified mental disorder due to known physiological condition; F63.9 Impulse disorder, unspecified; G24.01 Drug induced subacute dyskinesia; G30.9 Alzheimer's disease, unspecified; I12.9 Hypertensive chronic kidney disease with stage 1 through stage 4 chronic kidney disease, or unspecified chronic kidney disease; I48.0 Paroxysmal atrial fibrillation; I73.9 Peripheral vascular disease, unspecified; K21.9 Gastro-esophageal reflux disease without esophagitis; L89.151 Pressure ulcer of sacral region, stage 1; N18.9 Chronic kidney disease, unspecified; K59.09 Other constipation; N40.0 Benign prostatic hyperplasia without lower urinary tract symptoms; F91.9 Conduct disorder, unspecified; F17.210 Nicotine dependence, cigarettes, uncomplicated; R13.10 Dysphagia, unspecified; S70.02XA Contusion of left hip, initial encounter; Z66 Do not resuscitate; Z79.899 Other long term (current) drug therapy; Z91.81 History of falling
CPT/HCPCS: 36415; 70450; 73502; 74176; 80053; 80061; 80164; 80307; 81001; 82306; 82607; 83036; 83540; 83550; 83735; 84436; 84443; 84480; 85025; 86592; 93005; 94640; G0480; G6039; J7644; Q0163; 82003; 99285-25; G0479

== ENCOUNTER 2018-08-06 16:43 | Inpatient (IN) | payer MEDICARE, OTHER ==
[~2018-08-06] VITALS: Ht 177.8 cm; Wt 88.5 kg
[~2018-08-06 16:43] MED LIST: ACET325T9 PO; AMAN100T PO; BENZ2TAB5 PO; BISA10SU2 RC; CAST120O TP; CLOZ100T7 PO; CLOZ25TA PO; DIPH25CA58 PO; DIVA125C2 PO; DOCU50LI PO; DOXA2TAB PO; FAMO20TA5 PO; HYDR-2155 PO; IPRA0.2S5 IH; IPRA3AMP29 NEB; LACT10SO PO; LIDO700A39 TP; LORA0.5T PO; MAG30ORA PO; MAGN2400 PO; MELA3TAB2 PO; METH29OI TP; METO25TA4 PO; MIRT15TA3 PO; NYST15CR TP; NYST15PO9 TP; ONDA4TAB12 PO; PANT40TA3 PO; REMOVAL MC; SODI650T PO; TAMS0.4C97 PO; TOPI100T42 PO; TRAZ-86 PO
--- NOTE | 2018-08-06 17:36 | EKG ---
[address] [address] Test Date: 2018-08-06 Test Time: 17:32:55 Pat Name: CHAZ NOLAND Department: Room: Gender: M Healthcare Project Manager: : 1950 Requested By: MINDY CASTRO Order Number: [id number] Reading MD: Keven Gonzáles Measurements Intervals Bernard Rate: 78 P: 23 DC: 212 QRS: 31 QRSD: 104 T: 35 QT: 336 QTc: 386 Interpretive Statements SINUS RHYTHM Electronically Signed On 08-18-2018 9:14:18 [employer] by Keven Gonzáles
[2018-08-06 17:38] LABS: BASO % 0 % (0-3); EOS % 1 % (0-3); HEMATOCRIT 27.4 % (39.0-53.0); HEMOGLOBIN 9.2 g/dL (13.0-17.5); LYMPH # 1.9 x10^3/uL (1.0-4.8); LYMPH % 33 % (24-48); MEAN CORPUSCULAR HEMOGLOBIN 34 pg (25-35); MEAN CORPUSCULAR HGB CONC 34 g/dL (31-37); MEAN CORPUSCULAR VOLUME 100 fL (79-100); MONO # 0.5 x10^3/uL (0.0-1.1); MONO % 8 % (0-9); NEUT # 3.5 x10^3uL (1.8-7.7); NEUT % 58 % (31-73); PLATELET COUNT 237 x10^3/uL (140-400); RED BLOOD COUNT 2.76 x10^6/uL (4.30-5.70); RED CELL DISTRIBUTION WIDTH 15.6 % (11.5-14.5)
--- NOTE | 2018-08-06 17:39 | PHYS DOC ---
Past History Past Medical History: A-Fib, Anxiety, GERD, Hypertension, MRSA, Renal Disease, Schizophrenia, Other Past Surgical History: Other Adult General Chief Complaint Chief Complaint: PSYCH EVALUATION HPI HPI Patient is a 68 year old male patient resident of detention with history of dementia brought in for medical clearance for psychiatric admission. Patient has dementia and alert and oriented 1 and denies any problem at detention and states he had behavioral problems and actually received attitude against staff and other residents. Review of Systems Review of Systems Constitutional: Denies fever or chills [] Eyes: Denies change in visual acuity, redness, or eye pain [] HENT: Denies nasal congestion or sore throat [] Respiratory: Denies cough or shortness of breath [] Cardiovascular: No additional information not addressed in HPI [] GI: Denies abdominal pain, nausea, vomiting, bloody stools or diarrhea [] : Denies dysuria or hematuria [] Musculoskeletal: Denies back pain or joint pain [] Integument: Denies rash or skin lesions [] Neurologic: Denies headache, focal weakness or sensory changes [] Endocrine: Denies polyuria or polydipsia [] All other systems were reviewed and found to be within normal limits, except as documented in this note. Allergies Allergies Allergies Coded Allergies Type Severity Reaction Last Updated Verified No Known Drug Allergies 04/28/18 No Physical Exam Physical Exam Constitutional: Well nourished, no acute distress, non-toxic appearance. [] HENT: Normocephalic, atraumatic Eyes: PERRLA, EOMI, conjunctiva normal, no discharge. [] Neck: Normal range of motion, no tenderness, supple, no stridor. [] Cardiovascular:Heart rate regular rhythm, no murmur [] Lungs & Thorax: Bilateral breath sounds clear to auscultation [] Abdomen: Bowel sounds normal, soft, no tenderness, no masses, no pulsatile masses. [] Skin: Warm, dry, no erythema, no rash. [] Back: No tenderness, no CVA tenderness. [] Extremities: No tenderness, no cyanosis, no clubbing, ROM intact, no edema. [] Neurologic: Alert and oriented X 1, normal motor function, normal sensory function, no focal deficits noted. [] Psychologic: Affect normal, mood normal. [] EKG EKG EKG interpreted by me. EKG at 1732 showed normal sinus rhythm at rate of 78, no acute ST and T-wave abnormalities Radiology/Procedures Radiology/Procedures [] Course & Med Decision Making Course & Med Decision Making Pertinent Labs are pending. Patient care transferred to Dr. Browning at 1800 DX uti bacttrim DS BID for 7 days Sangeeta Disclaimer Dragon Disclaimer This electronic medical record was generated, in whole or in part, using a voice recognition dictation system. Departure Departure: Impression: Primary Impression: Medical clearance for psychiatric admission Referrals: NEVAEH SKELTON MD (PCP) MINDY CASTRO MD Aug 06, 2018 17:38 DEZ BROWNING MD Aug 06, 2018 18:42
[2018-08-06 17:51] LABS: ALBUMIN 2.7 g/dL (3.4-5.0); ALBUMIN/GLOBULIN RATIO 0.6 (1.0-1.7); CALCIUM 8.7 mg/dL (8.5-10.1); CREATININE 1.2 mg/dL (0.7-1.3); GFR 60.2; MAGNESIUM 2.1 mg/dL (1.8-2.4); POTASSIUM 4.9 mmol/L (3.5-5.1); TOTAL BILIRUBIN 0.2 mg/dL (0.2-1.0); TOTAL PROTEIN 6.9 g/dL (6.4-8.2)
[2018-08-06 18:35] LABS: BACTERIA,URINE MANY /HPF (0-FEW); BILIRUBIN,URINE NEG (NEG); CLARITY,URINE CLOUDY; COLOR,URINE YELLOW; GLUCOSE,URINE NEG (NEG); NITRITE,URINE POS (NEG); SQUAMOUS EPITHELIAL CELL,UR FEW /LPF; UROBILINOGEN,URINE 0.2 mg/dL (0.2 mg/dL); WBC,URINE 20-40 /HPF (0-4)
[2018-08-06] MEDS ORDERED: SMZ/TMP 800/160MG TABLET. PO ONE (18:45)
[2018-08-06 19:00] VITALS: BP 118/72
[2018-08-06] MEDS ORDERED: METHYL SALICYLATE/MENTHOL TOPICAL OINTMENT 29GM TUBE. TP PRN (21:45)
[2018-08-06] MEDS ORDERED: ACETAMINOPHEN 325 MG TABLET PO PRN (21:45)
[2018-08-06] MEDS ORDERED: MAG HYDROX/AL HYDROX/SIMETH 30 ML ORAL.SUSP PO PRN (21:45)
[2018-08-06] MEDS ORDERED: MAGNESIUM HYDROXIDE 2,400 MG/30 ML ORAL.SUSP. PO PRN (21:45)
[2018-08-06] MEDS ORDERED: TOPI25TA7 PO (22:25)
[2018-08-06] MEDS ORDERED: NICO1PAT25 TD (22:25)
[2018-08-06] MEDS ORDERED: ASCO500T2 PO (22:25)
[2018-08-06] MEDS ORDERED: ZINC100T PO (22:25)
[2018-08-06] MEDS ORDERED: AMIN30LI PO (22:25)
[2018-08-06] MEDS ORDERED: LISI-334 PO (22:25)
[2018-08-06] MEDS ORDERED: MULT1TAB52 PO (22:25)
[2018-08-06] MEDS ORDERED: HALO5TAB PO (22:25)
--- NOTE | 2018-08-06 22:45 | PDOC ---
Exam Note: Elijah Note: Please also refer to the separate dictated note~for this date of service dictated separately. Discussed the patient with Nursing staff reviewed the chart.~Reviewed interim history and current functioning. Reviewed vital signs,~ Labs/ Radiology~and current medications noted below. Continue current treatment with the changes noted in the dictated addendum note Assessment: Vital Signs: Vital Signs Date Time Temp Pulse Resp B/P (MAP) Pulse Ox O2 Delivery O2 Flow Rate FiO2 08/06/18 18:06 80 16 110/60 (77) 99 Room Air 08/06/18 17:05 97.7 Labs: Laboratory Tests Test 08/06/18 17:20 08/06/18 17:55 White Blood Count 6.0 x10^3/uL (4.0-11.0) Red Blood Count 2.76 x10^6/uL (4.30-5.70) L Hemoglobin 9.2 g/dL (13.0-17.5) L Hematocrit 27.4 % (39.0-53.0) L Mean Corpuscular Volume 100 fL (79-100) Mean Corpuscular Hemoglobin 34 pg (25-35) Mean Corpuscular Hemoglobin Concent 34 g/dL (31-37) Red Cell Distribution Width 15.6 % (11.5-14.5) H Platelet Count 237 x10^3/uL (140-400) Neutrophils (%) (Auto) 58 % (31-73) Lymphocytes (%) (Auto) 33 % (24-48) Monocytes (%) (Auto) 8 % (0-9) Eosinophils (%) (Auto) 1 % (0-3) Basophils (%) (Auto) 0 % (0-3) Neutrophils # (Auto) 3.5 x10^3uL (1.8-7.7) Lymphocytes # (Auto) 1.9 x10^3/uL (1.0-4.8) Monocytes # (Auto) 0.5 x10^3/uL (0.0-1.1) Eosinophils # (Auto) 0.0 x10^3/uL (0.0-0.7) Basophils # (Auto) 0.0 x10^3/uL (0.0-0.2) Sodium Level 135 mmol/L (136-145) L Potassium Level 4.9 mmol/L (3.5-5.1) Chloride Level 99 mmol/L (98-107) Carbon Dioxide Level 26 mmol/L (21-32) Anion Gap 10 (6-14) Blood Urea Nitrogen 36 mg/dL (8-26) H Creatinine 1.2 mg/dL (0.7-1.3) Estimated GFR (Cockcroft-Gault) 60.2 BUN/Creatinine Ratio 30 (6-20) H Glucose Level 100 mg/dL (70-99) H Calcium Level 8.7 mg/dL (8.5-10.1) Magnesium Level 2.1 mg/dL (1.8-2.4) Total Bilirubin 0.2 mg/dL (0.2-1.0) Aspartate Amino Transferase (AST) 18 U/L (15-37) Alanine Aminotransferase (ALT) 22 U/L (16-63) Alkaline Phosphatase 134 U/L (46-116) H Total Protein 6.9 g/dL (6.4-8.2) Albumin 2.7 g/dL (3.4-5.0) L Albumin/Globulin Ratio 0.6 (1.0-1.7) L Urine Collection Type Unknown Urine Color Yellow Urine Clarity Cloudy Urine pH 6.5 Urine Specific [place] 1.015 Urine Protein Neg (NEG-TRACE) Urine Glucose (UA) Neg mg/dL (NEG) Urine Ketones (Stick) Neg mg/dL (NEG) Urine Blood Neg (NEG) Urine Nitrite Pos (NEG) Urine Bilirubin Neg (NEG) Urine Urobilinogen Dipstick 0.2 mg/dL (0.2 mg/dL) Urine Leukocyte Esterase Small (NEG) Urine RBC 3-5 /HPF (0-2) Urine WBC 20-40 /HPF (0-4) Urine Squamous Epithelial Cells Few /LPF Urine Bacteria Many /HPF (0-FEW) Current Medications: Meds: Current Medications Trimethoprim/ Sulfamethoxazole (Bactrim Ds) 1 tab 1X ONCE PO Last administered on 08/06/18at 18:50; Start 08/06/18 at 18:45; Stop 08/06/18 at 18:46 ; Status DC Acetaminophen (Tylenol) 650 mg PRN Q6HRS PRN PO PAIN / TEMP; Start 08/06/18 at 21:45 Multi-Ingredient Ointment (Analgesic [place]) 1 rupert PRN QID PRN TP MUSCLE PAIN; Start 08/06/18 at 21:45 Al Hydroxide/Mg Hydroxide (Mylanta Plus Xs) 15 ml PRN AFTMEALHC PRN PO DYSPEPSIA; Start 08/06/18 at 21:45 Magnesium Hydroxide (Milk Of Magnesia) 2,400 mg PRN QHS PRN PO CONSTIPATION; Start 08/06/18 at 21:45 Active Scripts Active Reported Zinc Gluconate 100 Mg Tablet 220 Mg PO DAILY 3 Days Vitamin C (Ascorbic Acid) 500 Mg Tablet 500 Mg PO BID Pro-Stat Liquid (Amino Acids/Protein Hydrolys) 30 Ml Liquid 30 Ml PO BID 3 Days NICODERM CQ 14mg (Nicotine) 1 Each Patch.td24 1 Patch TD DAILY Multivitamins (Multivitamin) 1 Each Tablet 1 Each PO DAILY 4 Days Lisinopril 20 Mg Tablet 20 Mg PO DAILY Haloperidol 5 Mg Tablet 5 Mg PO PRN Q6HRS PRN Topiramate 25 Mg Tablet 25 Mg PO BID Trazodone Hcl 100 Mg Tablet 100 Mg PO PRN QHS PRN Trazodone Hcl 100 Mg Tablet 100 Mg PO HS Clozaril (Clozapine) 25 Mg Tablet 25 Mg PO HS Clozapine 100 Mg Tablet 100 Mg PO BID Ondansetron Odt (Ondansetron) 4 Mg Tab.rapdis 4 Mg PO PRN Q8HRS PRN Nystatin 15 Gm Powder 1 Rupert TP BID Mirtazapine 15 Mg Tablet 15 Mg PO QHS Analgesic [place] (Methyl Salicylate/Menthol) 28 Gm Oint...g. 1 Rupert TP PRN QID PRN Melatonin 3 Mg Tablet 6 Mg PO QHS Milk Of Magnesia (Magnesium Hydroxide) 2,400 Mg/10 Ml Oral.susp 2,400 Mg PO PRN QHS PRN Mag-Al Plus Suspension (Mag Hydrox/Al Hydrox/Simeth) 30 Ml Oral.susp 30 Ml PO PRN AFTMEALHC PRN [[Patch Removal]] 1 Each MC QHS Lidocaine 1 Each Adh..patch 1 Each TP DAILY Depakote Sprinkle (Divalproex Sodium) 125 Mg Cap.sprink 625 Mg PO BID Bisacodyl 10 Mg Supp.rect 10 Mg RC PRN DAILY PRN Tylenol (Acetaminophen) 325 Mg Tablet 650 Mg PO PRN Q6HRS PRN Sodium Bicarbonate 650 Mg Tablet 650 Mg PO PRN Q24HRS PRN Lorazepam 0.5 Mg Tablet 1 Mg PO PRN Q4HRS PRN Nystatin 15 Gm Cream..g. 1 Rupert TP PRN Q12HR PRN Metoprolol Tartrate 25 Mg Tablet 25 Mg PO BID Lactulose 10 Gm/15 Ml Solution 20 Gm PO BID Ipratropium Center 0.2 Mg/1 Ml Solution 0.5 Mg IH Q6HRS Hydrocodone-Apap 5-325 (Hydrocodone Bit/Acetaminophen) 1 Each Tablet 1 Tab PO PRN Q4HRS PRN Flomax (Tamsulosin Hcl) 0.4 Mg Cap.er.24h 0.4 Mg PO DAILY Famotidine 20 Mg Tablet 20 Mg PO BID Docusate Sodium 50 Mg/5 Ml Liquid 100 Mg PO BID Cardura (Doxazosin Mesylate) 2 Mg Tablet 1 Mg PO QHS Benztropine Mesylate 2 Mg Tablet 1 Mg PO BID Benadryl (Diphenhydramine Hcl) 25 Mg Capsule 25 Mg PO TID Amantadine (Amantadine Hcl) 100 Mg Tablet 100 Mg PO BID Tylenol (Acetaminophen) 325 Mg Tablet 325 Mg PO PRN Q6HRS PRN I have reviewed the current psychotropics carefully including drug interactions. Risk benefit ratio favors no change other than as noted in my dictated progress note. Diagnosis: Problems: (1) Schizophrenia, chronic condition with acute exacerbation (2) Anxiety disorder (3) Schizoaffective disorder, chronic condition with acute exacerbation CHOCO JERRY MD Aug 06, 2018 22:44
[2018-08-07] MEDS ORDERED: HYDROcodone/APAP 5/325MG 1 TAB TABLET PO PRN (03:00)
[2018-08-07 06:02] VITALS: BP 112/86
[2018-08-07] MEDS ORDERED: ONDANSETRON ODT 4 MG TAB.RAPDIS PO PRN (07:45)
[2018-08-07] MEDS ORDERED: BISACODYL 10 MG SUPP.RECT PR PRN (07:45)
[2018-08-07] MEDS ORDERED: MAGNESIUM HYDROXIDE 2,400 MG/30 ML ORAL.SUSP. PO PRN (07:45)
[2018-08-07] MEDS ORDERED: MAG HYDROX/AL HYDROX/SIMETH 30 ML ORAL.SUSP PO PRN (07:45)
[2018-08-07] MEDS ORDERED: HALOPERIDOL 5 MG TABLET PO PRN (07:45)
[2018-08-07] MEDS ORDERED: LORazepam 1 MG TABLET PO PRN (07:45)
[2018-08-07] MEDS ORDERED: NON FORMULARY ITEM (Amino Acids/Protein Hydrolys (Pro-Stat Liquid) 30 ML) PO SCH (09:00)
[2018-08-07] MEDS: NICOTINE 14MG PATCH. TD SCH (09:00)
[2018-08-07] MEDS: ZINC SULFATE 220 MG CAPSULE. PO SCH (09:09)
[2018-08-07] MEDS: DOCUSATE 100 MG/10 ML SOLUTION. PO SCH ×2 (09:09→21:11)
[2018-08-07] MEDS: LACTULOSE 20 GM/30 ML SOLUTION. PO SCH ×2 (09:09→21:11)
[2018-08-07] MEDS: LISINOPRIL 20 MG TABLET PO SCH (09:10)
[2018-08-07] MEDS: FAMOTIDINE 20 MG TABLET PO SCH ×2 (09:10→21:11)
[2018-08-07] MEDS: TAMSULOSIN 0.4 MG CAP.ER.24H. PO SCH (09:10)
[2018-08-07] MEDS: TOPIRAMATE 25 MG TABLET. PO SCH ×2 (09:10→21:10)
[2018-08-07] MEDS: MULTIVITAMIN with MINERAL TABLET. PO SCH (09:10)
[2018-08-07] MEDS: ASCORBIC ACID 500 MG TABLET PO SCH ×2 (09:10→21:10)
[2018-08-07] MEDS: cloZAPine 100 MG TABLET PO SCH ×2 (09:11→21:10)
[2018-08-07 13:29] LABS: THYROID STIM HORMONE (TSH) 1.399 uIU/mL (0.358-3.740)
[2018-08-07 16:45] VITALS: BP 90/51
[2018-08-07 18:08] LABS: THYROXINE 5.9 ug/dL (4.5-12.0)
[2018-08-07] MEDS ORDERED: REMOVAL MC SCH (21:00)
[2018-08-07] MEDS: traZODone 100 MG TABLET. PO SCH (21:10)
[2018-08-07] MEDS: AMOXICILLIN 250 MG CAPSULE PO SCH (21:10)
[2018-08-07] MEDS: DIVALPROEX 125 MG CAP.SPRINK PO SCH (21:11)
[2018-08-07] MEDS: MELATONIN 3 MG TABLET PO SCH (21:11)
[2018-08-07] MEDS: LACTOBACILLUS RHAMNOSUS GG 1 CAPSULE. PO SCH (21:11)
--- NOTE | 2018-08-07 22:28 | PDOC ---
Exam Note: Elijah Note: Please also refer to the separate dictated note~for this date of service dictated separately.~Patient seen individually. Discussed the patient with Nursing staff reviewed the chart.~Reviewed interim history and current functioning. Reviewed vital signs,~Labs/ Radiology~and current medications noted below. Continue current treatment with the changes noted in the dictated addendum note Assessment: Vital Signs: Vital Signs Date Time Temp Pulse Resp B/P (MAP) Pulse Ox O2 Delivery O2 Flow Rate FiO2 08/07/18 16:45 97.7 80 16 90/51 (64) 100 Room Air Current Medications: Meds: Current Medications Trimethoprim/ Sulfamethoxazole (Bactrim Ds) 1 tab 1X ONCE PO Last administered on 08/06/18at 18:50; Start 08/06/18 at 18:45; Stop 08/06/18 at 18:46 ; Status DC Acetaminophen (Tylenol) 650 mg PRN Q6HRS PRN PO PAIN / TEMP; Start 08/06/18 at 21:45 Multi-Ingredient Ointment (Analgesic [place]) 1 pedrito PRN QID PRN TP MUSCLE PAIN; Start 08/06/18 at 21:45 Al Hydroxide/Mg Hydroxide (Mylanta Plus Xs) 15 ml PRN AFTMEALHC PRN PO DYSPEPSIA; Start 08/06/18 at 21:45; Stop 08/07/18 at 13:58; Status DC Magnesium Hydroxide (Milk Of Magnesia) 2,400 mg PRN QHS PRN PO CONSTIPATION; Start 08/06/18 at 21:45; Stop 08/07/18 at 13:57; Status DC Ascorbic Acid (Vitamin C) 500 mg BID PO Last administered on 08/07/18at 21:10; Start 08/07/18 at 09:00 Docusate Sodium (Colace Solution) 100 mg BID PO Last administered on 08/07/18at 21:11; Start 08/07/18 at 09:00 Acetaminophen/ Hydrocodone Bitart (Lortab 5/325) 1 tab PRN Q4HRS PRN PO PAIN; Start 08/07/18 at 03:00 Lisinopril (Prinivil) 20 mg DAILY PO Last administered on 08/07/18at 09:10; Start 08/07/18 at 09:00 Tamsulosin HCl (Flomax) 0.4 mg DAILY PO Last administered on 08/07/18at 09:10; Start 08/07/18 at 09:00 Non-Formulary Medication (Amino Acids/ Protein Hydrolys (Pro-Stat Liquid)) 30 ml BID PO ; Start 08/07/18 at 09:00; Stop 08/07/18 at 09:00; Status DC Bisacodyl (Dulcolax Supp) 10 mg PRN DAILY PRN [place] CONSTIPATION; Start 08/07/18 at 07:45 Clozapine (Clozaril) 100 mg BID PO Last administered on 08/07/18at 21:10; Start 08/07/18 at 09:00 Famotidine (Pepcid) 20 mg BID PO Last administered on 08/07/18 21:11; Start 08/07/18 at 09:00 Haloperidol (Haldol) 5 mg PRN Q6HRS PRN PO AGITATION Last administered on 11:18; Start 08/07/18 at 07:45 Lactulose (Lactulose) 20 gm BID PO Last administered on 08/07/18at 21:11; Start 08/07/18 at 09:00 Lorazepam (Ativan) 1 mg PRN Q4HRS PRN PO ANXIETY / AGITATION Last administered on 08/07/18at 11:18; Start 08/07/18 at 07:45 Al Hydroxide/Mg Hydroxide (Mylanta Plus Xs) 30 ml PRN AFTMEALHC PRN PO DYSPEPSIA; Start 08/07/18 at 07:45 Magnesium Hydroxide (Milk Of Magnesia) 2,400 mg PRN QHS PRN PO CONSTIPATION; Start 08/07/18 at 07:45 Melatonin 6 mg QHS PO Last administered on 08/07/18at 21:11; Start 08/07/18 at 21:00 Multivitamins/ Calcium (Thera-M Plus) 1 tab DAILY PO Last administered on at 09:10; Start 08/07/18 at 09:00 Nicotine (Nicoderm Cq 14mg) 1 patch DAILY TD ; Start 08/07/18 at 09:00 Ondansetron HCl (Zofran Odt) 4 mg PRN Q8HRS PRN PO NAUSEA/VOMITING; Start 08/07 at 07:45 Topiramate (Topamax) 25 mg BID PO Last administered on 12/7/18at 21:10; Start 08/07/18 at 09:00 Trazodone HCl (Desyrel) 100 mg QHS PO Last administered on 08/07/18at 21:10; Start 08/07/18 at 21:00 Zinc Sulfate (Orazinc) 220 mg DAILY PO Last administered on 08/07/18 09:09; Start 08/07/18 at 09:00 Non-Formulary Medication ([[Patch Removal]] ) 1 each QHS MC ; Start 08/07/18 at 21:00; Status UNV Amoxicillin (Amoxil) 250 mg [id number] PO Last administered on 08/07/18 21:10; Start 08/07/18 at 21:00 Lactobacillus Rhamnosus (Culturelle) 1 cap BID PO Last administered on 21:11; Start 08/07/18 at 21:00 Divalproex Sodium (Depakote Sprinkles) 500 mg BID PO Last administered on at 21:11; Start 08/07/18 at 21:00 Active Scripts Active Reported Zinc Gluconate 100 Mg Tablet 220 Mg PO DAILY 3 Days Vitamin C (Ascorbic Acid) 500 Mg Tablet 500 Mg PO BID Pro-Stat Liquid (Amino Acids/Protein Hydrolys) 30 Ml Liquid 30 Ml PO BID 3 Days NICODERM CQ 14mg (Nicotine) 1 Each Patch.td24 1 Patch TD DAILY Multivitamins (Multivitamin) 1 Each Tablet 1 Each PO DAILY 4 Days Lisinopril 20 Mg Tablet 20 Mg PO DAILY Haloperidol 5 Mg Tablet 5 Mg PO PRN Q6HRS PRN Topiramate 25 Mg Tablet 25 Mg PO BID Trazodone Hcl 100 Mg Tablet 100 Mg PO PRN QHS PRN Trazodone Hcl 100 Mg Tablet 100 Mg PO HS Clozapine 100 Mg Tablet 100 Mg PO BID Ondansetron Odt (Ondansetron) 4 Mg Tab.rapdis 4 Mg PO PRN Q8HRS PRN Melatonin 3 Mg Tablet 6 Mg PO QHS Milk Of Magnesia (Magnesium Hydroxide) 2,400 Mg/10 Ml Oral.susp 2,400 Mg PO PRN QHS PRN Mag-Al Plus Suspension (Mag Hydrox/Al Hydrox/Simeth) 30 Ml Oral.susp 30 Ml PO PRN AFTMEALHC PRN [[Patch Removal]] 1 Each QHS Bisacodyl 10 Mg Supp.rect 10 Mg RC PRN DAILY PRN Lorazepam 0.5 Mg Tablet 1 Mg PO PRN Q4HRS PRN Lactulose 10 Gm/15 Ml Solution 20 Gm PO BID Hydrocodone-Apap 5-325 (Hydrocodone Bit/Acetaminophen) 1 Each Tablet 1 Tab PO PRN Q4HRS PRN Flomax (Tamsulosin Hcl) 0.4 Mg Cap.er.24h 0.4 Mg PO DAILY Famotidine 20 Mg Tablet 20 Mg PO BID Docusate Sodium 50 Mg/5 Ml Liquid 100 Mg PO BID I have reviewed the current psychotropics carefully including drug interactions. Risk benefit ratio favors no change other than as noted in my dictated progress note. Diagnosis: Problems: (1) Anxiety disorder (2) Schizophrenia, chronic condition with acute exacerbation (3) Schizoaffective disorder, chronic condition with acute exacerbation CHOCO JERRY MD Aug 07, 2018 22:28
[2018-08-08 05:43] VITALS: BP 103/54
[2018-08-08] MEDS: DOCUSATE 100 MG/10 ML SOLUTION. PO SCH ×2 (08:20→20:43)
[2018-08-08] MEDS: LACTULOSE 20 GM/30 ML SOLUTION. PO SCH ×2 (08:20→20:43)
[2018-08-08] MEDS: NICOTINE 14MG PATCH. TD SCH (08:20)
[2018-08-08] MEDS: LACTOBACILLUS RHAMNOSUS GG 1 CAPSULE. PO SCH ×2 (08:21→20:42)
[2018-08-08] MEDS: cloZAPine 100 MG TABLET PO SCH ×2 (08:22→20:42)
[2018-08-08] MEDS: LISINOPRIL 20 MG TABLET PO SCH (08:22)
[2018-08-08] MEDS: MULTIVITAMIN with MINERAL TABLET. PO SCH (08:23)
[2018-08-08] MEDS: ASCORBIC ACID 500 MG TABLET PO SCH ×2 (08:23→20:42)
[2018-08-08] MEDS: TOPIRAMATE 25 MG TABLET. PO SCH ×2 (08:23→20:42)
[2018-08-08] MEDS: DIVALPROEX 125 MG CAP.SPRINK PO SCH ×2 (08:23→20:43)
[2018-08-08] MEDS: FAMOTIDINE 20 MG TABLET PO SCH ×2 (08:23→20:42)
[2018-08-08] MEDS: ZINC SULFATE 220 MG CAPSULE. PO SCH (08:23)
[2018-08-08] MEDS: TAMSULOSIN 0.4 MG CAP.ER.24H. PO SCH (08:23)
[2018-08-08] MEDS: AMOXICILLIN 250 MG CAPSULE PO SCH ×3 (08:23→20:42)
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
[2018-08-08 15:41] VITALS: BP 95/63
[2018-08-08] MEDS: MELATONIN 3 MG TABLET PO SCH (20:42)
[2018-08-08] MEDS: traZODone 100 MG TABLET. PO SCH (20:42)
--- NOTE | 2018-08-09 01:12 | PN ---
DATE: 08/08/2018 SUBJECTIVE: The patient was seen today, met with the staff, chart reviewed and also covering for Dr. Laird. The patient is still irritable, increased anxiety. Currently on wheelchair. The patient complains of increased appetite, wanting to eat all the time. The patient's behavior is unpredictable at times. He is also exhibiting significant cognitive deficits. OBSERVATION: VITAL SIGNS: Temperature 97.9, blood pressure 103/54, pulse 78, respirations 24, O2 sat 99%. Slept about 6 hours last night. MEDICATIONS: Reviewed. Currently on Depakote 500 mg b.i.d., trazodone 100 mg at night, melatonin 6 mg at night, Topamax 25 mg b.i.d., Clozapine 100 mg b.i.d., Haldol 5 mg p.r.n. q.6 hours. LABORATORY DATA: RBC was 2.76, hemoglobin 9.2. The patient's other lab values are within normal range. ASSESSMENT: Schizoaffective disorder, bipolar type, mixed with psychotic features; cognitive disorder, mild. PLAN: Continue with the current treatment. DRE HINDS MD DR: DILLON/naman JOB#: [id number] / [id number]
[2018-08-09 06:01] VITALS: BP 93/57
[2018-08-09] MEDS: AMOXICILLIN 250 MG CAPSULE PO SCH ×3 (09:14→21:06)
[2018-08-09] MEDS: LACTULOSE 20 GM/30 ML SOLUTION. PO SCH ×2 (09:14→21:06)
[2018-08-09] MEDS: DOCUSATE 100 MG/10 ML SOLUTION. PO SCH ×2 (09:14→21:06)
[2018-08-09] MEDS: LACTOBACILLUS RHAMNOSUS GG 1 CAPSULE. PO SCH ×2 (09:14→21:06)
[2018-08-09] MEDS: TOPIRAMATE 25 MG TABLET. PO SCH ×2 (09:14→21:07)
[2018-08-09] MEDS: ZINC SULFATE 220 MG CAPSULE. PO SCH (09:14)
[2018-08-09] MEDS: DIVALPROEX 125 MG CAP.SPRINK PO SCH ×2 (09:15→21:07)
[2018-08-09] MEDS: FAMOTIDINE 20 MG TABLET PO SCH ×2 (09:15→21:06)
[2018-08-09] MEDS: TAMSULOSIN 0.4 MG CAP.ER.24H. PO SCH (09:15)
[2018-08-09] MEDS: cloZAPine 100 MG TABLET PO SCH ×2 (09:15→21:06)
[2018-08-09] MEDS: MULTIVITAMIN with MINERAL TABLET. PO SCH (09:15)
[2018-08-09] MEDS: ASCORBIC ACID 500 MG TABLET PO SCH ×2 (09:15→21:06)
[2018-08-09] MEDS: LISINOPRIL 20 MG TABLET PO SCH (09:15)
[2018-08-09] MEDS: NICOTINE 14MG PATCH. TD SCH (09:15)
[2018-08-09 16:31] VITALS: BP 90/67
[2018-08-09] MEDS: traZODone 100 MG TABLET. PO SCH (21:06)
[2018-08-09] MEDS: MELATONIN 3 MG TABLET PO SCH (21:06)
--- NOTE | 2018-08-09 22:02 | PN ---
DATE: 08/09/2018 SUBJECTIVE: The patient was seen today, met with the staff, chart reviewed. The patient continues to isolate himself, somewhat intrusive and constantly asking for food. The patient has not presented with any major behavior problems except that these periods of agitation and argumentative with the staff and problems with impulse control. OBSERVATION: VITAL SIGNS: Temperature 97.5, blood pressure 93/57, pulse 72, respirations 16, O2 sat 100%. Slept about 8 hours last night. The patient is not having any side effects. LABORATORY DATA: Reviewed. ASSESSMENT: 1. Schizoaffective disorder, bipolar type, mixed with psychotic features. 2. Cognitive disorder, mild. PLAN: Continue with the treatment. DRE HINDS MD DR: DILLON/naman JOB#: [id number] / [id number]
[2018-08-10 06:03] VITALS: BP 97/43
[2018-08-10] MEDS: TAMSULOSIN 0.4 MG CAP.ER.24H. PO SCH (07:51)
[2018-08-10] MEDS: AMOXICILLIN 250 MG CAPSULE PO SCH ×3 (07:51→20:26)
[2018-08-10] MEDS: NICOTINE 14MG PATCH. TD SCH (07:51)
[2018-08-10] MEDS: ZINC SULFATE 220 MG CAPSULE. PO SCH (07:51)
[2018-08-10] MEDS: DIVALPROEX 125 MG CAP.SPRINK PO SCH ×2 (07:51→20:27)
[2018-08-10] MEDS: MULTIVITAMIN with MINERAL TABLET. PO SCH (07:52)
[2018-08-10] MEDS: FAMOTIDINE 20 MG TABLET PO SCH ×2 (07:52→20:26)
[2018-08-10] MEDS: ASCORBIC ACID 500 MG TABLET PO SCH ×2 (07:52→20:27)
[2018-08-10] MEDS: DOCUSATE 100 MG/10 ML SOLUTION. PO SCH ×2 (07:53→20:28)
[2018-08-10] MEDS: LACTOBACILLUS RHAMNOSUS GG 1 CAPSULE. PO SCH ×2 (07:54→20:27)
[2018-08-10] MEDS: LACTULOSE 20 GM/30 ML SOLUTION. PO SCH ×2 (07:54→20:28)
[2018-08-10] MEDS: TOPIRAMATE 25 MG TABLET. PO SCH ×2 (07:54→20:26)
[2018-08-10] MEDS: cloZAPine 100 MG TABLET PO SCH ×2 (07:55→20:27)
[2018-08-10] MEDS: LISINOPRIL 20 MG TABLET PO SCH (08:41)
[2018-08-10 15:54] VITALS: BP 115/77
[2018-08-10] MEDS: traZODone 100 MG TABLET. PO SCH (20:27)
[2018-08-10] MEDS: MELATONIN 3 MG TABLET PO SCH (20:30)
--- NOTE | 2018-08-11 02:38 | PN ---
DATE: 08/10/2018 SUBJECTIVE: The patient was seen today. I met with the staff, chart reviewed. Staff reports no major behavior problems at this time. The patient is constantly asking for food. OBSERVATION: VITAL SIGNS: Temperature 97.7, blood pressure 97/43, pulse 69, respirations 18, O2 sat 96%. Slept about 7 hours last night. The patient's medications reviewed, currently not having any side effects except a slight drop in his diastolic blood pressure. ASSESSMENT: 1. Schizoaffective disorder, bipolar type, mixed with psychotic features. 2. Cognitive disorder, mild. PLAN: To continue with the treatment. DRE HINDS MD DR: DILLON/naman JOB#: [id number] / [id number]
[2018-08-11 05:47] VITALS: BP 94/52
[2018-08-11 06:17] LABS: BASO # 0.1 x10^3/uL (0.0-0.2); BASO % 1 % (0-3); EOS # 0.1 x10^3/uL (0.0-0.7); EOS % 1 % (0-3); HEMATOCRIT 24.7 % (39.0-53.0); HEMOGLOBIN 8.3 g/dL (13.0-17.5); LYMPH # 1.6 x10^3/uL (1.0-4.8); LYMPH % 26 % (24-48); MEAN CORPUSCULAR HEMOGLOBIN 33 pg (25-35); MEAN CORPUSCULAR HGB CONC 34 g/dL (31-37); MEAN CORPUSCULAR VOLUME 99 fL (79-100); MONO # 0.5 x10^3/uL (0.0-1.1); MONO % 8 % (0-9); NEUT % 64 % (31-73); PLATELET COUNT 217 x10^3/uL (140-400); RED BLOOD COUNT 2.49 x10^6/uL (4.30-5.70); RED CELL DISTRIBUTION WIDTH 15.3 % (11.5-14.5); WHITE BLOOD COUNT 6.2 x10^3/uL (4.0-11.0)
[2018-08-11 06:35] LABS: ALBUMIN 2.2 g/dL (3.4-5.0); ALBUMIN/GLOBULIN RATIO 0.6 (1.0-1.7); ALK PHOS 112 U/L (46-116); ALT (SGPT) 15 U/L (16-63); ANION GAP 7 (6-14); AST (SGOT) 11 U/L (15-37); BLOOD UREA NITROGEN 40 mg/dL (8-26); BUN/CREATININE RATIO 36 (6-20); CALCIUM 8.2 mg/dL (8.5-10.1); CARBON DIOXIDE 27 mmol/L (21-32); CHLORIDE 99 mmol/L (98-107); CREATININE 1.1 mg/dL (0.7-1.3); GFR 66.6; GLUCOSE 90 mg/dL (70-99); SODIUM 133 mmol/L (136-145); TOTAL BILIRUBIN 0.2 mg/dL (0.2-1.0); TOTAL PROTEIN 5.8 g/dL (6.4-8.2)
[2018-08-11 06:37] LABS: VAL ACID 30 mcg/mL (50-100)
[2018-08-11] MEDS: NICOTINE 14MG PATCH. TD SCH (07:53)
[2018-08-11] MEDS: FAMOTIDINE 20 MG TABLET PO SCH ×2 (07:53→19:32)
[2018-08-11] MEDS: DIVALPROEX 125 MG CAP.SPRINK PO SCH ×2 (07:53→19:34)
[2018-08-11] MEDS: TAMSULOSIN 0.4 MG CAP.ER.24H. PO SCH (07:54)
[2018-08-11] MEDS: TOPIRAMATE 25 MG TABLET. PO SCH ×2 (07:54→19:33)
[2018-08-11] MEDS: DOCUSATE 100 MG/10 ML SOLUTION. PO SCH ×2 (07:54→19:33)
[2018-08-11] MEDS: LACTOBACILLUS RHAMNOSUS GG 1 CAPSULE. PO SCH ×2 (07:54→19:33)
[2018-08-11] MEDS: AMOXICILLIN 250 MG CAPSULE PO SCH ×3 (07:54→19:33)
[2018-08-11] MEDS: MULTIVITAMIN with MINERAL TABLET. PO SCH (07:54)
[2018-08-11] MEDS: ASCORBIC ACID 500 MG TABLET PO SCH ×2 (07:54→19:32)
[2018-08-11] MEDS: LACTULOSE 20 GM/30 ML SOLUTION. PO SCH ×2 (07:54→19:33)
[2018-08-11] MEDS: cloZAPine 100 MG TABLET PO SCH ×2 (07:54→19:33)
[2018-08-11] MEDS: ZINC SULFATE 220 MG CAPSULE. PO SCH (07:54)
[2018-08-11 16:24] VITALS: BP 93/58
[2018-08-11] MEDS: MELATONIN 3 MG TABLET PO SCH (19:32)
[2018-08-11] MEDS: traZODone 100 MG TABLET. PO SCH (19:33)
--- NOTE | 2018-08-12 04:39 | PN ---
DATE: 08/11/2018 SUBJECTIVE: The patient was seen today, met with the staff, chart reviewed. The patient's behavior remains the same, still withdrawn, isolative, mostly non-communicative. The patient has been asking for more food, complains he is hungry all the time. OBSERVATION: VITAL SIGNS: Temperature 98.5, blood pressure 94/52, pulse 80, respirations 18, O2 sat 98%. Slept about 6-1/2 hours last night. CURRENT MEDICATIONS: The patient's medications reviewed. Labs reviewed. The patient has not had any falls. The patient is not having any side effects to the medications. ASSESSMENT: 1. Schizoaffective disorder, bipolar type, mixed with psychotic features. 2. Cognitive disorder, mild. PLAN: To continue with the treatment. DRE HINDS MD DR: DILLON/naman JOB#: [id number] / [id number]
[2018-08-12 05:56] VITALS: BP 108/63
--- NOTE | 2018-08-12 08:35 | RAD ---
Left leg venous Doppler study: Clinical indications: Left leg swelling and pain. Findings: Duplex sonography (including huffman scale evaluation and color flow and waveform spectral analysis) of the proximal aspect of the greater saphenous vein and the proximal aspect of the profunda femoral vein and the entire length of the common femoral and superficial femoral and popliteal veins and the tibioperoneal trunk and the proximal aspect of the posterior tibial and peroneal veins of the left leg was performed. Normal compressibility and augmentation of color Doppler flow after calf compression is seen. Thus, there are no sonographic findings of deep venous thrombosis within these veins. Impression: There are no sonographic findings of deep venous thrombosis within the veins discussed above of the left lower extremity. Right leg venous Doppler study: Clinical indications: Right leg swelling and pain. Findings: Duplex sonography (including huffman scale evaluation and color flow and waveform spectral analysis) of the proximal aspect of the greater saphenous vein and proximal aspect of the profunda femoral vein and the entire length of the common femoral and superficial femoral and popliteal veins and the tibioperoneal trunk and the proximal aspect of the posterior tibial and peroneal veins of the right leg was performed. Normal compressibility and augmentation of color Doppler flow after calf compression is seen. Thus, there are no sonographic findings of deep venous thrombosis within these veins. Impression: There are no sonographic findings of deep venous thrombosis within the veins discussed above of the right lower extremity. Electronically signed by: Zafar Silva MD (08/12/2018 8:32 AM) [facility]
[2018-08-12] MEDS: LACTOBACILLUS RHAMNOSUS GG 1 CAPSULE. PO SCH ×2 (09:58→20:01)
[2018-08-12] MEDS: AMOXICILLIN 250 MG CAPSULE PO SCH ×3 (09:58→20:01)
[2018-08-12] MEDS: MULTIVITAMIN with MINERAL TABLET. PO SCH (09:58)
[2018-08-12] MEDS: cloZAPine 100 MG TABLET PO SCH ×2 (09:58→20:01)
[2018-08-12] MEDS: LACTULOSE 20 GM/30 ML SOLUTION. PO SCH ×2 (09:58→20:02)
[2018-08-12] MEDS: FAMOTIDINE 20 MG TABLET PO SCH ×2 (09:59→20:02)
[2018-08-12] MEDS: DIVALPROEX 125 MG CAP.SPRINK PO SCH ×2 (09:59→20:02)
[2018-08-12] MEDS: ASCORBIC ACID 500 MG TABLET PO SCH ×2 (09:59→20:01)
[2018-08-12] MEDS: NICOTINE 14MG PATCH. TD SCH (10:00)
[2018-08-12] MEDS: DOCUSATE 100 MG/10 ML SOLUTION. PO SCH ×2 (10:01→20:02)
[2018-08-12] MEDS: TAMSULOSIN 0.4 MG CAP.ER.24H. PO SCH (10:05)
[2018-08-12] MEDS: TOPIRAMATE 25 MG TABLET. PO SCH ×2 (10:05→20:01)
[2018-08-12] MEDS: ZINC SULFATE 220 MG CAPSULE. PO SCH (10:08)
[2018-08-12 16:11] VITALS: BP 112/69
[2018-08-12] MEDS: MELATONIN 3 MG TABLET PO SCH (20:01)
[2018-08-12] MEDS: traZODone 100 MG TABLET. PO SCH (20:01)
[2018-08-13 05:57] VITALS: BP 96/52
[2018-08-13] MEDS: DOCUSATE 100 MG/10 ML SOLUTION. PO SCH ×2 (07:52→19:49)
[2018-08-13] MEDS: cloZAPine 100 MG TABLET PO SCH ×2 (07:52→19:49)
[2018-08-13] MEDS: AMOXICILLIN 250 MG CAPSULE PO SCH ×3 (07:52→19:49)
[2018-08-13] MEDS: LACTOBACILLUS RHAMNOSUS GG 1 CAPSULE. PO SCH ×2 (07:52→19:49)
[2018-08-13] MEDS: DIVALPROEX 125 MG CAP.SPRINK PO SCH ×2 (07:53→19:50)
[2018-08-13] MEDS: TAMSULOSIN 0.4 MG CAP.ER.24H. PO SCH (07:53)
[2018-08-13] MEDS: ZINC SULFATE 220 MG CAPSULE. PO SCH (07:54)
[2018-08-13] MEDS: FAMOTIDINE 20 MG TABLET PO SCH ×2 (07:54→19:50)
[2018-08-13] MEDS: LACTULOSE 20 GM/30 ML SOLUTION. PO SCH ×2 (07:54→19:50)
[2018-08-13] MEDS: TOPIRAMATE 25 MG TABLET. PO SCH ×2 (07:55→19:50)
[2018-08-13] MEDS: ASCORBIC ACID 500 MG TABLET PO SCH ×2 (07:55→19:50)
[2018-08-13] MEDS: MULTIVITAMIN with MINERAL TABLET. PO SCH (07:55)
[2018-08-13] MEDS: NICOTINE 14MG PATCH. TD SCH (07:55)
--- NOTE | 2018-08-13 11:05 | PN ---
DATE: 08/12/2018 SUBJECTIVE: The patient was seen today, met with the staff, chart reviewed. The patient's behavior remains the same, withdrawn, not communicative, constantly asking for more food. The patient has not had any falls. OBSERVATION: VITAL SIGNS: Temperature 97.2, blood pressure 108/63, pulse 73, respirations 20, O2 sat 98%. Slept about 7 hours last night. The patient's medications reviewed. Chart and labs reviewed and the patient is not having any side effects from the medications. ASSESSMENT: 1. Schizoaffective disorder, bipolar type, mixed with psychotic features. 2. Cognitive disorder, mild. PLAN: To continue with the treatment. DRE HINDS MD DR: DILLON/nts JOB#: [id number] / [id number]
[2018-08-13 16:37] VITALS: BP 107/62
[2018-08-13] MEDS: MELATONIN 3 MG TABLET PO SCH (19:48)
[2018-08-13] MEDS: traZODone 100 MG TABLET. PO SCH (19:50)
--- NOTE | 2018-08-14 00:49 | PN ---
DATE: 08/13/2018 SUBJECTIVE: The patient was seen today, met with the staff, chart reviewed. His behavior remains the same. No major behavior problems except for isolation and except constantly asking for food. The patient also has episodes of becoming more aggressive. OBSERVATION: VITAL SIGNS: Temperature 97.2, blood pressure 96/52, pulse 78, respirations 20, O2 sat 99%. Slept about 8 hours last night. CURRENT MEDICATIONS: The patient's medications reviewed. LABORATORY DATA: Reviewed, not having any side effects. ASSESSMENT: 1. Schizoaffective disorder, bipolar type, mixed with psychotic features. 2. Cognitive disorder, mild. PLAN: To continue with the treatment. DRE HINDS MD DR: DILLON/naman JOB#: [id number] / [id number]
[2018-08-14 06:33] VITALS: BP 103/64
[2018-08-14] MEDS: DOCUSATE 100 MG/10 ML SOLUTION. PO SCH ×2 (08:15→20:39)
[2018-08-14] MEDS: MULTIVITAMIN with MINERAL TABLET. PO SCH (08:15)
[2018-08-14] MEDS: LACTOBACILLUS RHAMNOSUS GG 1 CAPSULE. PO SCH ×2 (08:15→20:39)
[2018-08-14] MEDS: NICOTINE 14MG PATCH. TD SCH (08:15)
[2018-08-14] MEDS: cloZAPine 100 MG TABLET PO SCH ×2 (08:16→20:39)
[2018-08-14] MEDS: DIVALPROEX 125 MG CAP.SPRINK PO SCH ×2 (08:16→20:40)
[2018-08-14] MEDS: FAMOTIDINE 20 MG TABLET PO SCH ×2 (08:16→20:40)
[2018-08-14] MEDS: AMOXICILLIN 250 MG CAPSULE PO SCH ×3 (08:16→20:39)
[2018-08-14] MEDS: TAMSULOSIN 0.4 MG CAP.ER.24H. PO SCH (08:16)
[2018-08-14] MEDS: ZINC SULFATE 220 MG CAPSULE. PO SCH (08:16)
[2018-08-14] MEDS: TOPIRAMATE 25 MG TABLET. PO SCH ×2 (08:16→20:40)
[2018-08-14] MEDS: ASCORBIC ACID 500 MG TABLET PO SCH ×2 (08:16→20:40)
[2018-08-14] MEDS: LACTULOSE 20 GM/30 ML SOLUTION. PO SCH ×2 (08:16→20:40)
[2018-08-14 16:02] VITALS: BP 176/47
[2018-08-14] MEDS: MELATONIN 3 MG TABLET PO SCH (20:39)
[2018-08-14] MEDS: traZODone 100 MG TABLET. PO SCH (20:40)
[2018-08-14] MEDS: NYSTATIN TOPICAL POWDER 15GM BOTTLE. TP SCH (23:37)
[2018-08-15 05:57] VITALS: BP 120/52
[2018-08-15] MEDS: FAMOTIDINE 20 MG TABLET PO SCH ×2 (08:10→19:46)
[2018-08-15] MEDS: ASCORBIC ACID 500 MG TABLET PO SCH ×2 (08:10→19:46)
[2018-08-15] MEDS: LACTULOSE 20 GM/30 ML SOLUTION. PO SCH ×2 (08:10→19:46)
[2018-08-15] MEDS: ZINC SULFATE 220 MG CAPSULE. PO SCH (08:10)
[2018-08-15] MEDS: DOCUSATE 100 MG/10 ML SOLUTION. PO SCH ×2 (08:10→19:46)
[2018-08-15] MEDS: DIVALPROEX 125 MG CAP.SPRINK PO SCH ×2 (08:10→19:46)
[2018-08-15] MEDS: LACTOBACILLUS RHAMNOSUS GG 1 CAPSULE. PO SCH ×2 (08:10→19:46)
[2018-08-15] MEDS: MULTIVITAMIN with MINERAL TABLET. PO SCH (08:10)
[2018-08-15] MEDS: NICOTINE 14MG PATCH. TD SCH (08:10)
[2018-08-15] MEDS: AMOXICILLIN 250 MG CAPSULE PO SCH ×3 (08:10→19:45)
[2018-08-15] MEDS: TOPIRAMATE 25 MG TABLET. PO SCH ×2 (08:10→19:46)
[2018-08-15] MEDS: cloZAPine 100 MG TABLET PO SCH ×2 (08:10→19:46)
[2018-08-15] MEDS: NYSTATIN TOPICAL POWDER 15GM BOTTLE. TP SCH ×2 (08:11→19:46)
[2018-08-15] MEDS: TAMSULOSIN 0.4 MG CAP.ER.24H. PO SCH (08:13)
--- NOTE | 2018-08-15 08:24 | PN ---
DATE: 08/14/2018 SUBJECTIVE: The patient was seen today, met with the staff, chart reviewed. The patient is currently not presenting with any major behavior problems. The patient has minimal interaction with the staff. The patient is constantly asking for food. OBSERVATION: VITAL SIGNS: Temperature 97.8, blood pressure 176/47, pulse 73, respirations 20, O2 sat 95%. The patient slept about 6 hours last night. The patient; however, is not exhibiting any major behavior problems. Still confused, disoriented to time, place, and person. The patient also has limited vocabulary. The patient is also exhibiting marked psychomotor retardation. MEDICATIONS: The patient's medications reviewed. No side effects. LABORATORY DATA: The patient's lab reviewed. ASSESSMENT: 1. Schizoaffective disorder, bipolar type, mixed with psychotic features. 2. Cognitive disorder, mild. PLAN: To continue with the treatment. DRE HINDS MD DR: DILLON/naman JOB#: [id number] / [id number]
[2018-08-15 13:57] LABS: BASO % 0 % (0-3); EOS # 0.1 x10^3/uL (0.0-0.7); EOS % 1 % (0-3); HEMATOCRIT 26.9 % (39.0-53.0); LYMPH # 1.1 x10^3/uL (1.0-4.8); LYMPH % 16 % (24-48); MEAN CORPUSCULAR HEMOGLOBIN 33 pg (25-35); MEAN CORPUSCULAR HGB CONC 34 g/dL (31-37); MEAN CORPUSCULAR VOLUME 99 fL (79-100); MONO # 0.5 x10^3/uL (0.0-1.1); MONO % 6 % (0-9); NEUT # 5.5 x10^3uL (1.8-7.7); NEUT % 77 % (31-73); PLATELET COUNT 215 x10^3/uL (140-400); RED BLOOD COUNT 2.71 x10^6/uL (4.30-5.70); RED CELL DISTRIBUTION WIDTH 15.5 % (11.5-14.5); WHITE BLOOD COUNT 7.1 x10^3/uL (4.0-11.0)
[2018-08-15 14:12] LABS: ALBUMIN 2.3 g/dL (3.4-5.0); ALBUMIN/GLOBULIN RATIO 0.6 (1.0-1.7); CALCIUM 8.5 mg/dL (8.5-10.1); GFR 74.3; POTASSIUM 4.6 mmol/L (3.5-5.1); TOTAL BILIRUBIN 0.2 mg/dL (0.2-1.0); TOTAL PROTEIN 6.1 g/dL (6.4-8.2)
[2018-08-15 16:09] VITALS: BP 106/62
[2018-08-15] MEDS: MELATONIN 3 MG TABLET PO SCH (19:45)
[2018-08-15] MEDS: traZODone 100 MG TABLET. PO SCH (19:46)
[2018-08-16 05:48] VITALS: BP 126/64
[2018-08-16] MEDS: DOCUSATE 100 MG/10 ML SOLUTION. PO SCH ×2 (08:03→20:39)
[2018-08-16] MEDS: NICOTINE 14MG PATCH. TD SCH (08:03)
[2018-08-16] MEDS: NYSTATIN TOPICAL POWDER 15GM BOTTLE. TP SCH ×2 (08:04→20:40)
[2018-08-16] MEDS: TAMSULOSIN 0.4 MG CAP.ER.24H. PO SCH (08:04)
[2018-08-16] MEDS: AMOXICILLIN 250 MG CAPSULE PO SCH ×3 (08:04→20:39)
[2018-08-16] MEDS: LACTULOSE 20 GM/30 ML SOLUTION. PO SCH ×2 (08:04→20:39)
[2018-08-16] MEDS: FAMOTIDINE 20 MG TABLET PO SCH ×2 (08:04→20:40)
[2018-08-16] MEDS: DIVALPROEX 125 MG CAP.SPRINK PO SCH ×2 (08:04→20:39)
[2018-08-16] MEDS: LACTOBACILLUS RHAMNOSUS GG 1 CAPSULE. PO SCH ×2 (08:04→20:40)
[2018-08-16] MEDS: ZINC SULFATE 220 MG CAPSULE. PO SCH (08:04)
[2018-08-16] MEDS: ASCORBIC ACID 500 MG TABLET PO SCH ×2 (08:04→20:39)
[2018-08-16] MEDS: cloZAPine 100 MG TABLET PO SCH ×2 (08:04→20:40)
[2018-08-16] MEDS: MULTIVITAMIN with MINERAL TABLET. PO SCH (08:04)
[2018-08-16] MEDS: TOPIRAMATE 25 MG TABLET. PO SCH ×2 (08:04→20:40)
--- NOTE | 2018-08-16 08:44 | RAD ---
Chest radiograph 08/15/2018 2:59 PM INDICATION: Cough, congestion COMPARISON: None available TECHNIQUE: Portable upright frontal view of the chest is provided. FINDINGS: The cardiomediastinal silhouette is within normal limits. There are no pleural effusions. There is no pulmonary vascular congestion. There is no pneumothorax. Patchy density at the left lung base may represent pulmonary infiltrate in the appropriate clinical setting. There is elevation of left hemidiaphragm. No significant osseous abnormality is identified. IMPRESSION: Patchy density at the left lung base may represent infiltrate in the appropriate clinical setting. Short-term follow-up two-view chest radiograph may be of benefit to ensure resolution. Electronically signed by: Dariela Davila MD (08/16/2018 8:41 AM) [facility]
--- NOTE | 2018-08-16 15:53 | PN ---
DATE: 08/06/2018 SUBJECTIVE: The patient was seen today, met with the staff, chart reviewed. The patient's behavior remains the same. He isolates himself, interacts with the staff, still confused. The patient has a limited vocabulary. Most of the answers are monosyllabic. The patient is constantly asking for food. OBSERVATION: VITAL SIGNS: Temperature 98.9, blood pressure 126/64, pulse 92, respirations 20, O2 sat 97%. Slept about 7 hours last night. The patient's appetite increased. ASSESSMENT: 1. Schizoaffective disorder, bipolar type, mixed with psychotic features. 2. Cognitive disorder, mild. PLAN: To continue with the treatment. DRE HINDS MD DR: DILLON/naman JOB#: [id number] / [id number]
[2018-08-16 17:16] VITALS: BP 108/69
[2018-08-16] MEDS: MELATONIN 3 MG TABLET PO SCH (20:39)
[2018-08-16] MEDS: traZODone 100 MG TABLET. PO SCH (20:39)
[2018-08-17 06:11] VITALS: BP 106/56
[2018-08-17 07:42] LABS: BASO % 0 % (0-3); EOS # 0.1 x10^3/uL (0.0-0.7); EOS % 2 % (0-3); HEMATOCRIT 26.4 % (39.0-53.0); HEMOGLOBIN 8.8 g/dL (13.0-17.5); LYMPH # 1.6 x10^3/uL (1.0-4.8); LYMPH % 21 % (24-48); MEAN CORPUSCULAR HEMOGLOBIN 33 pg (25-35); MEAN CORPUSCULAR HGB CONC 33 g/dL (31-37); MEAN CORPUSCULAR VOLUME 99 fL (79-100); MONO # 0.6 x10^3/uL (0.0-1.1); MONO % 8 % (0-9); NEUT # 5.2 x10^3uL (1.8-7.7); NEUT % 69 % (31-73); PLATELET COUNT 254 x10^3/uL (140-400); RED BLOOD COUNT 2.66 x10^6/uL (4.30-5.70); RED CELL DISTRIBUTION WIDTH 15.4 % (11.5-14.5); WHITE BLOOD COUNT 7.5 x10^3/uL (4.0-11.0)
[2018-08-17] MEDS: NICOTINE 14MG PATCH. TD SCH (09:00)
[2018-08-17] MEDS: LACTOBACILLUS RHAMNOSUS GG 1 CAPSULE. PO SCH ×2 (09:00→20:34)
[2018-08-17] MEDS: LACTULOSE 20 GM/30 ML SOLUTION. PO SCH ×2 (09:00→20:35)
[2018-08-17] MEDS: DIVALPROEX 125 MG CAP.SPRINK PO SCH ×2 (09:00→20:35)
[2018-08-17] MEDS: DOCUSATE 100 MG/10 ML SOLUTION. PO SCH ×2 (09:00→20:35)
[2018-08-17] MEDS: TOPIRAMATE 25 MG TABLET. PO SCH ×2 (09:00→20:34)
[2018-08-17] MEDS: MULTIVITAMIN with MINERAL TABLET. PO SCH (09:00)
[2018-08-17] MEDS: AMOXICILLIN 250 MG CAPSULE PO SCH ×2 (09:00→13:38)
[2018-08-17] MEDS: ASCORBIC ACID 500 MG TABLET PO SCH ×2 (09:00→20:34)
[2018-08-17] MEDS: FAMOTIDINE 20 MG TABLET PO SCH ×2 (09:00→20:34)
[2018-08-17] MEDS: ZINC SULFATE 220 MG CAPSULE. PO SCH (09:00)
[2018-08-17] MEDS: TAMSULOSIN 0.4 MG CAP.ER.24H. PO SCH (09:00)
[2018-08-17] MEDS: NYSTATIN TOPICAL POWDER 15GM BOTTLE. TP SCH ×2 (09:00→20:34)
[2018-08-17] MEDS: cloZAPine 100 MG TABLET PO SCH ×2 (09:00→20:34)
[2018-08-17] MEDS: FUROSEMIDE 40 MG TABLET PO SCH (14:20)
[2018-08-17 15:54] VITALS: BP 106/66
--- NOTE | 2018-08-17 19:56 | PDOC ---
Exam Note: Elijah Note: Please also refer to the separate dictated note~for this date of service dictated separately.~Patient seen individually. Discussed the patient with Nursing staff reviewed the chart.~Reviewed interim history and current functioning. Reviewed vital signs,~Labs/ Radiology~and current medications noted below. Continue current treatment with the changes noted in the dictated addendum note Assessment: Vital Signs: Vital Signs Date Time Temp Pulse Resp B/P (MAP) Pulse Ox O2 Delivery O2 Flow Rate FiO2 08/17/18 15:54 98.3 83 18 106/66 (79) 93 08/16/18 05:48 Room Air I&O Intake and Output 08/17/18 07:00 Intake Total 1560 ml Balance 1560 ml Intake Oral 1560 ml Labs: Laboratory Tests Test 08/17/18 07:06 White Blood Count 7.5 x10^3/uL (4.0-11.0) Red Blood Count 2.66 x10^6/uL (4.30-5.70) L Hemoglobin 8.8 g/dL (13.0-17.5) L Hematocrit 26.4 % (39.0-53.0) L Mean Corpuscular Volume 99 fL (79-100) Mean Corpuscular Hemoglobin 33 pg (25-35) Mean Corpuscular Hemoglobin Concent 33 g/dL (31-37) Red Cell Distribution Width 15.4 % (11.5-14.5) H Platelet Count 254 x10^3/uL (140-400) Neutrophils (%) (Auto) 69 % (31-73) Lymphocytes (%) (Auto) 21 % (24-48) L Monocytes (%) (Auto) 8 % (0-9) Eosinophils (%) (Auto) 2 % (0-3) Basophils (%) (Auto) 0 % (0-3) Neutrophils # (Auto) 5.2 x10^3uL (1.8-7.7) Lymphocytes # (Auto) 1.6 x10^3/uL (1.0-4.8) Monocytes # (Auto) 0.6 x10^3/uL (0.0-1.1) Eosinophils # (Auto) 0.1 x10^3/uL (0.0-0.7) Basophils # (Auto) 0.0 x10^3/uL (0.0-0.2) Current Medications: Meds: Current Medications Trimethoprim/ Sulfamethoxazole (Bactrim Ds) 1 tab 1X ONCE PO Last administered on 08/06/18at 18:50; Start 08/06/18 at 18:45; Stop 08/06/18 at 18:46 ; Status DC Acetaminophen (Tylenol) 650 mg PRN Q6HRS PRN PO PAIN / TEMP Last administered on 08/09/18at 21:06; Start 08/06/18 at 21:45 Multi-Ingredient Ointment (Analgesic [place]) 1 pedrito PRN QID PRN TP MUSCLE PAIN; Start 08/06/18 at 21:45 Al Hydroxide/Mg Hydroxide (Mylanta Plus Xs) 15 ml PRN AFTMEALHC PRN PO DYSPEPSIA; Start 08/06/18 at 21:45; Stop 08/07/18 at 13:58; Status DC Magnesium Hydroxide (Milk Of Magnesia) 2,400 mg PRN QHS PRN PO CONSTIPATION; Start 08/06/18 at 21:45; Stop 08/07/18 at 13:57; Status DC Ascorbic Acid (Vitamin C) 500 mg BID PO Last administered on 08/17/18at 09:00; Start 08/07/18 at 09:00 Docusate Sodium (Colace Solution) 100 mg BID PO Last administered on at 09:00; Start 08/07/18 at 09:00 Acetaminophen/ Hydrocodone Bitart (Lortab 5/325) 1 tab PRN Q4HRS PRN PO PAIN; Start 08/07/18 at 03:00 Lisinopril (Prinivil) 20 mg DAILY PO Last administered on 08/09/18at 09:15; Start 08/07/18 at 09:00; Stop 08/10/18 at 18:42; Status DC Tamsulosin HCl (Flomax) 0.4 mg DAILY PO Last administered on 08/17/18at 09:00; Start 08/07/18 at 09:00 Non-Formulary Medication (Amino Acids/ Protein Hydrolys (Pro-Stat Liquid)) 30 ml BID PO ; Start 08/07/18 at 09:00; Stop 08/07/18 at 09:00; Status DC Bisacodyl (Dulcolax Supp) 10 mg PRN DAILY PRN [place] CONSTIPATION; Start 08/07/18 at 07:45 Clozapine (Clozaril) 100 mg BID PO Last administered on 08/17/18 09:00; Start 08/07/18 at 09:00 Famotidine (Pepcid) 20 mg BID PO Last administered on 08/17/18at 09:00; Start 08/07/18 at 09:00 Haloperidol (Haldol) 5 mg PRN Q6HRS PRN PO AGITATION Last administered on at 11:18; Start 08/07/18 at 07:45 Lactulose (Lactulose) 20 gm BID PO Last administered on 08/17/18 09:00; Start 08/07/18 at 09:00 Lorazepam (Ativan) 1 mg PRN Q4HRS PRN PO ANXIETY / AGITATION Last administered on 08/07/18at 11:18; Start 08/07/18 at 07:45 Al Hydroxide/Mg Hydroxide (Mylanta Plus Xs) 30 ml PRN AFTMEALHC PRN PO DYSPEPSIA; Start 08/07/18 at 07:45 Magnesium Hydroxide (Milk Of Magnesia) 2,400 mg PRN QHS PRN PO CONSTIPATION; Start 08/07/18 at 07:45 Melatonin 6 mg QHS PO Last administered on 08/16/18 20:39; Start 08/07/18 at 21:00 Multivitamins/ Calcium (Thera-M Plus) 1 tab DAILY PO Last administered on 08/17at 09:00; Start 08/07/18 at 09:00 Nicotine (Nicoderm Cq 14mg) 1 patch DAILY TD Last administered on 08/17/18at 09 :00; Start 08/07/18 at 09:00 Ondansetron HCl (Zofran Odt) 4 mg PRN Q8HRS PRN PO NAUSEA/VOMITING; Start 08/07 at 07:45 Topiramate (Topamax) 25 mg BID PO Last administered on 08/17/18at 09:00; Start 08/07/18 at 09:00 Trazodone HCl (Desyrel) 100 mg QHS PO Last administered on 08/16/18at 20:39; Start 08/07/18 at 21:00 Zinc Sulfate (Orazinc) 220 mg DAILY PO Last administered on 08/17/18at 09:00; Start 08/07/18 at 09:00 Non-Formulary Medication ([[Patch Removal]] ) 1 each QHS MC ; Start 08/07/18 at 21:00; Status UNV Amoxicillin (Amoxil) 250 mg [id number] PO Last administered on 08/17/18at 13:38; Start 08/07/18 at 21:00; Stop 08/17/18 at 20:59 Lactobacillus Rhamnosus (Culturelle) 1 cap BID PO Last administered on at 09:00; Start 08/07/18 at 21:00 Divalproex Sodium (Depakote Sprinkles) 500 mg BID PO Last administered on 08/17at 09:00; Start 08/07/18 at 21:00; Stop 08/17/18 at 16:51; Status DC Nystatin (Nystop) 1 pedrito BID TP Last administered on 08/17/18at 09:00; Start at 22:00 Furosemide (Lasix) 40 mg DAILY PO ; Start 08/18/18 at 09:00; Stop 08/18/18 at 09:00; Status DC Furosemide (Lasix) 40 mg DAILY PO Last administered on 08/17/18at 14:20; Start 08/17/18 at 14:30 Divalproex Sodium (Depakote Sprinkles) 750 mg BID PO ; Start 08/17/18 at 21:00 Active Scripts Active Reported Zinc Gluconate 100 Mg Tablet 220 Mg PO DAILY 3 Days Vitamin C (Ascorbic Acid) 500 Mg Tablet 500 Mg PO BID Pro-Stat Liquid (Amino Acids/Protein Hydrolys) 30 Ml Liquid 30 Ml PO BID 3 Days NICODERM CQ 14mg (Nicotine) 1 Each Patch.td24 1 Patch TD DAILY Multivitamins (Multivitamin) 1 Each Tablet 1 Each PO DAILY 4 Days Lisinopril 20 Mg Tablet 20 Mg PO DAILY Haloperidol 5 Mg Tablet 5 Mg PO PRN Q6HRS PRN Topiramate 25 Mg Tablet 25 Mg PO BID Trazodone Hcl 100 Mg Tablet 100 Mg PO PRN QHS PRN Trazodone Hcl 100 Mg Tablet 100 Mg PO HS Clozapine 100 Mg Tablet 100 Mg PO BID Ondansetron Odt (Ondansetron) 4 Mg Tab.rapdis 4 Mg PO PRN Q8HRS PRN Melatonin 3 Mg Tablet 6 Mg PO QHS Milk Of Magnesia (Magnesium Hydroxide) 2,400 Mg/10 Ml Oral.susp 2,400 Mg PO PRN QHS PRN Mag-Al Plus Suspension (Mag Hydrox/Al Hydrox/Simeth) 30 Ml Oral.susp 30 Ml PO PRN AFTMEALHC PRN [[Patch Removal]] 1 Each MC QHS Bisacodyl 10 Mg Supp.rect 10 Mg RC PRN DAILY PRN Lorazepam 0.5 Mg Tablet 1 Mg PO PRN Q4HRS PRN Lactulose 10 Gm/15 Ml Solution 20 Gm PO BID Hydrocodone-Apap 5-325 (Hydrocodone Bit/Acetaminophen) 1 Each Tablet 1 Tab PO PRN Q4HRS PRN Flomax (Tamsulosin Hcl) 0.4 Mg Cap.er.24h 0.4 Mg PO DAILY Famotidine 20 Mg Tablet 20 Mg PO BID Docusate Sodium 50 Mg/5 Ml Liquid 100 Mg PO BID I have reviewed the current psychotropics carefully including drug interactions. Risk benefit ratio favors no change other than as noted in my dictated progress note. Diagnosis: Problems: (1) Anxiety disorder (2) Schizophrenia, chronic condition with acute exacerbation (3) Schizoaffective disorder, chronic condition with acute exacerbation CHOCO JERRY MD Aug 17, 2018 19:56
[2018-08-17] MEDS: MELATONIN 3 MG TABLET PO SCH (20:34)
[2018-08-17] MEDS: traZODone 100 MG TABLET. PO SCH (20:34)
[2018-08-18 04:13] LABS: TOTAL SERUM CREATININE 0.97 mg/dL (0.76-1.27); TOTAL URINE CREATININE 56.8 mg/dL (Not Estab.); UR PROTEIN 84.4 mg/dL (Not Estab.)
[2018-08-18 06:10] VITALS: BP 130/83
[2018-08-18] MEDS ORDERED: FUROSEMIDE 40 MG TABLET PO SCH (09:00)
[2018-08-18] MEDS: TAMSULOSIN 0.4 MG CAP.ER.24H. PO SCH (09:20)
[2018-08-18] MEDS: FAMOTIDINE 20 MG TABLET PO SCH ×2 (09:20→19:26)
[2018-08-18] MEDS: LACTOBACILLUS RHAMNOSUS GG 1 CAPSULE. PO SCH ×2 (09:20→19:27)
[2018-08-18] MEDS: ASCORBIC ACID 500 MG TABLET PO SCH ×2 (09:20→19:27)
[2018-08-18] MEDS: TOPIRAMATE 25 MG TABLET. PO SCH ×2 (09:20→19:27)
[2018-08-18] MEDS: FUROSEMIDE 40 MG TABLET PO SCH (09:21)
[2018-08-18] MEDS: cloZAPine 100 MG TABLET PO SCH ×2 (09:21→19:27)
[2018-08-18] MEDS: NICOTINE 14MG PATCH. TD SCH (09:21)
[2018-08-18] MEDS: MULTIVITAMIN with MINERAL TABLET. PO SCH (09:21)
[2018-08-18] MEDS: ZINC SULFATE 220 MG CAPSULE. PO SCH (09:21)
[2018-08-18] MEDS: LACTULOSE 20 GM/30 ML SOLUTION. PO SCH ×2 (09:22→19:27)
[2018-08-18] MEDS: DOCUSATE 100 MG/10 ML SOLUTION. PO SCH ×2 (09:22→19:27)
[2018-08-18] MEDS: DIVALPROEX 125 MG CAP.SPRINK PO SCH ×2 (09:22→19:26)
[2018-08-18] MEDS: NYSTATIN TOPICAL POWDER 15GM BOTTLE. TP SCH ×2 (14:38→19:31)
[2018-08-18 16:28] VITALS: BP 109/57
[2018-08-18] MEDS: MELATONIN 3 MG TABLET PO SCH (19:26)
[2018-08-18] MEDS: traZODone 100 MG TABLET. PO SCH (19:26)
--- NOTE | 2018-08-18 19:44 | PDOC ---
Exam Note: Elijah Note: Please also refer to the separate dictated note~for this date of service dictated separately.~Patient seen individually. Discussed the patient with Nursing staff reviewed the chart.~Reviewed interim history and current functioning. Reviewed vital signs,~Labs/ Radiology~and current medications noted below. Continue current treatment with the changes noted in the dictated addendum note Assessment: Vital Signs: Vital Signs Date Time Temp Pulse Resp B/P (MAP) Pulse Ox O2 Delivery O2 Flow Rate FiO2 08/18/18 16:28 97.5 84 20 109/57 (74) 97 08/16/18 05:48 Room Air I&O Intake and Output 08/18/18 07:00 Intake Total 1380 ml Balance 1380 ml Intake Oral 1380 ml # Voids 1 # Bowel Movements 1 Current Medications: Meds: Current Medications Trimethoprim/ Sulfamethoxazole (Bactrim Ds) 1 tab 1X ONCE PO Last administered on 08/06/18at 18:50; Start 08/06/18 at 18:45; Stop 08/06/18 at 18:46 ; Status DC Acetaminophen (Tylenol) 650 mg PRN Q6HRS PRN PO PAIN / TEMP Last administered on 08/09/18at 21:06; Start 08/06/18 at 21:45 Multi-Ingredient Ointment (Analgesic [place]) 1 pedrito PRN QID PRN TP MUSCLE PAIN; Start 08/06/18 at 21:45 Al Hydroxide/Mg Hydroxide (Mylanta Plus Xs) 15 ml PRN AFTMEALHC PRN PO DYSPEPSIA; Start 08/06/18 at 21:45; Stop 08/07/18 at 13:58; Status DC Magnesium Hydroxide (Milk Of Magnesia) 2,400 mg PRN QHS PRN PO CONSTIPATION; Start 08/06/18 at 21:45; Stop 08/07/18 at 13:57; Status DC Ascorbic Acid (Vitamin C) 500 mg BID PO Last administered on 08/18/18at 19:27; Start 08/07/18 at 09:00 Docusate Sodium (Colace Solution) 100 mg BID PO Last administered on at 19:27; Start 08/07/18 at 09:00 Acetaminophen/ Hydrocodone Bitart (Lortab 5/325) 1 tab PRN Q4HRS PRN PO PAIN; Start 08/07/18 at 03:00 Lisinopril (Prinivil) 20 mg DAILY PO Last administered on 08/09/18at 09:15; Start 08/07/18 at 09:00; Stop 08/10/18 at 18:42; Status DC Tamsulosin HCl (Flomax) 0.4 mg DAILY PO Last administered on 08/18/18at 09:20; Start 08/07/18 at 09:00 Non-Formulary Medication (Amino Acids/ Protein Hydrolys (Pro-Stat Liquid)) 30 ml BID PO ; Start 08/07/18 at 09:00; Stop 08/07/18 at 09:00; Status DC Bisacodyl (Dulcolax Supp) 10 mg PRN DAILY PRN [place] CONSTIPATION; Start 08/07/18 at 07:45 Clozapine (Clozaril) 100 mg BID PO Last administered on 08/18/18at 19:27; Start 08/07/18 at 09:00 Famotidine (Pepcid) 20 mg BID PO Last administered on 08/18/18 19:26; Start 08/07/18 at 09:00 Haloperidol (Haldol) 5 mg PRN Q6HRS PRN PO AGITATION Last administered on at 11:18; Start 08/07/18 at 07:45 Lactulose (Lactulose) 20 gm BID PO Last administered on 08/18/18at 19:27; Start 08/07/18 at 09:00 Lorazepam (Ativan) 1 mg PRN Q4HRS PRN PO ANXIETY / AGITATION Last administered on 08/07/18at 11:18; Start 08/07/18 at 07:45 Al Hydroxide/Mg Hydroxide (Mylanta Plus Xs) 30 ml PRN AFTMEALHC PRN PO DYSPEPSIA; Start 08/07/18 at 07:45 Magnesium Hydroxide (Milk Of Magnesia) 2,400 mg PRN QHS PRN PO CONSTIPATION; Start 08/07/18 at 07:45 Melatonin 6 mg QHS PO Last administered on 08/18/18at 19:26; Start 08/07/18 at 21:00 Multivitamins/ Calcium (Thera-M Plus) 1 tab DAILY PO Last administered on 08/18at 09:21; Start 08/07/18 at 09:00 Nicotine (Nicoderm Cq 14mg) 1 patch DAILY TD Last administered on 08/18/18 09 :21; Start 08/07/18 at 09:00 Ondansetron HCl (Zofran Odt) 4 mg PRN Q8HRS PRN PO NAUSEA/VOMITING; Start 08/07 at 07:45 Topiramate (Topamax) 25 mg BID PO Last administered on 08/18/18 19:27; Start 08/07/18 at 09:00 Trazodone HCl (Desyrel) 100 mg QHS PO Last administered on 08/18/18 19:26; Start 08/07/18 at 21:00 Zinc Sulfate (Orazinc) 220 mg DAILY PO Last administered on 08/18/18 09:21; Start 08/07/18 at 09:00 Non-Formulary Medication ([[Patch Removal]] ) 1 each QHS MC ; Start 08/07/18 at 21:00; Status UNV Amoxicillin (Amoxil) 250 mg [id number] PO Last administered on 08/17/18at 13:38; Start 08/07/18 at 21:00; Stop 08/17/18 at 20:59; Status DC Lactobacillus Rhamnosus (Culturelle) 1 cap BID PO Last administered on 19:27; Start 08/07/18 at 21:00 Divalproex Sodium (Depakote Sprinkles) 500 mg BID PO Last administered on 08/17 09:00; Start 08/07/18 at 21:00; Stop 08/17/18 at 16:51; Status DC Nystatin (Nystop) 1 pedrito BID TP Last administered on 08/18/18at 19:31; Start at 22:00 Furosemide (Lasix) 40 mg DAILY PO ; Start 08/18/18 at 09:00; Stop 08/18/18 at 09:00; Status DC Furosemide (Lasix) 40 mg DAILY PO Last administered on 08/18/18at 09:21; Start 08/17/18 at 14:30 Divalproex Sodium (Depakote Sprinkles) 750 mg BID PO Last administered on 08/18 19:26; Start 08/17/18 at 21:00 Active Scripts Active Reported Zinc Gluconate 100 Mg Tablet 220 Mg PO DAILY 3 Days Vitamin C (Ascorbic Acid) 500 Mg Tablet 500 Mg PO BID Pro-Stat Liquid (Amino Acids/Protein Hydrolys) 30 Ml Liquid 30 Ml PO BID 3 Days NICODERM CQ 14mg (Nicotine) 1 Each Patch.td24 1 Patch TD DAILY Multivitamins (Multivitamin) 1 Each Tablet 1 Each PO DAILY 4 Days Lisinopril 20 Mg Tablet 20 Mg PO DAILY Haloperidol 5 Mg Tablet 5 Mg PO PRN Q6HRS PRN Topiramate 25 Mg Tablet 25 Mg PO BID Trazodone Hcl 100 Mg Tablet 100 Mg PO PRN QHS PRN Trazodone Hcl 100 Mg Tablet 100 Mg PO HS Clozapine 100 Mg Tablet 100 Mg PO BID Ondansetron Odt (Ondansetron) 4 Mg Tab.rapdis 4 Mg PO PRN Q8HRS PRN Melatonin 3 Mg Tablet 6 Mg PO QHS Milk Of Magnesia (Magnesium Hydroxide) 2,400 Mg/10 Ml Oral.susp 2,400 Mg PO PRN QHS PRN Mag-Al Plus Suspension (Mag Hydrox/Al Hydrox/Simeth) 30 Ml Oral.susp 30 Ml PO PRN AFTMEALHC PRN [[Patch Removal]] 1 Each MC QHS Bisacodyl 10 Mg Supp.rect 10 Mg RC PRN DAILY PRN Lorazepam 0.5 Mg Tablet 1 Mg PO PRN Q4HRS PRN Lactulose 10 Gm/15 Ml Solution 20 Gm PO BID Hydrocodone-Apap 5-325 (Hydrocodone Bit/Acetaminophen) 1 Each Tablet 1 Tab PO PRN Q4HRS PRN Flomax (Tamsulosin Hcl) 0.4 Mg Cap.er.24h 0.4 Mg PO DAILY Famotidine 20 Mg Tablet 20 Mg PO BID Docusate Sodium 50 Mg/5 Ml Liquid 100 Mg PO BID I have reviewed the current psychotropics carefully including drug interactions. Risk benefit ratio favors no change other than as noted in my dictated progress note. Diagnosis: Problems: (1) Anxiety disorder (2) Schizophrenia, chronic condition with acute exacerbation (3) Schizoaffective disorder, chronic condition with acute exacerbation CHOCO JERRY MD Aug 18, 2018 19:44
--- NOTE | 2018-08-19 01:31 | PN ---
DATE: 08/17/2018 PSYCHIATRIC PROGRESS NOTE This late entry 08/17/2018 covers elements not covered in my initial note. SUBJECTIVE: I met with the patient in the evening and discussed with Dr. Salguero who had covered for me over the past 1 week or so. The patient slept 6-3/4 hours previous night. He wanders himself around the unit in his wheelchair, somewhat driven, anxious. REVIEW OF SYSTEMS: Ambulation impaired. No CV, , pulmonary, eye, ENT system symptoms on review. Overall, seems less psychotic. MENTAL STATUS EXAM: Oriented to himself and situation. Speech coherent, somewhat pressured at times. Abstraction fair, computation impaired, language function intact. Mood and affect lability is somewhat improved. LABORATORY DATA: Valproic acid level 30 on the 08/11/2018. On Depakote 500 b.i.d. IMPRESSION: Schizoaffective disorder, bipolar type, mixed with psychotic features; anxiety disorder, unspecified. Rest unchanged. PLAN: Increase the Depakote to 750 b.i.d. Check CBC, CMP level in 3 days. Continue Clozaril 100 mg b.i.d., Haldol 5 mg q.6 hours p.r.n. Rest of the psychotropics unchanged for now. CHOCO JERRY MD DR: BRIELLE/naman JOB#: [id number] / [id number]
[2018-08-19 05:55] VITALS: BP 124/76
[2018-08-19] MEDS: cloZAPine 100 MG TABLET PO SCH ×2 (07:39→20:17)
[2018-08-19] MEDS: FAMOTIDINE 20 MG TABLET PO SCH ×2 (07:39→20:19)
[2018-08-19] MEDS: MULTIVITAMIN with MINERAL TABLET. PO SCH (07:40)
[2018-08-19] MEDS: ASCORBIC ACID 500 MG TABLET PO SCH ×2 (07:40→20:17)
[2018-08-19] MEDS: LACTOBACILLUS RHAMNOSUS GG 1 CAPSULE. PO SCH ×2 (07:40→20:17)
[2018-08-19] MEDS: DIVALPROEX 125 MG CAP.SPRINK PO SCH ×2 (07:40→20:17)
[2018-08-19] MEDS: LACTULOSE 20 GM/30 ML SOLUTION. PO SCH ×2 (07:41→20:16)
[2018-08-19] MEDS: ZINC SULFATE 220 MG CAPSULE. PO SCH (07:41)
[2018-08-19] MEDS: TOPIRAMATE 25 MG TABLET. PO SCH ×2 (07:41→20:17)
[2018-08-19] MEDS: FUROSEMIDE 40 MG TABLET PO SCH (07:41)
[2018-08-19] MEDS: DOCUSATE 100 MG/10 ML SOLUTION. PO SCH ×2 (07:41→20:16)
[2018-08-19] MEDS: TAMSULOSIN 0.4 MG CAP.ER.24H. PO SCH (07:41)
[2018-08-19] MEDS: NYSTATIN TOPICAL POWDER 15GM BOTTLE. TP SCH ×2 (07:42→21:12)
[2018-08-19] MEDS: NICOTINE 14MG PATCH. TD SCH (07:42)
[2018-08-19 16:07] VITALS: BP 113/66
[2018-08-19 16:38] LABS: CALCIUM 8.8 mg/dL (8.5-10.1); CREATININE 1.1 mg/dL (0.7-1.3); GFR 66.6; POTASSIUM 4.3 mmol/L (3.5-5.1)
--- NOTE | 2018-08-19 20:03 | PDOC ---
Exam Note: Elijah Note: Please also refer to the separate dictated note~for this date of service dictated separately.~Patient seen individually. Discussed the patient with Nursing staff reviewed the chart.~Reviewed interim history and current functioning. Reviewed vital signs,~Labs/ Radiology~and current medications noted below. Continue current treatment with the changes noted in the dictated addendum note Assessment: Vital Signs: Vital Signs Date Time Temp Pulse Resp B/P (MAP) Pulse Ox O2 Delivery O2 Flow Rate FiO2 08/19/18 16:07 97.8 76 16 113/66 (82) 100 08/16/18 05:48 Room Air I&O Intake and Output 08/19/18 07:00 Intake Total 1800 ml Balance 1800 ml Intake Oral 1800 ml Labs: Laboratory Tests Test 08/19/18 16:15 Sodium Level 137 mmol/L (136-145) Potassium Level 4.3 mmol/L (3.5-5.1) Chloride Level 99 mmol/L (98-107) Carbon Dioxide Level 29 mmol/L (21-32) Anion Gap 9 (6-14) Blood Urea Nitrogen 24 mg/dL (8-26) Creatinine 1.1 mg/dL (0.7-1.3) Estimated GFR (Cockcroft-Gault) 66.6 Glucose Level 98 mg/dL (70-99) Calcium Level 8.8 mg/dL (8.5-10.1) Current Medications: Meds: Current Medications Trimethoprim/ Sulfamethoxazole (Bactrim Ds) 1 tab 1X ONCE PO Last administered on 08/06/18at 18:50; Start 08/06/18 at 18:45; Stop 08/06/18 at 18:46 ; Status DC Acetaminophen (Tylenol) 650 mg PRN Q6HRS PRN PO PAIN / TEMP Last administered on 08/09/18at 21:06; Start 08/06/18 at 21:45 Multi-Ingredient Ointment (Analgesic [place]) 1 pedrito PRN QID PRN TP MUSCLE PAIN; Start 08/06/18 at 21:45 Al Hydroxide/Mg Hydroxide (Mylanta Plus Xs) 15 ml PRN AFTMEALHC PRN PO DYSPEPSIA; Start 08/06/18 at 21:45; Stop 08/07/18 at 13:58; Status DC Magnesium Hydroxide (Milk Of Magnesia) 2,400 mg PRN QHS PRN PO CONSTIPATION; Start 08/06/18 at 21:45; Stop 08/07/18 at 13:57; Status DC Ascorbic Acid (Vitamin C) 500 mg BID PO Last administered on 08/19/18at 07:40; Start 08/07/18 at 09:00 Docusate Sodium (Colace Solution) 100 mg BID PO Last administered on at 07:41; Start 08/07/18 at 09:00 Acetaminophen/ Hydrocodone Bitart (Lortab 5/325) 1 tab PRN Q4HRS PRN PO PAIN; Start 08/07/18 at 03:00 Lisinopril (Prinivil) 20 mg DAILY PO Last administered on 08/09/18at 09:15; Start 08/07/18 at 09:00; Stop 08/10/18 at 18:42; Status DC Tamsulosin HCl (Flomax) 0.4 mg DAILY PO Last administered on 08/19/18at 07:41; Start 08/07/18 at 09:00 Non-Formulary Medication (Amino Acids/ Protein Hydrolys (Pro-Stat Liquid)) 30 ml BID PO ; Start 08/07/18 at 09:00; Stop 08/07/18 at 09:00; Status DC Bisacodyl (Dulcolax Supp) 10 mg PRN DAILY PRN [place] CONSTIPATION; Start 08/07/18 at 07:45 Clozapine (Clozaril) 100 mg BID PO Last administered on 08/19/18at 07:39; Start 08/07/18 at 09:00 Famotidine (Pepcid) 20 mg BID PO Last administered on 08/19/18at 07:39; Start 08/07/18 at 09:00 Haloperidol (Haldol) 5 mg PRN Q6HRS PRN PO AGITATION Last administered on at 11:18; Start 08/07/18 at 07:45 Lactulose (Lactulose) 20 gm BID PO Last administered on 08/19/18at 07:41; Start 08/07/18 at 09:00 Lorazepam (Ativan) 1 mg PRN Q4HRS PRN PO ANXIETY / AGITATION Last administered on 08/07/18at 11:18; Start 08/07/18 at 07:45 Al Hydroxide/Mg Hydroxide (Mylanta Plus Xs) 30 ml PRN AFTMEALHC PRN PO DYSPEPSIA; Start 08/07/18 at 07:45 Magnesium Hydroxide (Milk Of Magnesia) 2,400 mg PRN QHS PRN PO CONSTIPATION; Start 08/07/18 at 07:45 Melatonin 6 mg QHS PO Last administered on 08/18/18 19:26; Start 08/07/18 at 21:00 Multivitamins/ Calcium (Thera-M Plus) 1 tab DAILY PO Last administered on 08/19at 07:40; Start 08/07/18 at 09:00 Nicotine (Nicoderm Cq 14mg) 1 patch DAILY TD Last administered on 08/18/18 09 :21; Start 08/07/18 at 09:00 Ondansetron HCl (Zofran Odt) 4 mg PRN Q8HRS PRN PO NAUSEA/VOMITING; Start 08/07 at 07:45 Topiramate (Topamax) 25 mg BID PO Last administered on 08/19/18 07:41; Start 08/07/18 at 09:00 Trazodone HCl (Desyrel) 100 mg QHS PO Last administered on 08/18/18 19:26; Start 08/07/18 at 21:00 Zinc Sulfate (Orazinc) 220 mg DAILY PO Last administered on 08/19/18 07:41; Start 08/07/18 at 09:00 Non-Formulary Medication ([[Patch Removal]] ) 1 each QHS MC ; Start 08/07/18 at 21:00; Status UNV Amoxicillin (Amoxil) 250 mg [id number] PO Last administered on 08/17/18at 13:38; Start 08/07/18 at 21:00; Stop 08/17/18 at 20:59; Status DC Lactobacillus Rhamnosus (Culturelle) 1 cap BID PO Last administered on 07:40; Start 08/07/18 at 21:00 Divalproex Sodium (Depakote Sprinkles) 500 mg BID PO Last administered on 08/17at 09:00; Start 08/07/18 at 21:00; Stop 08/17/18 at 16:51; Status DC Nystatin (Nystop) 1 pedrito BID TP Last administered on 08/19/18at 07:42; Start at 22:00 Furosemide (Lasix) 40 mg DAILY PO ; Start 08/18/18 at 09:00; Stop 08/18/18 at 09:00; Status DC Furosemide (Lasix) 40 mg DAILY PO Last administered on 08/19/18at 07:41; Start 08/17/18 at 14:30 Divalproex Sodium (Depakote Sprinkles) 750 mg BID PO Last administered on 08/19at 07:40; Start 08/17/18 at 21:00 Active Scripts Active Reported Zinc Gluconate 100 Mg Tablet 220 Mg PO DAILY 3 Days Vitamin C (Ascorbic Acid) 500 Mg Tablet 500 Mg PO BID Pro-Stat Liquid (Amino Acids/Protein Hydrolys) 30 Ml Liquid 30 Ml PO BID 3 Days NICODERM CQ 14mg (Nicotine) 1 Each Patch.td24 1 Patch TD DAILY Multivitamins (Multivitamin) 1 Each Tablet 1 Each PO DAILY 4 Days Lisinopril 20 Mg Tablet 20 Mg PO DAILY Haloperidol 5 Mg Tablet 5 Mg PO PRN Q6HRS PRN Topiramate 25 Mg Tablet 25 Mg PO BID Trazodone Hcl 100 Mg Tablet 100 Mg PO PRN QHS PRN Trazodone Hcl 100 Mg Tablet 100 Mg PO HS Clozapine 100 Mg Tablet 100 Mg PO BID Ondansetron Odt (Ondansetron) 4 Mg Tab.rapdis 4 Mg PO PRN Q8HRS PRN Melatonin 3 Mg Tablet 6 Mg PO QHS Milk Of Magnesia (Magnesium Hydroxide) 2,400 Mg/10 Ml Oral.susp 2,400 Mg PO PRN QHS PRN Mag-Al Plus Suspension (Mag Hydrox/Al Hydrox/Simeth) 30 Ml Oral.susp 30 Ml PO PRN AFTMEALHC PRN [[Patch Removal]] 1 Each MC QHS Bisacodyl 10 Mg Supp.rect 10 Mg RC PRN DAILY PRN Lorazepam 0.5 Mg Tablet 1 Mg PO PRN Q4HRS PRN Lactulose 10 Gm/15 Ml Solution 20 Gm PO BID Hydrocodone-Apap 5-325 (Hydrocodone Bit/Acetaminophen) 1 Each Tablet 1 Tab PO PRN Q4HRS PRN Flomax (Tamsulosin Hcl) 0.4 Mg Cap.er.24h 0.4 Mg PO DAILY Famotidine 20 Mg Tablet 20 Mg PO BID Docusate Sodium 50 Mg/5 Ml Liquid 100 Mg PO BID I have reviewed the current psychotropics carefully including drug interactions. Risk benefit ratio favors no change other than as noted in my dictated progress note. Diagnosis: Problems: (1) Anxiety disorder (2) Schizophrenia, chronic condition with acute exacerbation (3) Schizoaffective disorder, chronic condition with acute exacerbation (4) Delusion CHOCO JERRY MD Aug 19, 2018 20:03
[2018-08-19] MEDS: traZODone 100 MG TABLET. PO SCH (20:16)
[2018-08-19] MEDS: MELATONIN 3 MG TABLET PO SCH (20:16)
--- NOTE | 2018-08-20 00:51 | PN ---
DATE: 08/18/2018 PSYCHIATRIC PROGRESS NOTE This late entry 08/18/2018 covers elements not covered in my initial note. SUBJECTIVE: I met with the patient in the evening. The patient slept 7 hours previous night. Overall, he remained somewhat anxious and impulsive, but better than before. He was started on Lasix by Dr. Mane. REVIEW OF SYSTEMS: Ambulation impaired, in wheelchair. No CV, , pulmonary, eye, ENT system symptoms on review. Reliability varies. MENTAL STATUS EXAM: Oriented to himself and situation. Speech coherent, somewhat pressured at times, but redirects. Abstraction fair, computation impaired, language function intact, attention span short. Mood and affect still labile, but improved. LABORATORY DATA: Reviewed. Valproic acid level is 30 on the , which is subtherapeutic and we have since increased the Depakote to 750 mg b.i.d. with repeat labs level due in 3 days after that. IMPRESSION: Schizoaffective disorder, bipolar type, mixed with psychotic features, in partial remission; anxiety disorder, unspecified. PLAN: No change from initial note other than the Depakote, which was increased to reach therapeutic level. MAN Jameson JERRY MD DR: BRIELLE/naman JOB#: [id number] / [id number]
[2018-08-20 05:41] VITALS: BP 119/62
[2018-08-20 06:41] LABS: BASO % 0 % (0-3); EOS # 0.1 x10^3/uL (0.0-0.7); EOS % 1 % (0-3); HEMATOCRIT 26.8 % (39.0-53.0); HEMOGLOBIN 9.2 g/dL (13.0-17.5); LYMPH # 1.3 x10^3/uL (1.0-4.8); LYMPH % 24 % (24-48); MEAN CORPUSCULAR HEMOGLOBIN 34 pg (25-35); MEAN CORPUSCULAR HGB CONC 34 g/dL (31-37); MEAN CORPUSCULAR VOLUME 99 fL (79-100); MONO # 0.5 x10^3/uL (0.0-1.1); MONO % 10 % (0-9); NEUT # 3.6 x10^3uL (1.8-7.7); NEUT % 64 % (31-73); PLATELET COUNT 256 x10^3/uL (140-400); RED CELL DISTRIBUTION WIDTH 15.5 % (11.5-14.5); WHITE BLOOD COUNT 5.6 x10^3/uL (4.0-11.0)
[2018-08-20 06:56] LABS: ALBUMIN 2.5 g/dL (3.4-5.0); ALBUMIN/GLOBULIN RATIO 0.6 (1.0-1.7); ALK PHOS 106 U/L (46-116); ALT (SGPT) 13 U/L (16-63); ANION GAP 10 (6-14); AST (SGOT) 11 U/L (15-37); BLOOD UREA NITROGEN 24 mg/dL (8-26); BUN/CREATININE RATIO 22 (6-20); CALCIUM 8.5 mg/dL (8.5-10.1); CARBON DIOXIDE 27 mmol/L (21-32); CHLORIDE 100 mmol/L (98-107); CREATININE 1.1 mg/dL (0.7-1.3); GFR 66.6; GLUCOSE 92 mg/dL (70-99); POTASSIUM 4.4 mmol/L (3.5-5.1); SODIUM 137 mmol/L (136-145); TOTAL BILIRUBIN 0.1 mg/dL (0.2-1.0); TOTAL PROTEIN 6.4 g/dL (6.4-8.2)
[2018-08-20 06:57] LABS: VAL ACID 60 mcg/mL (50-100)
[2018-08-20] MEDS: ASCORBIC ACID 500 MG TABLET PO SCH ×2 (08:53→19:37)
[2018-08-20] MEDS: FAMOTIDINE 20 MG TABLET PO SCH ×2 (08:53→19:40)
[2018-08-20] MEDS: FUROSEMIDE 40 MG TABLET PO SCH (08:53)
[2018-08-20] MEDS: LACTULOSE 20 GM/30 ML SOLUTION. PO SCH ×2 (08:54→19:37)
[2018-08-20] MEDS: DIVALPROEX 125 MG CAP.SPRINK PO SCH ×2 (08:54→19:40)
[2018-08-20] MEDS: ZINC SULFATE 220 MG CAPSULE. PO SCH (08:54)
[2018-08-20] MEDS: NICOTINE 14MG PATCH. TD SCH (08:54)
[2018-08-20] MEDS: DOCUSATE 100 MG/10 ML SOLUTION. PO SCH ×2 (08:54→19:37)
[2018-08-20] MEDS: TAMSULOSIN 0.4 MG CAP.ER.24H. PO SCH (08:54)
[2018-08-20] MEDS: MULTIVITAMIN with MINERAL TABLET. PO SCH (08:54)
[2018-08-20] MEDS: cloZAPine 100 MG TABLET PO SCH ×2 (09:04→19:37)
[2018-08-20] MEDS: TOPIRAMATE 25 MG TABLET. PO SCH ×2 (09:04→19:40)
[2018-08-20] MEDS: LACTOBACILLUS RHAMNOSUS GG 1 CAPSULE. PO SCH ×2 (09:04→19:39)
[2018-08-20] MEDS: NYSTATIN TOPICAL POWDER 15GM BOTTLE. TP SCH ×2 (09:04→19:40)
[2018-08-20 15:43] VITALS: BP 127/79
[2018-08-20] MEDS: MELATONIN 3 MG TABLET PO SCH (19:39)
[2018-08-20] MEDS: traZODone 100 MG TABLET. PO SCH (19:39)
--- NOTE | 2018-08-20 22:59 | PDOC ---
Exam Note: Elijah Note: Please also refer to the separate dictated note~for this date of service dictated separately.~Patient seen individually. Discussed the patient with Nursing staff reviewed the chart.~Reviewed interim history and current functioning. Reviewed vital signs,~Labs/ Radiology~and current medications noted below. Continue current treatment with the changes noted in the dictated addendum note Assessment: Vital Signs: Vital Signs Date Time Temp Pulse Resp B/P (MAP) Pulse Ox O2 Delivery O2 Flow Rate FiO2 08/20/18 15:43 97.3 77 20 127/79 (95) 99 Room Air I&O Intake and Output 08/20/18 07:01 Intake Total 1380 ml Balance 1380 ml Intake Oral 1380 ml # Voids 1 # Bowel Movements 1 Labs: Laboratory Tests Test 08/20/18 06:25 White Blood Count 5.6 x10^3/uL (4.0-11.0) Red Blood Count 2.70 x10^6/uL (4.30-5.70) L Hemoglobin 9.2 g/dL (13.0-17.5) L Hematocrit 26.8 % (39.0-53.0) L Mean Corpuscular Volume 99 fL (79-100) Mean Corpuscular Hemoglobin 34 pg (25-35) Mean Corpuscular Hemoglobin Concent 34 g/dL (31-37) Red Cell Distribution Width 15.5 % (11.5-14.5) H Platelet Count 256 x10^3/uL (140-400) Neutrophils (%) (Auto) 64 % (31-73) Lymphocytes (%) (Auto) 24 % (24-48) Monocytes (%) (Auto) 10 % (0-9) H Eosinophils (%) (Auto) 1 % (0-3) Basophils (%) (Auto) 0 % (0-3) Neutrophils # (Auto) 3.6 x10^3uL (1.8-7.7) Lymphocytes # (Auto) 1.3 x10^3/uL (1.0-4.8) Monocytes # (Auto) 0.5 x10^3/uL (0.0-1.1) Eosinophils # (Auto) 0.1 x10^3/uL (0.0-0.7) Basophils # (Auto) 0.0 x10^3/uL (0.0-0.2) Sodium Level 137 mmol/L (136-145) Potassium Level 4.4 mmol/L (3.5-5.1) Chloride Level 100 mmol/L (98-107) Carbon Dioxide Level 27 mmol/L (21-32) Anion Gap 10 (6-14) Blood Urea Nitrogen 24 mg/dL (8-26) Creatinine 1.1 mg/dL (0.7-1.3) Estimated GFR (Cockcroft-Gault) 66.6 BUN/Creatinine Ratio 22 (6-20) H Glucose Level 92 mg/dL (70-99) Calcium Level 8.5 mg/dL (8.5-10.1) Total Bilirubin 0.1 mg/dL (0.2-1.0) L Aspartate Amino Transferase (AST) 11 U/L (15-37) L Alanine Aminotransferase (ALT) 13 U/L (16-63) L Alkaline Phosphatase 106 U/L (46-116) Total Protein 6.4 g/dL (6.4-8.2) Albumin 2.5 g/dL (3.4-5.0) L Albumin/Globulin Ratio 0.6 (1.0-1.7) L Valproic Acid Level 60 mcg/mL (50-100) Valproic Acid Last Dose Date 08/19/2018 Valproic Acid Last Dose Time 2100 Current Medications: Meds: Current Medications Trimethoprim/ Sulfamethoxazole (Bactrim Ds) 1 tab 1X ONCE PO Last administered on 08/06/18at 18:50; Start 08/06/18 at 18:45; Stop 08/06/18 at 18:46 ; Status DC Acetaminophen (Tylenol) 650 mg PRN Q6HRS PRN PO PAIN / TEMP Last administered on 08/09/18at 21:06; Start 08/06/18 at 21:45 Multi-Ingredient Ointment (Analgesic [place]) 1 pedrito PRN QID PRN TP MUSCLE PAIN; Start 08/06/18 at 21:45 Al Hydroxide/Mg Hydroxide (Mylanta Plus Xs) 15 ml PRN AFTMEALHC PRN PO DYSPEPSIA; Start 08/06/18 at 21:45; Stop 08/07/18 at 13:58; Status DC Magnesium Hydroxide (Milk Of Magnesia) 2,400 mg PRN QHS PRN PO CONSTIPATION; Start 08/06/18 at 21:45; Stop 08/07/18 at 13:57; Status DC Ascorbic Acid (Vitamin C) 500 mg BID PO Last administered on 08/20/18at 19:37; Start 08/07/18 at 09:00 Docusate Sodium (Colace Solution) 100 mg BID PO Last administered on at 19:37; Start 08/07/18 at 09:00 Acetaminophen/ Hydrocodone Bitart (Lortab 5/325) 1 tab PRN Q4HRS PRN PO PAIN; Start 08/07/18 at 03:00 Lisinopril (Prinivil) 20 mg DAILY PO Last administered on 08/09/18at 09:15; Start 08/07/18 at 09:00; Stop 08/10/18 at 18:42; Status DC Tamsulosin HCl (Flomax) 0.4 mg DAILY PO Last administered on 08/20/18at 08:54; Start 08/07/18 at 09:00 Non-Formulary Medication (Amino Acids/ Protein Hydrolys (Pro-Stat Liquid)) 30 ml BID PO ; Start 08/07/18 at 09:00; Stop 08/07/18 at 09:00; Status DC Bisacodyl (Dulcolax Supp) 10 mg PRN DAILY PRN [place] CONSTIPATION; Start 08/07/18 at 07:45 Clozapine (Clozaril) 100 mg BID PO Last administered on 08/20/18at 19:37; Start 08/07/18 at 09:00 Famotidine (Pepcid) 20 mg BID PO Last administered on 08/20/18at 19:40; Start 08/07/18 at 09:00 Haloperidol (Haldol) 5 mg PRN Q6HRS PRN PO AGITATION Last administered on at 11:18; Start 08/07/18 at 07:45 Lactulose (Lactulose) 20 gm BID PO Last administered on 08/20/18at 19:37; Start 08/07/18 at 09:00 Lorazepam (Ativan) 1 mg PRN Q4HRS PRN PO ANXIETY / AGITATION Last administered on 08/07/18at 11:18; Start 08/07/18 at 07:45 Al Hydroxide/Mg Hydroxide (Mylanta Plus Xs) 30 ml PRN AFTMEALHC PRN PO DYSPEPSIA; Start 08/07/18 at 07:45 Magnesium Hydroxide (Milk Of Magnesia) 2,400 mg PRN QHS PRN PO CONSTIPATION; Start 08/07/18 at 07:45 Melatonin 6 mg QHS PO Last administered on 08/20/18 19:39; Start 08/07/18 at 21:00 Multivitamins/ Calcium (Thera-M Plus) 1 tab DAILY PO Last administered on 08/20 08:54; Start 08/07/18 at 09:00 Nicotine (Nicoderm Cq 14mg) 1 patch DAILY TD Last administered on 08/20/18 08 :54; Start 08/07/18 at 09:00 Ondansetron HCl (Zofran Odt) 4 mg PRN Q8HRS PRN PO NAUSEA/VOMITING; Start 08/07 at 07:45 Topiramate (Topamax) 25 mg BID PO Last administered on 08/20/18 19:40; Start 08/07/18 at 09:00 Trazodone HCl (Desyrel) 100 mg QHS PO Last administered on 08/20/18 19:39; Start 08/07/18 at 21:00 Zinc Sulfate (Orazinc) 220 mg DAILY PO Last administered on 08/20/18 08:54; Start 08/07/18 at 09:00 Non-Formulary Medication ([[Patch Removal]] ) 1 each QHS MC ; Start 08/07/18 at 21:00; Status UNV Amoxicillin (Amoxil) 250 mg [id number] PO Last administered on 08/17/18at 13:38; Start 08/07/18 at 21:00; Stop 08/17/18 at 20:59; Status DC Lactobacillus Rhamnosus (Culturelle) 1 cap BID PO Last administered on 19:39; Start 08/07/18 at 21:00 Divalproex Sodium (Depakote Sprinkles) 500 mg BID PO Last administered on 08/17at 09:00; Start 08/07/18 at 21:00; Stop 08/17/18 at 16:51; Status DC Nystatin (Nystop) 1 pedrito BID TP Last administered on 08/20/18 19:40; Start at 22:00 Furosemide (Lasix) 40 mg DAILY PO ; Start 08/18/18 at 09:00; Stop 08/18/18 at 09:00; Status DC Furosemide (Lasix) 40 mg DAILY PO Last administered on 08/20/18at 08:53; Start 08/17/18 at 14:30 Divalproex Sodium (Depakote Sprinkles) 750 mg BID PO Last administered on 08/20at 19:40; Start 08/17/18 at 21:00 Fluvoxamine Maleate (Luvox) 25 mg QHS PO Last administered on 08/20/18at 19:41 ; Start 08/20/18 at 21:00 Active Scripts Active Reported Zinc Gluconate 100 Mg Tablet 220 Mg PO DAILY 3 Days Vitamin C (Ascorbic Acid) 500 Mg Tablet 500 Mg PO BID Pro-Stat Liquid (Amino Acids/Protein Hydrolys) 30 Ml Liquid 30 Ml PO BID 3 Days NICODERM CQ 14mg (Nicotine) 1 Each Patch.td24 1 Patch TD DAILY Multivitamins (Multivitamin) 1 Each Tablet 1 Each PO DAILY 4 Days Lisinopril 20 Mg Tablet 20 Mg PO DAILY Haloperidol 5 Mg Tablet 5 Mg PO PRN Q6HRS PRN Topiramate 25 Mg Tablet 25 Mg PO BID Trazodone Hcl 100 Mg Tablet 100 Mg PO PRN QHS PRN Trazodone Hcl 100 Mg Tablet 100 Mg PO HS Clozapine 100 Mg Tablet 100 Mg PO BID Ondansetron Odt (Ondansetron) 4 Mg Tab.rapdis 4 Mg PO PRN Q8HRS PRN Melatonin 3 Mg Tablet 6 Mg PO QHS Milk Of Magnesia (Magnesium Hydroxide) 2,400 Mg/10 Ml Oral.susp 2,400 Mg PO PRN QHS PRN Mag-Al Plus Suspension (Mag Hydrox/Al Hydrox/Simeth) 30 Ml Oral.susp 30 Ml PO PRN AFTMEALHC PRN [[Patch Removal]] 1 Each MC QHS Bisacodyl 10 Mg Supp.rect 10 Mg RC PRN DAILY PRN Lorazepam 0.5 Mg Tablet 1 Mg PO PRN Q4HRS PRN Lactulose 10 Gm/15 Ml Solution 20 Gm PO BID Hydrocodone-Apap 5-325 (Hydrocodone Bit/Acetaminophen) 1 Each Tablet 1 Tab PO PRN Q4HRS PRN Flomax (Tamsulosin Hcl) 0.4 Mg Cap.er.24h 0.4 Mg PO DAILY Famotidine 20 Mg Tablet 20 Mg PO BID Docusate Sodium 50 Mg/5 Ml Liquid 100 Mg PO BID I have reviewed the current psychotropics carefully including drug interactions. Risk benefit ratio favors no change other than as noted in my dictated progress note. Diagnosis: Problems: (1) Delusion (2) Anxiety disorder (3) Schizophrenia, chronic condition with acute exacerbation (4) Schizoaffective disorder, chronic condition with acute exacerbation CHOCO JERRY MD Aug 20, 2018 22:59
[2018-08-21 06:33] VITALS: BP 96/52
[2018-08-21] MEDS: ZINC SULFATE 220 MG CAPSULE. PO SCH (11:07)
[2018-08-21] MEDS: ASCORBIC ACID 500 MG TABLET PO SCH ×2 (11:07→19:44)
[2018-08-21] MEDS: DOCUSATE 100 MG/10 ML SOLUTION. PO SCH ×2 (11:08→19:44)
[2018-08-21] MEDS: FAMOTIDINE 20 MG TABLET PO SCH ×2 (11:08→19:45)
[2018-08-21] MEDS: DIVALPROEX 125 MG CAP.SPRINK PO SCH ×2 (11:08→19:44)
[2018-08-21] MEDS: FUROSEMIDE 40 MG TABLET PO SCH (11:08)
[2018-08-21] MEDS: cloZAPine 100 MG TABLET PO SCH ×2 (11:08→19:44)
[2018-08-21] MEDS: TOPIRAMATE 25 MG TABLET. PO SCH ×2 (11:08→19:44)
[2018-08-21] MEDS: MULTIVITAMIN with MINERAL TABLET. PO SCH (11:08)
[2018-08-21] MEDS: TAMSULOSIN 0.4 MG CAP.ER.24H. PO SCH (11:08)
[2018-08-21] MEDS: LACTOBACILLUS RHAMNOSUS GG 1 CAPSULE. PO SCH ×2 (11:08→19:44)
[2018-08-21] MEDS: NYSTATIN TOPICAL POWDER 15GM BOTTLE. TP SCH ×2 (11:09→19:45)
[2018-08-21] MEDS: LACTULOSE 20 GM/30 ML SOLUTION. PO SCH ×2 (11:09→19:44)
[2018-08-21] MEDS: NICOTINE 14MG PATCH. TD SCH (11:09)
[2018-08-21 15:26] VITALS: BP 101/68
[2018-08-21] MEDS: traZODone 100 MG TABLET. PO SCH (19:44)
[2018-08-21] MEDS: MELATONIN 3 MG TABLET PO SCH (19:44)
--- NOTE | 2018-08-21 21:22 | PN ---
DATE: 08/20/2018 This is a late entry for 08/20/2018 and covers elements not covered in my initial note. SUBJECTIVE: I met with the patient in the evening and staffed at a treatment team meeting with the entire team in the morning. The patient slept reasonably well. Per nursing report, he has been somewhat obsessive, ritualistically touching things in sequence, noted by several staff members. Valproic acid level is 60. REVIEW OF SYSTEMS: Ambulation impaired, in wheelchair. No CV, , pulmonary, eye, ENT system symptoms on review. MENTAL STATUS EXAM: Oriented to himself and situation. Speech is coherent, a little pressured at times. Abstraction fair, computation impaired, language function intact, attention span short. Mood and affect is improved. LABORATORY DATA: Reviewed. IMPRESSION: Schizoaffective disorder, bipolar type, mixed with psychotic features, in partial remission; anxiety disorder, unspecified; obsessive-compulsive disorder. Rest unchanged. PLAN: Continue psychotropics from initial note, start Luvox 25 mg p.o. at bedtime for his obsessive thought processes. CHOCO JERRY MD DR: BRIELLE/naman JOB#: [id number] / [id number]
--- NOTE | 2018-08-21 22:48 | PDOC ---
Exam Note: Elijah Note: Please also refer to the separate dictated note~for this date of service dictated separately.~Patient seen individually. Discussed the patient with Nursing staff reviewed the chart.~Reviewed interim history and current functioning. Reviewed vital signs,~Labs/ Radiology~and current medications noted below. Continue current treatment with the changes noted in the dictated addendum note Assessment: Vital Signs: Vital Signs Date Time Temp Pulse Resp B/P (MAP) Pulse Ox O2 Delivery O2 Flow Rate FiO2 08/21/18 15:26 97.2 79 20 101/68 (79) 100 08/21/18 06:33 Room Air I&O Intake and Output 08/21/18 07:01 Intake Total 1200 ml Balance 1200 ml Intake Oral 1200 ml # Voids 2 Current Medications: Meds: Current Medications Trimethoprim/ Sulfamethoxazole (Bactrim Ds) 1 tab 1X ONCE PO Last administered on 08/06/18at 18:50; Start 08/06/18 at 18:45; Stop 08/06/18 at 18:46 ; Status DC Acetaminophen (Tylenol) 650 mg PRN Q6HRS PRN PO PAIN / TEMP Last administered on 08/09/18at 21:06; Start 08/06/18 at 21:45 Multi-Ingredient Ointment (Analgesic [place]) 1 pedrito PRN QID PRN TP MUSCLE PAIN; Start 08/06/18 at 21:45 Al Hydroxide/Mg Hydroxide (Mylanta Plus Xs) 15 ml PRN AFTMEALHC PRN PO DYSPEPSIA; Start 08/06/18 at 21:45; Stop 08/07/18 at 13:58; Status DC Magnesium Hydroxide (Milk Of Magnesia) 2,400 mg PRN QHS PRN PO CONSTIPATION; Start 08/06/18 at 21:45; Stop 08/07/18 at 13:57; Status DC Ascorbic Acid (Vitamin C) 500 mg BID PO Last administered on 08/21/18at 19:44; Start 08/07/18 at 09:00 Docusate Sodium (Colace Solution) 100 mg BID PO Last administered on at 19:44; Start 08/07/18 at 09:00 Acetaminophen/ Hydrocodone Bitart (Lortab 5/325) 1 tab PRN Q4HRS PRN PO PAIN; Start 08/07/18 at 03:00 Lisinopril (Prinivil) 20 mg DAILY PO Last administered on 08/09/18 09:15; Start 08/07/18 at 09:00; Stop 08/10/18 at 18:42; Status DC Tamsulosin HCl (Flomax) 0.4 mg DAILY PO Last administered on 08/21/18 11:08; Start 08/07/18 at 09:00 Non-Formulary Medication (Amino Acids/ Protein Hydrolys (Pro-Stat Liquid)) 30 ml BID PO ; Start 08/07/18 at 09:00; Stop 08/07/18 at 09:00; Status DC Bisacodyl (Dulcolax Supp) 10 mg PRN DAILY PRN [place] CONSTIPATION; Start 08/07/18 at 07:45 Clozapine (Clozaril) 100 mg BID PO Last administered on 08/21/18 19:44; Start 08/07/18 at 09:00 Famotidine (Pepcid) 20 mg BID PO Last administered on 08/21/18 19:45; Start 08/07/18 at 09:00 Haloperidol (Haldol) 5 mg PRN Q6HRS PRN PO AGITATION Last administered on 11:18; Start 08/07/18 at 07:45 Lactulose (Lactulose) 20 gm BID PO Last administered on 08/21/18 19:44; Start 08/07/18 at 09:00 Lorazepam (Ativan) 1 mg PRN Q4HRS PRN PO ANXIETY / AGITATION Last administered on 08/07/18 11:18; Start 08/07/18 at 07:45 Al Hydroxide/Mg Hydroxide (Mylanta Plus Xs) 30 ml PRN AFTMEALHC PRN PO DYSPEPSIA; Start 08/07/18 at 07:45 Magnesium Hydroxide (Milk Of Magnesia) 2,400 mg PRN QHS PRN PO CONSTIPATION; Start 08/07/18 at 07:45 Melatonin 6 mg QHS PO Last administered on 08/21/18 19:44; Start 08/07/18 at 21:00 Multivitamins/ Calcium (Thera-M Plus) 1 tab DAILY PO Last administered on 08/21 11:08; Start 08/07/18 at 09:00 Nicotine (Nicoderm Cq 14mg) 1 patch DAILY TD Last administered on 08/21/18 11 :09; Start 08/07/18 at 09:00 Ondansetron HCl (Zofran Odt) 4 mg PRN Q8HRS PRN PO NAUSEA/VOMITING; Start 08/07 at 07:45 Topiramate (Topamax) 25 mg BID PO Last administered on 08/21/18 19:44; Start 08/07/18 at 09:00 Trazodone HCl (Desyrel) 100 mg QHS PO Last administered on 08/21/18 19:44; Start 08/07/18 at 21:00 Zinc Sulfate (Orazinc) 220 mg DAILY PO Last administered on 08/21/18 11:07; Start 08/07/18 at 09:00 Non-Formulary Medication ([[Patch Removal]] ) 1 each QHS MC ; Start 08/07/18 at 21:00; Status UNV Amoxicillin (Amoxil) 250 mg [id number] PO Last administered on 08/17/18 13:38; Start 08/07/18 at 21:00; Stop 08/17/18 at 20:59; Status DC Lactobacillus Rhamnosus (Culturelle) 1 cap BID PO Last administered on 19:44; Start 08/07/18 at 21:00 Divalproex Sodium (Depakote Sprinkles) 500 mg BID PO Last administered on 08/17 09:00; Start 08/07/18 at 21:00; Stop 08/17/18 at 16:51; Status DC Nystatin (Nystop) 1 pedrito BID TP Last administered on 08/21/18 19:45; Start at 22:00 Furosemide (Lasix) 40 mg DAILY PO ; Start 08/18/18 at 09:00; Stop 08/18/18 at 09:00; Status DC Furosemide (Lasix) 40 mg DAILY PO Last administered on 08/21/18 11:08; Start 08/17/18 at 14:30 Divalproex Sodium (Depakote Sprinkles) 750 mg BID PO Last administered on 08/21 19:44; Start 08/17/18 at 21:00 Fluvoxamine Maleate (Luvox) 25 mg QHS PO Last administered on 12/21/18at 19:44 ; Start 08/20/18 at 21:00 Active Scripts Active Reported Zinc Gluconate 100 Mg Tablet 220 Mg PO DAILY 3 Days Vitamin C (Ascorbic Acid) 500 Mg Tablet 500 Mg PO BID Pro-Stat Liquid (Amino Acids/Protein Hydrolys) 30 Ml Liquid 30 Ml PO BID 3 Days NICODERM CQ 14mg (Nicotine) 1 Each Patch.td24 1 Patch TD DAILY Multivitamins (Multivitamin) 1 Each Tablet 1 Each PO DAILY 4 Days Lisinopril 20 Mg Tablet 20 Mg PO DAILY Haloperidol 5 Mg Tablet 5 Mg PO PRN Q6HRS PRN Topiramate 25 Mg Tablet 25 Mg PO BID Trazodone Hcl 100 Mg Tablet 100 Mg PO PRN QHS PRN Trazodone Hcl 100 Mg Tablet 100 Mg PO HS Clozapine 100 Mg Tablet 100 Mg PO BID Ondansetron Odt (Ondansetron) 4 Mg Tab.rapdis 4 Mg PO PRN Q8HRS PRN Melatonin 3 Mg Tablet 6 Mg PO QHS Milk Of Magnesia (Magnesium Hydroxide) 2,400 Mg/10 Ml Oral.susp 2,400 Mg PO PRN QHS PRN Mag-Al Plus Suspension (Mag Hydrox/Al Hydrox/Simeth) 30 Ml Oral.susp 30 Ml PO PRN AFTMEALHC PRN [[Patch Removal]] 1 Each MC QHS Bisacodyl 10 Mg Supp.rect 10 Mg RC PRN DAILY PRN Lorazepam 0.5 Mg Tablet 1 Mg PO PRN Q4HRS PRN Lactulose 10 Gm/15 Ml Solution 20 Gm PO BID Hydrocodone-Apap 5-325 (Hydrocodone Bit/Acetaminophen) 1 Each Tablet 1 Tab PO PRN Q4HRS PRN Flomax (Tamsulosin Hcl) 0.4 Mg Cap.er.24h 0.4 Mg PO DAILY Famotidine 20 Mg Tablet 20 Mg PO BID Docusate Sodium 50 Mg/5 Ml Liquid 100 Mg PO BID I have reviewed the current psychotropics carefully including drug interactions. Risk benefit ratio favors no change other than as noted in my dictated progress note. Diagnosis: Problems: (1) Delusion (2) Anxiety disorder (3) Schizophrenia, chronic condition with acute exacerbation (4) Schizoaffective disorder, chronic condition with acute exacerbation CHOCO JERRY MD Aug 21, 2018 22:48
[2018-08-22] MEDS ORDERED: ACET325T21 PO (02:12)
[2018-08-22] MEDS ORDERED: DIVA125C2 PO (02:13)
[2018-08-22] MEDS ORDERED: FURO40TA4 PO (02:13)
[2018-08-22] MEDS ORDERED: LACT1CAP21 PO (02:14)
[2018-08-22] MEDS ORDERED: METH29OI TP (02:14)
[2018-08-22] MEDS ORDERED: FLUV25TA PO (02:15)
[2018-08-22] MEDS ORDERED: NYST15PO9 TP (02:15)
--- NOTE | 2018-08-22 05:33 | PN ---
DATE: 08/19/2018 PSYCHIATRIC PROGRESS NOTE This late entry 08/19/2018 covers elements not covered in my initial note. SUBJECTIVE: I met with the patient in the evening. The patient slept 7-1/4 hours previous evening. He has been doing better per nursing report, less agitated, though he is still socially inappropriate, picking up things that belong to others including food items and eating them. REVIEW OF SYSTEMS: Ambulation impaired, in wheelchair. No CV, , pulmonary, eye, ENT system symptoms on review. MENTAL STATUS EXAM: Oriented to himself, situation. Speech is coherent, abstraction fair, computation impaired, language function intact, attention span short. Mood and affect somewhat anxious, labile, but improved. LABORATORY DATA: Reviewed. IMPRESSION: Unchanged from initial note. PLAN: No change from initial note. MAN Jameson JERRY MD DR: BRIELLE/naman JOB#: [id number] / [id number]
[2018-08-22 06:41] VITALS: BP 130/70
[2018-08-22] MEDS: LACTOBACILLUS RHAMNOSUS GG 1 CAPSULE. PO SCH (07:57)
[2018-08-22] MEDS: ZINC SULFATE 220 MG CAPSULE. PO SCH (07:57)
[2018-08-22] MEDS: ASCORBIC ACID 500 MG TABLET PO SCH (07:57)
[2018-08-22] MEDS: NICOTINE 14MG PATCH. TD SCH (07:57)
[2018-08-22] MEDS: TAMSULOSIN 0.4 MG CAP.ER.24H. PO SCH (07:57)
[2018-08-22] MEDS: DOCUSATE 100 MG/10 ML SOLUTION. PO SCH (07:58)
[2018-08-22] MEDS: cloZAPine 100 MG TABLET PO SCH (07:58)
[2018-08-22] MEDS: DIVALPROEX 125 MG CAP.SPRINK PO SCH (07:58)
[2018-08-22] MEDS: MULTIVITAMIN with MINERAL TABLET. PO SCH (07:58)
[2018-08-22] MEDS: TOPIRAMATE 25 MG TABLET. PO SCH (07:58)
[2018-08-22] MEDS: LACTULOSE 20 GM/30 ML SOLUTION. PO SCH (07:59)
[2018-08-22] MEDS: FAMOTIDINE 20 MG TABLET PO SCH (08:00)
[2018-08-22] MEDS: NYSTATIN TOPICAL POWDER 15GM BOTTLE. TP SCH (08:01)
[2018-08-22] MEDS: FUROSEMIDE 40 MG TABLET PO SCH (08:16)
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
--- NOTE | 2018-08-23 12:06 | PN ---
DATE: 08/21/2018 PSYCHIATRIC PROGRESS NOTE This is a late entry, date of service 08/21/2018, covers elements not covered in my initial note. SUBJECTIVE: I met with the patient in the evening. Overall, the patient slept 6 hours previous evening, doing better. He remains in his wheelchair, up and down the hallway quite rapidly at times, but less obsessive. He has been started on Luvox 25 mg p.o. at bedtime for his OCD symptoms. REVIEW OF SYSTEMS: Ambulation impaired, in wheelchair. No CV, , pulmonary, eye, ENT system symptoms on review. MENTAL STATUS EXAM: Oriented to himself and situation. Speech coherent, has some latency. Abstraction fair, computation impaired, language function intact, attention span short. Mood and affect improved lability. LABORATORY DATA: Reviewed. IMPRESSION: Schizoaffective disorder, bipolar type, mixed with psychotic features. Rest unchanged, OCD. PLAN: No change from initial note, gradually increase the Luvox. MAN Jameson JERRY MD DR: BRIELLE/naman JOB#: [id number] / [id number]
--- NOTE | 2018-08-23 18:45 | PDOC ---
Exam Note: Elijah Note: Late entry for date of service August.Please also refer to the separate dictated note~for this date of service dictated separately.~Patient seen individually. Discussed the patient with Nursing staff reviewed the chart.~ Reviewed interim history and current functioning. Reviewed vital signs,~Labs/ Radiology~and current medications noted below. Continue current treatment with the changes noted in the dictated addendum note Assessment: Vital Signs: VS - Last 72 Hours, by Label Date Time Temp Pulse Resp B/P (MAP) Pulse Ox O2 Delivery O2 Flow Rate FiO2 08/22/18 06:41 98.1 85 16 130/70 (90) 96 08/21/18 15:26 97.2 79 20 101/68 (79) 100 08/21/18 06:33 97.8 80 20 96/52 (67) 94 Room Air Vital Signs Date Time Temp Pulse Resp B/P (MAP) Pulse Ox O2 Delivery O2 Flow Rate FiO2 08/22/18 06:41 98.1 85 16 130/70 (90) 96 08/21/18 06:33 Room Air I&O Intake and Output 08/23/18 07:01 Intake Total 480 ml Balance 480 ml Intake Oral 480 ml Current Medications: Meds: Current Medications Trimethoprim/ Sulfamethoxazole (Bactrim Ds) 1 tab 1X ONCE PO Last administered on 08/06/18at 18:50; Start 08/06/18 at 18:45; Stop 08/06/18 at 18:46 ; Status DC Acetaminophen (Tylenol) 650 mg PRN Q6HRS PRN PO PAIN / TEMP Last administered on 08/09/18at 21:06; Start 08/06/18 at 21:45; Stop 08/22/18 at 11:22; Status DC Multi-Ingredient Ointment (Analgesic Palmer) 1 rupert PRN QID PRN TP MUSCLE PAIN; Start 08/06/18 at 21:45; Stop 08/22/18 at 11:22; Status DC Al Hydroxide/Mg Hydroxide (Mylanta Plus Xs) 15 ml PRN AFTMEALHC PRN PO DYSPEPSIA; Start 08/06/18 at 21:45; Stop 08/07/18 at 13:58; Status DC Magnesium Hydroxide (Milk Of Magnesia) 2,400 mg PRN QHS PRN PO CONSTIPATION; Start 08/06/18 at 21:45; Stop 08/07/18 at 13:57; Status DC Ascorbic Acid (Vitamin C) 500 mg BID PO Last administered on 08/22/18at 07:57; Start 08/07/18 at 09:00; Stop 08/22/18 at 11:22; Status DC Docusate Sodium (Colace Solution) 100 mg BID PO Last administered on at 07:58; Start 08/07/18 at 09:00; Stop 08/22/18 at 11:22; Status DC Acetaminophen/ Hydrocodone Bitart (Lortab 5/325) 1 tab PRN Q4HRS PRN PO PAIN; Start 08/07/18 at 03:00; Stop 08/22/18 at 11:22; Status DC Lisinopril (Prinivil) 20 mg DAILY PO Last administered on 08/09/18at 09:15; Start 08/07/18 at 09:00; Stop 08/10/18 at 18:42; Status DC Tamsulosin HCl (Flomax) 0.4 mg DAILY PO Last administered on 08/22/18at 07:57; Start 08/07/18 at 09:00; Stop 08/22/18 at 11:22; Status DC Non-Formulary Medication (Amino Acids/ Protein Hydrolys (Pro-Stat Liquid)) 30 ml BID PO ; Start 08/07/18 at 09:00; Stop 08/07/18 at 09:00; Status DC Bisacodyl (Dulcolax Supp) 10 mg PRN DAILY PRN [place] CONSTIPATION; Start 08/07/18 at 07:45; Stop 08/22/18 at 11:22; Status DC Clozapine (Clozaril) 100 mg BID PO Last administered on 08/22/18at 07:58; Start 08/07/18 at 09:00; Stop 08/22/18 at 11:22; Status DC Famotidine (Pepcid) 20 mg BID PO Last administered on 08/22/18at 08:00; Start 08/07/18 at 09:00; Stop 08/22/18 at 11:22; Status DC Haloperidol (Haldol) 5 mg PRN Q6HRS PRN PO AGITATION Last administered on at 11:18; Start 08/07/18 at 07:45; Stop 08/22/18 at 11:22; Status DC Lactulose (Lactulose) 20 gm BID PO Last administered on 08/22/18at 07:59; Start 08/07/18 at 09:00; Stop 08/22/18 at 11:22; Status DC Lorazepam (Ativan) 1 mg PRN Q4HRS PRN PO ANXIETY / AGITATION Last administered on 08/07/18at 11:18; Start 08/07/18 at 07:45; Stop 08/22/18 at 11:22; Status DC Al Hydroxide/Mg Hydroxide (Mylanta Plus Xs) 30 ml PRN AFTMEALHC PRN PO DYSPEPSIA; Start 08/07/18 at 07:45; Stop 08/22/18 at 11:22; Status DC Magnesium Hydroxide (Milk Of Magnesia) 2,400 mg PRN QHS PRN PO CONSTIPATION; Start 08/07/18 at 07:45; Stop 08/22/18 at 11:22; Status DC Melatonin 6 mg QHS PO Last administered on 08/21/18at 19:44; Start 08/07/18 at 21:00; Stop 08/22/18 at 11:22; Status DC Multivitamins/ Calcium (Thera-M Plus) 1 tab DAILY PO Last administered on 08/22at 07:58; Start 08/07/18 at 09:00; Stop 08/22/18 at 11:22; Status DC Nicotine (Nicoderm Cq 14mg) 1 patch DAILY TD Last administered on 08/22/18at 07 :57; Start 08/07/18 at 09:00; Stop 08/22/18 at 11:22; Status DC Ondansetron HCl (Zofran Odt) 4 mg PRN Q8HRS PRN PO NAUSEA/VOMITING; Start 08/07 at 07:45; Stop 08/22/18 at 11:22; Status DC Topiramate (Topamax) 25 mg BID PO Last administered on 08/22/18at 07:58; Start 08/07/18 at 09:00; Stop 08/22/18 at 11:22; Status DC Trazodone HCl (Desyrel) 100 mg QHS PO Last administered on 08/21/18at 19:44; Start 08/07/18 at 21:00; Stop 08/22/18 at 11:22; Status DC Zinc Sulfate (Orazinc) 220 mg DAILY PO Last administered on 08/22/18at 07:57; Start 08/07/18 at 09:00; Stop 08/22/18 at 11:22; Status DC Non-Formulary Medication ([[Patch Removal]] ) 1 each QHS ; Start 08/07/18 at 21:00; Status UNV Amoxicillin (Amoxil) 250 mg [id number] PO Last administered on 08/17/18at 13:38; Start 08/07/18 at 21:00; Stop 08/17/18 at 20:59; Status DC Lactobacillus Rhamnosus (Culturelle) 1 cap BID PO Last administered on at 07:57; Start 08/07/18 at 21:00; Stop 08/22/18 at 11:22; Status DC Divalproex Sodium (Depakote Sprinkles) 500 mg BID PO Last administered on 08/17at 09:00; Start 08/07/18 at 21:00; Stop 08/17/18 at 16:51; Status DC Nystatin (Nystop) 1 rupert BID TP Last administered on 08/22/18at 08:01; Start at 22:00; Stop 08/22/18 at 11:22; Status DC Furosemide (Lasix) 40 mg DAILY PO ; Start 08/18/18 at 09:00; Stop 08/18/18 at 09:00; Status DC Furosemide (Lasix) 40 mg DAILY PO Last administered on 08/22/18at 08:16; Start 08/17/18 at 14:30; Stop 08/22/18 at 11:22; Status DC Divalproex Sodium (Depakote Sprinkles) 750 mg BID PO Last administered on 08/22at 07:58; Start 08/17/18 at 21:00; Stop 08/22/18 at 11:22; Status DC Fluvoxamine Maleate (Luvox) 25 mg QHS PO Last administered on 08/21/18at 19:44 ; Start 08/20/18 at 21:00; Stop 08/22/18 at 11:22; Status DC Active Scripts Active Reported Fluvoxamine Maleate 25 Mg Tablet 25 Mg PO HS Nystatin 15 Gm Powder 1 Rupert TP BID Analgesic Palmer (Methyl Salicylate/Menthol) 28 Gm Oint...g. 1 Rupert TP PRN QID PRN Culturelle (Lactobacillus Rhamnosus Gg) 1 Each Capsule 1 Cap PO BID Furosemide 40 Mg Tablet 40 Mg PO DAILY Depakote Sprinkle (Divalproex Sodium) 125 Mg Cap.sprink 750 Mg PO BID Acetaminophen 325 Mg Tablet 650 Mg PO PRN Q6HRS PRN Zinc Gluconate 100 Mg Tablet 220 Mg PO DAILY 3 Days Vitamin C (Ascorbic Acid) 500 Mg Tablet 500 Mg PO BID NICODERM CQ 14mg (Nicotine) 1 Each Patch.td24 1 Patch TD DAILY Multivitamins (Multivitamin) 1 Each Tablet 1 Each PO DAILY 4 Days Haloperidol 5 Mg Tablet 5 Mg PO PRN Q6HRS PRN Topiramate 25 Mg Tablet 25 Mg PO BID Trazodone Hcl 100 Mg Tablet 100 Mg PO HS Clozapine 100 Mg Tablet 100 Mg PO BID Ondansetron Odt (Ondansetron) 4 Mg Tab.rapdis 4 Mg PO PRN Q8HRS PRN Melatonin 3 Mg Tablet 6 Mg PO QHS Milk Of Magnesia (Magnesium Hydroxide) 2,400 Mg/10 Ml Oral.susp 2,400 Mg PO PRN QHS PRN Mag-Al Plus Suspension (Mag Hydrox/Al Hydrox/Simeth) 30 Ml Oral.susp 30 Ml PO PRN AFTMEALHC PRN Bisacodyl 10 Mg Supp.rect 10 Mg RC PRN DAILY PRN Lorazepam 0.5 Mg Tablet 1 Mg PO PRN Q4HRS PRN Lactulose 10 Gm/15 Ml Solution 20 Gm PO BID Hydrocodone-Apap 5-325 (Hydrocodone Bit/Acetaminophen) 1 Each Tablet 1 Tab PO PRN Q4HRS PRN Flomax (Tamsulosin Hcl) 0.4 Mg Cap.er.24h 0.4 Mg PO DAILY Famotidine 20 Mg Tablet 20 Mg PO BID Docusate Sodium 50 Mg/5 Ml Liquid 100 Mg PO BID I have reviewed the current psychotropics carefully including drug interactions. Risk benefit ratio favors no change other than as noted in my dictated progress note. Diagnosis: Problems: (1) Delusion (2) Anxiety disorder (3) Schizophrenia, chronic condition with acute exacerbation (4) Schizoaffective disorder, chronic condition with acute exacerbation CHOCO JERRY MD Aug 23, 2018 18:45
== END 2018-08-22 09:00 | DRG 885 ==
LOC: ER 16:43 → GEROPSY 19:41
PROVIDERS: ADMIT Psychiatry & Neurology Psychiatry; ATTEND Psychiatry & Neurology Psychiatry
DX: F25.0 Schizoaffective disorder, bipolar type (principal); E43 Unspecified severe protein-calorie malnutrition; N39.0 Urinary tract infection, site not specified; F03.90 Unspecified dementia, unspecified severity, without behavioral disturbance, psychotic disturbance, mood disturbance, and anxiety; F41.9 Anxiety disorder, unspecified; F42.9 Obsessive-compulsive disorder, unspecified; F63.9 Impulse disorder, unspecified; G24.01 Drug induced subacute dyskinesia; I12.9 Hypertensive chronic kidney disease with stage 1 through stage 4 chronic kidney disease, or unspecified chronic kidney disease; I73.9 Peripheral vascular disease, unspecified; I48.0 Paroxysmal atrial fibrillation; K21.9 Gastro-esophageal reflux disease without esophagitis; K59.09 Other constipation; N18.9 Chronic kidney disease, unspecified; N40.0 Benign prostatic hyperplasia without lower urinary tract symptoms; Z79.899 Other long term (current) drug therapy; Z87.440 Personal history of urinary (tract) infections; Z91.81 History of falling; Z91.83 Wandering in diseases classified elsewhere; Z68.28 Body mass index [BMI] 28.0-28.9, adult
CPT/HCPCS: 36415; 71045; 80048; 80053; 80061; 80164; 81001; 82306; 82575; 82607; 83036; 83540; 83550; 83735; 84156; 84436; 84443; 84480; 85025; 86592; 87086; 87186; 93005; 93970; P9612; 99285-25